=== PATIENT | female | born 1965 | race American Indian/Alaskan Native ===

== ENCOUNTER 2022-11-09 12:33 | Inpatient (IN) | payer OTHER, MEDICAID, SELFPAY ==
[2022-11-09] VITALS (14 sets, daily range): BP systolic 85–138; BP diastolic 44–66; PULSE 95–114; RESP 16–41; TEMP 36.8–37.1; O2SAT 88–99; BMI 57.9
--- NOTE | 2022-11-09 13:03 | PC.NURSE ---
Pt placed on hovermat for easier transfer is needed. Pt's clothing removed. Pt has red, excoriated skin between folds of panus and shane area. Areas of sloughing skin on blle upper inner and posterior thighs. Anal area is dark tissue non blanching surrounding anus, appears to be an unstagable pressure ulcer. All areas painful to touch. Pt cleaned and dried and barrier cream placed. Pt turned to right side, pillows placed to back and in between legs.
--- NOTE | 2022-11-09 13:04 | ED_ITS ---
HPI - General Adult General Chief complaint: Fall Stated complaint: fall, + thinners Time Seen by Provider: 11/09/22 12:47 Source: patient and EMS Mode of arrival: EMS Limitations: no limitations History of Present Illness HPI narrative: Patient is a 57-year-old female. Is on anticoagulation for multiple blood lois ts. Not a diabetic. Does have chronic back issues. Has had surgery. Has rods in her back. Approximately 1 week ago she was trying to stand up from her chair using her walker when she fell. She did not hit her head. There was no loss of conscious. She did injure any extremities although she was unable to get up. She is spent the past week lying on the floor. Her [facility] He is given her food and also things to drink. He is tried to help her up but he was unable to do so. She refused to have him contact any help to get her up. She states that it was her that did not him to contact anyone. She finally relented this morning. EMS was called. She was brought to the emergency department by EMS. She has no extremity complaints. No chest pain. No shortness of breath. No headache. No abdominal pain. Related Data Allergies Allergy/AdvReac Type Severity Reaction Status Date / Time No Known Drug Allergies Allergy Verified 11/09/22 15:51 Review of Systems Review of Systems ROS Unobtainable: All systems reviewed & are unremarkable except as noted in HPI and below Patient History Medical History DVT (deep venous thrombosis) Pulmonary embolism Social History Smoking Status: Never smoker Exam Initial Vital Signs Initial Vital Signs: Vital Signs Temperature 98.7 F 11/09/22 12:30 Pulse Rate 106 H 11/09/22 12:30 Respiratory Rate 17 11/09/22 12:30 Blood Pressure 138/65 11/09/22 12:30 Pulse Oximetry 99 11/09/22 12:30 Oxygen Delivery Method 11/09/22 12:30 Const General: disheveled Nutritional Appearance: obese HENMT Head: normal to inspection and normocephalic Mouth: No moist mucous membranes Resp Effort & Inspection: normal respiratory effort Auscultation: clear to auscultation bilaterally Cardio Rate: bradycardic Rhythm: regular rhythm GI Inspection: normal to inspection Palpation: soft Back/Spine/Pelvis Cervical Spine: No cervical spinal tenderness Skin Other: Patient has pressure ulcerations in her lower back/upper buttocks and also in her upper thighs specifically on the left. Minimal surrounding erythema. No drainage. There was skin sloughing of the area. Neuro General: patient alert, patient awake, patient oriented x3 and moves all extremities Cranial Nerves: CN's II-XI intact bilaterally Cognition: normal cognition Extrem General: normal to inspection and capillary refill normal Psych Appearance: disheveled Scores GCS Gilbert coma scale eye opening: Spontaneous Gilbert coma scale verbal response: Orientated Jorge coma scale motor response: Obey commands Jorge coma scale total score: 15 Nexus Score for C-Spine Focal Neurologic deficit present: No Midline spinal tenderness present: No Altered level of conciousness present: No Intoxication present: No Distracting Injury Present: No Nexus Criteria for C-spine: 0 Course Orders Ordered: ED Orders 11/09/22 13:08 EKG-12 Lead Stat 11/09/22 13:40 Covid-19 + FLU A/B + RSV - PCR Stat 11/09/22 14:02 Acetaminophen Stat Ammonia (NH3) Stat Complete Blood Count AUTO DIFF Stat Comprehensive Metabolic Panel Stat Ethanol (ETOH) Stat Lactate (Lactic Acid) Stat Lipase Stat Magnesium Stat NT-proBNP (BNP-Adult 18+) Stat Partial Thromboplastin Time Stat Procalcitonin Stat Prothrombin Time INR Stat Salicylate Stat Troponin & CK Cardiac Panel Stat 11/09/22 14:33 Urinalysis and Microscopic Stat Urine Culture Stat Urine Drug Screen, Rapid Stat 11/09/22 15:04 XR chest 1V Stat 11/09/22 15:35 Blood Culture Stat Discontinued Medications Sodium Chloride (Normal Saline 0.9%) 1,000 mls @ 1,000 mls/hr IV BOLUS ONE Stop: 11/09/22 13:47 Last Infusion: 11/09/22 14:51 Dose: 0 mls/hr Documented By: Admin: 11/09/22 13:38 Dose: 1,000 mls/hr Documented By: GRISELDA Ceftriaxone Sodium 1,000 mg/ (Sodium Chloride) 100 mls @ 200 mls/hr IV NOW ONE Stop: 11/09/22 14:57 Vital Signs Vital signs: Vital Signs - 8 hr 11/09/22 12:30 11/09/22 12:46 11/09/22 13:28 Temperature 98.7 F Pulse Rate 106 H 109 H Respiratory Rate 17 Blood Pressure 138/65 126/66 Pulse Oximetry 99 91 Oxygen Delivery Method Room Air 11/09/22 13:28 11/09/22 13:30 11/09/22 14:12 Temperature Pulse Rate 109 H 107 H 101 H Respiratory Rate Blood Pressure Pulse Oximetry 98 99 94 Oxygen Delivery Method Room Air Medical Decision Making Lab Data Result diagrams: 11/09/22 14:02 11/09/22 14:02 Labs: Lab Results 11/09/22 11/09/22 11/09/22 Range/Units 13:40 14:02 14:02 WBC 13.2 H (4.5-11.0) X10^3/uL RBC 2.59 L (4.0-5.2) X10^6/uL Hgb 8.1 L (12.0-16.0) g/dL Hct 24.9 L (36-46) % MCV 96.3 (80-100) fL MCH 31.1 (26-34) PG MCHC 32.3 (30-36) % RDW 20.0 H (11.6-14.8) % Plt Count 391 (150-400) X10^3/uL Neut % (Auto) 87.3 H (50-75) % Lymph % (Auto) 4.1 L (25-40) % [place] % (Auto) 5.7 (3-14) % Eos % (Auto) 2.5 (2-4) % Baso % (Auto) 0.4 (0-2) % Neut # (Auto) 16914 H (4174-4931) /uL Lymph # (Auto) 500 L (2310-2098) /uL [place] # (Auto) 800 (0-900) /uL Eos # (Auto) 300 (0-450) /uL Baso # (Auto) 100 (0-100) /uL PT 16.6 H (10.1-12.7) SECONDS INR 1.4 H (0.9-1.3) APTT 30 (26-36) SECONDS Sodium (137-145) mmol/L Potassium (3.4-5.1) mmol/L Chloride (98-107) mmol/L Carbon Dioxide (22-32) mmol/L BUN (7-17) mg/dL Creatinine (0.52-1.04) mg/dL Estimated GFR (>60) mL/min BUN/Creatinine Ratio (6-22) Glucose (70-100) mg/dL Lactate (0.7-2.1) mmol/L Calcium (8.4-10.2) mg/dL Magnesium (1.6-2.3) mg/dL Total Bilirubin (0.2-1.3) mg/dL AST (14-36) IU/L ALT (<35) IU/L Alkaline Phosphatase (38-126) U/L Ammonia (9-30) umol/L Total Creatine Kinase (30-135) U/L CK-MB (CK-2) (<2.37) ng/mL CK-MB (CK-2) Rel Index (1.5-5.0) % Troponin I (0.01-0.034) ng/mL NT-Pro-B Natriuret Pep (<125) pg/mL Total Protein (6.3-8.2) g/dL Albumin (3.5-5.0) g/dL Globulin (1.7-4.1) g/dL Albumin/Globulin Ratio (1.0-2.8) Lipase (23-300) U/L Procalcitonin (<0.5) ng/mL Urine Color Urine Appearance Urine pH (4.5-8.0) Ur Specific [place] (1.000-1.035) Urine Protein (Negative) Urine Glucose (UA) (Negative) g/dL Urine Ketones (NEGATIVE) Urine Occult Blood (Negative) Urine Nitrate (Negative) Urine Bilirubin (NEGATIVE) Urine Urobilinogen (0.2) E.U./dL Ur Leukocyte Esterase (NEGATIVE) Urine RBC (0-5/HPF) Urine WBC (0-5/HPF) Amorphous Sediment Urine Bacteria (None) Salicylates (<20) mg/dL U Opiates 300ng/mL cut (Negative) Ur Oxycodone Screen (Negative) Urine Methadone Screen (Negative) Acetaminophen (10-30) ug/mL Ur Barbiturates Screen (Negative) U Tricyclic Antidepress (Negative) Ur Phencyclidine Scrn (Negative) Ur Amphetamines Screen (Negative) U Methamphetamines Scrn (Negative) Ur MDMA Scrn (Ecstasy) (Negative) U Benzodiazepines Scrn (Negative) Urine Cocaine Screen (Negative) U Marijuana (THC) Screen (Negative) Ethyl Alcohol ( - 10) mg/dL SARS-CoV-2 (PCR) Negative (Negative) Influenza A (RT-PCR) Flu a negative (NEGATIVE) Influenza B (RT-PCR) Flu b negative (NEGATIVE) RSV (PCR) Negative (Negative) 11/09/22 11/09/22 11/09/22 Range/Units 14:02 14:02 14:02 WBC (4.5-11.0) X10^3/uL RBC (4.0-5.2) X10^6/uL Hgb (12.0-16.0) g/dL Hct (36-46) % MCV (80-100) fL MCH (26-34) PG MCHC (30-36) % RDW (11.6-14.8) % Plt Count (150-400) X10^3/uL Neut % (Auto) (50-75) % Lymph % (Auto) (25-40) % [place] % (Auto) (3-14) % Eos % (Auto) (2-4) % Baso % (Auto) (0-2) % Neut # (Auto) (9483-6024) /uL Lymph # (Auto) (8853-0257) /uL [place] # (Auto) (0-900) /uL Eos # (Auto) (0-450) /uL Baso # (Auto) (0-100) /uL PT (10.1-12.7) SECONDS INR (0.9-1.3) APTT (26-36) SECONDS Sodium 143 (137-145) mmol/L Potassium 3.3 L (3.4-5.1) mmol/L Chloride 105 (98-107) mmol/L Carbon Dioxide 26 (22-32) mmol/L BUN 15 (7-17) mg/dL Creatinine 0.73 (0.52-1.04) mg/dL Estimated GFR > 60 (>60) mL/min BUN/Creatinine Ratio 20.5 (6-22) Glucose 117 H (70-100) mg/dL Lactate 1.3 (0.7-2.1) mmol/L Calcium 8.7 (8.4-10.2) mg/dL Magnesium 1.8 (1.6-2.3) mg/dL Total Bilirubin 0.8 (0.2-1.3) mg/dL AST 31 (14-36) IU/L ALT 21 (<35) IU/L Alkaline Phosphatase 120 (38-126) U/L Ammonia 9 (9-30) umol/L Total Creatine Kinase 274 H (30-135) U/L CK-MB (CK-2) 2.87 H (<2.37) ng/mL CK-MB (CK-2) Rel Index 1.0 L (1.5-5.0) % Troponin I < 0.012 (0.01-0.034) ng/mL NT-Pro-B Natriuret Pep 255 H (<125) pg/mL Total Protein 7.0 (6.3-8.2) g/dL Albumin 3.1 L (3.5-5.0) g/dL Globulin 3.9 (1.7-4.1) g/dL Albumin/Globulin Ratio 0.8 L (1.0-2.8) Lipase 26 (23-300) U/L Procalcitonin 0.31 (<0.5) ng/mL Urine Color Urine Appearance Urine pH (4.5-8.0) Ur Specific [place] (1.000-1.035) Urine Protein (Negative) Urine Glucose (UA) (Negative) g/dL Urine Ketones (NEGATIVE) Urine Occult Blood (Negative) Urine Nitrate (Negative) Urine Bilirubin (NEGATIVE) Urine Urobilinogen (0.2) E.U./dL Ur Leukocyte Esterase (NEGATIVE) Urine RBC (0-5/HPF) Urine WBC (0-5/HPF) Amorphous Sediment Urine Bacteria (None) Salicylates < 1.0 (<20) mg/dL U Opiates 300ng/mL cut (Negative) Ur Oxycodone Screen (Negative) Urine Methadone Screen (Negative) Acetaminophen < 10 (10-30) ug/mL Ur Barbiturates Screen (Negative) U Tricyclic Antidepress (Negative) Ur Phencyclidine Scrn (Negative) Ur Amphetamines Screen (Negative) U Methamphetamines Scrn (Negative) Ur MDMA Scrn (Ecstasy) (Negative) U Benzodiazepines Scrn (Negative) Urine Cocaine Screen (Negative) U Marijuana (THC) Screen (Negative) Ethyl Alcohol < 10 ( - 10) mg/dL SARS-CoV-2 (PCR) (Negative) Influenza A (RT-PCR) (NEGATIVE) Influenza B (RT-PCR) (NEGATIVE) RSV (PCR) (Negative) 11/09/22 11/09/22 Range/Units 14:33 14:33 WBC (4.5-11.0) X10^3/uL RBC (4.0-5.2) X10^6/uL Hgb (12.0-16.0) g/dL Hct (36-46) % MCV (80-100) fL MCH (26-34) PG MCHC (30-36) % RDW (11.6-14.8) % Plt Count (150-400) X10^3/uL Neut % (Auto) (50-75) % Lymph % (Auto) (25-40) % [place] % (Auto) (3-14) % Eos % (Auto) (2-4) % Baso % (Auto) (0-2) % Neut # (Auto) (6535-1231) /uL Lymph # (Auto) (6309-1898) /uL [place] # (Auto) (0-900) /uL Eos # (Auto) (0-450) /uL Baso # (Auto) (0-100) /uL PT (10.1-12.7) SECONDS INR (0.9-1.3) APTT (26-36) SECONDS Sodium (137-145) mmol/L Potassium (3.4-5.1) mmol/L Chloride (98-107) mmol/L Carbon Dioxide (22-32) mmol/L BUN (7-17) mg/dL Creatinine (0.52-1.04) mg/dL Estimated GFR (>60) mL/min BUN/Creatinine Ratio (6-22) Glucose (70-100) mg/dL Lactate (0.7-2.1) mmol/L Calcium (8.4-10.2) mg/dL Magnesium (1.6-2.3) mg/dL Total Bilirubin (0.2-1.3) mg/dL AST (14-36) IU/L ALT (<35) IU/L Alkaline Phosphatase (38-126) U/L Ammonia (9-30) umol/L Total Creatine Kinase (30-135) U/L CK-MB (CK-2) (<2.37) ng/mL CK-MB (CK-2) Rel Index (1.5-5.0) % Troponin I (0.01-0.034) ng/mL NT-Pro-B Natriuret Pep (<125) pg/mL Total Protein (6.3-8.2) g/dL Albumin (3.5-5.0) g/dL Globulin (1.7-4.1) g/dL Albumin/Globulin Ratio (1.0-2.8) Lipase (23-300) U/L Procalcitonin (<0.5) ng/mL Urine Color Yellow Urine Appearance Sl cloudy Urine pH 5.5 (4.5-8.0) Ur Specific [place] 1.020 (1.000-1.035) Urine Protein 2+ H (Negative) Urine Glucose (UA) Negative (Negative) g/dL Urine Ketones 1+ H (NEGATIVE) Urine Occult Blood 1+ H (Negative) Urine Nitrate Positive H (Negative) Urine Bilirubin Negative (NEGATIVE) Urine Urobilinogen 0.2 (0.2) E.U./dL Ur Leukocyte Esterase 1+ H (NEGATIVE) Urine RBC 1-5/hpf (0-5/HPF) Urine WBC 30-100/hpf H (0-5/HPF) Amorphous Sediment 2+ Urine Bacteria Many (>30) H (None) Salicylates (<20) mg/dL U Opiates 300ng/mL cut Negative (Negative) Ur Oxycodone Screen Positive H (Negative) Urine Methadone Screen Negative (Negative) Acetaminophen (10-30) ug/mL Ur Barbiturates Screen Negative (Negative) U Tricyclic Antidepress Negative (Negative) Ur Phencyclidine Scrn Negative (Negative) Ur Amphetamines Screen Negative (Negative) U Methamphetamines Scrn Negative (Negative) Ur MDMA Scrn (Ecstasy) Negative (Negative) U Benzodiazepines Scrn Negative (Negative) Urine Cocaine Screen Negative (Negative) U Marijuana (THC) Screen Negative (Negative) Ethyl Alcohol ( - 10) mg/dL SARS-CoV-2 (PCR) (Negative) Influenza A (RT-PCR) (NEGATIVE) Influenza B (RT-PCR) (NEGATIVE) RSV (PCR) (Negative) ECG Data Attestation: I personally reviewed and interpreted this ECG as follows: Interpretation: Sinus tachycardia Ventricular rate 108 Normal axis Normal QRS Artifact noted in V2 V3 causing ST changes MDM Narrative Medical decision making narrative: It appears the patient has been lying on the floor for least a week. She states that she initially slid onto the floor. She did not hit her head. She is no neck pain. She is no extremity complaints. No head CT nor C-spine CT warranted. She is on blood thinners. She does have a nitrite positive urine. Was given Rocephin. While sleeping in the room her oxygen saturations did desat so a chest x-ray was ordered. She also has pressure wounds to her lower back/buttocks/posterior upper thighs. Does encompass a fairly large area but they do seem to be superficial. Given her presentation she does require admission to the hospital for further evaluation treatment. Discussed the case with Dr. Evans who will admit. Discharge Plan Departure Patient Disposition: Admitted as Observation Clinical Impression: UTI (urinary tract infection), Pressure injury of skin Admit Date/Time: 11/09/22 15:46 Admit Provider: Jeny Evans
[2022-11-09] MEDS: SODIUM CHLORIDE 0.9% 1,000 ML 1000 ML IV ×2 (13:38→23:35)
[2022-11-09 14:19] LABS: Add Manual Diff / Slide Review NO; Basophils Absolute Auto 100 /uL (0-100); Basophils Percent Auto 0.4 % (0-2); Eosinophils Absolute Auto 300 /uL (0-450); Eosinophils Percent Auto 2.5 % (2-4); Hematocrit 24.9 % (36-46); Hemoglobin 8.1 g/dL (12.0-16.0); Lymphocytes Absolute Auto 500 /uL (1100-4500); Lymphocytes Percent Auto 4.1 % (25-40); Mean Corpuscular HGB Conc 32.3 % (30-36); Mean Corpuscular Hemoglobin 31.1 PG (26-34); Mean Corpuscular Volume 96.3 fL (80-100); Monocytes Absolute Auto 800 /uL (0-900); Monocytes Percent Auto 5.7 % (3-14); Neutrophils Absolute Auto 11600 /uL (1500-7000); Neutrophils Percent Auto 87.3 % (50-75); Platelet Count 391 X10^3/uL (150-400); Red Blood Cell Count 2.59 X10^6/uL (4.0-5.2); White Blood Cell Count 13.2 X10^3/uL (4.5-11.0)
[2022-11-09 14:34] LABS: INR 1.4 (0.9-1.3); Prothrombin Time 16.6 SECONDS (10.1-12.7)
[2022-11-09 14:35] LABS: Lactate (Lactic Acid) 1.3 mmol/L (0.7-2.1)
[2022-11-09 14:36] LABS: Appearance Urine UA SL CLOUDY; Bilirubin Urine UA NEGATIVE (NEGATIVE); Color Urine UA YELLOW; Glucose Urine UA NEGATIVE (Negative); Ketones Urine UA 1+ (NEGATIVE); Leukocyte Esterase Urine UA 1+ (NEGATIVE); Nitrite Urine UA POSITIVE (Negative); Occult Blood Urine UA 1+ (Negative); Protein Urine UA 2+ (Negative); Urobilinogen Urine UA 0.2 E.U./dL (0.2)
[2022-11-09 14:36] LABS: PTT Partial Thromboplastin Tim 30 SECONDS (26-36)
[2022-11-09 14:37] LABS: pH Urine UA 5.5 (4.5-8.0)
[2022-11-09 14:39] LABS: Acetaminophen < 10 ug/mL (10-30); Alanine Aminotransferase 21 IU/L (<35); Albumin 3.1 g/dL (3.5-5.0); Albumin Globulin Ratio 0.8 (1.0-2.8); Alkaline Phosphatase 120 U/L (38-126); Ammonia (NH3) 9 umol/L (9-30); Aspartate Aminotransferase 31 IU/L (14-36); BUN Creatinine Ratio 20.5 (6-22); Bilirubin Total 0.8 mg/dL (0.2-1.3); Blood Urea Nitrogen 15 mg/dL (7-17); Calcium 8.7 mg/dL (8.4-10.2); Carbon Dioxide 26 mmol/L (22-32); Chloride 105 mmol/L (98-107); Creatine Kinase 274 U/L (30-135); Estimated Glomerular Filt Rate > 60 mL/min (>60); Ethanol (ETOH) < 10 mg/dL; Globulin 3.9 g/dL (1.7-4.1); Glucose 117 mg/dL (70-100); HEMOLYSIS < 15 (0-50); Lipase 26 U/L (23-300); Magnesium 1.8 mg/dL (1.6-2.3); Potassium 3.3 mmol/L (3.4-5.1); Salicylate < 1.0 mg/dL (<20); Sodium 143 mmol/L (137-145)
[2022-11-09 14:40] LABS: UR Morphine/Opiate cutoff 300 Negative (Negative); Ur Creatinine Normal (Normal); Ur Specific Gravity Normal (Normal); Urine Amphetamines Negative (Negative); Urine Barbiturates Negative (Negative); Urine Benzodiazepines Negative (Negative); Urine Cocaine Negative (Negative); Urine MDMA Negative (Negative); Urine Methadone Negative (Negative); Urine Methamphetamines Negative (Negative); Urine Oxycodone Positive (Negative); Urine Phencyclidine Negative (Negative); Urine Tetrahydrocannabinol Negative (Negative); Urine Tricyclic Antidepressant Negative (Negative); Urine pH Normal (Normal)
[2022-11-09 14:46] LABS: Amorphous Sediment Urine 2+; Bacteria Urine Many (>30); RBC Urine 1-5/HPF (0-5/HPF); WBC Urine 30-100/HPF (0-5/HPF)
[2022-11-09 14:46] LABS: Influenza A - CEPHEID Flu A NEGATIVE (NEGATIVE); Influenza B - CEPHEID Flu B NEGATIVE (NEGATIVE); Respiratory Syncytial Virus Negative (Negative)
[2022-11-09 14:47] LABS: COVID-19 CEPHEID 4-PLEX PCR Negative (Negative)
[2022-11-09 14:48] LABS: NT-proBNP (BNP-Adult 18+) 255 pg/mL (<125); Troponin I < 0.012 ng/mL (0.01-0.034)
[2022-11-09 14:53] LABS: Creatine Kinase MB 2.87 ng/mL (<2.37); Procalcitonin 0.31 ng/mL (<0.5)
--- NOTE | 2022-11-09 15:04 | DI.RAD.S_ITS ---
PROCEDURE: XR CHEST 1V INDICATIONS: eval for PNA TECHNIQUE: One view of the chest was acquired. COMPARISON: [facility], CR, XR CHEST 2 VIEWS, 12/27/2019, 14:44. FINDINGS: Surgical changes and devices: Thoracolumbar fusion hardware. Lungs and pleura: Lungs are clear. No pleural effusions or pneumothorax. Mediastinum: Mediastinal contours appear normal. Heart size is normal. Bones and chest wall: No suspicious bony lesions. Overlying soft tissues appear unremarkable. IMPRESSION: No acute process. Dictated by: Florencia Landis M.D. on 11/09/2022 at 14:17 Approved by: Florencia Landis M.D. on 11/09/2022 at 14:17
[2022-11-09] MEDS: cefTRIAXone 1,000 MG in SODIUM CHLORIDE 0.9% 100 ML 200 MG IV (15:56)
--- NOTE | 2022-11-09 16:07 | PC.NURSE ---
1530 Multiple attempts to obtain 2nd set of blood cultures has failed. I attempted x3 and Lori deployment technician attempted x3 and was only able to obtain [address] Kay aware. He reports ok to start antibiotics and cancel 2nd set of blood cultures at this time.
--- NOTE | 2022-11-09 16:55 | PC.NURSE ---
1600 At this time I was informed by the patient that she currently has bone cancer, metastasized from Breast since 2016. I informed Dr. Kay.
--- NOTE | 2022-11-09 17:42 | P.HP_ITS ---
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 Patient was diagnosed with breast cancer in 2017. She underwent right mastectomy, chemo and radiation. 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 Patient reports she typically ambulates with a cane outside of the home and a walker in the home. She notes that approximately 1 week ago she was getting up from a chair and suffered a slide to the floor. It was a non injury fall. She attempted to get herself back up but was unable to do so. Did come an attempt to help her up but was also unsuccessful. He urged her to allow him to call EMS for a lift assist, but she declined. Over the course of the week he has checked on her daily and she is continued to refuse EMS transport or lift assist. He has been bringing her food and liquids and she states she is been eating and drinking reasonably well. Finally today, when he came to check on her she agreed to be transported to the emergency department. In the emergency department, she was afebrile with stable vital signs with the exception of mild tachycardia. Labs were done which revealed a white count of 13.2, hemoglobin 8.1, platelet count of 391. PT 16.6, INR 1.4. Sodium 143, potassium 3.3, chloride 105, bicarb 26, BUN 15, creatinine 0.73, glucose 117. LFTs were within normal limits. CPK was mildly elevated at 274. BNP was mildly elevated at 255. Albumin slightly low at 3.1. UA revealed a specific gravity 1.020, protein 2+, ketones positive, occult blood positive, positive nitrites, positive leukocyte esterase, many bacteria, 30-100 white cells per high-powered field. Urine tox screen was positive for oxycodone. Alcohol level was negative. COVID, flu a, B, and RSV were negative. Chest x- ray was performed with no obvious acute cardiopulmonary process. Patient was noted to have what was described as fairly superficial pressure wounds to the lower back/upper buttocks and upper thighs. Patient reports the only reason she did not seek help was that she was ?stubborn?. She states her daughter was discussing potential need for snf with the patient and the patient became somewhat insensate by that and wanted to prove that she was capable of taking care of herself. She notes that in the process she clearly made it worse. 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 No alcohol use. Lives alone in [place], [place] Safety & Behavioral: Feels Safe in Current Yes Environment Been Physically Hurt or No Threatened By a Person Tobacco & Substance use: Smoking Status Never smoker alcohol intake frequency other Substance Use Type does not use Meds Home Medications and Allergies Home Medications Medication Instructions Recorded Confirmed Type bupropion HCl 150 mg 24 hr tablet, 150 mg PO DAILY 11/09/22 11/09/22 History extended release letrozole 2.5 mg tablet 2.5 mg PO BID 11/09/22 11/09/22 History levothyroxine 150 mcg tablet 150 mcg PO DAILY 11/09/22 11/09/22 History metformin 500 mg tablet 500 mg PO BID 11/09/22 11/09/22 History oxycodone-acetaminophen 5 mg-325 tab 11/09/22 History mg tablet rivaroxaban 20 mg tablet (Xarelto) 20 mg PO DAILY 11/09/22 11/09/22 History ropinirole 2 mg tablet 2 mg PO DAILY 11/09/22 11/09/22 History rosuvastatin 10 mg tablet 10 mg PO DAILY 11/09/22 11/09/22 History Allergies Allergy/AdvReac Type Severity Reaction Status Date / Time No Known Drug Allergies Allergy Verified 11/09/22 15:51 Review of Systems Review of Systems Narrative: All other systems were reviewed negative Exam Vital Signs (past 8 hours): - 11/09/22 12:30 11/09/22 12:46 11/09/22 13:28 Temperature 98.7 F Pulse Rate 106 H 109 H Respiratory Rate 17 Blood Pressure 138/65 126/66 Pulse Oximetry 99 91 Oxygen Delivery Method Room Air Oxygen Flow Rate 11/09/22 13:28 11/09/22 13:30 11/09/22 14:12 Temperature Pulse Rate 109 H 107 H 101 H Respiratory Rate Blood Pressure Pulse Oximetry 98 99 94 Oxygen Delivery Method Room Air Oxygen Flow Rate 11/09/22 14:30 11/09/22 15:00 11/09/22 15:30 Temperature Pulse Rate 108 H 104 H 105 H Respiratory Rate 39 H 41 H Blood Pressure Pulse Oximetry 93 88 L 99 Oxygen Delivery Method Room Air Room Air Nasal Cannula Oxygen Flow Rate 2 11/09/22 16:00 11/09/22 16:12 11/09/22 16:12 Temperature Pulse Rate 108 H 109 H Respiratory Rate 38 H 34 H Blood Pressure 106/59 L Pulse Oximetry 98 99 Oxygen Delivery Method Nasal Cannula Nasal Cannula Oxygen Flow Rate 2 2 11/09/22 16:30 Temperature Pulse Rate 108 H Respiratory Rate 36 H Blood Pressure Pulse Oximetry 97 Oxygen Delivery Method Nasal Cannula Oxygen Flow Rate 2 Oxygen Delivery Method Nasal Cannula Oxygen Flow Rate 2 Narrative Exam Narrative: GEN: Middle-aged female, Alert and oriented x3, no acute distress HEENT: Normocephalic, face symmetric, pupils equal round reactive to light, extraocular movements intact, sclerae anicteric, conjunctiva clear, nares patent, oropharynx reveals an intact soft and hard palate with dry mucous membranes, dentition is fair NECK: Supple, no lymphadenopathy, thyroid without enlargement or nodularity, carotids no bruits CHEST: Respiratory excursions symmetric, clear to auscultation bilaterally CV: Mildly tachycardic with regular rhythm, no murmurs, rubs, gallops, PMI can not be palpated ABD: Soft, obese, nontender, nondistended, bowel sounds present in all 4 quadrants, body habitus limits exam EXTR: Warm, well perfused, no clubbing/cyanosis/edema SKIN: Posterior calfs reveal dried peeling skin, unroofed blisters noted to the lower back region which are already dried out in multiple locations, malodorous unstageable pressure wound noted in the right inner thigh/lower buttock with surrounding erythema, bilateral medial buttocks in the perianal area are abraded with slough and drainage noted, on the right medial buttock wound there is a darkened area that appears to be consistent with vascular injury/bruising rather than necrosis, significant erythema and fungal odor to all skin folds of the abdomen, groin, and under the breasts NEURO: Alert and oriented x3, cranial nerves 2 through 12 are intact and symmetric bilaterally, motor strength 5/5 throughout, sensation intact throughout PSYCH: Mood and affect is within normal limits, judgment and insight are fair Objective Labs Result Diagrams: 11/09/22 14:02 11/09/22 14:02 Labs: Laboratory Results - last 24 hr 11/09/22 11/09/22 11/09/22 13:40 14:02 14:02 WBC 13.2 H RBC 2.59 L Hgb 8.1 L Hct 24.9 L MCV 96.3 MCH 31.1 MCHC 32.3 RDW 20.0 H Plt Count 391 Neut % (Auto) 87.3 H Lymph % (Auto) 4.1 L [place] % (Auto) 5.7 Eos % (Auto) 2.5 Baso % (Auto) 0.4 Neut # (Auto) 69311 H Lymph # (Auto) 500 L [place] # (Auto) 800 Eos # (Auto) 300 Baso # (Auto) 100 PT 16.6 H INR 1.4 H APTT 30 Sodium Potassium Chloride Carbon Dioxide BUN Creatinine Estimated GFR BUN/Creatinine Ratio Glucose Lactate Calcium Magnesium Total Bilirubin AST ALT Alkaline Phosphatase Ammonia Total Creatine Kinase CK-MB (CK-2) CK-MB (CK-2) Rel Index Troponin I NT-Pro-B Natriuret Pep Total Protein Albumin Globulin Albumin/Globulin Ratio Lipase Procalcitonin Urine Color Urine Appearance Urine pH Ur Specific [place] Urine Protein Urine Glucose (UA) Urine Ketones Urine Occult Blood Urine Nitrate Urine Bilirubin Urine Urobilinogen Ur Leukocyte Esterase Urine RBC Urine WBC Amorphous Sediment Urine Bacteria Salicylates U Opiates 300ng/mL cut Ur Oxycodone Screen Urine Methadone Screen Acetaminophen Ur Barbiturates Screen U Tricyclic Antidepress Ur Phencyclidine Scrn Ur Amphetamines Screen U Methamphetamines Scrn Ur MDMA Scrn (Ecstasy) U Benzodiazepines Scrn Urine Cocaine Screen U Marijuana (THC) Screen Ethyl Alcohol SARS-CoV-2 (PCR) Negative Influenza A (RT-PCR) Flu a negative Influenza B (RT-PCR) Flu b negative RSV (PCR) Negative 11/09/22 11/09/22 11/09/22 14:02 14:02 14:02 WBC RBC Hgb Hct MCV MCH MCHC RDW Plt Count Neut % (Auto) Lymph % (Auto) [place] % (Auto) Eos % (Auto) Baso % (Auto) Neut # (Auto) Lymph # (Auto) [place] # (Auto) Eos # (Auto) Baso # (Auto) PT INR APTT Sodium 143 Potassium 3.3 L Chloride 105 Carbon Dioxide 26 BUN 15 Creatinine 0.73 Estimated GFR > 60 BUN/Creatinine Ratio 20.5 Glucose 117 H Lactate 1.3 Calcium 8.7 Magnesium 1.8 Total Bilirubin 0.8 AST 31 ALT 21 Alkaline Phosphatase 120 Ammonia 9 Total Creatine Kinase 274 H CK-MB (CK-2) 2.87 H CK-MB (CK-2) Rel Index 1.0 L Troponin I < 0.012 NT-Pro-B Natriuret Pep 255 H Total Protein 7.0 Albumin 3.1 L Globulin 3.9 Albumin/Globulin Ratio 0.8 L Lipase 26 Procalcitonin 0.31 Urine Color Urine Appearance Urine pH Ur Specific [place] Urine Protein Urine Glucose (UA) Urine Ketones Urine Occult Blood Urine Nitrate Urine Bilirubin Urine Urobilinogen Ur Leukocyte Esterase Urine RBC Urine WBC Amorphous Sediment Urine Bacteria Salicylates < 1.0 U Opiates 300ng/mL cut Ur Oxycodone Screen Urine Methadone Screen Acetaminophen < 10 Ur Barbiturates Screen U Tricyclic Antidepress Ur Phencyclidine Scrn Ur Amphetamines Screen U Methamphetamines Scrn Ur MDMA Scrn (Ecstasy) U Benzodiazepines Scrn Urine Cocaine Screen U Marijuana (THC) Screen Ethyl Alcohol < 10 SARS-CoV-2 (PCR) Influenza A (RT-PCR) Influenza B (RT-PCR) RSV (PCR) 11/09/22 11/09/22 14:33 14:33 WBC RBC Hgb Hct MCV MCH MCHC RDW Plt Count Neut % (Auto) Lymph % (Auto) [place] % (Auto) Eos % (Auto) Baso % (Auto) Neut # (Auto) Lymph # (Auto) [place] # (Auto) Eos # (Auto) Baso # (Auto) PT INR APTT Sodium Potassium Chloride Carbon Dioxide BUN Creatinine Estimated GFR BUN/Creatinine Ratio Glucose Lactate Calcium Magnesium Total Bilirubin AST ALT Alkaline Phosphatase Ammonia Total Creatine Kinase CK-MB (CK-2) CK-MB (CK-2) Rel Index Troponin I NT-Pro-B Natriuret Pep Total Protein Albumin Globulin Albumin/Globulin Ratio Lipase Procalcitonin Urine Color Yellow Urine Appearance Sl cloudy Urine pH 5.5 Ur Specific [place] 1.020 Urine Protein 2+ H Urine Glucose (UA) Negative Urine Ketones 1+ H Urine Occult Blood 1+ H Urine Nitrate Positive H Urine Bilirubin Negative Urine Urobilinogen 0.2 Ur Leukocyte Esterase 1+ H Urine RBC 1-5/hpf Urine WBC 30-100/hpf H Amorphous Sediment 2+ Urine Bacteria Many (>30) H Salicylates U Opiates 300ng/mL cut Negative Ur Oxycodone Screen Positive H Urine Methadone Screen Negative Acetaminophen Ur Barbiturates Screen Negative U Tricyclic Antidepress Negative Ur Phencyclidine Scrn Negative Ur Amphetamines Screen Negative U Methamphetamines Scrn Negative Ur MDMA Scrn (Ecstasy) Negative U Benzodiazepines Scrn Negative Urine Cocaine Screen Negative U Marijuana (THC) Screen Negative Ethyl Alcohol SARS-CoV-2 (PCR) Influenza A (RT-PCR) Influenza B (RT-PCR) RSV (PCR) Assessment & Plan Assessment & Plan narrative: 1. Ground level fall with prolonged down time Patient is being admitted after prolonged down time weakness and patient refusal for lift assist. She had a non injury fall. Fortunately, she was eating and d rinking and has no evidence of rhabdomyolysis. She was able to move around on the floor and was able to reposition to some extent. CPK will be repeated again in the morning. PT and OT consults have been requested. Unfortunately, she is metastatic breast cancer with spinal Mets and is postoperative from extensive spinal surgery which also limits her mobility. She does have some neuropathy related to chemotherapy. Typically ambulates with a cane or walker. Suspect she will require a snf facility at discharge. 2. Unstageable pressure wounds-DTI's to the bilateral medial buttocks in the perianal region, right lower buttock/upper and inner thigh Will work on offloading as able, placing pillows between the legs and repositioning q.2 hours. Will work on obtaining in air mattress or bariatric bed if possible. Will initiate empiric anaerobic coverage given the malodor with her wounds. Suspect there is some component of necrotic tissue as well. He will be placed NPO after midnight for possible surgical debridement. I have contacted Dr. Swift from general surgery who will consult in the morning. 3. Superficial pressure injury to the bilateral calves and lower and mid bilateral back Offload pressure as much as possible as noted. 4. Metastatic breast cancer, known bony metastasis Continue letrozole. She reports she will have follow-up staging studies done next week. 5. Diabetes mellitus type [address] fingersticks and sliding scale. Check hemoglobin A1c. Controlled carb diet. 6. Hypertension Await medication reconciliation. Restart home meds. 7. Hypothyroidism Start home dose of levothyroxine 8. Hyperlipidemia Restart home dose of Crestor 9. Restless leg syndrome Continue usual outpatient dose of ropinirole 10. Chronic anticoagulation On Xarelto at baseline. This will be held for now in light of potential surgical debridement in the morning. Code status Full Prophylaxis As noted resume Xarelto postoperatively Disposition Admit to acute inpatient Time Spent With Patient Critical Care time: I spent a total of [] minutes of critical care time on this patient's care today; this time is exclusive of procedural time.
--- NOTE | 2022-11-09 18:09 | PC.NURSE ---
Assess- Patient states that she slid at home and was down on the ground for about a week. She called her son but he was unable to help patient off of the floor. She is obese, with severe skin issues from being down for several days. Patients skin assessment is done under physical assessment. She has bilateral groin redness, and redness under her pannus with moisture throughout areas. She leaks urine. Patient is not able to walk but is able to roll side to side. She may be able to use the bed jack or a pure wick. Patient states that she had breast cancer in 2017, which she does have a r.side mestectomy. She has two large unstageable wounds to her buttocks, r.buttocks cheek is bigger. Skin has sloughed off of buttocks and area is macerated and white. She also has maceration to the inner part of her butt around her anus. Area has some blackish purple color that looks like possible shearing force that caused maceration or some kind of bruising. Patient is alert and oriented x4, she denies pain at rest but does have discomfort to bottom when being cleaned up and wiped. She also states that she has terminal cancer now, and that it has spread throughout her body and bones. She will be getting scans to see how advance it has become. Patient is resting on her l.side and is sleeping. Tolerating water well. Denies any nausea. She states that she didnt call 911 for help when she fell a week ago because she was to stubborn. She is pleasant, and helpful with all care.
[2022-11-09 18:29] LABS: Hemoglobin A1C% w Est Avg Glu 5.2 % (4.0-6.0)
[2022-11-09] MEDS: SODIUM CHLORIDE 0.9% 1,000 ML 100 ML IV (20:01)
[2022-11-09] MEDS: VANCOMYCIN 2,000 MG/400 ML PIGGYBACK 200 MG IV (20:01)
[2022-11-09] MEDS: ACETAMINOPHEN 325 MG TABLET 650 MG PO (20:50)
[2022-11-09] MEDS: SENNOSIDES 8.6 MG TABLET 17.2 MG PO (20:51)
[2022-11-09] MEDS: DOCUSATE 100 MG CAPSULE PO (20:51)
[2022-11-09 21:45] LABS: Add Manual Diff / Slide Review NO; Basophils Absolute Auto 100 /uL (0-100); Basophils Percent Auto 1.1 % (0-2); Eosinophils Absolute Auto 300 /uL (0-450); Eosinophils Percent Auto 2.6 % (2-4); Hematocrit 22.1 % (36-46); Lymphocytes Absolute Auto 600 /uL (1100-4500); Lymphocytes Percent Auto 5.1 % (25-40); Mean Corpuscular HGB Conc 31.7 % (30-36); Mean Corpuscular Hemoglobin 30.5 PG (26-34); Mean Corpuscular Volume 96.3 fL (80-100); Monocytes Absolute Auto 800 /uL (0-900); Monocytes Percent Auto 6.8 % (3-14); Neutrophils Absolute Auto 9800 /uL (1500-7000); Neutrophils Percent Auto 84.4 % (50-75); Platelet Count 337 X10^3/uL (150-400); Red Cell Distribution Width 20.1 % (11.6-14.8); White Blood Cell Count 11.7 X10^3/uL (4.5-11.0)
[2022-11-09 22:28] LABS: Anisocytosis 3+; Hypochromasia 1+
[2022-11-09] MEDS: PIPERACILLIN/TAZO 3.375 GM in SODIUM CHLORIDE 0.9% 100 ML IV (22:48)
[2022-11-10] VITALS (13 sets, daily range): BP systolic 81–110; BP diastolic 39–59; PULSE 69–92; RESP 16–18; TEMP 36.7–37.3; O2SAT 95–99
[2022-11-10] MEDS: SODIUM CHLORIDE 0.9% 1,000 ML 1000 ML IV (01:05)
[2022-11-10 01:28] LABS: Lactate (Lactic Acid) 0.9 mmol/L (0.7-2.1)
[2022-11-10] MEDS: NYSTATIN POWDER 15GM 1 APPLIC TOP ×3 (01:57→22:43)
--- NOTE | 2022-11-10 05:40 | P.PN_ITS ---
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 She was admitted with unstageable decubitus ulcers. Patient did have hypotension overnight. She received a couple of IV fluid boluses. This morning her hemoglobin was 7 and packed red blood cells were ordered. Since then, her blood pressures have been normal. Patient denies any chest pain/shortness of breath/abdominal pain/nausea. Exam Vital Signs (past 8 hours): - 11/09/22 23:39 11/09/22 23:41 11/10/22 00:52 Temperature 98.7 F Pulse Rate 95 H Respiratory Rate 17 Blood Pressure 85/44 L 89/44 L 81/39 L Pulse Oximetry 98 Oxygen Flow Rate 0 11/10/22 02:35 11/10/22 02:49 11/10/22 02:10 Temperature 98.7 F 98.1 F Pulse Rate 69 87 92 H Respiratory Rate 18 18 Blood Pressure 91/43 L 88/43 L 93/48 L Pulse Oximetry Oxygen Flow Rate 11/10/22 02:36 11/10/22 02:54 11/10/22 04:58 Temperature 98.9 F 98.9 F Pulse Rate 69 89 89 Respiratory Rate 18 18 Blood Pressure 91/43 L 100/54 L 100/54 L Pulse Oximetry 95 Oxygen Flow Rate 2 11/10/22 05:14 11/10/22 05:33 Temperature 98.8 F 98.8 F Pulse Rate 88 88 Respiratory Rate 18 18 Blood Pressure 102/48 L 102/49 L Pulse Oximetry 95 Oxygen Flow Rate 2 Oxygen Delivery Method Nasal Cannula Oxygen Flow Rate 2 Narrative Exam Narrative: GEN: Middle-aged female, very pleasant, Alert and oriented x 3, NAD HEENT:NC, Face symmetric CHEST: Respiratory excursions symmetric, CTAB CV: RRR, no M/R/G ABD: Soft, NT/ND, BT present in all 4 quadrants, body habitus limits exam EXTR: warm, well perfused, no C/C/E SKIN: warm and dry, significant candidiasis in the abdominal and groin skin folds, buttock and thigh lesions were not visualized this morning, skin of the calf is unchanged, no additional breakdown noted NEURO: Alert and oriented x 3, nonfocal Objective Labs Result Diagrams: 11/10/22 13:36 11/10/22 13:36 Labs: Laboratory Results - last 24 hr 11/09/22 11/09/22 11/09/22 13:40 14:02 14:02 WBC 13.2 H RBC 2.59 L Hgb 8.1 L Hct 24.9 L MCV 96.3 MCH 31.1 MCHC 32.3 RDW 20.0 H Plt Count 391 Neut % (Auto) 87.3 H Lymph % (Auto) 4.1 L [place] % (Auto) 5.7 Eos % (Auto) 2.5 Baso % (Auto) 0.4 Neut # (Auto) 39680 H Lymph # (Auto) 500 L [place] # (Auto) 800 Eos # (Auto) 300 Baso # (Auto) 100 RBC Morphology Hypochromasia Anisocytosis PT 16.6 H INR 1.4 H APTT 30 Sodium Potassium Chloride Carbon Dioxide BUN Creatinine Estimated GFR BUN/Creatinine Ratio Glucose Hemoglobin A1c Lactate Calcium Magnesium Total Bilirubin AST ALT Alkaline Phosphatase Ammonia Total Creatine Kinase CK-MB (CK-2) CK-MB (CK-2) Rel Index Troponin I NT-Pro-B Natriuret Pep Total Protein Albumin Globulin Albumin/Globulin Ratio Lipase Procalcitonin Urine Color Urine Appearance Urine pH Ur Specific [place] Urine Protein Urine Glucose (UA) Urine Ketones Urine Occult Blood Urine Nitrate Urine Bilirubin Urine Urobilinogen Ur Leukocyte Esterase Urine RBC Urine WBC Amorphous Sediment Urine Bacteria Salicylates U Opiates 300ng/mL cut Ur Oxycodone Screen Urine Methadone Screen Acetaminophen Ur Barbiturates Screen U Tricyclic Antidepress Ur Phencyclidine Scrn Ur Amphetamines Screen U Methamphetamines Scrn Ur MDMA Scrn (Ecstasy) U Benzodiazepines Scrn Urine Cocaine Screen U Marijuana (THC) Screen Ethyl Alcohol SARS-CoV-2 (PCR) Negative Influenza A (RT-PCR) Flu a negative Influenza B (RT-PCR) Flu b negative RSV (PCR) Negative Blood Type Antibody Screen Crossmatch 11/09/22 11/09/22 11/09/22 14:02 14:02 14:02 WBC RBC Hgb Hct MCV MCH MCHC RDW Plt Count Neut % (Auto) Lymph % (Auto) [place] % (Auto) Eos % (Auto) Baso % (Auto) Neut # (Auto) Lymph # (Auto) [place] # (Auto) Eos # (Auto) Baso # (Auto) RBC Morphology Hypochromasia Anisocytosis PT INR APTT Sodium 143 Potassium 3.3 L Chloride 105 Carbon Dioxide 26 BUN 15 Creatinine 0.73 Estimated GFR > 60 BUN/Creatinine Ratio 20.5 Glucose 117 H Hemoglobin A1c Lactate 1.3 Calcium 8.7 Magnesium 1.8 Total Bilirubin 0.8 AST 31 ALT 21 Alkaline Phosphatase 120 Ammonia 9 Total Creatine Kinase 274 H CK-MB (CK-2) 2.87 H CK-MB (CK-2) Rel Index 1.0 L Troponin I < 0.012 NT-Pro-B Natriuret Pep 255 H Total Protein 7.0 Albumin 3.1 L Globulin 3.9 Albumin/Globulin Ratio 0.8 L Lipase 26 Procalcitonin 0.31 Urine Color Urine Appearance Urine pH Ur Specific [place] Urine Protein Urine Glucose (UA) Urine Ketones Urine Occult Blood Urine Nitrate Urine Bilirubin Urine Urobilinogen Ur Leukocyte Esterase Urine RBC Urine WBC Amorphous Sediment Urine Bacteria Salicylates < 1.0 U Opiates 300ng/mL cut Ur Oxycodone Screen Urine Methadone Screen Acetaminophen < 10 Ur Barbiturates Screen U Tricyclic Antidepress Ur Phencyclidine Scrn Ur Amphetamines Screen U Methamphetamines Scrn Ur MDMA Scrn (Ecstasy) U Benzodiazepines Scrn Urine Cocaine Screen U Marijuana (THC) Screen Ethyl Alcohol < 10 SARS-CoV-2 (PCR) Influenza A (RT-PCR) Influenza B (RT-PCR) RSV (PCR) Blood Type Antibody Screen Crossmatch 11/09/22 11/09/22 11/09/22 14:02 14:33 14:33 WBC RBC Hgb Hct MCV MCH MCHC RDW Plt Count Neut % (Auto) Lymph % (Auto) [place] % (Auto) Eos % (Auto) Baso % (Auto) Neut # (Auto) Lymph # (Auto) [place] # (Auto) Eos # (Auto) Baso # (Auto) RBC Morphology Hypochromasia Anisocytosis PT INR APTT Sodium Potassium Chloride Carbon Dioxide BUN Creatinine Estimated GFR BUN/Creatinine Ratio Glucose Hemoglobin A1c 5.2 Lactate Calcium Magnesium Total Bilirubin AST ALT Alkaline Phosphatase Ammonia Total Creatine Kinase CK-MB (CK-2) CK-MB (CK-2) Rel Index Troponin I NT-Pro-B Natriuret Pep Total Protein Albumin Globulin Albumin/Globulin Ratio Lipase Procalcitonin Urine Color Yellow Urine Appearance Sl cloudy Urine pH 5.5 Ur Specific [place] 1.020 Urine Protein 2+ H Urine Glucose (UA) Negative Urine Ketones 1+ H Urine Occult Blood 1+ H Urine Nitrate Positive H Urine Bilirubin Negative Urine Urobilinogen 0.2 Ur Leukocyte Esterase 1+ H Urine RBC 1-5/hpf Urine WBC 30-100/hpf H Amorphous Sediment 2+ Urine Bacteria Many (>30) H Salicylates U Opiates 300ng/mL cut Negative Ur Oxycodone Screen Positive H Urine Methadone Screen Negative Acetaminophen Ur Barbiturates Screen Negative U Tricyclic Antidepress Negative Ur Phencyclidine Scrn Negative Ur Amphetamines Screen Negative U Methamphetamines Scrn Negative Ur MDMA Scrn (Ecstasy) Negative U Benzodiazepines Scrn Negative Urine Cocaine Screen Negative U Marijuana (THC) Screen Negative Ethyl Alcohol SARS-CoV-2 (PCR) Influenza A (RT-PCR) Influenza B (RT-PCR) RSV (PCR) Blood Type Antibody Screen Crossmatch 11/09/22 11/09/22 11/10/22 21:32 23:56 01:10 WBC 11.7 H RBC 2.30 L Hgb 7.0 L Hct 22.1 L MCV 96.3 MCH 30.5 MCHC 31.7 RDW 20.1 H Plt Count 337 Neut % (Auto) 84.4 H Lymph % (Auto) 5.1 L [place] % (Auto) 6.8 Eos % (Auto) 2.6 Baso % (Auto) 1.1 Neut # (Auto) 9800 H Lymph # (Auto) 600 L [place] # (Auto) 800 Eos # (Auto) 300 Baso # (Auto) 100 RBC Morphology See below Hypochromasia 1+ H Anisocytosis 3+ H PT INR APTT Sodium Potassium Chloride Carbon Dioxide BUN Creatinine Estimated GFR BUN/Creatinine Ratio Glucose Hemoglobin A1c Lactate 0.9 Calcium Magnesium Total Bilirubin AST ALT Alkaline Phosphatase Ammonia Total Creatine Kinase CK-MB (CK-2) CK-MB (CK-2) Rel Index Troponin I NT-Pro-B Natriuret Pep Total Protein Albumin Globulin Albumin/Globulin Ratio Lipase Procalcitonin Urine Color Urine Appearance Urine pH Ur Specific [place] Urine Protein Urine Glucose (UA) Urine Ketones Urine Occult Blood Urine Nitrate Urine Bilirubin Urine Urobilinogen Ur Leukocyte Esterase Urine RBC Urine WBC Amorphous Sediment Urine Bacteria Salicylates U Opiates 300ng/mL cut Ur Oxycodone Screen Urine Methadone Screen Acetaminophen Ur Barbiturates Screen U Tricyclic Antidepress Ur Phencyclidine Scrn Ur Amphetamines Screen U Methamphetamines Scrn Ur MDMA Scrn (Ecstasy) U Benzodiazepines Scrn Urine Cocaine Screen U Marijuana (THC) Screen Ethyl Alcohol SARS-CoV-2 (PCR) Influenza A (RT-PCR) Influenza B (RT-PCR) RSV (PCR) Blood Type O Positive Antibody Screen Negative Crossmatch See Detail [facility] Medical History DVT (deep venous thrombosis) Pulmonary embolism Social History household members: none Smoking Status: Never smoker Assessment & Plan Assessment & Plan narrative: 1. Ground level fall with prolonged down time Patient was admitted after spending 1 week on the floor in her home after a slide to the ground controlled fall. She has no evidence of rhabdomyolysis and today's CPK is 172 down from 274. She had been eating and drinking as her son was bringing her food and liquids. However, she refused to allow him to call a lift assist. ? PT [facility] done [facility]. OT consult pending.? Unfortunately, she is metastatic breast cancer with spinal Mets and is postoperative from extensive spinal surgery which also limits her mobility.? 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 Typically ambulates with a cane or walker.? Care management working on discharge plan. 2. Unstageable pressure wounds-DTI's to the bilateral medial buttocks in the perianal region, right lower buttock/upper and inner thigh Will work on offloading as able, placing pillows between the legs and repositioning q.2 hours.? Will work on obtaining in air mattress or bariatric bed if possible.? Continue Zosyn and vancomycin.? Likely be able to discontinue vancomycin tomorrow. Suspect there is some component of necrotic tissue as well.? She is NPO for possible surgical debridement pending surgical consultation. 3. Superficial pressure injury to the bilateral calves and lower and mid bilateral back Offload pressure as much as possible as noted. 4. Metastatic breast cancer, known bony metastasis Continue letrozole.? She reports she will have follow-up staging studies done next week. 5. Diabetes mellitus type 2 Uncontrolled carb diet and fingerstick/sliding scale. Fortunately her hemoglobin A1c shows excellent control at 5.2%. 6. Hypertension Patient reports a history of hypertension, but does not have any antihypertensive agent on her Mar. 7. Hypotension Improved after fluid boluses and packed red blood cells 8. Anemia Normocytic. 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 She did receive transfusion this morning. Follow-up hemoglobin was 8.5. She has no evidence of active bleeding. 9. Hypothyroidism Continue outpatient dose of levothyroxine 10. Hyperlipidemia Continue Crestor 11. Restless leg syndrome Continue usual outpatient dose of ropinirole 12. Chronic anticoagulation resume Xarelto Code status Full Prophylaxis Resume Xarelto Disposition [facility] facility at discharge ? Time Spent With Patient Critical Care time: I spent a total of [] minutes of critical care time on this patient's care today; this time is exclusive of procedural time. Quality VTE Deep Vein Thrombosis/Pulmonary Embolism Present on Admission: No
[2022-11-10] MEDS: PIPERACILLIN/TAZO 3.375 GM in SODIUM CHLORIDE 0.9% 100 ML IV (07:05)
[2022-11-10] MEDS: LEVOTHYROXINE 150 MCG TABLET PO (09:15)
[2022-11-10] MEDS: buPROPion XL 150 MG TAB PO (09:15)
[2022-11-10] MEDS: DOCUSATE 100 MG CAPSULE PO ×2 (09:16→22:42)
[2022-11-10] MEDS: ATORVASTATIN 20 MG TABLET PO (09:16)
[2022-11-10] MEDS: ROPINIROLE 1 MG TABLET 2 MG PO (09:16)
[2022-11-10] MEDS: HYDROCODONE/ACET 5/325 TABLET 1 TAB PO ×3 (09:16→22:49)
--- NOTE | 2022-11-10 10:59 | P.HP_ITS ---
History of Present Illness History of Present Illness Date Patient Seen: 11/10/22 Time Patient Seen: 10:59 Chief complaint: fall, + thinners Narrative: Yesenia Hoang is a 57 year old woman with metastatic breast cancer to spine s/p spine surgery and morbid obesity with a BMI of 55 who fell to the floor about a week ago. She was able to change position but could not get up. She spent some time on her back and some time in a seated position. She has significant mobility challenges at baseline due to her spine metastases, neuropathy and obesity. She was noted to have several pressure wounds when she was evaluated. Patient History Medical History DVT (deep venous thrombosis) Pulmonary embolism Family & Social History Social History: household members none Prior Living Arrangements House Safety & Behavioral: Feels Safe in Current [place] Environment Been Physically Hurt or No Threatened By a Person Tobacco & Substance use: Smoking Status Never smoker alcohol intake frequency other Substance Use Type does not use Meds Home Medications and Allergies Home Medications Medication Instructions Recorded Confirmed Type bupropion HCl 150 mg 24 hr tablet, 150 mg PO DAILY 11/09/22 11/09/22 History extended release letrozole 2.5 mg tablet 2.5 mg PO BID 11/09/22 11/09/22 History levothyroxine 150 mcg tablet 150 mcg PO DAILY 11/09/22 11/09/22 History metformin 500 mg tablet 500 mg PO BID 11/09/22 11/09/22 History oxycodone-acetaminophen 5 mg-325 tab 11/09/22 History mg tablet rivaroxaban 20 mg tablet (Xarelto) 20 mg PO DAILY 11/09/22 11/09/22 History ropinirole 2 mg tablet 2 mg PO DAILY 11/09/22 11/09/22 History rosuvastatin 10 mg tablet 10 mg PO DAILY 11/09/22 11/09/22 History Allergies Allergy/AdvReac Type Severity Reaction Status Date / Time No Known Drug Allergies Allergy Verified 11/09/22 15:51 Exam Vital Signs (past 8 hours): - 11/10/22 04:58 11/10/22 05:14 11/10/22 05:33 Temperature 98.9 F 98.8 F 98.8 F Pulse Rate 89 88 88 Respiratory Rate 18 18 18 Blood Pressure 100/54 L 102/48 L 102/49 L Pulse Oximetry 95 Oxygen Flow Rate 2 11/10/22 06:49 11/10/22 06:45 Temperature 98.9 F 98.8 F Pulse Rate 85 85 Respiratory Rate 18 16 Blood Pressure 110/56 L 110/56 L Pulse Oximetry Oxygen Flow Rate 2 Oxygen Delivery Method Nasal Cannula Oxygen Flow Rate 2 Narrative Exam Narrative: Morbidly obese There is a necrotic eschar covering her lower sacrum and extending to her anus There is a necrotic eschar in the right ischium Objective Labs Result Diagrams: 11/09/22 21:32 11/09/22 14:02 Labs: Laboratory Results - last 24 hr 11/09/22 11/09/22 11/09/22 13:40 14:02 14:02 WBC 13.2 H RBC 2.59 L Hgb 8.1 L Hct 24.9 L MCV 96.3 MCH 31.1 MCHC 32.3 RDW 20.0 H Plt Count 391 Neut % (Auto) 87.3 H Lymph % (Auto) 4.1 L [place] % (Auto) 5.7 Eos % (Auto) 2.5 Baso % (Auto) 0.4 Neut # (Auto) 51098 H Lymph # (Auto) 500 L [place] # (Auto) 800 Eos # (Auto) 300 Baso # (Auto) 100 RBC Morphology Hypochromasia Anisocytosis PT 16.6 H INR 1.4 H APTT 30 Sodium Potassium Chloride Carbon Dioxide BUN Creatinine Estimated GFR BUN/Creatinine Ratio Glucose Hemoglobin A1c Lactate Calcium Magnesium Total Bilirubin AST ALT Alkaline Phosphatase Ammonia Total Creatine Kinase CK-MB (CK-2) CK-MB (CK-2) Rel Index Troponin I NT-Pro-B Natriuret Pep Total Protein Albumin Globulin Albumin/Globulin Ratio Lipase Procalcitonin Urine Color Urine Appearance Urine pH Ur Specific [place] Urine Protein Urine Glucose (UA) Urine Ketones Urine Occult Blood Urine Nitrate Urine Bilirubin Urine Urobilinogen Ur Leukocyte Esterase Urine RBC Urine WBC Amorphous Sediment Urine Bacteria Salicylates U Opiates 300ng/mL cut Ur Oxycodone Screen Urine Methadone Screen Acetaminophen Ur Barbiturates Screen U Tricyclic Antidepress Ur Phencyclidine Scrn Ur Amphetamines Screen U Methamphetamines Scrn Ur MDMA Scrn (Ecstasy) U Benzodiazepines Scrn Urine Cocaine Screen U Marijuana (THC) Screen Ethyl Alcohol SARS-CoV-2 (PCR) Negative Influenza A (RT-PCR) Flu a negative Influenza B (RT-PCR) Flu b negative RSV (PCR) Negative Blood Type Antibody Screen Crossmatch 11/09/22 11/09/22 11/09/22 14:02 14:02 14:02 WBC RBC Hgb Hct MCV MCH MCHC RDW Plt Count Neut % (Auto) Lymph % (Auto) [place] % (Auto) Eos % (Auto) Baso % (Auto) Neut # (Auto) Lymph # (Auto) [place] # (Auto) Eos # (Auto) Baso # (Auto) RBC Morphology Hypochromasia Anisocytosis PT INR APTT Sodium 143 Potassium 3.3 L Chloride 105 Carbon Dioxide 26 BUN 15 Creatinine 0.73 Estimated GFR > 60 BUN/Creatinine Ratio 20.5 Glucose 117 H Hemoglobin A1c Lactate 1.3 Calcium 8.7 Magnesium 1.8 Total Bilirubin 0.8 AST 31 ALT 21 Alkaline Phosphatase 120 Ammonia 9 Total Creatine Kinase 274 H CK-MB (CK-2) 2.87 H CK-MB (CK-2) Rel Index 1.0 L Troponin I < 0.012 NT-Pro-B Natriuret Pep 255 H Total Protein 7.0 Albumin 3.1 L Globulin 3.9 Albumin/Globulin Ratio 0.8 L Lipase 26 Procalcitonin 0.31 Urine Color Urine Appearance Urine pH Ur Specific [place] Urine Protein Urine Glucose (UA) Urine Ketones Urine Occult Blood Urine Nitrate Urine Bilirubin Urine Urobilinogen Ur Leukocyte Esterase Urine RBC Urine WBC Amorphous Sediment Urine Bacteria Salicylates < 1.0 U Opiates 300ng/mL cut Ur Oxycodone Screen Urine Methadone Screen Acetaminophen < 10 Ur Barbiturates Screen U Tricyclic Antidepress Ur Phencyclidine Scrn Ur Amphetamines Screen U Methamphetamines Scrn Ur MDMA Scrn (Ecstasy) U Benzodiazepines Scrn Urine Cocaine Screen U Marijuana (THC) Screen Ethyl Alcohol < 10 SARS-CoV-2 (PCR) Influenza A (RT-PCR) Influenza B (RT-PCR) RSV (PCR) Blood Type Antibody Screen Crossmatch 11/09/22 11/09/22 11/09/22 14:02 14:33 14:33 WBC RBC Hgb Hct MCV MCH MCHC RDW Plt Count Neut % (Auto) Lymph % (Auto) [place] % (Auto) Eos % (Auto) Baso % (Auto) Neut # (Auto) Lymph # (Auto) [place] # (Auto) Eos # (Auto) Baso # (Auto) RBC Morphology Hypochromasia Anisocytosis PT INR APTT Sodium Potassium Chloride Carbon Dioxide BUN Creatinine Estimated GFR BUN/Creatinine Ratio Glucose Hemoglobin A1c 5.2 Lactate Calcium Magnesium Total Bilirubin AST ALT Alkaline Phosphatase Ammonia Total Creatine Kinase CK-MB (CK-2) CK-MB (CK-2) Rel Index Troponin I NT-Pro-B Natriuret Pep Total Protein Albumin Globulin Albumin/Globulin Ratio Lipase Procalcitonin Urine Color Yellow Urine Appearance Sl cloudy Urine pH 5.5 Ur Specific [place] 1.020 Urine Protein 2+ H Urine Glucose (UA) Negative Urine Ketones 1+ H Urine Occult Blood 1+ H Urine Nitrate Positive H Urine Bilirubin Negative Urine Urobilinogen 0.2 Ur Leukocyte Esterase 1+ H Urine RBC 1-5/hpf Urine WBC 30-100/hpf H Amorphous Sediment 2+ Urine Bacteria Many (>30) H Salicylates U Opiates 300ng/mL cut Negative Ur Oxycodone Screen Positive H Urine Methadone Screen Negative Acetaminophen Ur Barbiturates Screen Negative U Tricyclic Antidepress Negative Ur Phencyclidine Scrn Negative Ur Amphetamines Screen Negative U Methamphetamines Scrn Negative Ur MDMA Scrn (Ecstasy) Negative U Benzodiazepines Scrn Negative Urine Cocaine Screen Negative U Marijuana (THC) Screen Negative Ethyl Alcohol SARS-CoV-2 (PCR) Influenza A (RT-PCR) Influenza B (RT-PCR) RSV (PCR) Blood Type Antibody Screen Crossmatch 11/09/22 11/09/22 11/10/22 21:32 23:56 01:10 WBC 11.7 H RBC 2.30 L Hgb 7.0 L Hct 22.1 L MCV 96.3 MCH 30.5 MCHC 31.7 RDW 20.1 H Plt Count 337 Neut % (Auto) 84.4 H Lymph % (Auto) 5.1 L [place] % (Auto) 6.8 Eos % (Auto) 2.6 Baso % (Auto) 1.1 Neut # (Auto) 9800 H Lymph # (Auto) 600 L [place] # (Auto) 800 Eos # (Auto) 300 Baso # (Auto) 100 RBC Morphology See below Hypochromasia 1+ H Anisocytosis 3+ H PT INR APTT Sodium Potassium Chloride Carbon Dioxide BUN Creatinine Estimated GFR BUN/Creatinine Ratio Glucose Hemoglobin A1c Lactate 0.9 Calcium Magnesium Total Bilirubin AST ALT Alkaline Phosphatase Ammonia Total Creatine Kinase CK-MB (CK-2) CK-MB (CK-2) Rel Index Troponin I NT-Pro-B Natriuret Pep Total Protein Albumin Globulin Albumin/Globulin Ratio Lipase Procalcitonin Urine Color Urine Appearance Urine pH Ur Specific [place] Urine Protein Urine Glucose (UA) Urine Ketones Urine Occult Blood Urine Nitrate Urine Bilirubin Urine Urobilinogen Ur Leukocyte Esterase Urine RBC Urine WBC Amorphous Sediment Urine Bacteria Salicylates U Opiates 300ng/mL cut Ur Oxycodone Screen Urine Methadone Screen Acetaminophen Ur Barbiturates Screen U Tricyclic Antidepress Ur Phencyclidine Scrn Ur Amphetamines Screen U Methamphetamines Scrn Ur MDMA Scrn (Ecstasy) U Benzodiazepines Scrn Urine Cocaine Screen U Marijuana (THC) Screen Ethyl Alcohol SARS-CoV-2 (PCR) Influenza A (RT-PCR) Influenza B (RT-PCR) RSV (PCR) Blood Type O Positive Antibody Screen Negative Crossmatch See Detail Assessment & Plan Assessment and plan (1) Sacral decubitus ulcer: Qualifiers: Pressure injury stage: unspecified pressure injury stage Qualified Code(s): L89.159 - Pressure ulcer of sacral region, unspecified stage Status: Acute Plan Sacral and right ischial decubitus ulcers, most likely full thickness. Unfortunately these wounds will not heal unless she is able to loose significant weight and dramatically improve her mobility. If both of these pre-existing conditions could be improved the next step would be a diverting loop colostomy to reduce the bacterial load in the wound beds. I explained all of this to Yesenia. She is not interested in a colostomy at this time. Unfortunately there is no halfway benefit to debridement in the operating room even her pre- existing conditions cannot be improved but there are rather significant risks of bleeding and anesthesia. Recommend aggressive offloading, daily wound care and mobility assistance. Time Spent With Patient Critical Care time: I spent a total of [] minutes of critical care time on this patient's care today; this time is exclusive of procedural time. Quality VTE Deep Vein Thrombosis/Pulmonary Embolism Present on Admission: No
--- NOTE | 2022-11-10 11:43 | PT.IIE ---
Current Diagnoses Pressure ulcer of sacral region, unspecified stage (11/09/22) Pressure ulcer of unspecified site, unspecified stage (11/09/22) Medical History (Last Reviewed 11/09/22 @ 13:38 by Daljit Kay DO) DVT (deep venous thrombosis) Pulmonary embolism Physical Therapy Inpatient Evaluation/Re-Eval M1 PT/OT-IP Prior Functional Status Start: 11/10/22 09:11 Freq: NEEDED Status: Active Protocol: Document 11/10/22 10:43 AW (Rec: 11/10/22 13:18 AW [id number]) Medical Review Prior Functional Status Medical History Reviewed Yes Communication Pt is an effective verbal communicator. Mobility and Gait Pt states she uses a cane to get from her RV to the car. She uses a 4WW inside her RV. She does have steps to get in to her RV and notes she leaves her home infrequently. Activities of Daily Living and IADL's Pt states she is independent with dressing and toileting, denies incontinence. She tends to sponge off, states she has not used the shower in her RV since moving in two months ago. She depends on her son for transportation. Prior Functional Level (Other details) PMH includes primary breast cancer s/p R mastectomy with metastases to spine s/p spinal stabilization surgery. BMI is 55. A1C is 5.2 Social History Household Members none Living Arrangements RV Number of Floors (Floors) One Floor Number of Stairs To Enter/Railing? 2 short FLOWER with L rail ascending. Her RV does have electric service. Home Environment Standard Height Toilet,Walk in Shower Home Equipment Four Wheel Walker,Straight Cane Employment Status [employer] Employed Additional Social History Comment Pt lives alone in her RV in [place]. She has a son who also lives in [place]. 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 M2 PT-IP Current Condition Start: 11/10/22 09:11 Freq: NEEDED Status: Active Protocol: Document 11/10/22 10:43 AW (Rec: 11/10/22 13:18 AW [id number]) Physical Therapy Current Condition Current Condition Evaluation Date 11/10/22 Treatment Diagnosis GLF; multiple unstageable PI's ; impaired mobility Onset Date 11/03/22 M3 PT-IP Subjective Start: 11/10/22 09:11 Freq: NEEDED Status: Active Protocol: Document 11/10/22 10:43 AW (Rec: 11/10/22 13:18 AW [id number]) Subjective Physical Therapy Visit Type Type Initial Evaluation Visit Start Time 10:50 Visit Stop Time 11:43 Total Visit Minutes 53 Physical Therapy Visit Comments Patient Comments Pt has just met with general surgeon and is upset about her prognosis. Patient Goals Pt would like assist to move and get stronger. Therapy Pain Assessment Pain When Pain Assessed During Mobility Pain Present Pain Present Pain Reported Location Bilateral Back Scale Used not quantified M4 PT-IP Mobility and Gait Start: 11/10/22 09:11 Freq: NEEDED Status: Active Protocol: Document 11/10/22 10:43 AW (Rec: 11/10/22 13:18 AW [id number]) PT-Bed Mobility Assessment Supine to Sit Supine to Sit Total Assistance,Head of Bed Elevated,Bedrails Scooting Scooting to Edge of Bed Dependent PT-Transfer Assessment Sit to and From Stand Sit to and from Stand Maximum Assistance,2 Person Assistance,Use of Upper Extremities Equipment Transfer Assistive Device Gait Belt,Front Wheeled Walker Transfers Transfer Destination Chair Transfer Technique Stand Step Pivot Transfer Ability Level of Assist Maximum Assistance,2 Person Assistance,Use of Upper Extremities Comments Mobility Comments Yesenia was lying in bed as PT arrived. BP 111/58 HR 51. Latest H&H was 7/.1. Pt was willing and motivated to attempt to mobilize after talking with general surgeon. She understands improved mobility will be doshi to her healing. Pt states she sleeps in seated position on her sturdy couch so does not do bed mobility at home. Due to concern for her pressure injuries, PT called for nursing assist to reduce shear forces during supine to sit. Three nursing staff arrived and provided total assist via hoverpad to sit pt up on the right side of the bed. PT and RN used hoverpad to pull pt toward EOB. Pt is too short to get her feet flat on the floor. With FWW in front, pt needed max A x 2 to stand. She needed assist for standing balance and max A x 2 for step pivot transfer to the chair ( with waffle cushion and tripp sling pre-arranged). She sat up on the chair and was able to use foot tray and armrests to scoot back on the chair minimally. PT and RN provided max A to scoot back as far as possible. Pt was positioned with pillows, legs elevated. She was left with call light in reach and nursing remained in the room. Gait Assessment Comments Gait Comments Steps taken during pivot transfer only. Stair Climbing Assessment Comments Stair Climbing Comments Not assessed. PT-Balance Assessment Sitting Balance and Reactions Static Sitting Balance Ability Fair Dynamic Sitting Balance Ability Poor Standing Balance and Reactions Static Standing Balance Ability Poor Dynamic Standing Balance Ability Poor Device Used FWW M5 PT-IP Objective Assessments Start: 11/10/22 09:11 Freq: NEEDED Status: Active Protocol: Document 11/10/22 10:43 AW (Rec: 11/10/22 13:18 AW [id number]) Orientation Orientation/Cognition Level of Alertness Alert Orientation Name,Day of Week,Place, Situation Strength Lower Extremity Strength Assessment Bilaterally Impaired Hip 3-/5 Knee 3+/5 Ankle 4-/5 Sensation Assessment Sensation Gross Sensation Right UE Impaired,Left UE Impaired,Right LE Impaired, Left LE Impaired Comments Sensation Comments Chemo-induced peripheral neuropathy affects all limbs - distal most affected M6 PT-IP Treatment Start: 11/10/22 09:11 Freq: NEEDED Status: Active Protocol: Document 11/10/22 10:43 AW (Rec: 11/10/22 13:18 AW [id number]) Physical Therapy Treatment Education Education Provided Safety Other Treatments Other Treatment Performed Reinforced education on importance of continued mobility for wound healing as well as care needed during transitions to avoid excess shear. M7 PT-IP Assessment and Plan Start: 11/10/22 09:11 Freq: NEEDED Status: Active Protocol: Document 11/10/22 10:43 AW (Rec: 11/10/22 13:18 AW [id number]) PT Summary Assessment and Plan Potential Rehabilitation Potential Fair Status of Condition at Evaluation Evolving Summary Impairments Pain,Strength,Balance, Sensation,Bed Mobility, Transfers,Gait,Activity Tolerance Assessment Summary Yesenia is a 57 yo woman admitted with multiple unstageable pressure injuries following a week on the floor after a fall. She is modified independent for limited mobility with use of SPC or 4WW at baseline. 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 On assessment today, she is needing max to total assist of 2+ people for bed mobility and max assist x 2 for transfer with FWW. She was unable to support herself in standing long enough to take steps outside of transfer. Recommending tripp lift for transfers with nursing. Pt will require SNF rehab to improve her strength and mobility independence. Goals Bed Mobility Goal Minimal Assistance Transfer Goal Minimal Assistance,Front Wheeled Walker Gait Goal Minimal Assistance,Front Wheel Walker Gait Distance 100 Other Goals - up/down 2 steps with L rail ascending min A - improve gait and transfers to SBA with 4WW Days to Meet Goals 10 Frequency of Treatment Frequency Of Treatment Once a Day Treatment Plan Physical Therapy Treatment Plan Bed Mobility Training,Transfer Training,Gait Training, Therapeutic Exercise,Balance Retraining,Discharge Planning, Hot or Cold Pack,Neuromuscular Re-ed Other Recommendations and Next Treatment consider trapeze bar for pt to Focus participate more in bed mobility and repositioning. transfers. gait with chair follow as able. continue education on offweighting techniques Precautions Other Precautions Extra care to avoid shear forces due to pressure injuries. Low H&H. Recommendations To Nursing Amount of Assist Needed Mechanical Lift Discharge Recommendations PT Discharge Recommendations SNF Rehab Transportation Needs at Discharge Wheelchair/Cabulance,Stretcher /Ambulance
--- NOTE | 2022-11-10 12:38 | CM.DANOTE ---
Patient is a 57 yo female who was admitted on 11/09/22 for Fall. Pt has REG PPO for insurance and her PCP is not listed. EMR was reviewed. Per MD, pt has breast CA with mets to the spine and had mohini placement for stability and developed neuropathy post chemo which limits her mobility. Pt had slide to the floor and admits to being stubborn and refusing lift assist and remained on the floor for about a week before finally agreeing to EMS. Per MD, had a discussion regarding pt's goals and decision made for SNF rehab before going home. Pt currently on oral chemo and aware that chemo would need to be on hold during SNF. Surgeon Consult for pt's pressure wounds and recommendation would be a new ostomy until pt can lose weight and be more mobile and pt declines ostomy at this time. No need for I&D for pt if choosing not to get ostomy as the risk would be too high without ability to heal. PT/OT ordered and pending. SHELLEY met bedside with pt and explained role and she confirms that she lives at home in [facility] alone but has local supportive son and then a Dtr who lives in [place] and a Dtr in [place]. Pt states that she has been really stubborn trying to prove I can live alone and be independent and realizes this increased her care needs by not seeking medical assist sooner. Pt now feels SNF would be beneficial at d/c as she typically ambulates indep with a walker and completes her own ADLs. Pt denies any hx of SNF but states she has used [facility] in the past. 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 SHELLEY provided SNF Choice list via Ipad to review and discussed that pt would need to initially attempt a [facility] contracted SNF and will need to obtain insurance auth for SNF. Pt acknowledged understanding and states if she had her preference, she would choose [facility] as her son works in [place] or a SNF in [facility] as family could visit there as well and close to her home. SHELLEY discussed if SNF not secured or insurance denies SNF auth, would need to either private pay at SNF (pt acknowledges that she cannot afford that) or create a plan for home with HH and maybe family or friends to stay with. SHELLEY inquired if pt has applied for Medicaid before and pt does not think she would qualify yet. Pt states she realizes that a Caregiver would likely be helpful. [facility] insurance has waived the need for contracted facility for SNF through Dec so non-contracted SNF could still be an option. SW made referrals to [facility], [facility], [facility], [facility], [facility] and [facility]. PASRR completed. Plan: SW to follow in the AM with above SNFs towards attempting to secure SNF under [facility] auth with backup plan of home with a new Sig HH referral and family assist. LIZZY Mcgowan Discharge Planning/Care Management CM Discharge Assessment Start: 11/10/22 12:03 Freq: Status: Active Protocol: Document 11/10/22 12:03 BF (Rec: 11/10/22 12:26 BF [id number]) Discharge Planning Assessment Assigned Railroad Construction Director LIZZY Neal DPOA/Assigned Designee Name none Advance Directives? No Advance Directives on File No History Provided By Patient,Medical Record Has Patient been admitted in last 30 No days? Prior Living Arrangements House Household Members none Type of transporation used prior to Drives own vehicle admit Independent with ADL's Yes Is patient alert and oriented? Yes Needs Assistance With Home Chores / Shopping Caregiver for Another No Comment hx of Sig HH DME Already Rented / Owned FWW / Walker,Other Comment SNF vs HH pending insurance and SNF acceptance Barriers to Discharge No Discharge Plan Care Home Facility Transportation Arrangement SNF facility van vs son if home Referrals Initiated Care Home If patient plan is SNF: Has PASSR been Yes completed? Medicare Choice List Provided Yes SNF/HH Preference Any [facility] contracted SNF, pref would be [facility] or any in [facility] Has Agency SNF been contacted Yes Whiteboard Updated in Patient Room with Yes name and ext. # of Railroad Construction Director Review Status In Process Please Provide Date Initial DC 11/10/22 Assessment Was Performed Next Review Type Continued Stay Review
[2022-11-10 13:52] LABS: Hematocrit 26.4 % (36-46); Hemoglobin 8.5 g/dL (12.0-16.0); Mean Corpuscular HGB Conc 32.2 % (30-36); Mean Corpuscular Volume 92.9 fL (80-100); Platelet Count 327 X10^3/uL (150-400); Red Blood Cell Count 2.84 X10^6/uL (4.0-5.2); Red Cell Distribution Width 21.3 % (11.6-14.8)
[2022-11-10] MEDS: POTASSIUM CHLORIDE 20 MEQ TAB 40 MEQ PO ×2 (13:59→22:50)
[2022-11-10 14:00] LABS: BUN Creatinine Ratio 15.1 (6-22); Blood Urea Nitrogen 11 mg/dL (7-17); Calcium 7.9 mg/dL (8.4-10.2); Carbon Dioxide 23 mmol/L (22-32); Chloride 107 mmol/L (98-107); Creatine Kinase 172 U/L (30-135); Estimated Glomerular Filt Rate > 60 mL/min (>60); Glucose 90 mg/dL (70-100); HEMOLYSIS < 15 (0-50); Potassium 3.1 mmol/L (3.4-5.1); Sodium 140 mmol/L (137-145)
[2022-11-10] MEDS: RIVAROXABAN 10 MG TABLET 20 MG PO (16:53)
--- NOTE | 2022-11-10 17:20 | PC.NURSE ---
15:09 Pt states left hand IV is painful and burning, pt states, wants IV out now. Pt refused putting new IV in a different location. Removed IV. Notified Dr. Evans that pt currently has no IV access and refusing placement of a new IV, midline ordered, notified that IV vancomycin not given due to no IV access.
[2022-11-10] MEDS: SENNOSIDES 8.6 MG TABLET 17.2 MG PO (22:42)
[2022-11-10] MEDS: GABAPENTIN 600 MG TABLET PO (22:42)
[2022-11-10] MEDS: VANCOMYCIN 1,500 MG/300 ML PIGGYBACK 200 MG IV (22:43)
[2022-11-11] MEDS: PIPERACILLIN/TAZO 4.5 GM in SODIUM CHLORIDE 0.9% 100 ML IV ×3 (00:30→17:18)
[2022-11-11 06:00] VITALS: BP 91/47; PULSE 91; RESP 18; TEMP 36.8; O2SAT 94
[2022-11-11 06:09] LABS: BUN Creatinine Ratio 14.3 (6-22); Blood Urea Nitrogen 10 mg/dL (7-17); Carbon Dioxide 25 mmol/L (22-32); Chloride 109 mmol/L (98-107); Estimated Glomerular Filt Rate > 60 mL/min (>60); Glucose 80 mg/dL (70-100); HEMOLYSIS < 15 (0-50); Potassium 3.3 mmol/L (3.4-5.1); Sodium 140 mmol/L (137-145)
[2022-11-11 06:18] LABS: Basophils Absolute Auto 0 /uL (0-100); Basophils Percent Auto 0.4 % (0-2); Eosinophils Absolute Auto 400 /uL (0-450); Eosinophils Percent Auto 4.2 % (2-4); Hematocrit 25.3 % (36-46); Hemoglobin 8.2 g/dL (12.0-16.0); Lymphocytes Absolute Auto 600 /uL (1100-4500); Lymphocytes Percent Auto 6.7 % (25-40); Mean Corpuscular HGB Conc 32.5 % (30-36); Mean Corpuscular Hemoglobin 30.3 PG (26-34); Mean Corpuscular Volume 93.1 fL (80-100); Monocytes Absolute Auto 500 /uL (0-900); Monocytes Percent Auto 5.4 % (3-14); Neutrophils Absolute Auto 7800 /uL (1500-7000); Neutrophils Percent Auto 83.3 % (50-75); Platelet Count 313 X10^3/uL (150-400); Red Blood Cell Count 2.72 X10^6/uL (4.0-5.2); Red Cell Distribution Width 21.4 % (11.6-14.8); White Blood Cell Count 9.3 X10^3/uL (4.5-11.0)
[2022-11-11 06:20] LABS: Add Manual Diff / Slide Review SLIDE REVIEW
[2022-11-11] MEDS: SODIUM CHLORIDE 0.9% 1,000 ML 1000 ML IV (06:24)
[2022-11-11 06:53] LABS: Anisocytosis 2+
[2022-11-11 09:04] VITALS: BP 105/63; PULSE 87; RESP 16; O2SAT 96
[2022-11-11] MEDS: RIVAROXABAN 10 MG TABLET 20 MG PO (09:31)
[2022-11-11] MEDS: ATORVASTATIN 20 MG TABLET PO (09:31)
[2022-11-11] MEDS: LEVOTHYROXINE 150 MCG TABLET PO (09:31)
[2022-11-11] MEDS: DOCUSATE 100 MG CAPSULE PO ×2 (09:31→21:11)
[2022-11-11] MEDS: buPROPion XL 150 MG TAB PO (09:31)
[2022-11-11] MEDS: ROPINIROLE 1 MG TABLET 2 MG PO (09:31)
[2022-11-11] MEDS: NYSTATIN POWDER 15GM 1 APPLIC TOP ×2 (09:32→21:12)
--- NOTE | 2022-11-11 09:33 | PM.PN.1 ---
Subjective Subjective Date Patient Seen: 11/11/22 Interval history: Patient comfortable and in no pain. She says sleeping on her side last night really helped with discomfort in her backside. Exam Vital Signs (past 8 hours): - 11/11/22 06:00 11/11/22 09:04 Temperature 98.3 F Pulse Rate 91 H 87 Respiratory Rate 18 16 Blood Pressure 91/47 L 105/63 Pulse Oximetry 94 96 Oxygen Delivery Method Nasal Cannula Oxygen Flow Rate 2 Narrative Exam Narrative: GEN: Middle-aged female, very pleasant, Alert and oriented x 3, NAD HEENT:NC, Face symmetric CHEST: Respiratory excursions symmetric, CTAB CV: RRR, no M/R/G ABD: Soft, NT/ND, BT present in all 4 quadrants, body habitus limits exam EXTR: warm, well perfused, no C/C/E SKIN: warm and dry, significant candidiasis in the abdominal and groin skin folds, buttock and thigh lesions were not visualized this morning, skin of the calf is unchanged, no additional breakdown noted NEURO: Alert and oriented x 3, nonfocal Objective Labs Result Diagrams: 11/11/22 05:30 11/11/22 05:30 Labs: Laboratory Results - last 24 hr 11/10/22 11/10/22 11/11/22 13:36 13:36 05:30 WBC 11.0 9.3 RBC 2.84 L 2.72 L Hgb 8.5 L 8.2 L Hct 26.4 L 25.3 L MCV 92.9 D 93.1 MCH 30.0 30.3 MCHC 32.2 32.5 RDW 21.3 H 21.4 H Plt Count 327 313 Neut % (Auto) 83.3 H Lymph % (Auto) 6.7 L Glades % (Auto) 5.4 Eos % (Auto) 4.2 H Baso % (Auto) 0.4 Neut # (Auto) 7800 H Lymph # (Auto) 600 L Glades # (Auto) 500 Eos # (Auto) 400 Baso # (Auto) 0 RBC Morphology See below Anisocytosis 2+ H Sodium 140 Potassium 3.1 L Chloride 107 Carbon Dioxide 23 BUN 11 Creatinine 0.73 Estimated GFR > 60 BUN/Creatinine Ratio 15.1 Glucose 90 Calcium 7.9 L Total Creatine Kinase 172 H 11/11/22 05:30 WBC RBC Hgb Hct MCV MCH MCHC RDW Plt Count Neut % (Auto) Lymph % (Auto) Glades % (Auto) Eos % (Auto) Baso % (Auto) Neut # (Auto) Lymph # (Auto) Glades # (Auto) Eos # (Auto) Baso # (Auto) RBC Morphology Anisocytosis Sodium 140 Potassium 3.3 L Chloride 109 H Carbon Dioxide 25 BUN 10 Creatinine 0.70 Estimated GFR > 60 BUN/Creatinine Ratio 14.3 Glucose 80 Calcium 8.0 L Total Creatine Kinase [facility] Medical History DVT (deep venous thrombosis) Pulmonary embolism Social History household members: none Smoking Status: Never smoker Assessment & Plan Assessment & Plan narrative: 1. Ground level fall with prolonged down time Patient was admitted after spending 1 week on the floor in her home after a slide to the ground controlled fall. She has no evidence of rhabdomyolysis and today's CPK is 172 down from 274. She had been eating and drinking as her son was bringing her food and liquids. However, she refused to allow him to call a lift assist. ? PT consult done with indication for [facility] facility. OT consult pending.? Unfortunately, she is metastatic breast cancer with spinal Mets and is postoperative from extensive spinal surgery which also limits her mobility.? 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 Typically ambulates with a cane or walker.? Care management working on discharge plan. 2. Unstageable pressure wounds-DTI's to the bilateral medial buttocks in the perianal region, right lower buttock/upper and inner thigh Will work on offloading as able, placing pillows between the legs and repositioning q.2 hours.? Will work on obtaining in air mattress or bariatric bed if possible.? Continue Zosyn.? Able to discontinue vancomycin. Suspect there is some component of necrotic tissue as well.? She is NPO midnight for surgical debridement with gen surg on 11/12. 3. Superficial pressure injury to the bilateral calves and lower and mid bilateral back Offload pressure as much as possible as noted. 4. Metastatic breast cancer, known bony metastasis Continue letrozole.? She reports she will have follow-up staging studies done next week. 5. Diabetes mellitus type 2 Uncontrolled carb diet and fingerstick/sliding scale. Fortunately her hemoglobin A1c shows excellent control at 5.2%. 6. Hypertension Patient reports a history of hypertension, but does not have any antihypertensive agent on her Mar. 7. Hypotension Improved after fluid boluses and packed red blood cells 8. Anemia Normocytic. 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 She did receive transfusion this morning. Follow-up hemoglobin was 8.5. She has no evidence of active bleeding. 9. Hypothyroidism Continue outpatient dose of levothyroxine 10. Hyperlipidemia Continue Crestor 11. Restless leg syndrome Continue usual outpatient dose of ropinirole 12. Chronic anticoagulation holding Xarelto for surgery 13. Constipation Patient reports no BM in over a week. Added scheduled laxatives. Code status Full Prophylaxis Hold xarelto for surgery. Disposition nursing home facility at discharge ? Time Spent With Patient Critical Care time: I spent a total of [] minutes of critical care time on this patient's care today; this time is exclusive of procedural time. Quality VTE Deep Vein Thrombosis/Pulmonary Embolism Present on Admission: No
[2022-11-11] MEDS: SODIUM CHLORIDE 0.9% 1,000 ML 100 ML IV (10:00)
[2022-11-11] MEDS: HYDROCODONE/ACET 5/325 TABLET 1 TAB PO ×3 (10:30→21:11)
--- NOTE | 2022-11-11 11:46 | OT.IPNOTE ---
Attempted to see pt for OT eval and PT also present. Pt states not feeling well and very nauseous. Pt's nurse notified and also pt requested to have an Ensure and okayed by nursing to bring an Ensure to the pt. To check on the pt in the afternoon.
[2022-11-11] MEDS: ONDANSETRON 4 MG/2 ML INJ IV (11:58)
--- NOTE | 2022-11-11 12:33 | CM.DPNOTE ---
Discharge Planning Note: Met with patient. She was uncomfortable earlier with nausea. She has DTI's to buttocks/sacral. The wound care physcian Dr Ríos will be up to do a Consult today. [facility] cannot accept due to wounds. [facility] Emiliano wants me to check later this afternoon. Plan: Check in with SNFs later today. Luna Daniel RN/DCP
--- NOTE | 2022-11-11 13:30 | PT.IPTN ---
Current Diagnoses Pressure ulcer of sacral region, unspecified stage (11/09/22) Pressure ulcer of unspecified site, unspecified stage (11/09/22) Physical Therapy Treatment Note M2 PT-IP Current Condition Start: 11/10/22 09:11 Freq: NEEDED Status: Active Protocol: Document 11/10/22 10:43 AW (Rec: 11/10/22 13:18 AW [id number]) Physical Therapy Current Condition Current Condition Evaluation Date 11/10/22 Treatment Diagnosis GLF; multiple unstageable PI's ; impaired mobility Onset Date 11/03/22 M3 PT-IP Subjective Start: 11/10/22 09:11 Freq: NEEDED Status: Active Protocol: Document 11/11/22 13:30 AW (Rec: 11/11/22 14:30 AW [id number]) Subjective Physical Therapy Visit Type Type Treatment Note Visit Start Time 13:01 Visit Stop Time 13:30 Total Visit Minutes 29 Notes Co-treat with OT due to pt's complex mobility needs Physical Therapy Visit Comments Patient Comments Pt refused therapy earlier today and was reluctant at this encounter. Talked to pt about her goals which include improved mobility to improve wound healing. Pt was ultimately willing to get up from the bed. Therapy Pain Assessment Pain When Pain Assessed During Mobility Pain Present Pain Present Pain Reported Location Bilateral Back Scale Used not quantified M4 PT-IP Mobility and Gait Start: 11/10/22 09:11 Freq: NEEDED Status: Active Protocol: Document 11/11/22 13:30 AW (Rec: 11/11/22 14:30 AW [id number]) PT-Bed Mobility Assessment Supine to Sit Supine to Sit Maximum Assistance,2 Person Assistance,Head of Bed Elevated,Bedrails Scooting Scooting to Edge of Bed Maximum Assistance PT-Transfer Assessment Sit to and From Stand Sit to and from Stand Minimal Assistance,Moderate Assistance,2 Person Assistance ,Use of Upper Extremities Equipment Transfer Assistive Device Gait Belt,Front Wheeled Walker Transfers Transfer Destination Chair Transfer Technique Stand Step Pivot Transfer Ability Level of Assist Minimal Assistance,2 Person Assistance,Use of Upper Extremities Comments Mobility Comments Yesenia was lying in bed as PT and OT arrived. She agreed to sit up on the left side of the bed. Trialed bed tilt to make it easier for pt to reach feet to floor but pt felt unsafe. With bed returned to neutral rotation, pt needed max A x 2 to sit up and to scoot forward. Pt sat with feet on cushion for several minutes. She stood min/mod A x 2 and used FWW to transfer to the chair set up 3 feet away. Transfer required min A x 2. PT stabilized her LE's on the chair's foot tray as OT assisted pt to scoot back on the chair. Encouraged pt to continue with this type of pressure relief as able. Pt completed sit to stand from the chair min A x 2 and repositioned again. Pt was left with OT for further assessment. Gait Assessment Gait Gait Assistance Required: Minimum Assistance,2 Person Assist Distance (Feet) 3 Comments Gait Comments Steps taken during transfer only. Once on her feet, pt required min A with two people and FWW for safety. Stair Climbing Assessment Comments Stair Climbing Comments Not assessed. PT-Balance Assessment Sitting Balance and Reactions Static Sitting Balance Ability Good Dynamic Sitting Balance Ability Fair Standing Balance and Reactions Static Standing Balance Ability Poor Dynamic Standing Balance Ability Poor Device Used FWW M5 PT-IP Objective Assessments Start: 11/10/22 09:11 Freq: NEEDED Status: Active Protocol: Document 11/10/22 10:43 AW (Rec: 11/10/22 13:18 AW [id number]) Orientation Orientation/Cognition Level of Alertness Alert Orientation Name,Day of Week,Place, Situation Strength Lower Extremity Strength Assessment Bilaterally Impaired Hip 3-/5 Knee 3+/5 Ankle 4-/5 Sensation Assessment Sensation Gross Sensation Right UE Impaired,Left UE Impaired,Right LE Impaired, Left LE Impaired Comments Sensation Comments 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 M7 PT-IP Assessment and Plan Start: 11/10/22 09:11 Freq: NEEDED Status: Active Protocol: Document 11/11/22 13:30 AW (Rec: 11/11/22 14:30 AW [id number]) PT Summary Assessment and Plan Summary Progress Towards Goals Slow Progress due to Pain,Slow Progress due to Medical Issues,Slow Progress due to Activity Tolerance Assessment Summary Yesenia improved her transfers today. Informed RN of new recommendation for 2 person assist transfer with FWW back to bed and eventually to commode. Pt struggles with bed mobility due to pain from her pressure injuries but also due to the fact that she sleeps upright on her firm sofa at home. Once on her feet , she needs 2 person assist with FWW for safety but is able to transfer. Encouraged pt to work on pressure relief in sitting. Pt will require SNF rehab to improve her strength and mobility independence. Goals Bed Mobility Goal Minimal Assistance Transfer Goal Minimal Assistance,Front Wheeled Walker Gait Goal Minimal Assistance,Front Wheel Walker Gait Distance 100 Other Goals - up/down 2 steps with L rail ascending min A - improve gait and transfers to SBA with 4WW Days to Meet Goals 10 Frequency of Treatment Frequency Of Treatment Once a Day Treatment Plan Physical Therapy Treatment Plan Bed Mobility Training,Transfer Training,Gait Training, Therapeutic Exercise,Balance Retraining,Discharge Planning, Hot or Cold Pack,Neuromuscular Re-ed Other Recommendations and Next Treatment consider trapeze bar for pt to Focus participate more in bed mobility and repositioning. transfers. gait with chair follow as able. continue education on offweighting techniques Precautions Other Precautions Extra care to avoid shear forces due to pressure injuries. Recommendations To Nursing Amount of Assist Needed 2 Person Assist Discharge Recommendations PT Discharge Recommendations SNF Rehab Transportation Needs at Discharge Wheelchair/Cabulance,Stretcher /Ambulance
--- NOTE | 2022-11-11 13:42 | OT.IP.EVAL ---
Current Diagnoses Pressure ulcer of sacral region, unspecified stage (11/09/22) Pressure ulcer of unspecified site, unspecified stage (11/09/22) Past Medical History (Last Reviewed 11/11/22 @ 14:04 by Dm Reynolds MD) DVT (deep venous thrombosis) Pulmonary embolism Occupational Therapy Inpatient Evaluation/Re-Eval M1 PT/OT-IP Prior Functional Status Start: 11/10/22 09:11 Freq: NEEDED Status: Active Protocol: Document 11/11/22 14:01 [facility] (Rec: 11/11/22 14:23 [facility] [id number]) Medical Review Prior Functional Status Medical History Reviewed Yes Communication Pt is an effective verbal communicator. Mobility and Gait Pt states she uses a cane to get from her RV to the car. She uses a 4WW inside her RV. She does have steps to get in to her RV and notes she leaves her home infrequently. Activities of Daily Living and IADL's Pt states she is independent with dressing and toileting, denies incontinence. She tends to sponge off, states she has not used the shower in her RV since moving in two months ago. She depends on her son for transportation. Prior Functional Level (Other details) PMH includes primary breast cancer s/p R mastectomy with metastases to spine s/p spinal stabilization surgery. BMI is 55. A1C is 5.2 Social History Household Members none Living Arrangements House Number of Floors (Floors) One Floor Number of Stairs To Enter/Railing? 2 short FLOWER with L rail ascending. Her RV does have electric service. 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 She has a son who also lives in [place]. 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 M2 OT-IP Current Condition Start: 11/11/22 13:59 Freq: Status: Active Protocol: Document 11/11/22 14:01 [facility] (Rec: 11/11/22 14:23 [facility] [id number]) Occupational Therapy Current Condition Current Condition Evaluation Date 11/11/22 Treatment Diagnosis GLF, sacral decubitus ulcer Diagnosis Onset Date 11/09/22 M3 OT- IP Subjective and Pain Start: 11/11/22 13:59 Freq: Status: Active Protocol: Document 11/11/22 14:01 [facility] (Rec: 11/11/22 14:23 [facility] [id number]) OT- Subjective Occupational Therapy Visit Type Type Initial Evaluation Visit Start Time 13:00 Visit Stop Time 13:42 Total Visit Minutes 42 Occupational Therapy Visit Comments Patient Comments Pt needing lots of encouragement and then agreed to get up. Patient/Caregiver Goals to get stronger so able to go home. OT Pain Assessment Pain When Pain Assessed During Mobility Pain Present Pain Present Pain Reported Location Bilateral Back Intensity 4 Scale Used Numeric (0 - 10) M4 OT- IP ADL's Start: 11/11/22 13:59 Freq: Status: Active Protocol: Document 11/11/22 14:01 [facility] (Rec: 11/11/22 14:23 [facility] [id number]) OT [id number] Comments OT Self-Feeding Comments Pt not hungry but agreed to have an Ensure. OT ADL-Grooming General Evaluation Grooming Ability Minimal Assistance Areas Needing Assistance Combing/Brushing Hair Comments OT Grooming Comments Assist to brush the back of her hair. OT ADL-Oral Care Comments Oral Care Comments NOt performed. OT ADL-Dressing General Eval Lower Body Dressing Ability Total Assistance Comments OT Dressing Comments Assist for socks, pt states just puts on slippers at home OT ADL-Toileting General Evaluation Toileting Ability Total Assistance Comments OT Toileting Comments Horvath in place. OT ADL-Bathing Comments OT Bathing Comments Sponge bathing more appropriate at this time. M5 OT- IP IADL's Start: 11/11/22 13:59 Freq: Status: Active Protocol: Document 11/11/22 14:01 [facility] (Rec: 11/11/22 14:23 [facility] [id number]) OT-Instrumental Activities of Daily Living Home Safety Awareness Awareness of Need for Assistance at Home Good Awareness Ability to Problem Solve Emergency Able to Problem Solve Situations Home Safety Comments Pt able to answer all home safety questions with good accuracy. Medication Management Medication Management Comments Prior pt able to do on her own . Money Management Money Management No Deficits Identified Meal Preparation Meal Preparation Comments Prior pt able to do on her own . Lace Inspector Lace Inspector Comments Prior pt able to do on her own . Driving Driving Comments Pt does not have a car and her son take her places. M6 OT- IP Functional Cognition Start: 11/11/22 13:59 Freq: Status: Active Protocol: Document 11/11/22 14:01 [facility] (Rec: 11/11/22 14:23 [facility] [id number]) Cognitive Factors Limiting Selfcare Function Cognitive Ability Level of Alertness Alert Patient Orientation Name,Place,Situation Attention Span Ability Capable of Focused Attention, Capable of Sustained Attention Ability to Follow Commands Able to Follow One Step Commands Problem Solving Ability Unable to Identify Errors, Needs Assist to Identify Solutions Cognitive Comments Cognitive Assessment Comments Pt able to follow commands for ADL and mobility needs. Pt just needing initially encouragement to participate. OT- Vision and Hearing OT- Hearing Assessment OT- Hearing Assessment WFL OT- Vision Assessment Visual Acuity Glasses All The Time Visual Attentiveness WFL Occular Pursuits WFL M7 OT- IP Mobility and Balance Start: 11/11/22 13:59 Freq: Status: Active Protocol: Document 11/11/22 14:01 [facility] (Rec: 11/11/22 14:23 [facility] [id number]) OT- Bed Mobility Assessment Supine to Sit Supine to Sit Assist Maximum Assistance,2 Person Assistance OT-Transfer Assessment Sit to and From Stand Sit to and from Stand Minimal Assistance,2 Person Assistance Transfers Transfer Ability Minimal Assistance,2 Person Assistance Technique Transfer Destination Bed,Chair Transfer Technique Stand Step Pivot Devices Transfer Assistive Devices Gait Belt,Front Wheeled Walker Comments Mobility Comments Pt needing MAX A x2 to assist to get her legs to the edge of the bed and get her trunk upright with HOB up. At home pt sleeps while sitting upright from her couch. COming to stand LACNE x2 to FWW and pt able to walk to the recliner. Per nursing okay to do FWW transfer with two person assist. OT- Balance Assessment Sitting Balance and Reactions Static Sitting Balance Ability Good Dynamic Sitting Balance Ability Fair Standing Balance and Reactions Static Standing Balance Ability Poor Dynamic Standing Balance Ability Poor M8 OT- IP Objective Assessments Start: 11/11/22 13:59 Freq: Status: Active Protocol: Document 11/11/22 14:01 [facility] (Rec: 11/11/22 14:23 [facility] [id number]) OT Gross Range of Motion Upper Extremity Range of Motion Assessment Right Impaired OT Strength Upper Extremity Strength Assessment Right Impaired Comments Strength Comments RUE strength 3-/5 to 4-/5 and LUE 4-/5 throughout. OT- Coordination Assessment Comments Coordination Comments Numbness in both hands due to chemo neuropathy, therefore decreased coordination at times. OT-Muscle Tone Assessment Muscle Tone WNL Yes OT Sensation Assessment Edema Edema Comments right hand more swollen M9 OT- IP Assessment and Plan Start: 11/11/22 13:59 Freq: Status: Active Protocol: Document 11/11/22 14:01 [facility] (Rec: 11/11/22 14:23 [facility] [id number]) OT Summary Assessment and Plan Potential Rehabilitation Potential Good Analytic Complexity at Evaluation Moderate Summary OT Impairments Pain,Range of Motion,Strength, Balance,Functional Mobility, Dressing,Toileting,Bathing, Toilet Transfers,Shower Transfers,Activity Tolerance Progress Towards Goals Slow Progress due to Medical Issues,Slow Progress due to Activity Tolerance Assessment Summary Pt MOD complexity and main barriers are steps, medical complexity of metastatic CA and pressure decubitus ulcer, and decreased activity tolerance and needing assist for mobility and ADl needs. Pt would greatly benefit from skilled rehab prior to going home, otherwise will need 24/ assist at home with home health. Goals Grooming Goal Independent Dressing Goal Independent Toileting Goal Independent Bathing Goal Minimal Assistance Toilet Transfer Goal Independent Shower Transfer Goal Minimal Assistance Days to Meet Goals 15 Frequency of Treatment Frequency Of Treatment Once a Day Treatment Plan OT Treatment Plan ADL Training,Functional Mobility,Patient/Family Education,Discharge Planning Other Treatment Recommendations and Next transfer to toilet with FWW Treatment Focus and MODA X1. Discharge Recommendations OT Discharge Recommendations SNF Rehab Transportation Needs at Discharge Wheelchair/Cabulance
--- NOTE | 2022-11-11 13:54 | PM.CN ---
History of Present Illness Consult details Date Patient Seen: 11/11/22 Time Patient Seen: 12:00 Chief complaint: fall, + thinners Reason for consult: wound evaluation Narrative: The patient is a 59-year-old female with metastatic breast cancer, diabetes, morbid obesity, and history of DVT/PE who was admitted to the hospital November 09, 2022. The patient reports that she slid from her chair about 1 week prior to admission and was unable to get up. She remained on the floor all week and refused to allow family members to call for EMS to transport her to the hospital. Her family did provide meals for her. Eventually she agreed to be transported and she was brought to the [facility] emergency room. Upon admission to the hospital the patient was found to have a large unstable sacral pressure ulcer as well as multiple other superficial pressure ulcers. Initial laboratory evaluation revealed a white count of 13.2, hemoglobin 8.1, CP K to 74, an albumin of 3.1. All other labs were basically normal. Patient is on chronic anticoagulation. During her hospital stay she did become hypertensive which improved with IV fluids and packed red blood cell transfusion. She did undergo a surgical evaluation and was not felt to be a candidate for any type of surgical intervention due to her multiple comorbidities. A wound care consultation was requested for further recommendations regarding management of her pressure ulcers. Patient denies ever having had any similar problems in the past. She is usually able to ambulate with use of a walker. 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 She remains on a aromatase NETO inhibitor therapy. Meds Home Medications and Allergies Home Medications Medication Instructions Recorded Confirmed Type bupropion HCl 150 mg 24 hr tablet, 150 mg PO DAILY 11/09/22 11/09/22 History extended release letrozole 2.5 mg tablet 2.5 mg PO BID 11/09/22 11/09/22 History levothyroxine 150 mcg tablet 150 mcg PO DAILY 11/09/22 11/09/22 History metformin 500 mg tablet 500 mg PO BID 11/09/22 11/09/22 History oxycodone-acetaminophen 5 mg-325 tab 11/09/22 History mg tablet rivaroxaban 20 mg tablet (Xarelto) 20 mg PO DAILY 11/09/22 11/09/22 History ropinirole 2 mg tablet 2 mg PO DAILY 11/09/22 11/09/22 History rosuvastatin 10 mg tablet 10 mg PO DAILY 11/09/22 11/09/22 History Allergies Allergy/AdvReac Type Severity Reaction Status Date / Time No Known Drug Allergies Allergy Verified 11/09/22 15:51 Review of Systems Constitutional Comments: Generalized weakness Cardiovascular Comments: No chest pain Respiratory Comments: No shortness of breath Musculoskeletal Comments: Back pain Integumentary/Breasts Comments: Multiple skin sores Exam Vital Signs (past 8 hours): - 11/11/22 06:00 11/11/22 09:04 Temperature 98.3 F Pulse Rate 91 H 87 Respiratory Rate 18 16 Blood Pressure 91/47 L 105/63 Pulse Oximetry 94 96 Oxygen Delivery Method Nasal Cannula Oxygen Flow Rate 2 Narrative Exam Narrative: Generally the patient is an obese female who is alert and oriented, no apparent distress Const General: cooperative Orientation: alert, awake and oriented x3 Limitations: physical limitations HENMT Head: normocephalic Skin Wounds: wounds noted Other: Large unstageable sacral pressure ulcer with necrotic skin, foul odor, extends full-thickness to subcutaneous tissues, full depth can not be assessed. Multiple superficial pressure ulcers involving right buttock, posterior thighs and calves. Objective Labs Result Diagrams: 11/11/22 05:30 11/11/22 05:30 Labs: Laboratory Results - last 24 hr 11/10/22 11/11/22 11/11/22 13:36 05:30 05:30 WBC 9.3 RBC 2.72 L Hgb 8.2 L Hct 25.3 L MCV 93.1 MCH 30.3 MCHC 32.5 RDW 21.4 H Plt Count 313 Neut % (Auto) 83.3 H Lymph % (Auto) 6.7 L [place] % (Auto) 5.4 Eos % (Auto) 4.2 H Baso % (Auto) 0.4 Neut # (Auto) 7800 H Lymph # (Auto) 600 L [place] # (Auto) 500 Eos # (Auto) 400 Baso # (Auto) 0 RBC Morphology See below Anisocytosis 2+ H Sodium 140 140 Potassium 3.1 L 3.3 L Chloride 107 109 H Carbon Dioxide 23 25 BUN 11 10 Creatinine 0.73 0.70 Estimated GFR > 60 > 60 BUN/Creatinine Ratio 15.1 14.3 Glucose 90 80 Calcium 7.9 L 8.0 L Total Creatine Kinase 172 H [facility] Medical History DVT (deep venous thrombosis) Pulmonary embolism Social History household members: none Tobacco & Substance Use Smoking Status: Never smoker Assessment & Plan Assessment and plan (1) Sacral decubitus ulcer: Qualifiers: Pressure injury stage: unspecified pressure injury stage Qualified Code(s): L89.159 - Pressure ulcer of sacral region, unspecified stage Status: Acute (2) Pressure injury of skin: Status: Acute Plan The patient is not a candidate for aggressive surgical debridement because of her comorbidities and chronic anticoagulation however she would benefit from a more limited debridement of the necrotic overlying skin and subcutaneous tissue of the sacral pressure ulcer. Recommend b.i.d. dressing changes with Dakin's solution to the sacral pressure ulcer and DuoDerm to the superficial ulcerations on her buttocks, thighs, and calf. She would also benefit from pressure offloading by frequent turning and use of an air mattress. Aggressive nutritional support with protein supplementation to promote healing. Follow up at wound center after discharge. Time Spent With Patient Time with patient: 30 to 49 minutes with 50% spent counseling/coordinating care Critical Care time: I spent a total of [] minutes of critical care time on this patient's care today; this time is exclusive of procedural time.
[2022-11-11] MEDS: SENNOSIDES 8.6 MG TABLET PO ×2 (14:31→21:11)
[2022-11-11] MEDS: polyethylene glycoL 3350 17 GM POWD.PACK PO (14:32)
[2022-11-11] MEDS: POTASSIUM CHLORIDE 20 MEQ TAB 40 MEQ PO ×2 (14:38→17:18)
[2022-11-11] MEDS: GABAPENTIN 600 MG TABLET PO ×2 (14:59→21:11)
[2022-11-11] MEDS: VANCOMYCIN 1,500 MG/300 ML PIGGYBACK 200 MG IV (14:59)
[2022-11-11 15:15] VITALS: BP 100/62; PULSE 88; RESP 16; O2SAT 92
--- NOTE | 2022-11-11 15:51 | DIET.CONS ---
Dietary Consultation Note Admission Date: 11/09/2022 15:46 Assessment: 57y F admitted after GLF where pt was on the ground x7d due to family not being able to assist pt up to chair/bed. Pt referred to nutrition for tailored nutrition support for wound healing. RD met with pt at bedside, pt pleasant and willing to work c RD for plan to support nutrition needs. Per wound care doctor report, pt with unstagable pressure ulcers +necrosis of skin to buttocks, sacrum, posterior thighs. Pt states she had N/V last evening and has not felt like eating much today. Had oatmeal for breakfast and grilled cheese sandwich for lunch. Pt with stage 3 obesity and 159% IBW. Adjusted body weight calculated at 66.8kg. Care to be taken to give adequate kcals and protein for healing while minimizing empty kcals. Please keep optimal glucose control for skin repair (140-180). Pt with advanced metastatic breast cancer to bones. Ht: 149.86 cm Wt: 124 kg BMI: 57.9 Last BM: 11/06/22 (11/09/22 18:50) MNA: 13 Joaquin Score: 15 Diet: 11/10/22 Lunch Carbohydrate Consistent Diet Diet Modifications: Carbohydrate level: Medium (3 CHO) 11/12/22 00:01 NPO Diet Diet Modifications: NPO Type: NPO except for Meds Nutrition Percent Meal Consumed 75% 11/11/22 09:04 Percent Meal Consumed 25% 11/10/22 18:00 Percent Meal Consumed 0% 11/10/22 13:15 Percent Meal Consumed 0% 11/10/22 10:25 Labs: RBC 2.72 X10^6/uL (4.0-5.2) L 11/11/22 05:30 Hgb 8.2 g/dL (12.0-16.0) L 11/11/22 05:30 Hct 25.3 % (36-46) L 11/11/22 05:30 Creatinine 0.70 mg/dL (0.52-1.04) 11/11/22 05:30 Hemoglobin A1c 5.2 % (4.0-6.0) 11/09/22 14:02 Lactate 0.9 mmol/L (0.7-2.1) 11/10/22 01:10 NT-Pro-B Natriuret Pep 255 pg/mL (<125) H 11/09/22 14:02 Nutrition Diagnosis: increased nutrient needs (pro, vit a, vit c, zinc) r/t tissue repair aeb BMI 57 female with significant unstagable pressure ulcers on posterior lower body from being on floor x1w. Interventions: 1. To support pts protein and micronutrient needs, sending ONS Ensure Max bariatric tid on trays in addition to consistent carb diet. ONS provides 88% protein needs and only 30% kcals needs with 100% vit A, C, and zinc. 2. Please ensure optimal glucose control keeping BGs <180. EER: 1800kcals (27kcal/kg ABW), 102g PRO (1.5g/kg ABW) Monitoring/Evaluations: if ONS Facundo is delivered, will add bid to provide HMB and glutamine for tissue repair. Electronically Signed by: Rajni Esquivel 11/11/22 15:51 Clinical Dietitian [address] [id number]
[2022-11-11 15:54] VITALS: PULSE 87; O2SAT 94
[2022-11-11 20:00] VITALS: BP 105/65; PULSE 93; RESP 22; TEMP 36.4; O2SAT 96
[2022-11-11] MEDS: SENNOSIDES 8.6 MG TABLET 17.2 MG PO (21:11)
[2022-11-12] VITALS (8 sets, daily range): BP systolic 91–103; BP diastolic 47–68; PULSE 76–92; RESP 18–20; TEMP 36.3–37; O2SAT 91–96
[2022-11-12] MEDS: PIPERACILLIN/TAZO 4.5 GM in SODIUM CHLORIDE 0.9% 100 ML IV ×4 (00:14→23:44)
[2022-11-12] MEDS: DEXTROSE 50 % IN WATER 25 GM/50 ML SYRINGE IV ×2 (03:16→08:58)
[2022-11-12] MEDS: HYDROCODONE/ACET 5/325 TABLET 1 TAB PO ×3 (06:14→20:22)
--- NOTE | 2022-11-12 07:37 | P.PN_ITS ---
Subjective Subjective Date Patient Seen: 11/12/22 Interval history: Patient hasn't pooped yet, still in over a week. Says she is afraid to because it will hurt. Was awaiting OR surgery today for debridement but got pushed until tomorrow. Exam Vital Signs (past 8 hours): - 11/12/22 00:43 11/12/22 01:31 11/12/22 03:14 Temperature 97.4 F L 98.5 F Pulse Rate 82 87 92 H Respiratory Rate 20 20 Blood Pressure 92/52 L 100/58 L 91/47 L Pulse Oximetry 92 91 94 Oxygen Flow Rate 0 0 11/12/22 05:35 Temperature 98.6 F Pulse Rate 86 Respiratory Rate 20 Blood Pressure 92/53 L Pulse Oximetry 92 Oxygen Flow Rate 0 Oxygen Delivery Method Room Air Oxygen Flow Rate 0 Narrative Exam Narrative: GEN: Middle-aged female, very pleasant, Alert and oriented x 3, NAD HEENT:NC, Face symmetric CHEST: Respiratory excursions symmetric, CTAB CV: RRR, no M/R/G ABD: Soft, NT/ND, BT present in all 4 quadrants, body habitus limits exam EXTR: warm, well perfused, no C/C/E SKIN: warm and dry, significant candidiasis in the abdominal and groin skin folds, buttock and thigh lesions were not visualized this morning, skin of the calf is unchanged, no additional breakdown noted NEURO: Alert and oriented x 3, nonfocal Objective Labs Result Diagrams: 11/12/22 08:40 11/12/22 08:40 [facility] Medical History DVT (deep venous thrombosis) Pulmonary embolism Social History household members: none Smoking Status: Never smoker Assessment & Plan Assessment & Plan narrative: 1. Ground level fall with prolonged down time Patient was admitted after spending 1 week on the floor in her home after a slide to the ground controlled fall. She has no evidence of rhabdomyolysis and today's CPK is 172 down from 274. She had been eating and drinking as her son was bringing her food and liquids. However, she refused to allow him to call a lift assist. ? PT consult done with [facility] for [facility] living facility. OT consult pending.? Unfortunately, she is metastatic breast cancer with spinal Mets and is postoperative from extensive spinal surgery which also limits her mobility.? 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 Typically ambulates with a cane or walker.? Care management working on discharge plan. 2. Unstageable pressure wounds-DTI's to the bilateral medial buttocks in the perianal region, right lower buttock/upper and inner thigh Will work on offloading as able, placing pillows between the legs and repositioning q.2 hours.? Will work on obtaining in air mattress or bariatric bed if possible.? Continue Zosyn.? Able to discontinue vancomycin. Suspect there is some component of necrotic tissue as well.? She is NPO midnight for surgical debridement with gen surg on 11/13. 3. Superficial pressure injury to the bilateral calves and lower and mid bilateral back Offload pressure as much as possible as noted. 4. Metastatic breast cancer, known bony metastasis Continue letrozole.? She reports she will have follow-up staging studies done next week. 5. Diabetes mellitus type 2 Uncontrolled carb diet and fingerstick/sliding scale. Fortunately her hemoglobin A1c shows excellent control at 5.2%. 6. Hypertension Patient reports a history of hypertension, but does not have any antihyperten sive agent on her Jan. 7. Hypotension Improved after fluid boluses and packed red blood cells 8. Anemia Normocytic. 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 She did receive transfusion this morning. Follow-up hemoglobin was 8.5. She has no evidence of active bleeding. 9. Hypothyroidism Continue outpatient dose of levothyroxine 10. Hyperlipidemia Continue Crestor 11. Restless leg syndrome Continue usual outpatient dose of ropinirole 12. Chronic anticoagulation holding Xarelto for surgery 13. Constipation Patient reports no BM in over a week. Added scheduled laxatives plus lactulose. Code status Full Prophylaxis Hold xarelto for surgery. Disposition [facility] facility at discharge. ? Time Spent With Patient Critical Care time: I spent a total of [] minutes of critical care time on this patient's care today; this time is exclusive of procedural time. Quality VTE Deep Vein Thrombosis/Pulmonary Embolism Present on Admission: No
[2022-11-12] MEDS: NYSTATIN POWDER 15GM 1 APPLIC TOP ×2 (08:51→20:23)
[2022-11-12 08:54] LABS: Add Manual Diff / Slide Review NO; Basophils Absolute Auto 0 /uL (0-100); Basophils Percent Auto 0.5 % (0-2); Eosinophils Absolute Auto 500 /uL (0-450); Eosinophils Percent Auto 4.6 % (2-4); Hematocrit 27.6 % (36-46); Hemoglobin 9.1 g/dL (12.0-16.0); Lymphocytes Absolute Auto 700 /uL (1100-4500); Mean Corpuscular HGB Conc 32.8 % (30-36); Mean Corpuscular Hemoglobin 30.6 PG (26-34); Mean Corpuscular Volume 93.3 fL (80-100); Monocytes Absolute Auto 500 /uL (0-900); Neutrophils Absolute Auto 8000 /uL (1500-7000); Neutrophils Percent Auto 82.9 % (50-75); Platelet Count 341 X10^3/uL (150-400); Red Blood Cell Count 2.96 X10^6/uL (4.0-5.2); White Blood Cell Count 9.7 X10^3/uL (4.5-11.0)
[2022-11-12] MEDS: GABAPENTIN 600 MG TABLET PO ×2 (08:58→20:22)
[2022-11-12] MEDS: LEVOTHYROXINE 150 MCG TABLET PO (08:58)
[2022-11-12 09:07] LABS: BUN Creatinine Ratio 10.5 (6-22); Blood Urea Nitrogen 8 mg/dL (7-17); Calcium 8.4 mg/dL (8.4-10.2); Carbon Dioxide 21 mmol/L (22-32); Chloride 109 mmol/L (98-107); Estimated Glomerular Filt Rate > 60 mL/min (>60); Glucose 78 mg/dL (70-100); HEMOLYSIS < 15 (0-50); Magnesium 1.7 mg/dL (1.6-2.3); Potassium 3.4 mmol/L (3.4-5.1); Sodium 140 mmol/L (137-145)
[2022-11-12] MEDS: POTASSIUM CHLORIDE 20 MEQ TAB 40 MEQ PO (10:32)
--- NOTE | 2022-11-12 10:50 | PT.IPTN ---
Current Diagnoses Pressure ulcer of sacral region, unspecified stage (11/09/22) Pressure ulcer of unspecified site, unspecified stage (11/09/22) Surgery Performed Operation Date: 11/12/22 17:00 <No data on this case meets the specified criteria> Physical Therapy Treatment Note M2 PT-IP Current Condition Start: 11/10/22 09:11 Freq: NEEDED Status: Active Protocol: Document 11/10/22 10:43 AW (Rec: 11/10/22 13:18 AW [id number]) Physical Therapy Current Condition Current Condition Evaluation Date 11/10/22 Treatment Diagnosis GLF; multiple unstageable PI's ; impaired mobility Onset Date 11/03/22 M3 PT-IP Subjective Start: 11/10/22 09:11 Freq: NEEDED Status: Active Protocol: Document 11/12/22 10:50 AB (Rec: 11/12/22 13:03 AB [id number]) Subjective Physical Therapy Visit Type Type Treatment Note Visit Start Time 10:50 Visit Stop Time 11:31 Total Visit Minutes 41 Number of SPECIMEN TECHNICIAN Visits 0 Physical Therapy Visit Comments Patient Comments agreeable to do PT Therapy Pain Assessment Pain When Pain Assessed At Rest Pain Present Pain Present Pain Reported Location Bilateral Back Scale Used pain scale not stated Pain Management Techniques Distraction,Modification of Treatment,Re-positioning, Timing of Activity with Medications M4 PT-IP Mobility and Gait Start: 11/10/22 09:11 Freq: NEEDED Status: Active Protocol: Document 11/12/22 10:50 AB (Rec: 11/12/22 13:03 AB [id number]) PT-Bed Mobility Assessment Supine to Sit Supine to Sit Maximum Assistance,2 Person Assistance,Head of Bed Elevated,Bedrails Sit to Supine Sit to Supine 2 Person Assistance,Head of Bed Elevated,Bedrails Scooting Scooting to Edge of Bed Maximum Assistance PT-Transfer Assessment Sit to and From Stand Sit to and from Stand Moderate Assistance,2 Person Assistance,Use of Upper Extremities Equipment Transfer Assistive Device Gait Belt,Front Wheeled Walker Orthotic/Prosthetic Devices or Brace: No Transfers Transfer Destination Chair Transfer Technique ambulated Transfer Ability Level of Assist Moderate Assistance,1 Person Assistance,Use of Upper Extremities Comments Mobility Comments completed supine to sit max A x 2 and max cues with HOB elevated and pt used bed rail. max A x 2 for scooting to EOB. completed sit to stand mod A x 2 and pt needing to be cleaned out and sacral wound dressing change. mod A for standing balance using FWW while nurse and NAC assist with hygiene care and wound needs. pt c/o feeling tired. ambulated to the chair ~ 2 ft using FWW min A to mod A. pt rested. requested to go back to bed. stated that chair is not comfortable. completed sit to stand mod A x 2 and max cues. ambulated to the chair using fWW ~ 3 ft. completed sit to supine max A x 2 and max cues. positioned pt on the bed. call light and table placed within reach. Gait Assessment Gait Gait Assistance Required: Minimum Assistance,Moderate Assistance Distance (Feet) 3 Able to Maintain Weight Bearing Status Yes During Gait Assistive Devices Assistive Device Gait Belt,Front Wheeled Walker Orthotic/Prosthetic Devices or Brace: No Gait Deviations General Gait Pattern Decreased Stride Length, Decreased Feet Clearance,Step- to Gait Factors Limiting Gait Function Factors Limiting Gait Function Decreased Activity Tolerance, Difficulty Following Directions,Limited Range of Motion,Pain,Poor Balance,Poor Safety Awareness M5 PT-IP Objective Assessments Start: 11/10/22 09:11 Freq: NEEDED Status: Active Protocol: Document 11/10/22 10:43 AW (Rec: 11/10/22 13:18 AW [id number]) Orientation Orientation/Cognition Level of Alertness Alert Orientation Name,Day of Week,Place, Situation Strength Lower Extremity Strength Assessment Bilaterally Impaired Hip 3-/5 Knee 3+/5 Ankle 4-/5 Sensation Assessment Sensation Gross Sensation Right UE Impaired,Left UE Impaired,Right LE Impaired, Left LE Impaired Comments Sensation Comments Chemo-induced peripheral neuropathy affects all limbs - distal most affected M6 PT-IP Treatment Start: 11/10/22 09:11 Freq: NEEDED Status: Active Protocol: Document 11/12/22 10:50 AB (Rec: 11/12/22 13:03 AB [email or web address]) Physical Therapy Treatment Education Education Provided Safety M7 PT-IP Assessment and Plan Start: 11/10/22 09:11 Freq: NEEDED Status: Active Protocol: Document 11/12/22 10:50 AB (Rec: 11/12/22 13:03 AB [email or web address]) PT Summary Assessment and Plan Potential Rehabilitation Potential Fair Summary Impairments Pain,ROM,Strength,Balance, Coordination,Sensation,Tone, Cognition,Bed Mobility, Transfers,Gait,Activity Tolerance Progress Towards Goals Slow Progress due to Pain,Slow Progress due to Medical Issues,Slow Progress due to Activity Tolerance Assessment Summary pt completed supine to sit max A x 2 and max cues. Pt has been using a recliner chair at home. pt requires mod A x2 for sit to stand but only min to mod A for short distance ambulation using FWW and presents with decrease activity tolerance affecting mobility. pt lives alone and will need 24/7 assistance at this time and will need SNF rehab. will continue to assess progress. Goals Bed Mobility Goal Minimal Assistance Transfer Goal Minimal Assistance,Front Wheeled Walker Gait Goal Minimal Assistance,Front Wheel Walker Gait Distance 100 Other Goals - up/down 2 steps with L rail ascending min A - improve gait and transfers to SBA with 4WW Days to Meet Goals 10 Frequency of Treatment Frequency Of Treatment Once a Day Treatment Plan Physical Therapy Treatment Plan Bed Mobility Training,Transfer Training,Gait Training, Therapeutic Exercise,Balance Retraining,Discharge Planning, Hot or Cold Pack,Neuromuscular Re-ed Recommendations To Nursing Amount of Assist Needed 2 Person Assist Discharge Recommendations PT Discharge Recommendations SNF Rehab Transportation Needs at Discharge Wheelchair/Cabulance,Stretcher /Ambulance
--- NOTE | 2022-11-12 11:23 | CM.DPNOTE ---
Discharge Planning Note: Per nursing, patient to OR this pm for surgical debridement of sacral unstageable pressure injury. For discharge needs, patient would need SNF or extended care setting for complex wound care. She would need a bariatric bed. PT/OT recommending SNF Rehab. Her insurance is [employer]. Patient is amenable to SNF or swing bed. Called and spoke with swing bed community health coordinator TAYLOR Uribe ([phone]). We faxed ([phone]) referral. He will evaluate. Both of his mental health case manager are out sick today and he will see what he can get done on it today and tomorrow. He states he has beds. Plan: When patient is medically/surgically cleared dishcharge to swing bed unit at [facility]. Follow up with them tomorrow at phone # above. Luna Daniel RN/DCP
--- NOTE | 2022-11-12 13:26 | OT.IP.TRT ---
Current Diagnoses Pressure ulcer of sacral region, unspecified stage (11/09/22) Pressure ulcer of unspecified site, unspecified stage (11/09/22) Surgery Performed Operation Date: 11/12/22 17:00 <No data on this case meets the specified criteria> Occupational Therapy Treatment Note M2 OT-IP Current Condition Start: 11/11/22 13:59 Freq: Status: Active Protocol: Document 11/11/22 14:01 [facility] (Rec: 11/11/22 14:23 [facility] [id number]) Occupational Therapy Current Condition Current Condition Evaluation Date 11/11/22 Treatment Diagnosis GLF, sacral decubitus ulcer Diagnosis Onset Date 11/09/22 M3 OT- IP Subjective and Pain Start: 11/11/22 13:59 Freq: Status: Active Protocol: Document 11/12/22 14:43 [facility] (Rec: 11/12/22 14:48 [facility] [id number]) OT- Subjective Occupational Therapy Visit Type Type Treatment Note Visit Start Time 13:26 Visit Stop Time 13:42 Total Visit Minutes 16 Occupational Therapy Visit Comments Patient Comments Pt states too tired to try to get up again and got up earlier with PT prior. Patient/Caregiver Goals To get stronger so able to go home. OT Pain Assessment Pain When Pain Assessed At Rest Pain Present Pain Present Denied Pain M4 OT- IP ADL's Start: 11/11/22 13:59 Freq: Status: Active Protocol: Document 11/12/22 14:43 [facility] (Rec: 11/12/22 14:48 [facility] [id number]) OT [id number] Comments OT Self-Feeding Comments Pt NPO and to have I and D this afternoon. OT ADL-Grooming General Evaluation Grooming Ability Standby Assistance Areas Needing Assistance Retrieving/Set-up of Grooming Items Comments OT Grooming Comments while in bed OT ADL-Oral Care General Eval Oral Care Ability Independent Areas of Assistance Retrieving/Set-Up of Items Comments Oral Care Comments Able to do while in bed. M5 OT- IP IADL's Start: 11/11/22 13:59 Freq: Status: Active Protocol: Document 11/11/22 14:01 [facility] (Rec: 11/11/22 14:23 [facility] [id number]) OT-Instrumental Activities of Daily Living Home Safety Awareness Awareness of Need for Assistance at Home Good Awareness Ability to Problem Solve Emergency Able to Problem Solve Situations Home Safety Comments Pt able to answer all home safety questions with good accuracy. Medication Management Medication Management Comments Prior pt able to do on her own . Money Management Money Management No Deficits Identified Meal Preparation Meal Preparation Comments Prior pt able to do on her own . Wrapper Leaf Inspector Wrapper Leaf Inspector Comments Prior pt able to do on her own . Driving Driving Comments Pt does not have a car and her son take her places. M6 OT- IP Functional Cognition Start: 11/11/22 13:59 Freq: Status: Active Protocol: Document 11/12/22 14:43 [facility] (Rec: 11/12/22 14:48 [facility] [id number]) Cognitive Factors Limiting Selfcare Function Cognitive Comments Cognitive Assessment Comments Intact, encourage pt to do positive thinking prior to her I and D. M7 OT- IP Mobility and Balance Start: 11/11/22 13:59 Freq: Status: Active Protocol: Document 11/11/22 14:01 [facility] (Rec: 11/11/22 14:23 [facility] [id number]) OT- Bed Mobility Assessment Supine to Sit Supine to Sit Assist Maximum Assistance,2 Person Assistance OT-Transfer Assessment Sit to and From Stand Sit to and from Stand Minimal Assistance,2 Person Assistance Transfers Transfer Ability Minimal Assistance,2 Person Assistance Technique Transfer Destination Bed,Chair Transfer Technique Stand Step Pivot Devices Transfer Assistive Devices Gait Belt,Front Wheeled Walker Comments Mobility Comments Pt needing MAX A x2 to assist to get her legs to the edge of the bed and get her trunk upright with HOB up. At home pt sleeps while sitting upright from her couch. COming to stand LANCE x2 to FWW and pt able to walk to the recliner. OT- Balance Assessment Sitting Balance and Reactions Static Sitting Balance Ability Good Dynamic Sitting Balance Ability Fair Standing Balance and Reactions Static Standing Balance Ability Poor Dynamic Standing Balance Ability Poor M9 OT- IP Assessment and Plan Start: 11/11/22 13:59 Freq: Status: Active Protocol: Document 11/12/22 14:43 [facility] (Rec: 11/12/22 14:48 [facility] [id number]) OT Summary Assessment and Plan Potential Rehabilitation Potential Good Analytic Complexity at Evaluation Moderate Summary OT Impairments Pain,Range of Motion,Strength, Balance,Functional Mobility, Dressing,Toileting,Bathing, Toilet Transfers,Shower Transfers,Activity Tolerance Progress Towards Goals Slow Progress due to Medical Issues,Slow Progress due to Activity Tolerance Assessment Summary Pt to have I and D this afternoon and just agreeing to do grooming and oral care in the bed at this time. Pt will benefit from skilled rehab prior to going home otherwise will need / available assist. Goals Grooming Goal Independent Dressing Goal Independent Toileting Goal Independent Bathing Goal Minimal Assistance Toilet Transfer Goal Independent Shower Transfer Goal Minimal Assistance Days to Meet Goals 16 Frequency of Treatment Frequency Of Treatment Once a Day Treatment Plan OT Treatment Plan ADL Training,Functional Mobility,Patient/Family Education,Discharge Planning Other Treatment Recommendations and Next transfer to toilet with FWW Treatment Focus and MODA X1. Discharge Recommendations OT Discharge Recommendations SNF Rehab Transportation Needs at Discharge Wheelchair/Cabulance
[2022-11-12] MEDS: MAGNESIUM CHLORIDE 64 MG TABLET 128 MG PO (14:32)
[2022-11-12] MEDS: LACTULOSE 20 GM/30 ML SOLUTION PO (18:50)
[2022-11-12] MEDS: LETROZOLE 2.5 MG TABLET PO (20:22)
[2022-11-12] MEDS: DOCUSATE 100 MG CAPSULE PO (20:22)
[2022-11-12] MEDS: SENNOSIDES 8.6 MG TABLET PO (20:23)
[2022-11-12] MEDS: SENNOSIDES 8.6 MG TABLET 17.2 MG PO (20:23)
[2022-11-12] MEDS: SODIUM CHLORIDE 0.9% FLUSH 10 ML IV (20:35)
--- NOTE | 2022-11-12 22:40 | PC.NURSE ---
Patient is alert and oriented. Breath sounds CTA with RA sat of 93%. HRR w/BP of 95/60; has been trending low. Denies nausea today but did have some nausea previous days. BT hypoactive and had not had a BM since 11/06 but when last repositioned was incontinent of liquid brown stool. Indwelling catheter is patent; urine is clear yellow. Has Allevyn dressings to pressure areas on buttocks/sacrum and is scheduled for debridement in a.m. Is being assisted to reposition q2h. Complains of back pain radiating into legs which is relieved with use of Vicodin. Declines use of SCD's. Fall risk score is high and bed alarm is activated.
[2022-11-13] VITALS (23 sets, daily range): BP systolic 79–113; BP diastolic 46–72; PULSE 86–111; RESP 14–95; TEMP 35.8–37.1; O2SAT 26–100
[2022-11-13] MEDS: SODIUM CHLORIDE 0.9% FLUSH 10 ML IV ×3 (04:00→20:44)
--- NOTE | 2022-11-13 07:36 | P.PN_ITS ---
Subjective Subjective Date Patient Seen: 11/13/22 Interval history: Had a liquid stool last night. Plan for OR today. A 17 min conversation was had at the bedside about GOC and possible hospice to allow her to return home, instead of needing to be in a facility. Patient somewhat open to it and thinking it over. Exam Vital Signs (past 8 hours): - 11/13/22 00:00 11/13/22 06:26 Temperature 98.8 F 98 F Pulse Rate 87 86 Respiratory Rate 20 20 Blood Pressure 90/46 L 93/49 L Pulse Oximetry 92 93 Oxygen Flow Rate 0 0 Oxygen Delivery Method Room Air Oxygen Flow Rate 0 Narrative Exam Narrative: GEN: Middle-aged female, very pleasant, Alert and oriented x 3, NAD HEENT:NC, Face symmetric CHEST: Respiratory excursions symmetric, CTAB CV: RRR, no M/R/G ABD: Soft, NT/ND, BT present in all 4 quadrants, body habitus limits exam EXTR: warm, well perfused, no C/C/E SKIN: warm and dry, significant candidiasis in the abdominal and groin skin folds, buttock and thigh lesions were not visualized this morning, skin of the calf is unchanged, no additional breakdown noted NEURO: Alert and oriented x 3, nonfocal Objective Labs Result Diagrams: 11/13/22 08:10 11/13/22 08:10 Labs: Laboratory Results - last 24 hr 11/12/22 11/12/22 08:40 08:40 WBC 9.7 RBC 2.96 L Hgb 9.1 L Hct 27.6 L MCV 93.3 MCH 30.6 MCHC 32.8 RDW 20.0 H Plt Count 341 Neut % (Auto) 82.9 H Lymph % (Auto) 7.0 L [place] % (Auto) 5.0 Eos % (Auto) 4.6 H Baso % (Auto) 0.5 Neut # (Auto) 8000 H Lymph # (Auto) 700 L [place] # (Auto) 500 Eos # (Auto) 500 H Baso # (Auto) 0 Sodium 140 Potassium 3.4 Chloride 109 H Carbon Dioxide 21 L BUN 8 Creatinine 0.76 Estimated GFR > 60 BUN/Creatinine Ratio 10.5 Glucose 78 Calcium 8.4 Magnesium 1.7 PFSH Medical History DVT (deep venous thrombosis) Pulmonary embolism Social History household members: none Smoking Status: Never smoker Assessment & Plan Assessment & Plan narrative: 1. Ground level fall with prolonged down time Patient was admitted after spending 1 week on the floor in her home after a slide to the ground controlled fall. She has no evidence of rhabdomyolysis and today's CPK is 172 down from 274. She had been eating and drinking as her son was bringing her food and liquids. However, she refused to allow him to call a lift assist. ? PT consult done with [facility] for [facility] living facility. OT consult pending.? Unfortunately, she is metastatic breast cancer with spinal Mets and is postoperative from extensive spinal surgery which also limits her mobility.? 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 Typically ambulates with a cane or walker.? Care management working on discharge plan. 2. Unstageable pressure wounds-DTI's to the bilateral medial buttocks in the perianal region, right lower buttock/upper and inner thigh Will work on offloading as able, placing pillows between the legs and repos itioning q.2 hours.? Will work on obtaining in air mattress or bariatric bed if possible.? Continue Zosyn.? Able to discontinue vancomycin. Suspect there is some component of necrotic tissue as well.? She is NPO midnight for surgical debridement with gen surg on 11/13. 3. Superficial pressure injury to the bilateral calves and lower and mid bilateral back Offload pressure as much as possible as noted. 4. Metastatic breast cancer, known bony metastasis Continue letrozole.? She reports she will have follow-up staging studies done next week. 5. Diabetes mellitus type 2 Uncontrolled carb diet and fingerstick/sliding scale. Fortunately her hemoglobin A1c shows excellent control at 5.2%. 6. Hypertension Patient reports a history of hypertension, but does not have any antihypertensive agent on her Mar. 7. Hypotension Improved after fluid boluses and packed red blood cells 8. Anemia Normocytic. 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 She did receive transfusion this morning. Follow-up hemoglobin was 8.5. She has no evidence of active bleeding. 9. Hypothyroidism Continue outpatient dose of levothyroxine 10. Hyperlipidemia Continue Crestor 11. Restless leg syndrome Continue usual outpatient dose of ropinirole 12. Chronic anticoagulation holding Xarelto for surgery 13. Constipation Patient reports no BM in over a week. Added scheduled laxatives plus lactulose. Code status Full Prophylaxis Hold xarelto for surgery. Disposition [facility] facility at discharge vs hospice at home if caregiving can be arrange. Will be difficult as patient lives alone. ? Time Spent With Patient Critical Care time: I spent a total of [] minutes of critical care time on this patient's care today; this time is exclusive of procedural time. Quality VTE Deep Vein Thrombosis/Pulmonary Embolism Present on Admission: No
[2022-11-13 08:40] LABS: Add Manual Diff / Slide Review NO; Basophils Absolute Auto 100 /uL (0-100); Basophils Percent Auto 0.8 % (0-2); Eosinophils Absolute Auto 400 /uL (0-450); Eosinophils Percent Auto 5.1 % (2-4); Hematocrit 27.3 % (36-46); Hemoglobin 8.9 g/dL (12.0-16.0); Lymphocytes Absolute Auto 500 /uL (1100-4500); Lymphocytes Percent Auto 7.1 % (25-40); Mean Corpuscular HGB Conc 32.7 % (30-36); Mean Corpuscular Hemoglobin 30.8 PG (26-34); Mean Corpuscular Volume 93.9 fL (80-100); Monocytes Absolute Auto 500 /uL (0-900); Monocytes Percent Auto 6.1 % (3-14); Neutrophils Absolute Auto 6000 /uL (1500-7000); Neutrophils Percent Auto 80.9 % (50-75); Platelet Count 347 X10^3/uL (150-400); White Blood Cell Count 7.5 X10^3/uL (4.5-11.0)
[2022-11-13 08:53] LABS: BUN Creatinine Ratio 9.1 (6-22); Blood Urea Nitrogen 8 mg/dL (7-17); Calcium 8.5 mg/dL (8.4-10.2); Carbon Dioxide 23 mmol/L (22-32); Chloride 108 mmol/L (98-107); Estimated Glomerular Filt Rate > 60 mL/min (>60); Glucose 89 mg/dL (70-100); HEMOLYSIS < 15 (0-50); Potassium 3.4 mmol/L (3.4-5.1); Sodium 141 mmol/L (137-145)
[2022-11-13] MEDS: PIPERACILLIN/TAZO 4.5 GM in SODIUM CHLORIDE 0.9% 100 ML IV ×2 (09:15→16:54)
[2022-11-13] MEDS: LEVOTHYROXINE 150 MCG TABLET PO (09:15)
[2022-11-13] MEDS: GABAPENTIN 600 MG TABLET PO ×2 (09:15→20:39)
[2022-11-13] MEDS: ROPINIROLE 1 MG TABLET 2 MG PO (09:15)
[2022-11-13] MEDS: ATORVASTATIN 20 MG TABLET PO (09:15)
[2022-11-13] MEDS: LETROZOLE 2.5 MG TABLET PO ×2 (09:16→20:39)
[2022-11-13] MEDS: NYSTATIN POWDER 15GM 1 APPLIC TOP ×2 (09:17→20:39)
--- NOTE | 2022-11-13 13:00 | OT.IP.TRT ---
Current Diagnoses Pressure ulcer of sacral region, unspecified stage (11/09/22) Pressure ulcer of unspecified site, unspecified stage (11/09/22) Surgery Performed Operation Date: 11/13/22 15:15 <No data on this case meets the specified criteria> Occupational Therapy Treatment Note M2 OT-IP Current Condition Start: 11/11/22 13:59 Freq: Status: Active Protocol: Document 11/11/22 14:01 [facility] (Rec: 11/11/22 14:23 [facility] [id number]) Occupational Therapy Current Condition Current Condition Evaluation Date 11/11/22 Treatment Diagnosis GLF, sacral decubitus ulcer Diagnosis Onset Date 11/09/22 M3 OT- IP Subjective and Pain Start: 11/11/22 13:59 Freq: Status: Active Protocol: Document 11/13/22 13:00 [facility] (Rec: 11/13/22 13:33 [facility] [id number]) OT- Subjective Occupational Therapy Visit Type Type Treatment Note Visit Start Time 12:45 Visit Stop Time 13:00 Total Visit Minutes 15 Occupational Therapy Visit Comments Patient Comments Pt standing with the FWW when OT came in and was being cleaned by RN and nursing aid after a bowel movement. Pt scheduled to Patient/Caregiver Goals To get stronger so able to go home. OT Pain Assessment Pain When Pain Assessed During Mobility Pain Present Pain Present Pain Reported M4 OT- IP ADL's Start: 11/11/22 13:59 Freq: Status: Active Protocol: Document 11/13/22 13:00 [facility] (Rec: 11/13/22 13:33 [facility] [id number]) OT OGA-Eafu-Nubmlps Comments OT Self-Feeding Comments Pt NPO and to have I and D this afternoon. OT ADL-Toileting General Evaluation Toileting Ability Total Assistance Areas Needing Assistance Perform Perineal Hygiene OT ADL-Bathing Bathing Type Bathing Type Sponge Bath General Evaluation Bathing Ability Maximal Assistance Comments OT Bathing Comments Pt able to stand with FWW while nurse able to assist to clean her pericare areas. Pt able to sit down on the edge of the bed and able to assist to wash her back and arms. Pt unable to assist with any of the cleaning as using her arms to help sit up on the side on the bed. Pt able to stand for multiple minutes at a time while leaning over the FWW. M5 OT- IP IADL's Start: 11/11/22 13:59 Freq: Status: Active Protocol: Document 11/11/22 14:01 [facility] (Rec: 11/11/22 14:23 [facility] [id number]) OT-Instrumental Activities of Daily Living Home Safety Awareness Awareness of Need for Assistance at Home Good Awareness Ability to Problem Solve Emergency Able to Problem Solve Situations Home Safety Comments Pt able to answer all home safety questions with good accuracy. Medication Management Medication Management Comments Prior pt able to do on her own . Money Management Money Management No Deficits Identified Meal Preparation Meal Preparation Comments Prior pt able to do on her own . Octave Board Assembler Octave Board Assembler Comments Prior pt able to do on her own . Driving Driving Comments Pt does not have a car and her son take her places. M6 OT- IP Functional Cognition Start: 11/11/22 13:59 Freq: Status: Active Protocol: Document 11/13/22 13:00 [facility] (Rec: 11/13/22 13:33 [facility] [id number]) Cognitive Factors Limiting Selfcare Function Cognitive Comments Cognitive Assessment Comments Pt able to states her needs appropriately. M7 OT- IP Mobility and Balance Start: 11/11/22 13:59 Freq: Status: Active Protocol: Document 11/13/22 13:00 [facility] (Rec: 11/13/22 13:33 [facility] [id number]) OT- Bed Mobility Assessment Sit to Supine Sit to Supine Assist Maximum Assistance,Total Assistance,2 Person Assistance OT-Transfer Assessment Devices Transfer Assistive Devices Gait Belt,Front Wheeled Walker Comments Mobility Comments Pt CGA to FWW and CGA while walking a few steps forwards and back from the bed at this time. OT- Balance Assessment Sitting Balance and Reactions Static Sitting Balance Ability Fair Standing Balance and Reactions Static Standing Balance Ability Fair M9 OT- IP Assessment and Plan Start: 11/11/22 13:59 Freq: Status: Active Protocol: Document 11/13/22 13:00 [facility] (Rec: 11/13/22 13:33 [facility] [id number]) OT Summary Assessment and Plan Potential Rehabilitation Potential Fair Analytic Complexity at Evaluation Moderate Summary OT Impairments Pain,Range of Motion,Strength, Balance,Functional Mobility, Dressing,Toileting,Bathing, Toilet Transfers,Shower Transfers,Activity Tolerance Progress Towards Goals Slow Progress due to Pain,Slow Progress due to Medical Issues,Slow Progress due to Activity Tolerance Assessment Summary Pt able to stand for minutes at a time during hygiene needs after a bowel movement. Pt is dependent for hygiene needs during toileting and sponge bathing needs at this time. Pt will benefit from skilled rehab versus home with 24/7 assist and home health at this time. Goals Grooming Goal Independent Dressing Goal Minimal Assistance Toileting Goal Moderate Assistance Bathing Goal Moderate Assistance Toilet Transfer Goal Independent Shower Transfer Goal Contact Guard Assistance Days to Meet Goals 15 Frequency of Treatment Frequency Of Treatment Once a Day Treatment Plan OT Treatment Plan ADL Training,Functional Mobility,Patient/Family Education,Discharge Planning Other Treatment Recommendations and Next transfer to toilet with CGA Treatment Focus with FWW Discharge Recommendations OT Discharge Recommendations Home with 24/7 Assist Available,Home Health,SNF Rehab,Home vs SNF Transportation Needs at Discharge Wheelchair/Cabulance
[2022-11-13] MEDS: LACTATED RINGERS 1,000 ML 100 ML IV (13:45)
--- NOTE | 2022-11-13 13:58 | P.PN_ITS ---
Subjective Subjective Date Patient Seen: 11/13/22 Time Patient Seen: 13:58 Interval history: no acute events Exam Vital Signs (past 8 hours): - 11/13/22 06:26 11/13/22 09:00 11/13/22 12:00 Temperature 98 F 96.5 F L 97.1 F L Pulse Rate 86 87 87 Respiratory Rate 20 16 17 Blood Pressure 93/49 L 106/60 103/57 L Pulse Oximetry 93 93 93 Oxygen Flow Rate 0 0 0 Oxygen Delivery Method Room Air Oxygen Flow Rate 0 Narrative Exam Narrative: Gen-Adult woman morbid obesity no distress Objective Labs Result Diagrams: 11/13/22 08:10 11/13/22 08:10 Labs: Laboratory Results - last 24 hr 11/13/22 11/13/22 08:10 08:10 WBC 7.5 RBC 2.90 L Hgb 8.9 L Hct 27.3 L MCV 93.9 MCH 30.8 MCHC 32.7 RDW 20.0 H Plt Count 347 Neut % (Auto) 80.9 H Lymph % (Auto) 7.1 L [place] % (Auto) 6.1 Eos % (Auto) 5.1 H Baso % (Auto) 0.8 Neut # (Auto) 6000 Lymph # (Auto) 500 L [place] # (Auto) 500 Eos # (Auto) 400 Baso # (Auto) 100 Sodium 141 Potassium 3.4 Chloride 108 H Carbon Dioxide 23 BUN 8 Creatinine 0.88 Estimated GFR > 60 BUN/Creatinine Ratio 9.1 Glucose 89 Calcium 8.5 PFSH Medical History DVT (deep venous thrombosis) Pulmonary embolism Social History household members: none Smoking Status: Never smoker Assessment & Plan Assessment & Plan narrative: 57F with metastatic cancer and decubitus ulcer. Will proceed with debridement of decubitus ulcer. Overview of operation discussed. Risks including infection, bleeding, non healing wound discussed. Questions answered will proceed. Time Spent With Patient Critical Care time: I spent a total of [] minutes of critical care time on this patient's care today; this time is exclusive of procedural time. Quality VTE Deep Vein Thrombosis/Pulmonary Embolism Present on Admission: No
--- NOTE | 2022-11-13 14:29 | SUR.OPER ---
Lateral on a lugo bag, head on pillow, no axillary roll per surgeon, bottom leg bent with gel pad under knee to foot, upper leg straight and supported with pillows. Upper arm supported by pillows and secured over bottom arm to padded arm board. Safety belt at hip, tape over blanket lower legs.
--- NOTE | 2022-11-13 14:32 | SUR.OPER ---
Lateral on a lugo bag, head on pillow, no axillary roll per surgeon, bottom leg bent with gel pad under knee to foot, upper leg straight and supported with pillows. Upper arm supported by pillows and secured over bottom arm to padded arm board. Safety belt at chest, tape over blanket lower legs.
--- NOTE | 2022-11-13 15:01 | PM.OP.1 ---
Operative Date/Time/Diagnoses Date of procedure: 11/13/22 Time of procedure: 15:01 Pre-op diagnosis: Decubitus ulcer Post-op diagnosis: same Procedure & Clinicians Procedure: Sharp excisional debridement down to the fascia wounds 20 x 15 and 15 x 10 cm Same procedure as scheduled: Yes Indications: 57-year-old woman with metastatic breast cancer who has developed unstageable sacral ulcers Surgeon: Filiberto Wilcox Click Yes if Unassisted: Yes Anesthesia Type: General Operative Notes Findings: Do chronic tissue down to the level of the fascia Specimen(s): other (Decubitus ulcer) Estimated Blood Loss (mL): 200 Procedure in detail: Patient was brought to the operating room placed supine on the table. Bilateral lower extremity compression devices were applied. General anesthesia was induced and she was intubated with an endotracheal tube. She received antibiotics on the floor prior to arrival. She was then placed into the right lateral decubitus position on beanbag and appropriately padded. She was prepped and draped in sterile fashion. Time-out was performed. Wide excision was made of the necrotic sacral ulcer tissue. First wound measured 20 x 15 cm down the level of the fascia. The 2nd wound was 15 x 10 cm and also down level of fascia. Hemostasis was achieved. Two rolls of Kerlix were packed into the wounds and was covered with a clean dressing. Tolerated the procedure and was transferred to recovery in stable condition Complications: none Post-operative Condition: stable Disposition: Acute Care
--- NOTE | 2022-11-13 15:24 | CM.DPC ---
Addendum entered by LIZZY Mcgowan 11/13/22 15:46: ADD: [facility] with [facility] and therefore have not reviewed and potential that if pt get denied at all local contracted [facility] facilities then [facility] MIGHT be willing to do out of network contract. BF Original Note: DCP SNF Planning Per MD, pt to have debridement on sacral wounds with Surgeon in the OR this evening and therapies still recommending SNF at d/c. plans to have additional Goals of Care discussion with pt maybe tomorrow due to her cancer with mets and wounds. SW called following facilities: [facility]- declines due to care needs [facility]- declines due to care needs [facility]- left msg [facility]- left msg [facility]- left msg [facility]- reviewing. Plan: SW to follow closely as pt's care needs are higher due to her bariatric status, wound care needs, cancer with mets on oral chemo that would be held while at SNF and ongoing GOals of Care discussion. PASRR completed in case SNF secured. LIZZY Mcgowan
[2022-11-13] MEDS: HYDROMORPHONE 2 MG INJ IV (15:29)
--- NOTE | 2022-11-13 15:34 | SUR.PHASEI ---
Alissa Blank OPERATIONS TECHNICIAN at bedside. She medicated pt with 100mcg of Andres-Synephrine at 1523 for BP. See vital signs.
--- NOTE | 2022-11-13 15:37 | PT-IP ANOTE ---
Pt refused in am. Checked back in pm and pt in surgery.
--- NOTE | 2022-11-13 16:09 | SUR.PHASEI ---
1605. Pt turned and dressing evaluated. Pt with large amt of liquid stool over dressing. Right side dressing fell out with turn. after cleaning with normal saline wound and surrounding tissue that had stool, kerlex placed. Center wound gazue soaked but scant stool and mod amt of bleeding so dressing left in place. Skin cleaned and chux changed.
--- NOTE | 2022-11-13 17:28 | SUR.PHASEI ---
1624 Pt transferred to room 208 in bed by this RN on 2L oxygen NC. SBAR report at bedside to Maxwell HOOD. Pt stated pain 4/10 on arrival.
[2022-11-13] MEDS: HYDROCODONE/ACET 5/325 TABLET 1 TAB PO ×2 (17:35→21:34)
[2022-11-13] MEDS: ACETAMINOPHEN 325 MG TABLET 650 MG PO (17:36)
[2022-11-13] MEDS: HYDROMORPHONE 0.5 MG INJ IV (18:53)
[2022-11-14] VITALS: BP 89/46; PULSE 95; RESP 18; TEMP 37.1; O2SAT 96
[2022-11-14] MEDS: PIPERACILLIN/TAZO 4.5 GM in SODIUM CHLORIDE 0.9% 100 ML IV ×3 (00:04→15:53)
--- NOTE | 2022-11-14 00:47 | PC.NURSE ---
Patient is alert and oriented. Breath sounds CTA with RA sat of 97%. HRR but continues to trend low BP and was initially 101/62 with subsequent BP of 89/46. Denies nausea. BT present and abdomen is soft. Incontinent of large amount liquid stool so skin cleansed and dressings changed. Dr. Wilcox contacted and stated a rectal tube could be placed in attempt to keep wound from contamination and minimize need for frequent dressing changes so rectal tube placed, attached to catheter drainage bag and taped to leg. Indwelling catheter is patent. Is being repositioned q2h as unable to turn herself and has open/newly debrided pressure areas on each side of buttock near anus. Allevyn dressing on left upper buttock intact. Dark skin on posterior buttocks/legs is sloughing off. When dressings changed noted both wounds to be oozing bright red blood. Bilateral calf SCD's have been applied. Received Vicodin for complaint of lower back pain at 2130 and has been able to sleep since then and currently states pain is controlled. Fall risk score is high and bed alarm is activated.
[2022-11-14] MEDS: SODIUM CHLORIDE 0.9% FLUSH 10 ML IV ×3 (04:06→21:10)
[2022-11-14] MEDS: HYDROCODONE/ACET 5/325 TABLET 1 TAB PO ×3 (04:06→13:40)
[2022-11-14 06:34] LABS: Add Manual Diff / Slide Review NO; Basophils Absolute Auto 100 /uL (0-100); Basophils Percent Auto 1.3 % (0-2); Eosinophils Absolute Auto 400 /uL (0-450); Eosinophils Percent Auto 5.4 % (2-4); Hematocrit 22.1 % (36-46); Hemoglobin 7.1 g/dL (12.0-16.0); Lymphocytes Absolute Auto 600 /uL (1100-4500); Lymphocytes Percent Auto 7.1 % (25-40); Mean Corpuscular HGB Conc 32.2 % (30-36); Mean Corpuscular Hemoglobin 30.6 PG (26-34); Monocytes Absolute Auto 600 /uL (0-900); Neutrophils Absolute Auto 6300 /uL (1500-7000); Neutrophils Percent Auto 79.2 % (50-75); Platelet Count 317 X10^3/uL (150-400); Red Blood Cell Count 2.32 X10^6/uL (4.0-5.2)
[2022-11-14 06:35] LABS: Red Cell Distribution Width 19.9 % (11.6-14.8)
[2022-11-14 06:38] LABS: Blood Urea Nitrogen 8 mg/dL (7-17); Carbon Dioxide 24 mmol/L (22-32); Chloride 108 mmol/L (98-107); Estimated Glomerular Filt Rate > 60 mL/min (>60); Glucose 91 mg/dL (70-100); HEMOLYSIS < 15 (0-50); Sodium 139 mmol/L (137-145)
[2022-11-14 07:00] VITALS: BP 95/48; PULSE 94; RESP 17; TEMP 36.7; O2SAT 97
[2022-11-14] MEDS: HYDROMORPHONE 0.5 MG INJ IV ×2 (08:00→13:43)
[2022-11-14] MEDS: ROPINIROLE 1 MG TABLET 2 MG PO (08:19)
[2022-11-14] MEDS: GABAPENTIN 600 MG TABLET PO ×2 (08:19→21:08)
[2022-11-14] MEDS: LEVOTHYROXINE 150 MCG TABLET PO (08:19)
[2022-11-14] MEDS: ATORVASTATIN 20 MG TABLET PO (08:19)
[2022-11-14] MEDS: LETROZOLE 2.5 MG TABLET PO ×2 (08:19→21:10)
[2022-11-14] MEDS: buPROPion XL 150 MG TAB PO (08:20)
[2022-11-14] MEDS: NYSTATIN POWDER 15GM 1 APPLIC TOP ×2 (08:20→21:10)
--- NOTE | 2022-11-14 08:27 | P.PN_ITS ---
Subjective Subjective Date Patient Seen: 11/14/22 Interval history: Patient had debridement surgery yesterday. Feeling good today. Had lots of loose stools with the laxatives so these were stopped. Exam Vital Signs (past 8 hours): Oxygen Delivery Method Room Air Oxygen Flow Rate 0 Narrative Exam Narrative: GEN: Middle-aged female, very pleasant, Alert and oriented x 3, NAD HEENT:NC, Face symmetric CHEST: Respiratory excursions symmetric, CTAB CV: RRR, no M/R/G ABD: Soft, NT/ND, BT present in all 4 quadrants, body habitus limits exam EXTR: warm, well perfused, no C/C/E SKIN: warm and dry, significant candidiasis in the abdominal and groin skin folds, buttock and thigh lesions were not visualized this morning, skin of the calf is unchanged, no additional breakdown noted NEURO: Alert and oriented x 3, nonfocal Objective Labs Result Diagrams: 11/14/22 05:52 11/14/22 05:52 Labs: Laboratory Results - last 24 hr 11/13/22 11/13/22 11/14/22 08:10 08:10 05:52 WBC 7.5 8.0 RBC 2.90 L 2.32 L Hgb 8.9 L 7.1 L Hct 27.3 L 22.1 L MCV 93.9 95.0 MCH 30.8 30.6 MCHC 32.7 32.2 RDW 20.0 H 19.9 H Plt Count 347 317 Neut % (Auto) 80.9 H 79.2 H Lymph % (Auto) 7.1 L 7.1 L [place] % (Auto) 6.1 7.0 Eos % (Auto) 5.1 H 5.4 H Baso % (Auto) 0.8 1.3 Neut # (Auto) 6000 6300 Lymph # (Auto) 500 L 600 L [place] # (Auto) 500 600 Eos # (Auto) 400 400 Baso # (Auto) 100 100 Sodium 141 Potassium 3.4 Chloride 108 H Carbon Dioxide 23 BUN 8 Creatinine 0.88 Estimated GFR > 60 BUN/Creatinine Ratio 9.1 Glucose 89 Calcium 8.5 11/14/22 05:52 WBC RBC Hgb Hct MCV MCH MCHC RDW Plt Count Neut % (Auto) Lymph % (Auto) [place] % (Auto) Eos % (Auto) Baso % (Auto) Neut # (Auto) Lymph # (Auto) [place] # (Auto) Eos # (Auto) Baso # (Auto) Sodium 139 Potassium 3.0 L Chloride 108 H Carbon Dioxide 24 BUN 8 Creatinine 0.89 Estimated GFR > 60 BUN/Creatinine Ratio 9.0 Glucose 91 Calcium 8.0 L PFSH Medical History DVT (deep venous thrombosis) Pulmonary embolism Social History household members: none Smoking Status: Never smoker Assessment & Plan Assessment & Plan narrative: 1. Ground level fall with prolonged down time Patient was admitted after spending 1 week on the floor in her home after a slide to the ground controlled fall. She has no evidence of rhabdomyolysis and today's CPK is 172 down from 274. She had been eating and drinking as her son was bringing her food and liquids. However, she refused to allow him to call a lift assist. ? PT consult done with indication for fdc facility. OT consult pending.? Unfortunately, she is metastatic breast cancer with spinal Mets and is postoperative from extensive spinal surgery which also limits her mobility.? 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 Typically ambulates with a cane or walker.? Care management working on discharge plan. 2. Unstageable pressure wounds-DTI's to the bilateral medial buttocks in the perianal region, right lower buttock/upper and inner thigh Will work on offloading as able, placing pillows between the legs and repositioning q.2 hours.? Will work on obtaining in air mattress or bariatric bed if possible.? Continue Zosyn per wound care with pseudomonal coverage at 4.5g q8h.? Able to discontinue vancomycin. Suspect there is some component of necrotic tissue as well.? Underwent OR debridement with Dr. Swift on 11/13. Dressing changes with nursing. 3. Superficial pressure injury to the bilateral calves and lower and mid bilateral back Offload pressure as much as possible as noted. 4. Metastatic breast cancer, known bony metastasis Continue letrozole.? She reports she will have follow-up staging studies done next week. 5. Diabetes mellitus type 2 Uncontrolled carb diet and fingerstick/sliding scale. Fortunately her hemoglobin A1c shows excellent control at 5.2%. 6. Hypertension Patient reports a history of hypertension, but does not have any anti hypertensive agent on her Mar. 7. Hypotension Improved after fluid boluses and packed red blood cells 8. Anemia Normocytic. 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 She did receive transfusion this morning. Follow-up hemoglobin was 8.5. She has no evidence of active bleeding. 9. Hypothyroidism Continue outpatient dose of levothyroxine 10. Hyperlipidemia Continue Crestor 11. Restless leg syndrome Continue usual outpatient dose of ropinirole 12. Chronic anticoagulation Continue Xarelto 13. Constipation, resolved Patient had reported no BM in over a week. Added scheduled laxatives plus lactulose and had several BM's on 11/13 so laxatives were stopped. Code status Full Prophylaxis Resume Xarelto. Disposition longterm facility at discharge vs hospice at home if caregiving can be arrange. Will be difficult as patient lives alone. ? Time Spent With Patient Critical Care time: I spent a total of [] minutes of critical care time on this patient's care today; this time is exclusive of procedural time. Quality VTE Deep Vein Thrombosis/Pulmonary Embolism Present on Admission: No
[2022-11-14 08:44] LABS: Magnesium 1.8 mg/dL (1.6-2.3)
[2022-11-14] MEDS: POTASSIUM CHLORIDE 20 MEQ TAB 40 MEQ PO (09:27)
[2022-11-14] MEDS: HYDROMORPHONE 0.5 MG INJ 1 MG IV (10:26)
--- NOTE | 2022-11-14 10:34 | OT.IPNOTE ---
Per Hospitalist pt to be discharged from therapy as pt is just Q2 turns due to her wounds.
[2022-11-14 10:51] VITALS: BP 91/47; PULSE 98; RESP 14; TEMP 35.8
[2022-11-14 11:12] VITALS: BP 89/47; PULSE 98; RESP 15; TEMP 35.8
--- NOTE | 2022-11-14 11:56 | PT.IPTN ---
Current Diagnoses Pressure ulcer of sacral region, unspecified stage (11/09/22) Pressure ulcer of unspecified site, unspecified stage (11/09/22) Surgery Performed Operation Date: 11/13/22 15:15 Actual Procedures p debride sacral wound - Filiberto Wilcox MD Physical Therapy Treatment Note M2 PT-IP Current Condition Start: 11/10/22 09:11 Freq: NEEDED Status: Active Protocol: Document 11/10/22 10:43 AW (Rec: 11/10/22 13:18 AW [id number]) Physical Therapy Current Condition Current Condition Evaluation Date 11/10/22 Treatment Diagnosis GLF; multiple unstageable PI's ; impaired mobility Onset Date 11/03/22 M3 PT-IP Subjective Start: 11/10/22 09:11 Freq: NEEDED Status: Active Protocol: Document 11/14/22 11:56 AB (Rec: 11/14/22 11:56 AB [id number]) Subjective Physical Therapy Visit Type Type Administrative Note Notes Per rounds: d/c PT per hospitalist and pt now on focus on sacral ulcer wound healing. M7 PT-IP Assessment and Plan Start: 11/10/22 09:11 Freq: NEEDED Status: Active Protocol: Document 11/14/22 11:56 AB (Rec: 11/14/22 11:56 AB [id number]) PT Summary Assessment and Plan Frequency of Treatment Frequency Of Treatment Discharge
[2022-11-14 13:21] VITALS: BP 93/60; PULSE 100; RESP 15; TEMP 36.2
[2022-11-14] MEDS: MAGNESIUM SULFATE 2 GM/50 ML PIGGYBACK IV (14:00)
--- NOTE | 2022-11-14 14:20 | CM.DPNOTE ---
Addendum entered by LIZZY Ramirez 11/14/22 14:55: ADD: PCP- SAMY Sherwood, family practice Oncology- [facility] JAVAN Original Note: DCP Note Reviewed chart. Received msg from [place] team [place] [facility] [place] P#[phone] they do not have beds currently but are still considering this patient [facility], patient is expected to have a large out of pocket expense at an out of network facility, upwards of 40%, patient cannot pay for this [facility]- No, cannot accommodate patient's heavy care needs at this time Met w/patient, reviewed DCP efforts and reviewed goals of care; Patient presents as having poor insight into the severity of her condition; discussed the depth and severity of patient's wound and patient states understanding that this wound may not heal. Discussed patient's metastatic breast cancer (to spine, bone) and patient tells this RADIO TOWER TECHNICIAN she wants to live for as long as possible with any treatment that is offered. Patient confirms she lives in an RV at [facility], Patient has been sleeping in a recliner for approx 2 years. 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 Patient interested in hiring caregivers to assist her in her RV if she qualifies for [facility], patient cannot pay for in home care privately. Explained to patient that if this CM team is unable to secure a facility, a home option will need to be considered. This RADIO TOWER TECHNICIAN asks for partnership from patient to consider home options ie home to RV w/son and HH vs home to one of her dtr's homes in [place] or [place] (?) Patient agreed to consider these options while this RADIO TOWER TECHNICIAN continues attempt at SNF placement Patient does not want to consider hospice services at this time so continue SNF search for management of wound and PT/OT. Chemo on hold for SNF stay. Patient plans to f/u with Oncologist as soon as she can LIZZY Aguila
[2022-11-14] MEDS: RIVAROXABAN 10 MG TABLET 20 MG PO (17:23)
[2022-11-14 17:56] VITALS: BP 102/58; PULSE 92; RESP 17; TEMP 36.2; O2SAT 95
[2022-11-14] MEDS: OXYCODONE IR 10 MG TABLET PO ×2 (18:07→21:09)
[2022-11-14] MEDS: ACETAMINOPHEN 325 MG TABLET 650 MG PO (18:07)
--- NOTE | 2022-11-14 18:54 | DI.CT.S_ITS ---
PROCEDURE: CT ABDOMEN PELVIS W CON INDICATIONS: Evaluate colon and abdominal wall thickness TECHNIQUE: After the administration of IV contrast, axial sections were acquired from the lung bases to the pubic symphysis. Coronal and sagittal reformats were performed. For radiation dose reduction, the following was used: automated exposure control, adjustment of mA and/or kV according to patient size. COMPARISON: [facility], CT, CT ABDOMEN PELVIS WITH CONTRAST, 11/14/2020, 22:47. FINDINGS: Image quality: There is metallic streak artifact from patient's surgical hardware in the lumbar spine. Lung bases: There is dependent atelectasis and scarring in the lung bases. Heart: Heart is normal in size. ABDOMEN: Liver: No mass lesion. Gallbladder: Within normal limits without calcified gallstones. Biliary ducts: No biliary ductal dilatation. Pancreas: Unremarkable. Spleen: Normal in size. Adrenal Glands: No adrenal nodules. Kidneys and Ureters: No hydronephrosis. Stomach and Bowel: Stomach and small bowel loops are normal in caliber and wall thickness. Appendix is normal in appearance. There is mild gaseous distention of the transverse colon with scattered air-fluid levels throughout the colon. Colonic wall thickening is demonstrated within the rectum distally. Peritoneum: No abnormal intraperitoneal fluid. No free air. Ventral Wall: No hernia. Abdominal Nodes: No retroperitoneal or mesenteric adenopathy by size criteria. Vessels: Aorta and inferior vena cava are normal in size. PELVIS: Pelvic Organs: Unremarkable. Bladder: There is a Horvath catheter within a partially distended urinary bladder.. Pelvic Nodes: No enlarged lymph nodes. Miscellaneous: No inguinal hernias are seen. Bones: Extensive postsurgical changes are demonstrated status post posterior fixation and fusion of T10 through L4 with a vertebral cage traversing the L2 vertebral body and posterior laminectomy at L2. No new associated fractures or subluxation. Visualized osseous structures demonstrate no suspicious focal lesions. IMPRESSION: 1. Segmental bowel wall thickening in the rectum may represent a colitis or mass. Recommend correlation with sigmoidoscopy. 2. Mild distention of the transverse colon with scattered air-fluid levels throughout the colon. The findings are suggestive of a gastroenteritis and less likely a distal colonic obstruction. 3. Extensive postsurgical changes within the lumbar spine as described. Dictated by: Derrell Wall M.D. on 11/14/2022 at 20:39 Approved by: Derrell Wall M.D. on 11/14/2022 at 20:48
--- NOTE | 2022-11-14 18:55 | PM.PN.1 ---
Subjective Subjective Date Patient Seen: 11/14/22 Time Patient Seen: 18:55 Interval history: The patient has expressed interest in a diverting colostomy to aid with wound care. She believes she did have a partial colon resection when [place]. She is not sure which part of her colon was resected. Exam Vital Signs (past 8 hours): - 11/14/22 11:12 11/14/22 13:21 11/14/22 17:56 Temperature 96.5 F L 97.1 F L 97.2 F L Pulse Rate 98 H 100 H 92 H Respiratory Rate 15 15 17 Blood Pressure 89/47 L 93/60 102/58 L Pulse Oximetry 95 Oxygen Flow Rate 0 Oxygen Delivery Method Room Air Oxygen Flow Rate 0 Narrative Exam Narrative: Abdomen is obese She has a transverse scar across her lower abdomen Objective Labs Result Diagrams: 11/14/22 05:52 11/14/22 05:52 Labs: Laboratory Results - last 24 hr 11/09/22 11/14/22 11/14/22 23:56 05:52 05:52 WBC 8.0 RBC 2.32 L Hgb 7.1 L Hct 22.1 L MCV 95.0 MCH 30.6 MCHC 32.2 RDW 19.9 H Plt Count 317 Neut % (Auto) 79.2 H Lymph % (Auto) 7.1 L [place] % (Auto) 7.0 Eos % (Auto) 5.4 H Baso % (Auto) 1.3 Neut # (Auto) 6300 Lymph # (Auto) 600 L [place] # (Auto) 600 Eos # (Auto) 400 Baso # (Auto) 100 Sodium 139 Potassium 3.0 L Chloride 108 H Carbon Dioxide 24 BUN 8 Creatinine 0.89 Estimated GFR > 60 BUN/Creatinine Ratio 9.0 Glucose 91 Calcium 8.0 L Magnesium Blood Type Antibody Screen Crossmatch See Detail 11/14/22 11/14/22 05:52 05:52 WBC RBC Hgb Hct MCV MCH MCHC RDW Plt Count Neut % (Auto) Lymph % (Auto) [place] % (Auto) Eos % (Auto) Baso % (Auto) Neut # (Auto) Lymph # (Auto) [place] # (Auto) Eos # (Auto) Baso # (Auto) Sodium Potassium Chloride Carbon Dioxide BUN Creatinine Estimated GFR BUN/Creatinine Ratio Glucose Calcium Magnesium 1.8 Blood Type O Positive Antibody Screen Negative Crossmatch See Detail [facility] Medical History DVT (deep venous thrombosis) Pulmonary embolism Social History household members: none Smoking Status: Never smoker Assessment & Plan Assessment and plan (1) Sacral decubitus ulcer: Qualifiers: Pressure injury stage: unspecified pressure injury stage Qualified Code(s): L89.159 - Pressure ulcer of sacral region, unspecified stage Status: Acute Plan Will attempt to perform a CT of the abdomen to identify a suitable segment of colon for a diverting loop colostomy and to assess the upper abdominal wall thickness. If there isn't a suitable segment of colon we could perform a diverting loop ileostomy. The earliest date I could perform this procedure would be 11/27. If she goes to a [place] [facility] care facility before then we would need to be able to transport her back here for the surgery and she would need to be an inpatient for 2-4 days of recovery. We discussed the risks and benefits of the surgery and she would like to proceed. Time Spent With Patient Critical Care time: I spent a total of [] minutes of critical care time on this patient's care today; this time is exclusive of procedural time. Quality VTE Deep Vein Thrombosis/Pulmonary Embolism Present on Admission: No
[2022-11-15] VITALS: BP 90/57; PULSE 82; RESP 16; TEMP 36.4; O2SAT 96
[2022-11-15] MEDS: PIPERACILLIN/TAZO 4.5 GM in SODIUM CHLORIDE 0.9% 100 ML IV ×3 (00:20→15:21)
[2022-11-15] MEDS: OXYCODONE IR 10 MG TABLET PO ×4 (00:52→20:46)
[2022-11-15 02:30] LABS: Clostridium Difficile Tox PCR Negative for C.diff (Negative)
[2022-11-15] MEDS: LOPERAMIDE 2 MG CAPSULE PO ×4 (05:43→16:56)
[2022-11-15 06:00] VITALS: BP 81/41; PULSE 83; RESP 16; TEMP 36.2; O2SAT 93
[2022-11-15 06:11] LABS: Add Manual Diff / Slide Review NO; Basophils Absolute Auto 100 /uL (0-100); Eosinophils Absolute Auto 400 /uL (0-450); Eosinophils Percent Auto 5.5 % (2-4); Hematocrit 23.6 % (36-46); Hemoglobin 7.6 g/dL (12.0-16.0); Lymphocytes Absolute Auto 600 /uL (1100-4500); Lymphocytes Percent Auto 9.1 % (25-40); Mean Corpuscular HGB Conc 32.2 % (30-36); Mean Corpuscular Hemoglobin 30.3 PG (26-34); Mean Corpuscular Volume 94.1 fL (80-100); Monocytes Absolute Auto 500 /uL (0-900); Monocytes Percent Auto 6.8 % (3-14); Neutrophils Absolute Auto 5500 /uL (1500-7000); Neutrophils Percent Auto 77.6 % (50-75); Platelet Count 307 X10^3/uL (150-400); Red Blood Cell Count 2.51 X10^6/uL (4.0-5.2); Red Cell Distribution Width 20.2 % (11.6-14.8); White Blood Cell Count 7.1 X10^3/uL (4.5-11.0)
[2022-11-15 06:33] LABS: BUN Creatinine Ratio 7.8 (6-22); Blood Urea Nitrogen 8 mg/dL (7-17); Calcium 7.9 mg/dL (8.4-10.2); Carbon Dioxide 24 mmol/L (22-32); Chloride 108 mmol/L (98-107); Estimated Glomerular Filt Rate > 60 mL/min (>60); Glucose 94 mg/dL (70-100); HEMOLYSIS < 15 (0-50); Magnesium 2.1 mg/dL (1.6-2.3); Potassium 3.3 mmol/L (3.4-5.1); Sodium 138 mmol/L (137-145)
[2022-11-15] MEDS: ACETAMINOPHEN 325 MG TABLET 650 MG PO ×2 (07:14→13:54)
[2022-11-15] MEDS: OXYCODONE IR 5 MG TABLET PO ×2 (07:15→18:16)
[2022-11-15 08:00] VITALS: BP 132/70; PULSE 88; RESP 17; TEMP 36.4; O2SAT 95
[2022-11-15 08:03] LABS: Anisocytosis 2+
[2022-11-15] MEDS: buPROPion XL 150 MG TAB PO (08:17)
[2022-11-15] MEDS: ATORVASTATIN 20 MG TABLET PO (08:17)
[2022-11-15] MEDS: NYSTATIN POWDER 15GM 1 APPLIC TOP ×2 (08:18→20:47)
[2022-11-15] MEDS: GABAPENTIN 600 MG TABLET PO ×2 (08:18→20:46)
[2022-11-15] MEDS: LEVOTHYROXINE 150 MCG TABLET PO (08:18)
[2022-11-15] MEDS: SODIUM CHLORIDE 0.9% FLUSH 10 ML IV ×2 (08:18→20:47)
[2022-11-15] MEDS: LETROZOLE 2.5 MG TABLET PO (08:19)
[2022-11-15] MEDS: ROPINIROLE 1 MG TABLET 2 MG PO (08:20)
[2022-11-15 12:00] VITALS: BP 90/52; PULSE 88; RESP 17; TEMP 35.6; O2SAT 99
[2022-11-15] MEDS: POTASSIUM CHLORIDE 20 MEQ TAB 40 MEQ PO (12:01)
[2022-11-15] MEDS: HYDROMORPHONE 0.5 MG INJ IV ×2 (12:02→15:45)
[2022-11-15] MEDS: INSULIN LISPRO 100 UNIT/ML 3ML VIAL SUBCUT (12:06)
--- NOTE | 2022-11-15 13:43 | PC.NURSE ---
At 1100 am applied dressing change per BID dressing change orders. Wound to sacrum was unpacked and then repacked w/curlex soaked in NS, I then applied dry [id number] over that and then tagoderm. I also changed dressing to wound on lower right buttock. Packing was removed and then repacked w/curlex soaked in NS covered w/4x4 dry gauze and tagoderm.
--- NOTE | 2022-11-15 15:16 | P.PN_ITS ---
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 She was admitted with unstageable decubitus ulcers. Pt is now POD #2 from surgical debridement of wounds. Patient reports that she is feeling about the same overall. She expresses confusion as to the discharge plan. She states she is been told hospice might be a consideration and states someone else told her she would go to a rehab for wound care. He does report she is given it thought and she does not wish to pursue a diverting colostomy. She states she once had to wear a wound VAC over an umbilical surgical incision and she states it was incredibly uncomfortable for her and she does not wish to repeat that. Denies any new symptoms but does have ongoing discomfort from her wounds. Exam Vital Signs (past 8 hours): - 11/14/22 13:21 11/14/22 17:56 Temperature 97.1 F L 97.2 F L Pulse Rate 100 H 92 H ReSpiratory Rate 15 17 Blood Pressure 93/60 102/58 L Pulse Oximetry 95 Oxygen Flow Rate 0 Oxygen Delivery Method Room Air Oxygen Flow Rate 0 Narrative Exam Narrative: GEN:? Middle-aged female, very pleasant, Alert and oriented x 3, NAD HEENT:NC, Face symmetric CHEST: Respiratory excursions symmetric, CTAB CV: RRR, no M/R/G ABD: Soft, NT/ND, BT present in all 4 quadrants, body habitus limits exam EXTR: warm, well perfused, no C/C/E SKIN: warm and dry, improving candidiasis in the abdominal and groin skin folds, buttock and thigh lesions were not visualized this morning NEURO: Alert and oriented x 3, nonfocal Objective Labs Result Diagrams: 11/15/22 05:55 11/15/22 05:55 Labs: Laboratory Results - last 24 hr 11/09/22 11/14/22 11/14/22 23:56 05:52 05:52 WBC 8.0 RBC 2.32 L Hgb 7.1 L Hct 22.1 L MCV 95.0 MCH 30.6 MCHC 32.2 RDW 19.9 H Plt Count 317 Neut % (Auto) 79.2 H Lymph % (Auto) 7.1 L [place] % (Auto) 7.0 Eos % (Auto) 5.4 H Baso % (Auto) 1.3 Neut # (Auto) 6300 Lymph # (Auto) 600 L [place] # (Auto) 600 Eos # (Auto) 400 Baso # (Auto) 100 Sodium 139 Potassium 3.0 L Chloride 108 H Carbon Dioxide 24 BUN 8 Creatinine 0.89 Estimated GFR > 60 BUN/Creatinine Ratio 9.0 Glucose 91 Calcium 8.0 L Magnesium Blood Type Antibody Screen Crossmatch See Detail 11/14/22 11/14/22 05:52 05:52 WBC RBC Hgb Hct MCV MCH MCHC RDW Plt Count Neut % (Auto) Lymph % (Auto) [place] % (Auto) Eos % (Auto) Baso % (Auto) Neut # (Auto) Lymph # (Auto) [place] # (Auto) Eos # (Auto) Baso # (Auto) Sodium Potassium Chloride Carbon Dioxide BUN Creatinine Estimated GFR BUN/Creatinine Ratio Glucose Calcium Magnesium 1.8 Blood Type O Positive Antibody Screen Negative Crossmatch See Detail [facility] Medical History DVT (deep venous thrombosis) Pulmonary embolism Social History household members: none Smoking Status: Never smoker Assessment & Plan Assessment & Plan narrative: 1. Unstageable pressure wounds-DTI's to the bilateral medial buttocks in the perianal region, right lower buttock/upper and inner thigh, now POD #2 from debridement Continue working on offloading pressure, frequent repositioning.? Remains on Zosyn. Appreciate surgical care. At this time, she does not wish to pursue a diverting colostomy. 3. Superficial pressure injury to the bilateral calves and lower and mid bilateral back Offload pressure as much as possible as noted. 4. Metastatic breast cancer, known bony metastasis Continue letrozole.? At this time, she does not seem ready to pursue comfort care or hospice. 5. Diabetes mellitus type 2, excellent baseline control with hemoglobin A1c of 5.2% Continue controlled carb diet and fingerstick/sliding scale.? Blood sugars remain well controlled. 6. Hypertension Patient reports a history of hypertension, but does not have any antihypertensive agent on her home med list. Blood pressures have ranged from 90 over 52 to 132/70 today. 7. Hypotension As noted, mild hypotension today. Will continue monitoring. 8. Anemia Normocytic.? Suspect she has anemia of chronic inflammatory disease related to her cancer.? Patient received blood transfusion on November 10 and an additional unit yesterday.. Currently hemoglobin is improved from 7.1-7.6 9. Hypothyroidism Continue outpatient dose of levothyroxine 10. Hyperlipidemia Continue Crestor 11. Restless leg syndrome Continue usual outpatient dose of ropinirole 12. Chronic anticoagulation Continue Xarelto Code status Full Prophylaxis Resume Xarelto Disposition shelter facility at discharge Time Spent With Patient Critical Care time: I spent a total of [] minutes of critical care time on this patient's care today; this time is exclusive of procedural time. Quality VTE Deep Vein Thrombosis/Pulmonary Embolism Present on Admission: No
--- NOTE | 2022-11-15 15:26 | CM.DPNOTE ---
Addendum entered by Jasmin Cary 11/17/22 15:19: DCP/continue: Received update from provider that patient does not want colostomy surgery nor does she want a wound vac. Best case scenario would be home with hospice OR home with home health or outpatient wound care follow up. Patient would benefit from Goals of Care Conversation with family, provider, and LOGISTICS COORDINATOR on 11-18-22. Patient has refused care during hospitalization and if she wants to d/c home with hospice or home health she should have that option. P: LOGISTICS COORDINATOR/MGR requesting Goals of Care meeting on 11-18-22. SHANNA Original Note: DCP NOte Faxed clinical packet to Peggy Sapp P# [phone] F# [phone] for review. JAVAN
[2022-11-15] MEDS: RIVAROXABAN 10 MG TABLET 20 MG PO (16:56)
[2022-11-15 18:00] VITALS: BP 108/53; PULSE 89; RESP 16; TEMP 36; O2SAT 97
[2022-11-15 20:40] VITALS: BP 89/43; PULSE 84; RESP 17; TEMP 36.5; O2SAT 94
[2022-11-16] MEDS: PIPERACILLIN/TAZO 4.5 GM in SODIUM CHLORIDE 0.9% 100 ML IV ×4 (00:06→21:01)
[2022-11-16 00:36] VITALS: BP 96/54; PULSE 94; RESP 18; TEMP 36.6; O2SAT 91
[2022-11-16 04:25] VITALS: BP 95/46; PULSE 86; RESP 16; TEMP 36.4; O2SAT 97
[2022-11-16 06:14] LABS: Add Manual Diff / Slide Review NO; Basophils Absolute Auto 100 /uL (0-100); Eosinophils Absolute Auto 400 /uL (0-450); Eosinophils Percent Auto 5.2 % (2-4); Hematocrit 22.2 % (36-46); Hemoglobin 7.3 g/dL (12.0-16.0); Lymphocytes Absolute Auto 600 /uL (1100-4500); Lymphocytes Percent Auto 9.2 % (25-40); Mean Corpuscular HGB Conc 32.6 % (30-36); Mean Corpuscular Hemoglobin 30.8 PG (26-34); Mean Corpuscular Volume 94.2 fL (80-100); Monocytes Absolute Auto 400 /uL (0-900); Monocytes Percent Auto 6.7 % (3-14); Neutrophils Absolute Auto 5200 /uL (1500-7000); Neutrophils Percent Auto 77.9 % (50-75); Platelet Count 310 X10^3/uL (150-400); Red Blood Cell Count 2.36 X10^6/uL (4.0-5.2); Red Cell Distribution Width 20.5 % (11.6-14.8); White Blood Cell Count 6.7 X10^3/uL (4.5-11.0)
[2022-11-16 06:17] LABS: Magnesium 1.9 mg/dL (1.6-2.3)
[2022-11-16 06:18] LABS: BUN Creatinine Ratio 6.8 (6-22); Blood Urea Nitrogen 7 mg/dL (7-17); Calcium 8.1 mg/dL (8.4-10.2); Carbon Dioxide 25 mmol/L (22-32); Chloride 109 mmol/L (98-107); Estimated Glomerular Filt Rate > 60 mL/min (>60); Glucose 111 mg/dL (70-100); HEMOLYSIS < 15 (0-50); Potassium 3.3 mmol/L (3.4-5.1); Sodium 139 mmol/L (137-145)
--- NOTE | 2022-11-16 07:30 | PM.PN.1 ---
Subjective Subjective Date Patient Seen: 11/16/22 Interval history: Seen today for follow-up of sacral wound, hypokalemia, chronic anemia, etc.. She is pending colostomy with Dr. Swift on 11/28. She tells me that she lives in [place] and her PCP is Malika Dotson. She has had a debridement done of the sacral wound. The low Potassium will be treated with an additional 50 meq today and daily 10 mEq after that. Exam Vital Signs (past 8 hours): - 11/16/22 00:36 11/16/22 04:25 Temperature 97.8 F 97.5 F L Pulse Rate 94 H 86 Respiratory Rate 18 16 Blood Pressure 96/54 L 95/46 L Pulse Oximetry 91 97 Oxygen Delivery Method Room Air Oxygen Flow Rate 0 Narrative Exam Narrative: She is alert and oriented x3. No apparent distress. She is quite obese. Heart is regular rate and rhythm without murmur Lungs are clear to auscultation bilaterally Abdomen is obese, nontender, no organomegaly. Extremities have trace bilateral chronic edema Objective Labs Result Diagrams: 11/16/22 05:38 11/16/22 05:38 Labs: Laboratory Results - last 24 hr 11/15/22 11/16/22 11/16/22 05:55 05:38 05:38 WBC 6.7 RBC 2.36 L Hgb 7.3 L Hct 22.2 L MCV 94.2 MCH 30.8 MCHC 32.6 RDW 20.5 H Plt Count 310 Neut % (Auto) 77.9 H Lymph % (Auto) 9.2 L [place] % (Auto) 6.7 Eos % (Auto) 5.2 H Baso % (Auto) 1.0 Neut # (Auto) 5200 Lymph # (Auto) 600 L [place] # (Auto) 400 Eos # (Auto) 400 Baso # (Auto) 100 RBC Morphology See below Anisocytosis 2+ H Sodium Potassium Chloride Carbon Dioxide BUN Creatinine Estimated GFR BUN/Creatinine Ratio Glucose Calcium Magnesium 1.9 11/16/22 05:38 WBC RBC Hgb Hct MCV MCH MCHC RDW Plt Count Neut % (Auto) Lymph % (Auto) [place] % (Auto) Eos % (Auto) Baso % (Auto) Neut # (Auto) Lymph # (Auto) [place] # (Auto) Eos # (Auto) Baso # (Auto) RBC Morphology Anisocytosis Sodium 139 Potassium 3.3 L Chloride 109 H Carbon Dioxide 25 BUN 7 Creatinine 1.03 Estimated GFR > 60 BUN/Creatinine Ratio 6.8 Glucose 111 H Calcium 8.1 L Magnesium PFSH Medical History DVT (deep venous thrombosis) Pulmonary embolism Social History household members: none Smoking Status: Never smoker Assessment & Plan Assessment & Plan narrative: 1. ? Unstageable pressure wounds-DTI's to the bilateral medial buttocks in the perianal region, right lower buttock/upper and inner thigh, now POD #3 from debridement Continue working on offloading pressure, frequent repositioning.? Remains on Zosyn.? Appreciate surgical care.? She is now scheduled for a diverting colostomy on 11/[address] Swift. 3. Superficial pressure injury to the bilateral calves and lower and mid bilateral back Offload pressure as much as possible as noted. 4. Metastatic breast cancer, known bony metastasis Continue letrozole.? At this time, she does not seem ready to pursue comfort care or hospice. 5. Diabetes mellitus type 2, excellent baseline control with hemoglobin A1c of 5.2% Continue controlled carb diet and fingerstick/sliding scale.? Blood sugars remain well controlled. 6. Hypertension Patient reports a history of hypertension, but does not have any antihypertensive agent on her home med list.? Blood pressures have ranged from 90 over 52 to 132/70 today. 7. Hypotension As noted, mild hypotension today.? Will continue monitoring. 8. Anemia Normocytic.? Suspect she has anemia of chronic inflammatory disease related to her cancer.? Patient received 2 units of pRBC so far.? Currently hemoglobin is improved from 7.1-7.3 9. Hypothyroidism Continue outpatient dose of levothyroxine 10. Hyperlipidemia Continue Crestor 11. Restless leg syndrome Continue usual outpatient dose of ropinirole 12. Chronic anticoagulation Continue Xarelto 13. Hypokalemia -Supplement with oral Kcl and follow. Code status Full Prophylaxis Resume Xarelto Disposition halfway facility at discharge Time Spent With Patient Critical Care time: I spent a total of [] minutes of critical care time on this patient's care today; this time is exclusive of procedural time. Quality VTE Deep Vein Thrombosis/Pulmonary Embolism Present on Admission: No
[2022-11-16 08:00] VITALS: BP 94/51; PULSE 83; RESP 16; TEMP 36.6; O2SAT 95
[2022-11-16 08:12] LABS: Anisocytosis 2+
[2022-11-16] MEDS: ROPINIROLE 1 MG TABLET 2 MG PO (08:35)
[2022-11-16] MEDS: buPROPion XL 150 MG TAB PO (08:35)
[2022-11-16] MEDS: GABAPENTIN 600 MG TABLET PO ×2 (08:35→21:00)
[2022-11-16] MEDS: LEVOTHYROXINE 150 MCG TABLET PO (08:36)
[2022-11-16] MEDS: ATORVASTATIN 20 MG TABLET PO (08:36)
[2022-11-16] MEDS: POTASSIUM CHLORIDE 10 MEQ TAB PO (08:43)
[2022-11-16] MEDS: SODIUM CHLORIDE 0.9% FLUSH 10 ML IV ×2 (08:44→21:30)
[2022-11-16] MEDS: NYSTATIN POWDER 15GM 1 APPLIC TOP (08:45)
[2022-11-16] MEDS: POTASSIUM CHLORIDE 20 MEQ TAB 40 MEQ PO (09:57)
--- NOTE | 2022-11-16 11:15 | DIET.CONS2 ---
Dietary Inpatient Consultation Note Admission Date: 11/09/2022 15:46 Spoke with pt who not drinking 100% ONS due to tasting too sweet. Educated pt on importance of high protein diet to help with wound healing. Reviewed sources of protein on patient menu. Pt willing to continue with ONS knowing it only has 1g sugar per serving with 30g helpful protein. Diet: 11/13/22 Dinner General (Regular) Diet Diet Modifications: Ensure Max with meals (3 per day) Nutrition Percent Meal Consumed 50% 11/16/22 09:00 Percent Meal Consumed 50% 11/15/22 18:00 Percent Meal Consumed 25% 11/14/22 13:47 Percent Meal Consumed 50% 11/14/22 13:30 Electronically Signed by: Rajni Esquivel 11/16/22 11:15 Clinical Dietitian [address] [address]
[2022-11-16] MEDS: INSULIN LISPRO 100 UNIT/ML 3ML VIAL SUBCUT ×2 (12:21→17:41)
[2022-11-16] MEDS: OXYCODONE IR 5 MG TABLET PO (12:26)
[2022-11-16] MEDS: LETROZOLE 2.5 MG TABLET PO (12:26)
[2022-11-16 14:51] VITALS: BP 100/53; PULSE 88; RESP 18; TEMP 36.3; O2SAT 96
[2022-11-16] MEDS: HYDROMORPHONE 0.5 MG INJ IV (17:40)
[2022-11-16] MEDS: RIVAROXABAN 10 MG TABLET 20 MG PO (17:40)
[2022-11-16 17:58] VITALS: BP 107/53; PULSE 93; RESP 16; TEMP 37.6; O2SAT 94
[2022-11-16 20:45] VITALS: BP 94/52; PULSE 88; RESP 16; TEMP 36.5; O2SAT 94
[2022-11-16] MEDS: OXYCODONE IR 10 MG TABLET PO (23:31)
[2022-11-17 03:36] VITALS: BP 106/57; PULSE 86; RESP 16; TEMP 36.1; O2SAT 95
[2022-11-17] MEDS: LEVOTHYROXINE 150 MCG TABLET PO (05:04)
[2022-11-17] MEDS: PIPERACILLIN/TAZO 4.5 GM in SODIUM CHLORIDE 0.9% 100 ML IV ×3 (05:04→20:38)
[2022-11-17 05:31] LABS: Magnesium 1.9 mg/dL (1.6-2.3)
[2022-11-17 05:32] LABS: BUN Creatinine Ratio 5.6 (6-22); Blood Urea Nitrogen 5 mg/dL (7-17); Calcium 8.2 mg/dL (8.4-10.2); Carbon Dioxide 27 mmol/L (22-32); Chloride 109 mmol/L (98-107); Estimated Glomerular Filt Rate > 60 mL/min (>60); Glucose 93 mg/dL (70-100); HEMOLYSIS < 15 (0-50); Potassium 3.6 mmol/L (3.4-5.1); Sodium 138 mmol/L (137-145)
[2022-11-17 08:00] VITALS: BP 100/55; PULSE 98; RESP 18; TEMP 36.3; O2SAT 96
[2022-11-17] MEDS: GABAPENTIN 600 MG TABLET PO ×2 (08:43→20:38)
[2022-11-17] MEDS: POTASSIUM CHLORIDE 10 MEQ TAB PO (08:43)
[2022-11-17] MEDS: OXYCODONE IR 10 MG TABLET PO ×2 (08:43→23:31)
[2022-11-17] MEDS: buPROPion XL 150 MG TAB PO (08:43)
[2022-11-17] MEDS: ROPINIROLE 1 MG TABLET 2 MG PO (08:43)
[2022-11-17] MEDS: ATORVASTATIN 20 MG TABLET PO (08:43)
[2022-11-17] MEDS: LETROZOLE 2.5 MG TABLET PO (08:44)
[2022-11-17] MEDS: NYSTATIN POWDER 15GM 1 APPLIC TOP ×2 (08:45→22:29)
[2022-11-17] MEDS: SODIUM CHLORIDE 0.9% FLUSH 10 ML IV (08:45)
[2022-11-17] MEDS: HYDROMORPHONE 0.5 MG INJ IV ×4 (09:44→22:28)
[2022-11-17] MEDS: INSULIN LISPRO 100 UNIT/ML 3ML VIAL SUBCUT ×2 (12:02→17:05)
[2022-11-17] MEDS: RIVAROXABAN 10 MG TABLET 20 MG PO (17:05)
--- NOTE | 2022-11-17 17:26 | P.PN_ITS ---
Subjective Subjective Date Patient Seen: 11/17/22 Interval history: Seen today for follow-up of sacral wound, hypokalemia, chronic anemia, etc.. Her pain is relatively controlled today. She has refused diverting colostomy based on discussions with surgery, her son, and prior experiences. She does not wish to havea wound vac as well based on prior experiences. She does wish to continue local wound care in the hopes for continued healing. The location of this will either need to be at home or at SNF, though unclear at this time. Exam Vital Signs (past 8 hours): Oxygen Delivery Method Room Air Oxygen Flow Rate 0 Narrative Exam Narrative: She is alert and oriented x3. No apparent distress. She is quite obese. Heart is regular rate and rhythm without murmur Lungs are clear to auscultation bilaterally Abdomen is obese, nontender, no organomegaly. Extremities have trace bilateral chronic edema Objective Labs Result Diagrams: 11/16/22 05:38 11/17/22 04:49 Labs: Laboratory Results - last 24 hr 11/17/22 11/17/22 04:49 04:49 Sodium 138 Potassium 3.6 Chloride 109 H Carbon Dioxide 27 BUN 5 L Creatinine 0.89 Estimated GFR > 60 BUN/Creatinine Ratio 5.6 L Glucose 93 Calcium 8.2 L Magnesium 1.9 PFSH Medical History DVT (deep venous thrombosis) Pulmonary embolism Social History household members: none Smoking Status: Never smoker Assessment & Plan Assessment & Plan narrative: 1. ? Unstageable pressure wounds-DTI's to the bilateral medial buttocks in the perianal region, right lower buttock/upper and inner thigh, now POD #4 from debr idement Continue working on offloading pressure, frequent repositioning.? Remains on Zosyn.? Appreciate surgical consult. Patient does not wish to proceed with surgical plan for diverting colostomy / ileostomy after discussion of risks and benefits. - will need local wound care plan, multidisciplanary including wound care nurse and surgery. - will need to see if SNF placement is possible for continued wound care, or if she will need to be discharged home with home health, outpatient wound care. 2. Superficial pressure injury to the bilateral calves and lower and mid bilateral back Offload pressure as much as possible as noted. 3. Metastatic breast cancer, known bony metastasis Continue letrozole.? At this time, she does not seem ready to pursue comfort care or hospice. 4. Diabetes mellitus type 2, excellent baseline control with hemoglobin A1c of 5.2% Continue controlled carb diet and fingerstick/sliding scale.? Blood sugars remain well controlled. 5. Hypertension Patient reports a history of hypertension, but does not have any antihypertensive agent on her home med list.? Blood pressures have ranged from 90 over 52 to 132/70 today. 6. Hypotension As noted, mild hypotension today.? Will continue monitoring. 7. Anemia Normocytic.? Suspect she has anemia of chronic inflammatory disease related to her cancer.? Patient received 2 units of pRBC so far.? Currently hemoglobin is improved from 7.1-7.3 8. Hypothyroidism Continue outpatient dose of levothyroxine 9. Hyperlipidemia Continue Crestor 10. Restless leg syndrome Continue usual outpatient dose of ropinirole 11. Chronic anticoagulation Continue Xarelto 12. Hypokalemia -Supplement with oral Kcl and follow. Code status Full Prophylaxis Resume Xarelto Disposition SNF vs home with home health, given no longer desiring diverting colonic surgery will start to work on multidisciplinary wound care plan. Time Spent With Patient Critical Care time: I spent a total of [] minutes of critical care time on this patient's care today; this time is exclusive of procedural time. Quality VTE Deep Vein Thrombosis/Pulmonary Embolism Present on Admission: No
[2022-11-17 18:00] VITALS: BP 119/66; PULSE 91; RESP 17; TEMP 37.1; O2SAT 99
[2022-11-17 20:45] VITALS: BP 114/61; PULSE 93; RESP 20; TEMP 37.2; O2SAT 96
[2022-11-18] MEDS: HYDROMORPHONE 0.5 MG INJ IV ×6 (01:49→23:44)
[2022-11-18 03:40] VITALS: BP 100/53; PULSE 90; RESP 17; TEMP 37.1; O2SAT 95
[2022-11-18] MEDS: PIPERACILLIN/TAZO 4.5 GM in SODIUM CHLORIDE 0.9% 100 ML IV ×3 (04:59→20:53)
[2022-11-18] MEDS: LEVOTHYROXINE 150 MCG TABLET PO (06:05)
[2022-11-18] MEDS: GABAPENTIN 600 MG TABLET PO ×2 (08:59→20:52)
[2022-11-18] MEDS: buPROPion XL 150 MG TAB PO (08:59)
[2022-11-18] MEDS: ATORVASTATIN 20 MG TABLET PO (08:59)
[2022-11-18] MEDS: POTASSIUM CHLORIDE 10 MEQ TAB PO (08:59)
[2022-11-18] MEDS: LETROZOLE 2.5 MG TABLET PO (09:00)
[2022-11-18] MEDS: ROPINIROLE 1 MG TABLET 2 MG PO (09:00)
[2022-11-18] MEDS: SODIUM CHLORIDE 0.9% FLUSH 10 ML IV ×3 (09:00→21:06)
[2022-11-18] MEDS: NYSTATIN POWDER 15GM 1 APPLIC TOP ×2 (09:01→20:54)
[2022-11-18 09:26] LABS: Add Manual Diff / Slide Review NO; Basophils Absolute Auto 100 /uL (0-100); Basophils Percent Auto 0.8 % (0-2); Eosinophils Absolute Auto 300 /uL (0-450); Eosinophils Percent Auto 5.3 % (2-4); Hematocrit 26.3 % (36-46); Hemoglobin 8.5 g/dL (12.0-16.0); Lymphocytes Absolute Auto 800 /uL (1100-4500); Lymphocytes Percent Auto 11.5 % (25-40); Mean Corpuscular HGB Conc 32.2 % (30-36); Mean Corpuscular Hemoglobin 30.7 PG (26-34); Mean Corpuscular Volume 95.4 fL (80-100); Monocytes Absolute Auto 500 /uL (0-900); Monocytes Percent Auto 6.9 % (3-14); Neutrophils Absolute Auto 5000 /uL (1500-7000); Neutrophils Percent Auto 75.5 % (50-75); Platelet Count 344 X10^3/uL (150-400); Red Blood Cell Count 2.75 X10^6/uL (4.0-5.2); Red Cell Distribution Width 20.9 % (11.6-14.8); White Blood Cell Count 6.6 X10^3/uL (4.5-11.0)
[2022-11-18 09:35] LABS: BUN Creatinine Ratio 9.9 (6-22); Blood Urea Nitrogen 8 mg/dL (7-17); Calcium 8.9 mg/dL (8.4-10.2); Carbon Dioxide 27 mmol/L (22-32); Chloride 105 mmol/L (98-107); Estimated Glomerular Filt Rate > 60 mL/min (>60); Glucose 134 mg/dL (70-100); HEMOLYSIS 17 (0-50); Potassium 3.7 mmol/L (3.4-5.1); Sodium 139 mmol/L (137-145)
[2022-11-18 09:41] LABS: Anisocytosis 1+
[2022-11-18] MEDS: LOPERAMIDE 2 MG CAPSULE PO ×2 (10:23→16:51)
--- NOTE | 2022-11-18 11:58 | CM.DPC ---
Addendum entered by LIZZY Mcgowan 11/18/22 15:05: ADD: SW called down to [facility] and inquired if Wound MD completed bedside assessment as staff had not see Wound MD yet and requested if he did see pt if he could write a note on the recommendations for wound care. Brief Wound MD note in computer now but unclear if Wound MD met bedside with pt or did chart review. SW requested RN to get wound pics during next dressing changes and agreeable as pics likely needed for [facility] to review. SW faxed updated clinicals to both [facility] (fax [phone]) and to [facility] (fax [phone]) for ongoing review and will likely need to provide wound care description and Wound MD recommendations tomorrow when available. BF Original Note: DCP Cont: Per MD, once pt's wound care can be adequately planned/managed at d/c then pt medically stable to discharge. Pt has declined the placement of ostomy as recommended by Surgeon to promote wound healing as pt states im terrified to get a colostomy and want to see if my wounds will heal on their own first. Pt also declines Hospice at this time and wants to attempt treatment and healing. SHELLEY called [facility] and explained pt situation and Wound MD Dr. Israel kindly willing to consult bedside for wound care recommendations and will be bedside around 1200 today. Per Peggy at [facility] ([phone]), would like updated clinicals regarding ostomy plan (pt now declines surgical intervention for this) and wound photos for further review to see if they can meet pt's needs. Per Laura at [facility] ([phone]) they are continuing to review but need updated information on pt's height, weight, bmi, is she on a specialty bed, d/c plan after Swing bed, and aggressive off loading? SHELLEY confirmed that no pics in EMR regarding pt's wound care and SW spoke to commercial loan administrator who obtained the camera and plan is for RN to get wound photos when Wound MD bedside today. SW met bedside with pt and updated on ongoing attempts at facility placement and pt confirms that she is still hopeful for placement to better promote wound healing and aware of the challenges with finding facility to accept. SHELLEY inquired if she has spoken to family (3 adult children) regarding back up plan of home with their assist in case placement cannot be found and pt denies that she has spoken to them further. SW strongly asked that she begin discussing back up plan of home with family as this may be the only option at d/c and pt in agreement. Per manager treasury, adjusting pt's protein drinks to promote better healing as pt was having difficulty tolerating the taste. Plan: SW to follow closely after WOund MD consultation and wound pics today around 1200 to fax to both [facility] and [facility]. LIZZY Mcgowan
[2022-11-18 12:00] VITALS: BP 115/61; PULSE 98; RESP 18; TEMP 37.2; O2SAT 98
[2022-11-18] MEDS: OXYCODONE IR 5 MG TABLET PO ×2 (12:50→13:00)
--- NOTE | 2022-11-18 14:45 | P.PN_ITS ---
Subjective Subjective Interval history: The patient to be discharged soon and request was made for recommendations regarding wound care. Exam Vital Signs (past 8 hours): - 11/18/22 12:00 Temperature 99.0 F Pulse Rate 98 H Respiratory Rate 18 Blood Pressure 115/61 Pulse Oximetry 98 Oxygen Flow Rate 0 Oxygen Delivery Method Room Air Oxygen Flow Rate 0 Objective Labs Result Diagrams: 11/18/22 09:15 11/18/22 09:15 Labs: Laboratory Results - last 24 hr 11/18/22 11/18/22 09:15 09:15 WBC 6.6 RBC 2.75 L Hgb 8.5 L Hct 26.3 L MCV 95.4 MCH 30.7 MCHC 32.2 RDW 20.9 H Plt Count 344 Neut % (Auto) 75.5 H Lymph % (Auto) 11.5 L [place] % (Auto) 6.9 Eos % (Auto) 5.3 H Baso % (Auto) 0.8 Neut # (Auto) 5000 Lymph # (Auto) 800 L [place] # (Auto) 500 Eos # (Auto) 300 Baso # (Auto) 100 RBC Morphology See below Anisocytosis 1+ H Sodium 139 Potassium 3.7 Chloride 105 Carbon Dioxide 27 BUN 8 Creatinine 0.81 Estimated GFR > 60 BUN/Creatinine Ratio 9.9 Glucose 134 H Calcium 8.9 PFSH Medical History DVT (deep venous thrombosis) Pulmonary embolism Social History household members: none Smoking Status: Never smoker Assessment & Plan Assessment and plan (1) Sacral decubitus ulcer: Qualifiers: Pressure injury stage: unspecified pressure injury stage Qualified Code(s): L89.159 - Pressure ulcer of sacral region, unspecified stage Status: Acute (2) Pressure injury of skin: Status: Acute Plan Recommend continuing daily dressing changes with gauze and Dakin's solution until followup at wound center. Continue protein supplementation and pressure offloading. Time Spent With Patient Critical Care time: I spent a total of [] minutes of critical care time on this patient's care today; this time is exclusive of procedural time. Quality VTE Deep Vein Thrombosis/Pulmonary Embolism Present on Admission: No
--- NOTE | 2022-11-18 16:04 | P.PN_ITS ---
Subjective Subjective Date Patient Seen: 11/18/22 Interval history: Seen today for follow-up of sacral wound, hypokalemia, chronic anemia, etc.. Her pain is relatively controlled today. She has refused diverting colostomy based on discussions with surgery, her son, and prior experiences. She does not wish to havea wound vac as well based on prior experiences. She does wish to continue local wound care in the hopes for continued healing. The location of this will either need to be at home or at SNF, though unclear at this time. Exam Vital Signs (past 8 hours): - 11/18/22 12:00 Temperature 99.0 F Pulse Rate 98 H Respiratory Rate 18 Blood Pressure 115/61 Pulse Oximetry 98 Oxygen Flow Rate 0 Oxygen Delivery Method Room Air Oxygen Flow Rate 0 Narrative Exam Narrative: She is alert and oriented x3. No apparent distress. She is quite obese. Heart is regular rate and rhythm without murmur Lungs are clear to auscultation bilaterally Abdomen is obese, nontender, no organomegaly. Extremities have trace bilateral chronic edema Objective Labs Result Diagrams: 11/18/22 09:15 11/18/22 09:15 Labs: Laboratory Results - last 24 hr 11/18/22 11/18/22 09:15 09:15 WBC 6.6 RBC 2.75 L Hgb 8.5 L Hct 26.3 L MCV 95.4 MCH 30.7 MCHC 32.2 RDW 20.9 H Plt Count 344 Neut % (Auto) 75.5 H Lymph % (Auto) 11.5 L [place] % (Auto) 6.9 Eos % (Auto) 5.3 H Baso % (Auto) 0.8 Neut # (Auto) 5000 Lymph # (Auto) 800 L [place] # (Auto) 500 Eos # (Auto) 300 Baso # (Auto) 100 RBC Morphology See below Anisocytosis 1+ H Sodium 139 Potassium 3.7 Chloride 105 Carbon Dioxide 27 BUN 8 Creatinine 0.81 Estimated GFR > 60 BUN/Creatinine Ratio 9.9 Glucose 134 H Calcium 8.9 PFSH Medical History DVT (deep venous thrombosis) Pulmonary embolism Social History household members: none Smoking Status: Never smoker Assessment & Plan Assessment & Plan narrative: 1. ? Unstageable pressure wounds-DTI's to the bilateral medial buttocks in the perianal region, right lower buttock/upper and inner thigh, now POD #4 from debridement Continue working on offloading pressure, frequent repositioning.? Remains on Zosyn.? Appreciate surgical consult. Patient does not wish to proceed with surgical plan for diverting colostomy / ileostomy after discussion of risks and benefits. - appreciate wound care seeing patient, plan is for daily dressing changes with gauze and dakin's until outpatient wound care follow up. - likely discharge home with home health tomorrow. 2. Superficial pressure injury to the bilateral calves and lower and mid bilateral back Offload pressure as much as possible as noted. 3. Metastatic breast cancer, known bony metastasis Continue letrozole.? At this time, she does not seem ready to pursue comfort care or hospice. 4. Diabetes mellitus type 2, excellent baseline control with hemoglobin A1c of 5.2% Continue controlled carb diet and fingerstick/sliding scale.? Blood sugars remain well controlled. 5. Hypertension Patient reports a history of hypertension, but does not have any antihypertensive agent on her home med list.? Blood pressures have ranged from 90 over 52 to 132/70 today. 6. Hypotension improved. 7. Anemia Normocytic.? Suspect she has anemia of chronic inflammatory disease related to her cancer.? Patient received 2 units of pRBC so far.? Currently hemoglobin is improved from 7.1-7.3 to now 8.5. 8. Hypothyroidism Continue outpatient dose of levothyroxine 9. Hyperlipidemia Continue Crestor 10. Restless leg syndrome Continue usual outpatient dose of ropinirole 11. Chronic anticoagulation Continue Xarelto 12. Hypokalemia -Supplement with oral Kcl and follow. Code status Full Prophylaxis Resume Xarelto Disposition SNF vs home with home health, given no longer desiring diverting colonic surgery will start to work on multidisciplinary wound care plan. Time Spent With Patient Critical Care time: I spent a total of [] minutes of critical care time on this patient's care today; this time is exclusive of procedural time. Quality VTE Deep Vein Thrombosis/Pulmonary Embolism Present on Admission: No
[2022-11-18] MEDS: RIVAROXABAN 10 MG TABLET 20 MG PO (17:06)
[2022-11-18 18:00] VITALS: BP 123/63; PULSE 87; RESP 24; TEMP 37.2; O2SAT 97
[2022-11-18 20:00] VITALS: BP 105/54; PULSE 93; RESP 17; TEMP 36.2; O2SAT 94
[2022-11-19] VITALS: BP 98/53; PULSE 88; RESP 19; TEMP 36.2; O2SAT 94
[2022-11-19] MEDS: PIPERACILLIN/TAZO 4.5 GM in SODIUM CHLORIDE 0.9% 100 ML IV ×3 (04:48→20:13)
[2022-11-19 06:00] VITALS: BP 90/51; PULSE 92; RESP 19; TEMP 36.8; O2SAT 93
[2022-11-19] MEDS: LEVOTHYROXINE 150 MCG TABLET PO (06:11)
[2022-11-19] MEDS: HYDROMORPHONE 0.5 MG INJ IV ×6 (06:11→21:54)
[2022-11-19] MEDS: buPROPion XL 150 MG TAB PO (08:18)
[2022-11-19] MEDS: GABAPENTIN 600 MG TABLET PO ×2 (08:19→21:52)
[2022-11-19] MEDS: LOPERAMIDE 2 MG CAPSULE PO ×5 (08:19→21:52)
[2022-11-19] MEDS: SODIUM CHLORIDE 0.9% FLUSH 10 ML IV ×2 (08:19→21:53)
[2022-11-19] MEDS: POTASSIUM CHLORIDE 10 MEQ TAB PO (08:19)
[2022-11-19] MEDS: ROPINIROLE 1 MG TABLET 2 MG PO (08:19)
[2022-11-19] MEDS: ATORVASTATIN 20 MG TABLET PO (08:19)
[2022-11-19] MEDS: NYSTATIN POWDER 15GM 1 APPLIC TOP ×2 (08:19→21:52)
[2022-11-19] MEDS: LETROZOLE 2.5 MG TABLET PO (08:20)
[2022-11-19 09:33] LABS: Add Manual Diff / Slide Review NO; Basophils Absolute Auto 0 /uL (0-100); Basophils Percent Auto 0.8 % (0-2); Eosinophils Absolute Auto 300 /uL (0-450); Eosinophils Percent Auto 5.6 % (2-4); Hematocrit 25.5 % (36-46); Hemoglobin 8.2 g/dL (12.0-16.0); Lymphocytes Absolute Auto 600 /uL (1100-4500); Lymphocytes Percent Auto 10.7 % (25-40); Mean Corpuscular Hemoglobin 30.5 PG (26-34); Mean Corpuscular Volume 95.3 fL (80-100); Monocytes Absolute Auto 400 /uL (0-900); Monocytes Percent Auto 6.3 % (3-14); Neutrophils Absolute Auto 4600 /uL (1500-7000); Neutrophils Percent Auto 76.6 % (50-75); Platelet Count 350 X10^3/uL (150-400); Red Blood Cell Count 2.68 X10^6/uL (4.0-5.2)
[2022-11-19 09:43] LABS: BUN Creatinine Ratio 11.8 (6-22); Blood Urea Nitrogen 11 mg/dL (7-17); Calcium 8.8 mg/dL (8.4-10.2); Carbon Dioxide 28 mmol/L (22-32); Chloride 102 mmol/L (98-107); Estimated Glomerular Filt Rate > 60 mL/min (>60); Glucose 139 mg/dL (70-100); HEMOLYSIS < 15 (0-50); Potassium 3.8 mmol/L (3.4-5.1); Sodium 137 mmol/L (137-145)
[2022-11-19 10:41] LABS: Anisocytosis 2+
[2022-11-19] MEDS: ACETAMINOPHEN 325 MG TABLET 650 MG PO (10:58)
[2022-11-19] MEDS: OXYCODONE IR 10 MG TABLET PO ×2 (10:59→23:53)
[2022-11-19] MEDS: INSULIN LISPRO 100 UNIT/ML 3ML VIAL SUBCUT (12:14)
--- NOTE | 2022-11-19 15:04 | CM.DPNOTE ---
DCP Note Discharge planning efforts continue. Updated wound care notes and wound pictures have been faxed to Peggy at [facility] and the team at [facility] swing beds. According to voice messages from both; Peggy at [facility] says they are bed locked right now and wound care team will review patient's wound pictures to see if patient is a good candidate. Patient has approx 5 referrals in line before her for a bed. Laura at [facility] swing beds says the team is still deciding on this referral and requests DC internet media planner notes and wound pictures. In addition, Laura requests additional information about the recommended bed for patient. CM team will need to follow closely with both [facility] and [facility]. If patient is accepted at either of these locations- authorization from [facility] is still needed Meanwhile, met w/patient again to discuss DCP efforts and discuss goals of care: Patient seems to envision herself as getting moving, getting better and living as long as I can Had lengthy conversation, w/ERWIN Arreola in room, then w/Dr Emerson in room, reviewing the reality of patient's poor prognosis and limited functional abilities. Patient is agreeable to this CM team sending Hospice referral w/the intent of patient discharging home w/son to assist, targeted date of 11.21.22. Referral faxed to [facility], this [employer] spoke w/ ERWIN Simon at [facility] who explained patient would be visited by an RN x2 weekly for wound care and 2-3x by a [employer] MEMBER. ERWIN Simon expects patient will require 24/7 care based on the needs described. RN can visit patient more often if symptoms increase Plan: Home w/hospice and son; which certainly seems an ambitious plan, but not an impossible one. Strongly encouraged patient to get in touch with all friends and family ARIANA to ask about their availability and ability to assist her once home to her RV. Patient has not made any progress on this since asked to make these calls yesterday. No contact for son on chart Patient plans to return to her RV recliner because a hospital bed will not fit in her RV. Patient does not think any of her adult children will be able to take her home Attempted another visit to patient's room this afternoon, in hopes of speaking with family by speaker, patient had a BM and was getting cleaned up by staff CM team following closely for coordination of the safest plan available to patient. Home w/hospice and family via BLS (need to discuss out of pocket expense) vs [facility] vs Swing beds if accepted JW
--- NOTE | 2022-11-19 15:56 | PM.PN.1 ---
Subjective Subjective Date Patient Seen: 11/19/22 Interval history: Seen today for follow-up of sacral wound, hypokalemia, chronic anemia, etc.. Her pain is relatively controlled today. We had a samuel goals of care conversation today with case management as well. Patient expresses wish to live as long as possible. She is realistic that she has metastatic breast cancer but was initially not interested in hospice initially but after further discussion about the possible benefits she was more willing to consider this at home. We discussed again the options of diverting surgery to assist with wound healing, though after discussion of risks and benefits she again feels that risks of surgery outweigh the benefits of possible assistance to wound healing. Her social situation remains difficult and a barrier to going home, as she has no SNF which is willing to accept the patient. She needs daily dressing changes, which she cannot realistically perform herself, and be able to offload pressure from the wounds, as well as maintain a relative degree of cleanliness with toileting. Exam Vital Signs (past 8 hours): Oxygen Delivery Method Room Air Oxygen Flow Rate 0 Narrative Exam Narrative: She is alert and oriented x3. No apparent distress. obese. Heart is regular rate and rhythm without murmur Lungs are clear to auscultation bilaterally Abdomen is obese, nontender, no organomegaly. Extremities have trace bilateral chronic edema Objective Labs Result Diagrams: 11/19/22 09:20 11/19/22 09:20 Labs: Laboratory Results - last 24 hr 11/19/22 11/19/22 09:20 09:20 WBC 6.0 RBC 2.68 L Hgb 8.2 L Hct 25.5 L MCV 95.3 MCH 30.5 MCHC 32.0 RDW 21.0 H Plt Count 350 Neut % (Auto) 76.6 H Lymph % (Auto) 10.7 L [place] % (Auto) 6.3 Eos % (Auto) 5.6 H Baso % (Auto) 0.8 Neut # (Auto) 4600 Lymph # (Auto) 600 L [place] # (Auto) 400 Eos # (Auto) 300 Baso # (Auto) 0 RBC Morphology See below Anisocytosis 2+ H Sodium 137 Potassium 3.8 Chloride 102 Carbon Dioxide 28 BUN 11 Creatinine 0.93 Estimated GFR > 60 BUN/Creatinine Ratio 11.8 Glucose 139 H Calcium 8.8 PFSH Medical History DVT (deep venous thrombosis) Pulmonary embolism Social History household members: none Smoking Status: Never smoker Assessment & Plan Assessment & Plan narrative: 1. ? Unstageable pressure wounds-DTI's to the bilateral medial buttocks in the perianal region, right lower buttock/upper and inner thigh, now s/p surgical debridement Continue working on offloading pressure, frequent repositioning.? Remains on Zosyn.? Appreciate surgical consult. Patient does not wish to proceed with surgical plan for diverting colostomy / ileostomy after discussion of risks and benefits. - appreciate wound care seeing patient, plan is for daily dressing changes with gauze and dakin's until outpatient wound care follow up. - likely discharge home with hospice vs home health, but needs daily dressing changes and a lot of assistance. Appreciate care management assistance. 2. Superficial pressure injury to the bilateral calves and lower and mid bilateral back Offload pressure as much as possible as noted. 3. Metastatic breast cancer, known bony metastasis Continue letrozole.? At this time, she does not seem ready to pursue comfort care or hospice. 4. Diabetes mellitus type 2, excellent baseline control with hemoglobin A1c of 5.2% Continue controlled carb diet and fingerstick/sliding scale.? Blood sugars remain well controlled. 5. Hypertension Patient reports a history of hypertension, but does not have any antihypertensive agent on her home med list.? Blood pressures have ranged from 90 over 52 to 132/70 today. 6. Hypotension improved. 7. Anemia Normocytic.? Suspect she has anemia of chronic inflammatory disease related to her cancer.? Patient received 2 units of pRBC so far.? Currently hemoglobin is improved from 7.1-7.3 to now 8.5. 8. Hypothyroidism Continue outpatient dose of levothyroxine 9. Hyperlipidemia Continue Crestor 10. Restless leg syndrome Continue usual outpatient dose of ropinirole 11. Chronic anticoagulation Continue Xarelto 12. Hypokalemia -Supplement with oral Kcl and follow. 13. Advanced Care planning. I spent 20 minutes involved in advanced care planning with the patient and care team. - We had a samuel goals of care conversation today with case management as well. Patient expresses wish to live as long as possible. She is realistic that she has metastatic breast cancer but was initially not interested in hospice initially but after further discussion about the possible benefits she was more willing to consider this at home. We discussed again the options of diverting surgery to assist with wound healing, though after discussion of risks and benefits she again feels that risks of surgery outweigh the benefits of possible assistance to wound healing. Her social situation remains difficult and a barrier to going home, as she has no SNF which is willing to accept the patient. She needs daily dressing changes, which she cannot realistically perform herself, and be able to offload pressure from the wounds, as well as maintain a relative degree of cleanliness with toileting. Currently she expresses desire to discharge home on hospice, though will need to continue to work on goal setting to be concordant with typical hospice patients. Code status Full Prophylaxis Resume Xarelto Disposition SNF vs home with home health, given no longer desiring diverting colonic surgery will start to work on multidisciplinary wound care plan. Time Spent With Patient Critical Care time: I spent a total of [] minutes of critical care time on this patient's care today; this time is exclusive of procedural time. Quality VTE Deep Vein Thrombosis/Pulmonary Embolism Present on Admission: No
[2022-11-19 16:34] VITALS: BP 103/53; PULSE 91; RESP 18; TEMP 36.3; O2SAT 96
[2022-11-19] MEDS: RIVAROXABAN 10 MG TABLET 20 MG PO (17:08)
[2022-11-19 19:55] VITALS: BP 121/62; PULSE 92; RESP 16; TEMP 36.6; O2SAT 97
[2022-11-19] MEDS: SODIUM CHLORIDE 0.9% 250 ML 21 ML IV (20:14)
[2022-11-20] MEDS: PIPERACILLIN/TAZO 4.5 GM in SODIUM CHLORIDE 0.9% 100 ML IV ×3 (04:19→20:31)
[2022-11-20 04:28] VITALS: BP 114/60; PULSE 91; RESP 18; TEMP 36.7; O2SAT 92
[2022-11-20] MEDS: LEVOTHYROXINE 150 MCG TABLET PO (06:51)
[2022-11-20] MEDS: SODIUM CHLORIDE 0.9% FLUSH 10 ML IV ×3 (06:52→20:31)
[2022-11-20 07:23] LABS: Add Manual Diff / Slide Review NO; Basophils Absolute Auto 0 /uL (0-100); Basophils Percent Auto 0.8 % (0-2); Eosinophils Absolute Auto 400 /uL (0-450); Eosinophils Percent Auto 6.4 % (2-4); Hematocrit 23.2 % (36-46); Hemoglobin 7.4 g/dL (12.0-16.0); Lymphocytes Absolute Auto 700 /uL (1100-4500); Lymphocytes Percent Auto 10.8 % (25-40); Mean Corpuscular HGB Conc 31.8 % (30-36); Mean Corpuscular Hemoglobin 30.6 PG (26-34); Mean Corpuscular Volume 96.1 fL (80-100); Monocytes Absolute Auto 400 /uL (0-900); Monocytes Percent Auto 6.9 % (3-14); Neutrophils Absolute Auto 4700 /uL (1500-7000); Neutrophils Percent Auto 75.1 % (50-75); Platelet Count 358 X10^3/uL (150-400); Red Blood Cell Count 2.41 X10^6/uL (4.0-5.2); Red Cell Distribution Width 21.8 % (11.6-14.8); White Blood Cell Count 6.3 X10^3/uL (4.5-11.0)
[2022-11-20 07:33] LABS: Blood Urea Nitrogen 15 mg/dL (7-17); Calcium 8.7 mg/dL (8.4-10.2); Carbon Dioxide 29 mmol/L (22-32); Chloride 105 mmol/L (98-107); Estimated Glomerular Filt Rate > 60 mL/min (>60); Glucose 112 mg/dL (70-100); Potassium 3.8 mmol/L (3.4-5.1); Sodium 138 mmol/L (137-145)
[2022-11-20 07:40] LABS: HEMOLYSIS 59 (0-50)
[2022-11-20] MEDS: LOPERAMIDE 2 MG CAPSULE PO ×4 (07:44→15:43)
[2022-11-20] MEDS: HYDROMORPHONE 0.5 MG INJ IV ×4 (07:44→22:39)
[2022-11-20 08:01] LABS: Anisocytosis 3+
[2022-11-20 08:39] VITALS: BP 121/67; PULSE 82; RESP 18; TEMP 37.1; O2SAT 96
[2022-11-20] MEDS: LETROZOLE 2.5 MG TABLET PO (08:50)
[2022-11-20] MEDS: POTASSIUM CHLORIDE 10 MEQ TAB PO (08:50)
[2022-11-20] MEDS: ATORVASTATIN 20 MG TABLET PO (08:51)
[2022-11-20] MEDS: ROPINIROLE 1 MG TABLET 2 MG PO (08:51)
[2022-11-20] MEDS: buPROPion XL 150 MG TAB PO (08:51)
[2022-11-20] MEDS: GABAPENTIN 600 MG TABLET PO ×2 (08:51→20:31)
[2022-11-20] MEDS: NYSTATIN POWDER 15GM 1 APPLIC TOP ×2 (08:54→20:34)
[2022-11-20] MEDS: OXYCODONE IR 10 MG TABLET PO ×2 (10:20→13:58)
[2022-11-20] MEDS: ACETAMINOPHEN 325 MG TABLET 650 MG PO ×2 (10:21→20:30)
--- NOTE | 2022-11-20 10:40 | PT.IIE ---
Current Diagnoses Pressure ulcer of sacral region, unspecified stage (11/09/22) Pressure ulcer of unspecified site, unspecified stage (11/09/22) Surgery Performed Operation Date: 11/13/22 15:15 Actual Procedures p debride sacral wound - Filiberto Wilcox MD Operation Date: 11/27/22 07:45 <No data on this case meets the specified criteria> Medical History (Last Reviewed 11/11/22 @ 14:04 by Dm Reynolds MD) DVT (deep venous thrombosis) Pulmonary embolism Physical Therapy Inpatient Evaluation/Re-Eval M1 PT/OT-IP Prior Functional Status Start: 11/10/22 09:11 Freq: NEEDED Status: Active Protocol: Document 11/20/22 10:40 AB (Rec: 11/20/22 13: AB [id number]) Medical Review Prior Functional Status Medical History Reviewed Yes Communication able to make needs known Mobility and Gait pt is modified independent with all mobilities and ambulation using 4WW indoors but uses her SPC for outdoor mobility Activities of Daily Living and IADL's per OT note: Pt states she is independent with dressing and toileting, denies incontinence . She tends to sponge off, states she has not used the shower in her RV since moving in two months ago. She depends on her son for transportation . Social History Household Members none Living Arrangements RV Number of Floors (Floors) One Floor Number of Stairs To Enter/Railing? has 2 steps with L rail ascending Home Environment Standard Height Toilet,Walk in Shower Home Equipment Four Wheel Walker,Straight Cane Employment Status Internal [employer] Sub[employer]sembl[employer] Employed Additional Social History Comment pt stated that she plans to go home and will have hospice care at home pt sleeps on her couch M2 PT-IP Current Condition Start: 11/10/22 09:11 Freq: NEEDED Status: Active Protocol: Document 11/20/22 10:40 AB (Rec: 11/20/22 13:21 AB [id number]) Physical Therapy Current Condition Current Condition Evaluation Date 11/20/22 Treatment Diagnosis GLF; sacral decubitus ulcer; difficulty in walking Onset Date 11/09/22 M3 PT-IP Subjective Start: 11/10/22 09:11 Freq: NEEDED Status: Active Protocol: Document 11/20/22 10:40 AB (Rec: 11/20/22 13:21 AB [id number]) Subjective Physical Therapy Visit Type Type Initial Evaluation Visit Start Time 10:40 Visit Stop Time 11:00 Total Visit Minutes 20 Number of MASKING MACHINE OPERATOR Visits 0 Physical Therapy Visit Comments Patient Comments agreeable to get up M4 PT-IP Mobility and Gait Start: 11/10/22 09:11 Freq: NEEDED Status: Active Protocol: Document 11/20/22 10:40 AB (Rec: 11/20/22 13:21 AB [email or web address]) PT-Bed Mobility Assessment Supine to Sit Supine to Sit Maximum Assistance,1 Person Assistance,Head of Bed Elevated,Bedrails Scooting Scooting to Edge of Bed Maximum Assistance PT-Transfer Assessment Sit to and From Stand Sit to and from Stand Contact Guard Assistance,1 Person Assistance,Use of Upper Extremities Equipment Transfer Assistive Device Gait Belt,Front Wheeled Walker Orthotic/Prosthetic Devices or Brace: No Transfers Transfer Destination Bedside Commode Transfer Technique Stand Step Pivot Transfer Ability Level of Assist Contact Guard Assistance,1 Person Assistance,Use of Upper Extremities Comments Mobility Comments pt completed supine to sit max A and max cues. HOB elevated and pt used bed rail to assist . pt requesting use the bedside commode. completed sit to stand CGA and step transfer to commode CGA. pt wanting to use the commode for a while and nurse plans to do dressing change afterwards. Left pt with NAC. Gait Assessment Comments Gait Comments able to take steps during transfers PT-Balance Assessment Sitting Balance and Reactions Static Sitting Balance Ability Good Dynamic Sitting Balance Ability Good Standing Balance and Reactions Static Standing Balance Ability Fair Dynamic Standing Balance Ability Fair Device Used FWW M5 PT-IP Objective Assessments Start: 11/10/22 09:11 Freq: NEEDED Status: Active Protocol: Document 11/20/22 10:40 AB (Rec: 11/20/22 13:21 AB [email or web address]) Orientation Orientation/Cognition Level of Alertness Alert Orientation Name,Place,Situation Language Function Ability No Deficits Noted Safety Awareness Decreased Safety Awareness Memory Description No Deficits Noted Strength Lower Extremity Strength Assessment Bilaterally Impaired Hip 3-/5 Knee 3+/5 Muscle Tone Muscle Tone WNL Yes M6 PT-IP Treatment Start: 11/10/22 09:11 Freq: NEEDED Status: Active Protocol: Document 11/20/22 10:40 AB (Rec: 11/20/22 13:21 [id number] Physical Therapy Treatment Education Education Provided Safety M7 PT-IP Assessment and Plan Start: 11/10/22 09:11 Freq: NEEDED Status: Active Protocol: Document 11/20/22 10:40 AB (Rec: 11/20/22 13:21 AB [id number]) PT Summary Assessment and Plan Potential Rehabilitation Potential Fair Status of Condition at Evaluation Evolving Summary Impairments Pain,ROM,Strength,Balance, Coordination,Sensation,Tone, Cognition,Bed Mobility, Transfers,Gait,Activity Tolerance Assessment Summary Pt was admitted to the hospital aftera a GLF and currently has sacral decubitus ulcers requiring wound management. Pt was evaluated by PT 11/10/22 and was d/c'd 11/14/22 due to hospitalist stated that pt's focus is on wound care and be off sacral wounds if possible and to prevent unnecessary movement/ shearing on wound and pt also plans to go on hospice care. pt also has h/o breast CA with mets to the spine. received PT eval today. per pillowcase cutter, pt plans to go home and wants to be sure that pt is able to stand and move. pt requiring CGA with transfers. will need 24/7 care at home. will continue to assess progress. Goals Bed Mobility Goal Minimal Assistance Transfer Goal Standby Assistance,Front Wheeled Walker Gait Goal Standby Assistance,Front Wheel Walker Gait Distance 100 Other Goals - up/down 2 steps with L rail ascending min A Days to Meet Goals 10 Frequency of Treatment Frequency Of Treatment Once a Day Treatment Plan Physical Therapy Treatment Plan Bed Mobility Training,Transfer Training,Gait Training, Therapeutic Exercise,Balance Retraining,Discharge Planning, Hot or Cold Pack,Neuromuscular Re-ed Recommendations To Nursing Amount of Assist Needed 2 Person Assist Discharge Recommendations PT Discharge Recommendations Home with 24/7 Assist Available,Home Health,SNF Rehab Transportation Needs at Discharge Wheelchair/Cabulance,Stretcher /Ambulance
--- NOTE | 2022-11-20 12:13 | DIET.CONS2 ---
Dietary Inpatient Consultation Note Admission Date: 11/09/2022 15:46 Pt electing to go home with support of hospice. Kitchen to continue to send ONS while hospitalized as desired by pt. Diet: 11/13/22 Dinner General (Regular) Diet Diet Modifications: Ensure Max with meals (3 per day) Nutrition Percent Meal Consumed 100% 11/19/22 18:00 Percent Meal Consumed 75% 11/18/22 18:59 Electronically Signed by: Rajni Esquivel 11/20/22 12:13 Clinical Dietitian [address] [id number]
--- NOTE | 2022-11-20 13:50 | P.PN_ITS ---
Subjective Subjective Date Patient Seen: 11/20/22 Interval history: Patient still has significant pain in her wounds today. Plan remains home on hospice at this time in the next couple of days. Will add fentanyl patch for additional pain control, she still is receiving IV medication and hopefully patch can reduce need for IV use so that pain can be controlled at home environment. Exam Vital Signs (past 8 hours): - 11/20/22 08:39 Temperature 98.8 F Pulse Rate 82 Respiratory Rate 18 Blood Pressure 121/67 Pulse Oximetry 96 Oxygen Flow Rate 0 Oxygen Delivery Method Room Air Oxygen Flow Rate 0 Narrative Exam Narrative: She is alert and oriented x3. No apparent distress. obese. Heart is regular rate and rhythm without murmur Lungs are clear to auscultation bilaterally Abdomen is obese, nontender, no organomegaly. Extremities have trace bilateral chronic edema Objective Labs Result Diagrams: 11/20/22 07:00 11/20/22 07:00 Labs: Laboratory Results - last 24 hr 11/20/22 11/20/22 07:00 07:00 WBC 6.3 RBC 2.41 L Hgb 7.4 L Hct 23.2 L MCV 96.1 MCH 30.6 MCHC 31.8 RDW 21.8 H Plt Count 358 Neut % (Auto) 75.1 H Lymph % (Auto) 10.8 L [place] % (Auto) 6.9 Eos % (Auto) 6.4 H Baso % (Auto) 0.8 Neut # (Auto) 4700 Lymph # (Auto) 700 L [place] # (Auto) 400 Eos # (Auto) 400 Baso # (Auto) 0 RBC Morphology See below Anisocytosis 3+ H Sodium 138 Potassium 3.8 Chloride 105 Carbon Dioxide 29 BUN 15 Creatinine 0.94 Estimated GFR > 60 BUN/Creatinine Ratio 16.0 Glucose 112 H Calcium 8.7 PFSH Medical History DVT (deep venous thrombosis) Pulmonary embolism Social History household members: none Smoking Status: Never smoker Assessment & Plan Assessment & Plan narrative: 1. ? Unstageable pressure wounds-DTI's to the bilateral medial buttocks in the perianal region, right lower buttock/upper and inner thigh, now s/p surgical debridement Continue working on offloading pressure, frequent repositioning.? Remains on Zosyn.? Appreciate surgical consult. Patient does not wish to proceed with surgical plan for diverting colostomy / ileostomy after discussion of risks and benefits. - appreciate wound care seeing patient, plan is for daily dressing changes with gauze and dakin's until outpatient wound care follow up. - likely discharge home with hospice vs home health, but needs daily dressing changes and a lot of assistance. Appreciate care management assistance. -pain control, with fentanyl added today with prn oxycodone and IV dilaudid for breakthrough for now. patch added to stop need for IV medications. 2. Superficial pressure injury to the bilateral calves and lower and mid bilateral back Offload pressure as much as possible as noted. 3. Metastatic breast cancer, known bony metastasis Continue letrozole.? At this time, she does not seem ready to pursue comfort care or hospice. 4. Diabetes mellitus type 2, excellent baseline control with hemoglobin A1c of 5.2% Continue controlled carb diet and fingerstick/sliding scale.? Blood sugars remain well controlled. 5. Hypertension Patient reports a history of hypertension, but does not have any antihypertensive agent on her home med list.? Blood pressures have ranged from 90 over 52 to 132/70 today. 6. Hypotension improved. 7. Anemia Normocytic.? Suspect she has anemia of chronic inflammatory disease related to her cancer.? Patient received 2 units of pRBC so far.? Currently hemoglobin is improved from 7.1-7.3 to now 8.5. 8. Hypothyroidism Continue outpatient dose of levothyroxine 9. Hyperlipidemia Continue Crestor 10. Restless leg syndrome Continue usual outpatient dose of ropinirole 11. Chronic anticoagulation Continue Xarelto 12. Hypokalemia -Supplement with oral Kcl and follow. 13. Advanced Care planning. - Patient expresses wish to live as long as possible. She is realistic that she has metastatic breast cancer but was initially not interested in hospice initially but after further discussion about the possible benefits she was more willing to consider this at home. We discussed again the options of diverting surgery to assist with wound healing, though after discussion of risks and benefits she again feels that risks of surgery outweigh the benefits of possible assistance to wound healing. Her social situation remains difficult and a barrier to going home, as she has no SNF which is willing to accept the patient. She needs daily dressing changes, which she cannot realistically perform herself, and be able to offload pressure from the wounds, as well as maintain a relative degree of cleanliness with toileting. Currently she expresses desire to discharge home on hospice, hospice was consulted and agreeable to evaluate this patient. Family will help assist with needs at home. Code status Full Prophylaxis Resume Xarelto Disposition SNF vs home with home health, given no longer desiring diverting colonic surgery will start to work on multidisciplinary wound care plan. Time Spent With Patient Critical Care time: I spent a total of [] minutes of critical care time on this patient's care today; this time is exclusive of procedural time. Quality VTE Deep Vein Thrombosis/Pulmonary Embolism Present on Admission: No
[2022-11-20 14:24] VITALS: BP 97/51; PULSE 96; RESP 16; TEMP 37.4; O2SAT 94
[2022-11-20] MEDS: fentaNYL 25 MCG/PATCH TOP (15:30)
--- NOTE | 2022-11-20 15:32 | CM.DPC ---
DCP/continued: Reviewed chart. Spoke with Dr. Emerson and he is in agreement for patient to d/c home with hospice. Patient provided HYDRAULIC MINER with permission to call her son Connor ph# [phone]. Placed call to Connor this AM explained CM/SW role. Connor made aware that patient is stable and that the current plan is home with hospice. Connor in complete agreement. Connor plans to do training for dressing care on 11-22 at 11:00AM. After teaching completed, Connor would like to take patient home. Connor reports that he will spend tomorrow cleaning residence and contacting other siblings/family for assistance. Connor works at night but is home during the day. Spoke with Radha at hospice and she reports that she plans to talk with son and patient either today or tomorrow. Radha has opening for patient at the residence on Friday afternoon. Radha requesting that patient get prescriptions filled prior to going home. HYDRAULIC MINER spoke with Dr. Emerson and he reports that he can send her prescriptions tomorrow so that they can be picked up Friday morning. Radha reports that there has been issues with pharmacies not having medications so she wants to make sure patient discharges with her prescriptions. HYDRAULIC MINER will pass on to covering LIZZY/Mia. If possible might be easiest to have prescriptions filled at [facility] downstairs tomorrow? Nursing will need to be reminded of teaching on 11-22 at 11:00AM. Patient will also need to be sent home with wound care supplies. At this time everything coming together nicely. LIZZY/Mia to follow up with hospice tomorrow and assist with prescriptions. May also want to verify time with son for teaching. P: Home 11-22 with Hospice. If for any reason hospice falls through which it should not then patient will need to d/c home with home health. LIZZY De La O
[2022-11-20] MEDS: RIVAROXABAN 10 MG TABLET 20 MG PO (16:48)
[2022-11-20] MEDS: OXYCODONE IR 5 MG TABLET PO (20:30)
[2022-11-20 22:05] VITALS: BP 96/54; PULSE 94; RESP 18; TEMP 36.6; O2SAT 95
[2022-11-21 01:42] VITALS: BP 103/55; PULSE 91; RESP 18; TEMP 36.6; O2SAT 93
[2022-11-21] MEDS: HYDROMORPHONE 0.5 MG INJ IV ×5 (02:42→21:43)
[2022-11-21] MEDS: PIPERACILLIN/TAZO 4.5 GM in SODIUM CHLORIDE 0.9% 100 ML IV ×3 (04:17→21:13)
[2022-11-21] MEDS: SODIUM CHLORIDE 0.9% 250 ML 21 ML IV (04:18)
[2022-11-21] MEDS: LEVOTHYROXINE 150 MCG TABLET PO (06:27)
[2022-11-21] MEDS: LETROZOLE 2.5 MG TABLET PO (08:28)
[2022-11-21] MEDS: buPROPion XL 150 MG TAB PO (08:28)
[2022-11-21] MEDS: ATORVASTATIN 20 MG TABLET PO (08:28)
[2022-11-21] MEDS: GABAPENTIN 600 MG TABLET PO ×2 (08:28→21:13)
[2022-11-21] MEDS: ROPINIROLE 1 MG TABLET 2 MG PO (08:28)
[2022-11-21] MEDS: NYSTATIN POWDER 15GM 1 APPLIC TOP ×2 (08:28→21:42)
[2022-11-21] MEDS: SODIUM CHLORIDE 0.9% FLUSH 10 ML IV ×2 (08:28→21:28)
[2022-11-21 08:44] VITALS: BP 103/59; PULSE 82
[2022-11-21] MEDS: OXYCODONE IR 10 MG TABLET PO ×2 (11:35→21:13)
--- NOTE | 2022-11-21 11:44 | PT-IP ANOTE ---
Pt refused working with therapy x2 attempts at 0954 and 1144 when arrived, stated continuing to have pain and not wanting to mobilize with therapy. TIER OVER discussed with pt was premedicated upon each arrival approx 1.5 hrs and best time as can tolerate and in chart review wanting to work with therapy to be able to improve strength for caregivers/son to help at home on Hospice [facility] for [facility] transfers. Pt stated has been performing BLE AP/heel slides on own between therapy txs. TIER OVER was unable to see due to pt refusal, pt verbalized understanding her request for PT and benefits for strength support mobility but unable when arrived. Will continue to assess progress in pm.
[2022-11-21 12:00] VITALS: BP 99/58; PULSE 90; RESP 16; TEMP 36.4; O2SAT 92
[2022-11-21] MEDS: INSULIN LISPRO 100 UNIT/ML 3ML VIAL SUBCUT (12:54)
--- NOTE | 2022-11-21 14:40 | PT-IP ANOTE ---
Pt declined physical therapy when arrived. She reports I am suprised I am having this much pain over my wound site but am continuing to do AP and heel slides on own to keep up strength. ICE SCULPTOR reviewed with pt her request to work with therapy and mobility for strength to do transfers to [facility] with persons at home on Hospice. ICE SCULPTOR discussed unable to provide staff feedback documentation on mobility progress/assist without given the opportunity to work together mobilizing, pt verbalized understanding and appreciates the physical therapy opportunity but has a mtg with Hospice in 20 min and will take her longer to mobilize with therapy and in to much pain at the moment to mobilize. Pt stated willing to work with therapy tomorrow. PT will continue to assess progress.
[2022-11-21] MEDS: fentaNYL 25 MCG/PATCH 50 MCG TOP (14:43)
--- NOTE | 2022-11-21 15:04 | P.PN_ITS ---
Subjective Subjective Date Patient Seen: 11/21/22 Time Patient Seen: 15:04 Interval history: Discussed diverting loop colostomy. The patient has decided she does not want to have the procedure because she had a negative experience in the past with her ventral hernia repair and wound VAC and she is concerned about not being able to take care the colostomy when she is home alone. Exam Vital Signs (past 8 hours): - 11/21/22 08:44 11/21/22 12:00 Temperature 97.5 F L Pulse Rate 82 90 Respiratory Rate 16 Blood Pressure 103/59 L 99/58 L Pulse Oximetry 92 Oxygen Flow Rate 0 Oxygen Delivery Method Room Air Oxygen Flow Rate 0 Objective Labs Result Diagrams: 11/20/22 07:00 11/20/22 07:00 COUNTS INCLUDE 234 BEDS AT THE [facility] Medical History DVT (deep venous thrombosis) Pulmonary embolism Social History household members: none Smoking Status: Never smoker Assessment & Plan Assessment and plan (1) Sacral decubitus ulcer: Qualifiers: Pressure injury stage: unspecified pressure injury stage Qualified Code(s): L89.159 - Pressure ulcer of sacral region, unspecified stage Status: Acute Plan We again discussed pros and cons risks and benefits of diverting loop colostomy to divert fecal stream from her sacral decubitus ulcers. I let her know that the CT scan indicates that it would be possible to perform a diverting loop colostomy however patient has decided against having the procedure so we will remove her from the OR schedule next Friday Time Spent With Patient Critical Care time: I spent a total of [] minutes of critical care time on this patient's care today; this time is exclusive of procedural time. Quality VTE Deep Vein Thrombosis/Pulmonary Embolism Present on Admission: No
--- NOTE | 2022-11-21 17:23 | PM.PN.1 ---
Subjective Subjective Date Patient Seen: 11/21/22 Interval history: Complained of worsened pain. Patient was not accepted by hospice services after further discussion due to concern over wound care plan and her needs. Will continue to work on pain control in hopes of increased mobility. Fentanyl patch increased today from 25 to 50 mcg. Exam Vital Signs (past 8 hours): - 11/21/22 12:00 Temperature 97.5 F L Pulse Rate 90 Respiratory Rate 16 Blood Pressure 99/58 L Pulse Oximetry 92 Oxygen Flow Rate 0 Oxygen Delivery Method Room Air Oxygen Flow Rate 0 Narrative Exam Narrative: She is alert and oriented x3. No apparent distress. obese. Heart is regular rate and rhythm without murmur Lungs are clear to auscultation bilaterally Abdomen is obese, nontender, no organomegaly. Extremities have trace bilateral chronic edema Objective Labs Result Diagrams: 11/20/22 07:00 11/20/22 07:00 [facility] Medical History DVT (deep venous thrombosis) Pulmonary embolism Social History household members: none Smoking Status: Never smoker Assessment & Plan Assessment & Plan narrative: 1. ? Unstageable pressure wounds-DTI's to the bilateral medial buttocks in the perianal region, right lower buttock/upper and inner thigh, now s/p surgical debridement Continue working on offloading pressure, frequent repositioning.? Remains on Zosyn.? Appreciate surgical consult. Patient does not wish to proceed with surgical plan for diverting colostomy / ileostomy after discussion of risks and benefits. - appreciate wound care seeing patient, plan is for daily dressing changes with gauze and dakin's until outpatient wound care follow up. - likely discharge home with hospice vs home health, but needs daily dressing changes and a lot of assistance. Appreciate care management assistance. -pain control, with fentanyl added today with prn oxycodone and IV dilaudid for breakthrough for now. patch added to stop need for IV medications. 2. Superficial pressure injury to the bilateral calves and lower and mid bilateral back Offload pressure as much as possible as noted. 3. Metastatic breast cancer, known bony metastasis Continue letrozole.? At this time, she does not seem ready to pursue comfort care or hospice. 4. Diabetes mellitus type 2, excellent baseline control with hemoglobin A1c of 5.2% Continue controlled carb diet and fingerstick/sliding scale.? Blood sugars remain well controlled. 5. Hypertension Patient reports a history of hypertension, but does not have any antihypertensive agent on her home med list.? Blood pressures have ranged from 90 over 52 to 132/70 today. 6. Hypotension improved. 7. Anemia Normocytic.? Suspect she has anemia of chronic inflammatory disease related to her cancer.? Patient received 2 units of pRBC so far.? Currently hemoglobin is improved from 7.1-7.3 to now 8.5. 8. Hypothyroidism Continue outpatient dose of levothyroxine 9. Hyperlipidemia Continue Crestor 10. Restless leg syndrome Continue usual outpatient dose of ropinirole 11. Chronic anticoagulation Continue Xarelto 12. Hypokalemia -Supplement with oral Kcl and follow. 13. Advanced Care planning. - Patient expresses wish to live as long as possible. She is realistic that she has metastatic breast cancer but was initially not interested in hospice initially but after further discussion about the possible benefits she was more willing to consider this at home. We discussed again the options of diverting surgery to assist with wound healing, though after discussion of risks and benefits she again feels that risks of surgery outweigh the benefits of possible assistance to wound healing. Her social situation remains difficult and a barrier to going home, as she has no SNF which is willing to accept the patient. She needs daily dressing changes, which she cannot realistically perform herself, and be able to offload pressure from the wounds, as well as maintain a relative degree of cleanliness with toileting. Currently she expresses desire to discharge home, hospice was consulted and agreeable to evaluate this patient but did not accept. Code status Full Prophylaxis Resume Xarelto Disposition SNF vs home with home health, given no longer desiring diverting colonic surgery will start to work on multidisciplinary wound care plan. Time Spent With Patient Critical Care time: I spent a total of [] minutes of critical care time on this patient's care today; this time is exclusive of procedural time. Quality VTE Deep Vein Thrombosis/Pulmonary Embolism Present on Admission: No
[2022-11-21] MEDS: RIVAROXABAN 10 MG TABLET 20 MG PO (18:03)
[2022-11-21 20:25] VITALS: BP 113/56; PULSE 87; RESP 23; TEMP 37.4; O2SAT 95
[2022-11-22] MEDS: HYDROMORPHONE 0.5 MG INJ IV ×3 (03:10→18:00)
--- NOTE | 2022-11-22 03:19 | PC.NURSE ---
Pt is AxOx4, needs max assistance and cooperative. VSS, pt c/o pain on buttock and recieved PRN Oxy 10mg PO around 2200 with good effect. Pt also recieved PRN IV Dilaudid 0.5mg x2 with good effect. BG-129 at bedtime so no coverage needed. Dressing changed. No other changes. Pt slept well.
[2022-11-22 04:10] VITALS: BP 106/60; PULSE 84; RESP 17; TEMP 36.6; O2SAT 94
[2022-11-22] MEDS: PIPERACILLIN/TAZO 4.5 GM in SODIUM CHLORIDE 0.9% 100 ML IV ×2 (04:26→11:44)
[2022-11-22] MEDS: LEVOTHYROXINE 150 MCG TABLET PO (06:36)
[2022-11-22] MEDS: OXYCODONE IR 10 MG TABLET PO ×4 (06:37→20:41)
--- NOTE | 2022-11-22 08:56 | CM.DPNOTE ---
Addendum entered by LIZZY Ramirez 11/22/22 12:06: ADD: Reviewed DCP options again with patient and she remains agreeable to [facility] if this remains a viable option upon discharge. According to Peggy at [facility], patient is still being considered, however, likely no bed availability until the beginning of next week .In addition, authorization needed from [facility] aware that patient has [employer] secondary Emailed complete packet to Peggy today at [email or web address], included wound pictures Awaiting response from [facility] re clinical acceptance. Patient appreciative for the placement efforts being done on her behalf JAVAN Original Note: DCP Note Working throughout the day yesterday on this DCP. Patient stating son cannot do her dressing changes and works time study analyst ([employer]) Spoke w/Wendy Mathews, social welfare research worker w/[facility], she had met w/patient bedside yesterday afternoon.. son joined via speaker phone. According to Wendy: son's intention is to care for patient, however, he is unable to have patient discharge to his and his 's home (3 children). Son can visit patient at her RV approx 3x weekly and may or not be capable of assisting with patient's wound care/packing needs (?) [facility] declining this referral currently until additional care can be secured for patient. Dr Emerson updated Meanwhile, did learn from [facility] that [employer] was identified as patient's secondary insurance. Requested admitting team confirm and indeed patient has [employer] fully integrated managed care, secondary insurance updated on chart This PHARMACOLOGIST will fax expedited request to [facility] [place] [facility] [place] today Spoke lyndon/Neelam at [facility]; she [facility] [place] [facility] and will review this referral again today In addition, faxed additional notes to Peggy kim [facility] for review before the holiday weekend Plan: Home w/hospice is not a safe or feasible DCP at this time. CM team will continue placement efforts- Likely a rehabilitative plan of care if patient is agreeable to this. Otherwise will need to investigate placement options w/comfort focused care, using [place] [facility] when in place (?) JAVAN
[2022-11-22] MEDS: INSULIN LISPRO 100 UNIT/ML 3ML VIAL SUBCUT ×3 (09:27→16:33)
[2022-11-22] MEDS: ROPINIROLE 1 MG TABLET 2 MG PO (09:39)
[2022-11-22] MEDS: ATORVASTATIN 20 MG TABLET PO (09:39)
[2022-11-22] MEDS: GABAPENTIN 600 MG TABLET PO ×2 (09:40→20:41)
[2022-11-22] MEDS: buPROPion XL 150 MG TAB PO (09:40)
[2022-11-22] MEDS: NYSTATIN POWDER 15GM 1 APPLIC TOP ×2 (09:40→20:41)
[2022-11-22] MEDS: SODIUM CHLORIDE 0.9% FLUSH 10 ML IV ×2 (09:42→20:42)
[2022-11-22] MEDS: LETROZOLE 2.5 MG TABLET PO (09:42)
[2022-11-22 10:00] VITALS: BP 99/55; PULSE 92; RESP 18; TEMP 37; O2SAT 97
--- NOTE | 2022-11-22 13:40 | PT.IPTN ---
Current Diagnoses Pressure ulcer of sacral region, unspecified stage (11/09/22) Pressure ulcer of unspecified site, unspecified stage (11/09/22) Surgery Performed Operation Date: 11/13/22 15:15 Actual Procedures p debride sacral wound - Filiberto Wilcox MD Operation Date: 11/27/22 07:45 <No data on this case meets the specified criteria> Physical Therapy Treatment Note M2 PT-IP Current Condition Start: 11/10/22 09:11 Freq: NEEDED Status: Active Protocol: Document 11/22/22 12:54 SP (Rec: 11/22/22 18:45 SP [id number]) Physical Therapy Current Condition Current Condition Evaluation Date 11/20/22 Treatment Diagnosis GLF; sacral decubitus ulcer; difficulty in walking Onset Date 11/09/22 M3 PT-IP Subjective Start: 11/10/22 09:11 Freq: NEEDED Status: Active Protocol: Document 11/22/22 12:54 SP (Rec: 11/22/22 18:45 SP [id number]) Subjective Physical Therapy Visit Type Type Treatment Note Visit Start Time 12:54 Visit Stop Time 13:40 Total Visit Minutes 46 Notes Vitals: supine 100/62 HR 102 SaO2 93% on RA WEDDING DESIGNER provided 2nd person assist required during bed mobility and pericare in standing/ supine. Number of MEDIA SENIOR RECRUITER Visits 1 Physical Therapy Visit Comments Patient Comments Pleasant lady, agreeable to get up to chair or BSC, states her pain is much more controlled today. Patient Goals Go to SNF to increase strength to allow transfer with less support required. Therapy Pain Assessment Pain When Pain Assessed During Mobility Pain Present Pain Present Pain Reported Location sacral region/ wound Intensity 5 Scale Used with mobility Pain Behaviors Facial Grimacing,Wincing Pain Management Techniques Modification of Treatment, Timing of Activity with Medications M4 PT-IP Mobility and Gait Start: 11/10/22 09:11 Freq: NEEDED Status: Active Protocol: Document 11/22/22 12:54 SP (Rec: 11/22/22 18:45 SP [id number]) PT-Bed Mobility Assessment Supine to Sit Supine to Sit Maximum Assistance,1 Person Assistance,Head of Bed Elevated,Bedrails Sit to Supine Sit to Supine Maximum Assistance,2 Person Assistance,Head of Bed Elevated,Bedrails Scooting Scooting to Edge of Bed Maximum Assistance PT-Transfer Assessment Sit to and From Stand Sit to and from Stand Contact Guard Assistance, Minimal Assistance,1 Person Assistance,Use of Upper Extremities Equipment Transfer Assistive Device Gait Belt,Front Wheeled Walker Orthotic/Prosthetic Devices or Brace: No Transfers Transfer Destination Bed,Bedside Commode Transfer Technique Stand Step Pivot Transfer Ability Level of Assist Minimal Assistance,1 Person Assistance,Use of Upper Extremities Comments Mobility Comments Elevated supine>sit Max A x2 come to sit trunk righting and scoot to EOB, unstable retrol lean, pt does well verbalizing needs and sequencing mobility to decreased pain. Sit>stand x1/ SBA 2nd person for safety and assist pericare, noted pt had lost her bowels in bed and didn't realized it, Min A and SPT bed>BSC w/FWW. Pt able to complete further BM seated, STS w/ FWW CCG - Min, and Min A for standing hygiene assist WEDDING DESIGNER. SPT BSC>bed w/CGA, cued sit back as fully as can CGA. Sit>supine Mod/Max A x2, LR R with bed rail assist Mod A x1 good log roll, bed tilted R for support LR. WEDDING DESIGNER/ Nursingtook over care due to need of changing dressings. Recommended modified sidelying to unweight wound and use waffle cushion for skin integrity. Gait Assessment Gait Gait Assistance Required: Contact Guard Assist,Minimum Assistance,1 Person Assist Distance (Feet) 3 Able to Maintain Weight Bearing Status Yes During Gait Assistive Devices Assistive Device Gait Belt,Front Wheeled Walker Orthotic/Prosthetic Devices or Brace: No Gait Deviations General Gait Pattern Antalgic,Decreased Stride Length,Decreased Feet Clearance,Step-to Gait,Wide Based Gait Factors Limiting Gait Function Factors Limiting Gait Function Decreased Activity Tolerance, Decreased Strength,Difficulty Following Directions,Limited Range of Motion,Pain,Poor Balance,Poor Safety Awareness, Respiratory Distress Comments Gait Comments able to take steps during transfers, cues cautious bending forward with assist pericare to prevent LOB forward, good corrections. Stair Climbing Assessment Comments Stair Climbing Comments Pt has 2 stairs in RV to manage vs BLS transportation for safe DC home. Unable to complete at this time. PT-Balance Assessment Sitting Balance and Reactions Static Sitting Balance Ability Good Dynamic Sitting Balance Ability Good Standing Balance and Reactions Static Standing Balance Ability Fair Dynamic Standing Balance Ability Fair Device Used FWW M5 PT-IP Objective Assessments Start: 11/10/22 09:11 Freq: NEEDED Status: Active Protocol: Document 11/20/22 10:40 AB (Rec: 11/20/22 13:21 AB [id number]) Orientation Orientation/Cognition Level of Alertness Alert Orientation Name,Place,Situation Language Function Ability No Deficits Noted Safety Awareness Decreased Safety Awareness Memory Description No Deficits Noted Strength Lower Extremity Strength Assessment Bilaterally Impaired Hip 3-/5 Knee 3+/5 Muscle Tone Muscle Tone WNL Yes M6 PT-IP Treatment Start: 11/10/22 09:11 Freq: NEEDED Status: Active Protocol: Document 11/22/22 12:54 SP (Rec: 11/22/22 18:45 SP [id number]) Physical Therapy Treatment Exercises Exercises Ankle Pumps,Heel Slides Education Education Provided Safety M7 PT-IP Assessment and Plan Start: 11/10/22 09:11 Freq: NEEDED Status: Active Protocol: Document 11/22/22 12:54 SP (Rec: 11/22/22 18:45 SP [id number]) PT Summary Assessment and Plan Potential Rehabilitation Potential Fair Status of Condition at Evaluation Evolving Summary Impairments Pain,ROM,Strength,Balance, Coordination,Sensation,Tone, Cognition,Bed Mobility, Transfers,Gait,Activity Tolerance Progress Towards Goals Slow Progress due to Pain,Slow Progress due to Medical Issues,Slow Progress due to Activity Tolerance Assessment Summary Pt is pleasant person, requires extensive time to mobilize dueto decrease strenghth and medical HS, willing to work with therapy to get stronger for transfers and improve sacral wound healing. ELevated supine>sit, scoot to EOB Max A x2, STS/SPT to BSC w/ FWW CG- Min A, cues proper hand placment. Pt requires complete pericare in L slidelying after unsuccessful standing and need dressing change. Pt reports doesn't have bowel control or sensation. Will need SNF for strengthening to support transfers with medical hx. Will continue to assess progress. Goals Bed Mobility Goal Minimal Assistance Transfer Goal Standby Assistance,Front Wheeled Walker Gait Goal Standby Assistance,Front Wheel Walker Gait Distance 100 Other Goals - up/down 2 steps with L rail ascending min A Days to Meet Goals 10 Frequency of Treatment Frequency Of Treatment Once a Day Treatment Plan Physical Therapy Treatment Plan Bed Mobility Training,Transfer Training,Gait Training, Therapeutic Exercise,Balance Retraining,Discharge Planning, Hot or Cold Pack,Neuromuscular Re-ed Other Recommendations and Next Treatment bed mob, transfers, gait w/ Focus FWW if endurance/strength able , will need complete 2 stairs RHR for safe DC home vs SNF. Recommendations To Nursing Amount of Assist Needed 2 Person Assist Discharge Recommendations PT Discharge Recommendations SNF Rehab Transportation Needs at Discharge Wheelchair/Cabulance,Stretcher /Ambulance
[2022-11-22] MEDS: RIVAROXABAN 10 MG TABLET 20 MG PO (16:35)
[2022-11-22 16:55] VITALS: BP 95/57; PULSE 96; RESP 16; TEMP 36.9; O2SAT 95
--- NOTE | 2022-11-22 18:12 | PM.PN.1 ---
Subjective Subjective Date Patient Seen: 11/22/22 Time Patient Seen: 08:00 Interval history: She has no complaints. She worked with PT today. Pain control improved. Exam Vital Signs (past 8 hours): - 11/22/22 10:41 Oxygen Delivery Method Room Air Oxygen Delivery Method Room Air Oxygen Flow Rate 0 Narrative Exam Narrative: She is alert and oriented x3. No apparent distress. obese. Heart is regular rate and rhythm without murmur Lungs are clear to auscultation bilaterally Abdomen is obese, nontender, no organomegaly. Extremities have trace bilateral chronic edema Objective Labs Result Diagrams: 11/20/22 07:00 11/20/22 07:00 [facility] Medical History DVT (deep venous thrombosis) Pulmonary embolism Social History household members: none Smoking Status: Never smoker Assessment & Plan Assessment & Plan narrative: 1. ? Unstageable pressure wounds-DTI's to the bilateral medial buttocks in the perianal region, right lower buttock/upper and inner thigh, now s/p surgical debridement Continue working on offloading pressure, frequent repositioning.? Remains on Zosyn.? Appreciate surgical consult. Patient does not wish to proceed with surgical plan for diverting colostomy / ileostomy after discussion of risks and benefits. - appreciate wound care seeing patient, plan is for daily dressing changes with gauze and dakin's until outpatient wound care follow up. -pain control, with fentanyl added today with prn oxycodone and IV dilaudid for breakthrough for now. patch added to stop need for IV medications. 2. Superficial pressure injury to the bilateral calves and lower and mid bilateral back Offload pressure as much as possible as noted. 3. Metastatic breast cancer, known bony metastasis Continue letrozole.? At this time, she does not seem ready to pursue comfort care or hospice. 4. Diabetes mellitus type 2, excellent baseline control with hemoglobin A1c of 5.2% Continue controlled carb diet and fingerstick/sliding scale.? Blood sugars remain well controlled. 5. Hypertension Patient reports a history of hypertension, but does not have any antihypertensive agent on her home med list.? Blood pressures have ranged from 90 over 52 to 132/70 today. 6. Hypotension improved. 7. Anemia Normocytic.? Suspect she has anemia of chronic inflammatory disease related to her cancer.? Patient received 2 units of pRBC so far.? Currently hemoglobin is improved from 7.1-7.3 to now 8.5. 8. Hypothyroidism Continue outpatient dose of levothyroxine 9. Hyperlipidemia Continue Crestor 10. Restless leg syndrome Continue usual outpatient dose of ropinirole 11. Chronic anticoagulation Continue Xarelto 12. Hypokalemia -Supplement with oral Kcl and follow. She is medically stable for discharge awaits attempt at placement due to wound care needs vs discharge home. Hospice has declined accepting. Time Spent With Patient Critical Care time: I spent a total of [] minutes of critical care time on this patient's care today; this time is exclusive of procedural time. Quality VTE Deep Vein Thrombosis/Pulmonary Embolism Present on Admission: No
[2022-11-22 21:22] VITALS: BP 109/58; PULSE 97; RESP 18; TEMP 36.6; O2SAT 93
[2022-11-23 05:00] VITALS: BP 100/54; PULSE 93; RESP 18; TEMP 37.3; O2SAT 93
[2022-11-23] MEDS: LEVOTHYROXINE 150 MCG TABLET PO (06:19)
[2022-11-23] MEDS: OXYCODONE IR 10 MG TABLET PO ×5 (06:19→20:51)
--- NOTE | 2022-11-23 10:10 | PT.IPTN ---
Current Diagnoses Pressure ulcer of sacral region, unspecified stage (11/09/22) Pressure ulcer of unspecified site, unspecified stage (11/09/22) Surgery Performed Operation Date: 11/13/22 15:15 Actual Procedures p debride sacral wound - Filiberto Wilcox MD Operation Date: 11/27/22 07:45 <No data on this case meets the specified criteria> Physical Therapy Treatment Note M2 PT-IP Current Condition Start: 11/10/22 09:11 Freq: NEEDED Status: Active Protocol: Document 11/22/22 12:54 SP (Rec: 11/22/22 18:45 SP [id number]) Physical Therapy Current Condition Current Condition Evaluation Date 11/20/22 Treatment Diagnosis GLF; sacral decubitus ulcer; difficulty in walking Onset Date 11/09/22 M3 PT-IP Subjective Start: 11/10/22 09:11 Freq: NEEDED Status: Active Protocol: Document 11/23/22 09:57 LJ (Rec: 11/23/22 10:10 LJ [id number]) Subjective Physical Therapy Visit Type Type Treatment Note Visit Start Time 09:16 Visit Stop Time 09:32 Total Visit Minutes 16 Notes FEED RESEARCH TECHNICIAN provided second person assist Physical Therapy Visit Comments Patient Comments Pleasant lady, agreeable to get up to chair or BSC, states her pain is much more controlled today. Therapy Pain Assessment Pain When Pain Assessed During Mobility Pain Present Pain Present Pain Reported Location sacral region/ wound Intensity 5 Scale Used with mobility Pain Behaviors Facial Grimacing,Wincing Pain Management Techniques Modification of Treatment, Timing of Activity with Medications M4 PT-IP Mobility and Gait Start: 11/10/22 09:11 Freq: NEEDED Status: Active Protocol: Document 11/23/22 09:57 LJ (Rec: 11/23/22 10:10 LJ [id number]) PT-Bed Mobility Assessment Supine to Sit Supine to Sit Minimal Assistance,1 Person Assistance,Head of Bed Elevated Scooting Scooting to Edge of Bed Moderate Assistance PT-Transfer Assessment Sit to and From Stand Sit to and from Stand Contact Guard Assistance, Minimal Assistance,1 Person Assistance,Use of Upper Extremities Equipment Transfer Assistive Device Gait Belt,Front Wheeled Walker Orthotic/Prosthetic Devices or Brace: No Transfers Transfer Destination Bedside Commode Transfer Ability Level of Assist Minimal Assistance,1 Person Assistance,Use of Upper Extremities Comments Mobility Comments HOB elevated supine>sit Stewart x1. Rotating to edge of bed ModA x1 for LEs off side of bed and scooting using garrison. S<>S SBA x1. Second person for safety and pericare. Pt lost bowel control in bed and unaware. Did not sit on side of bed more than ~10 sec beforre standing. Pt requested to remain on BSC to finish BM . Pt left on BSC with call light and FEED RESEARCH TECHNICIAN aware. Gait Assessment Gait Gait Assistance Required: Contact Guard Assist,Minimum Assistance,1 Person Assist Distance (Feet) 3 Able to Maintain Weight Bearing Status Yes During Gait Assistive Devices Assistive Device Gait Belt,Front Wheeled Walker Orthotic/Prosthetic Devices or Brace: No Gait Deviations General Gait Pattern Antalgic,Decreased Stride Length,Decreased Feet Clearance,Step-to Gait,Wide Based Gait Factors Limiting Gait Function Factors Limiting Gait Function Decreased Activity Tolerance, Decreased Strength,Difficulty Following Directions,Limited Range of Motion,Pain,Poor Balance,Poor Safety Awareness, Respiratory Distress Stair Climbing Assessment Comments Stair Climbing Comments Pt has 2 stairs in RV to manage vs BLS transportation for safe DC home. Unable to complete at this time. M5 PT-IP Objective Assessments Start: 11/10/22 09:11 Freq: NEEDED Status: Active Protocol: Document 11/20/22 10:40 AB (Rec: 11/20/22 13:21 AB [id number]) Orientation Orientation/Cognition Level of Alertness Alert Orientation Name,Place,Situation Language Function Ability No Deficits Noted Safety Awareness Decreased Safety Awareness Memory Description No Deficits Noted Strength Lower Extremity Strength Assessment Bilaterally Impaired Hip 3-/5 Knee 3+/5 Muscle Tone Muscle Tone WNL Yes M6 PT-IP Treatment Start: 11/10/22 09:11 Freq: NEEDED Status: Active Protocol: Document 11/23/22 09:57 MISAEL (Rec: 11/23/22 10:10 LJ [id number]) Physical Therapy Treatment Exercises Exercises Ankle Pumps,Heel Slides Education Education Provided Safety M7 PT-IP Assessment and Plan Start: 11/10/22 09:11 Freq: NEEDED Status: Active Protocol: Document 11/23/22 09:57 MISAEL (Rec: 11/23/22 10:10 LJ [id number]) PT Summary Assessment and Plan Potential Rehabilitation Potential Fair Status of Condition at Evaluation Evolving Summary Impairments Pain,ROM,Strength,Balance, Coordination,Sensation,Tone, Cognition,Bed Mobility, Transfers,Gait,Activity Tolerance Progress Towards Goals Slow Progress due to Pain,Slow Progress due to Medical Issues,Slow Progress due to Activity Tolerance Assessment Summary Pt requiring Stewart x1 for bed mobility exiting bed and CGA x1 for transfers and very short gait. Will require SNF to improve strength and sacral wound healing. Will continue to assess her progress. Goals Bed Mobility Goal Minimal Assistance Transfer Goal Standby Assistance,Front Wheeled Walker Gait Goal Standby Assistance,Front Wheel Walker Gait Distance 100 Other Goals - up/down 2 steps with L rail ascending min A Days to Meet Goals 10 Frequency of Treatment Frequency Of Treatment Once a Day Treatment Plan Physical Therapy Treatment Plan Bed Mobility Training,Transfer Training,Gait Training, Therapeutic Exercise,Balance Retraining,Discharge Planning, Hot or Cold Pack,Neuromuscular Re-ed Other Recommendations and Next Treatment bed mob, transfers, gait w/ Focus FWW if endurance/strength able , will need complete 2 stairs RHR for safe DC home vs SNF. Recommendations To Nursing Amount of Assist Needed 2 Person Assist Discharge Recommendations PT Discharge Recommendations SNF Rehab
--- NOTE | 2022-11-23 10:11 | PT.IPTN ---
Current Diagnoses Pressure ulcer of sacral region, unspecified stage (11/09/22) Pressure ulcer of unspecified site, unspecified stage (11/09/22) Surgery Performed Operation Date: 11/13/22 15:15 Actual Procedures p debride sacral wound - Filiberto Wilcox MD Operation Date: 11/27/22 07:45 <No data on this case meets the specified criteria> Physical Therapy Treatment Note M2 PT-IP Current Condition Start: 11/10/22 09:11 Freq: NEEDED Status: Active Protocol: Document 11/22/22 12:54 SP (Rec: 11/22/22 18:45 SP [id number]) Physical Therapy Current Condition Current Condition Evaluation Date 11/20/22 Treatment Diagnosis GLF; sacral decubitus ulcer; difficulty in walking Onset Date 11/09/22 M3 PT-IP Subjective Start: 11/10/22 09:11 Freq: NEEDED Status: Active Protocol: Document 11/23/22 09:57 LJ (Rec: 11/23/22 10:10 LJ [id number]) Subjective Physical Therapy Visit Type Type Treatment Note Visit Start Time 09:16 Visit Stop Time 09:32 Total Visit Minutes 16 Notes TREE TRIMMER HELPER provided second person assist Physical Therapy Visit Comments Patient Comments Pleasant lady, agreeable to get up to chair or BSC, states her pain is much more controlled today. Therapy Pain Assessment Pain When Pain Assessed During Mobility Pain Present Pain Present Pain Reported Location sacral region/ wound Intensity 5 Scale Used with mobility Pain Behaviors Facial Grimacing,Wincing Pain Management Techniques Modification of Treatment, Timing of Activity with Medications M4 PT-IP Mobility and Gait Start: 11/10/22 09:11 Freq: NEEDED Status: Active Protocol: Document 11/23/22 09:57 LJ (Rec: 11/23/22 10:10 LJ [id number]) PT-Bed Mobility Assessment Supine to Sit Supine to Sit Minimal Assistance,1 Person Assistance,Head of Bed Elevated Scooting Scooting to Edge of Bed Moderate Assistance PT-Transfer Assessment Sit to and From Stand Sit to and from Stand Contact Guard Assistance, Minimal Assistance,1 Person Assistance,Use of Upper Extremities Equipment Transfer Assistive Device Gait Belt,Front Wheeled Walker Orthotic/Prosthetic Devices or Brace: No Transfers Transfer Destination Bedside Commode Transfer Ability Level of Assist Minimal Assistance,1 Person Assistance,Use of Upper Extremities Comments Mobility Comments HOB elevated supine>sit Stewart x1. Rotating to edge of bed ModA x1 for LEs off side of bed and scooting using garrison. S<>S SBA x1. Second person for safety and pericare. Pt lost bowel control in bed and unaware. Did not sit on side of bed more than ~10 sec beforre standing. Pt requested to remain on BSC to finish BM . Pt left on BSC with call light and TREE TRIMMER HELPER aware. Gait Assessment Gait Gait Assistance Required: Contact Guard Assist,Minimum Assistance,1 Person Assist Distance (Feet) 3 Able to Maintain Weight Bearing Status Yes During Gait Assistive Devices Assistive Device Gait Belt,Front Wheeled Walker Orthotic/Prosthetic Devices or Brace: No Gait Deviations General Gait Pattern Antalgic,Decreased Stride Length,Decreased Feet Clearance,Step-to Gait,Wide Based Gait Factors Limiting Gait Function Factors Limiting Gait Function Decreased Activity Tolerance, Decreased Strength,Difficulty Following Directions,Limited Range of Motion,Pain,Poor Balance,Poor Safety Awareness, Respiratory Distress Stair Climbing Assessment Comments Stair Climbing Comments Pt has 2 stairs in RV to manage vs BLS transportation for safe DC home. Unable to complete at this time. M5 PT-IP Objective Assessments Start: 11/10/22 09:11 Freq: NEEDED Status: Active Protocol: Document 11/20/22 10:40 AB (Rec: 11/20/22 13:21 AB [id number]) Orientation Orientation/Cognition Level of Alertness Alert Orientation Name,Place,Situation Language Function Ability No Deficits Noted Safety Awareness Decreased Safety Awareness Memory Description No Deficits Noted Strength Lower Extremity Strength Assessment Bilaterally Impaired Hip 3-/5 Knee 3+/5 Muscle Tone Muscle Tone WNL Yes M6 PT-IP Treatment Start: 11/10/22 09:11 Freq: NEEDED Status: Active Protocol: Document 11/23/22 09:57 MISAEL (Rec: 11/23/22 10:10 LJ [id number]) Physical Therapy Treatment Exercises Exercises Ankle Pumps,Heel Slides Education Education Provided Safety M7 PT-IP Assessment and Plan Start: 11/10/22 09:11 Freq: NEEDED Status: Active Protocol: Document 11/23/22 09:57 MISAEL (Rec: 11/23/22 10:10 LJ [id number]) PT Summary Assessment and Plan Potential Rehabilitation Potential Fair Status of Condition at Evaluation Evolving Summary Impairments Pain,ROM,Strength,Balance, Coordination,Sensation,Tone, Cognition,Bed Mobility, Transfers,Gait,Activity Tolerance Progress Towards Goals Slow Progress due to Pain,Slow Progress due to Medical Issues,Slow Progress due to Activity Tolerance Assessment Summary Pt requiring Stewart x1 for bed mobility exiting bed and CGA x1 for transfers and very short gait. Will require SNF to improve strength and sacral wound healing. Will continue to assess her progress. Goals Bed Mobility Goal Minimal Assistance Transfer Goal Standby Assistance,Front Wheeled Walker Gait Goal Standby Assistance,Front Wheel Walker Gait Distance 100 Other Goals - up/down 2 steps with L rail ascending min A Days to Meet Goals 10 Frequency of Treatment Frequency Of Treatment Once a Day Treatment Plan Physical Therapy Treatment Plan Bed Mobility Training,Transfer Training,Gait Training, Therapeutic Exercise,Balance Retraining,Discharge Planning, Hot or Cold Pack,Neuromuscular Re-ed Other Recommendations and Next Treatment bed mob, transfers, gait w/ Focus FWW if endurance/strength able , will need complete 2 stairs RHR for safe DC home vs SNF. Recommendations To Nursing Amount of Assist Needed 2 Person Assist Discharge Recommendations PT Discharge Recommendations SNF Rehab
[2022-11-23] MEDS: NYSTATIN POWDER 15GM 1 APPLIC TOP ×2 (10:20→20:52)
[2022-11-23] MEDS: GABAPENTIN 600 MG TABLET PO ×2 (10:21→20:50)
[2022-11-23] MEDS: buPROPion XL 150 MG TAB PO (10:21)
[2022-11-23] MEDS: ATORVASTATIN 20 MG TABLET PO (10:21)
[2022-11-23] MEDS: ROPINIROLE 1 MG TABLET 2 MG PO (10:21)
[2022-11-23] MEDS: LETROZOLE 2.5 MG TABLET PO (10:22)
[2022-11-23] MEDS: SODIUM CHLORIDE 0.9% FLUSH 10 ML IV ×3 (10:22→20:52)
[2022-11-23] MEDS: INSULIN LISPRO 100 UNIT/ML 3ML VIAL SUBCUT ×2 (11:47→16:42)
[2022-11-23 12:00] VITALS: BP 107/62; PULSE 89; RESP 16; TEMP 36.3; O2SAT 93
--- NOTE | 2022-11-23 12:43 | PT-IP ANOTE ---
Talked to rn case manager and Dr. Mosquera regarding pt's mobility restrictions and progress with PT. pt with sacral decubitus ulcer clarification obtained if pt is ok to sit on the chair considering her sacral wounds. Hospitalist said yes. Clarification needed since another hospitalist recommeded avoiding shearing and pressure on sacral wounds (round meeting 11/14/22) and PT was d/c'd at that time.
[2022-11-23] MEDS: HYDROMORPHONE 0.5 MG INJ IV (14:03)
[2022-11-23] MEDS: RIVAROXABAN 10 MG TABLET 20 MG PO (16:44)
[2022-11-23 17:22] VITALS: BP 104/57; PULSE 95; RESP 17; TEMP 36.4; O2SAT 94
[2022-11-23 19:40] VITALS: BP 101/52; PULSE 94; RESP 18; TEMP 36.8; O2SAT 95
--- NOTE | 2022-11-23 20:00 | PM.PN.1 ---
Subjective Subjective Date Patient Seen: 11/23/22 Time Patient Seen: 08:00 Interval history: She notes pain with dressing changes. Exam Vital Signs (past 8 hours): - 11/23/22 17:22 Temperature 97.5 F L Pulse Rate 95 H Respiratory Rate 17 Blood Pressure 104/57 L Pulse Oximetry 94 Oxygen Delivery Method Room Air Oxygen Flow Rate 0 Narrative Exam Narrative: She is alert and oriented x3. No apparent distress. obese. Heart is regular rate and rhythm without murmur Lungs are clear to auscultation bilaterally Abdomen is obese, nontender, no organomegaly. Extremities have trace bilateral chronic edema Objective Labs Result Diagrams: 11/20/22 07:00 11/20/22 07:00 [facility] Medical History DVT (deep venous thrombosis) Pulmonary embolism Social History household members: none Smoking Status: Never smoker Assessment & Plan Assessment & Plan narrative: 1. ? Unstageable pressure wounds-DTI's to the bilateral medial buttocks in the perianal region, right lower buttock/upper and inner thigh, now s/p surgical debridement Continue working on offloading pressure, frequent repositioning.? Remains on Zosyn.? Appreciate surgical consult. Patient does not wish to proceed with surgical plan for diverting colostomy / ileostomy after discussion of risks and benefits. - appreciate wound care seeing patient, plan is for daily dressing changes with gauze and dakin's until outpatient wound care follow up. -pain control, with fentanyl added today with prn oxycodone and IV dilaudid for breakthrough for now. patch added to stop need for IV medications. 2. Superficial pressure injury to the bilateral calves and lower and mid bilateral back Offload pressure as much as possible as noted. 3. Metastatic breast cancer, known bony metastasis Continue letrozole.? At this time, she does not seem ready to pursue comfort care or hospice. 4. Diabetes mellitus type 2, excellent baseline control with hemoglobin A1c of 5.2% Continue controlled carb diet and fingerstick/sliding scale.? Blood sugars remain well controlled. 5. Hypertension Patient reports a history of hypertension, but does not have any antihypertensive agent on her home med list.? Blood pressures have ranged from 90 over 52 to 132/70 today. 6. Hypotension improved. 7. Anemia Normocytic.? Suspect she has anemia of chronic inflammatory disease related to her cancer.? Patient received 2 units of pRBC so far.? Currently hemoglobin is improved from 7.1-7.3 to now 8.5. 8. Hypothyroidism Continue outpatient dose of levothyroxine 9. Hyperlipidemia Continue Crestor 10. Restless leg syndrome Continue usual outpatient dose of ropinirole 11. Chronic anticoagulation Continue Xarelto 12. Hypokalemia -Supplement with oral Kcl and follow. She is medically stable for discharge awaits attempt at placement due to wound care needs vs discharge home. Hospice has declined accepting. Time Spent With Patient Critical Care time: I spent a total of [] minutes of critical care time on this patient's care today; this time is exclusive of procedural time. Quality VTE Deep Vein Thrombosis/Pulmonary Embolism Present on Admission: No
[2022-11-23] MEDS: ACETAMINOPHEN 325 MG TABLET 650 MG PO (20:51)
[2022-11-24] MEDS: OXYCODONE IR 10 MG TABLET PO ×6 (00:11→22:27)
[2022-11-24 05:06] VITALS: BP 97/53; PULSE 81; RESP 18; TEMP 36.5; O2SAT 95
[2022-11-24] MEDS: LEVOTHYROXINE 150 MCG TABLET PO (06:52)
[2022-11-24] MEDS: GABAPENTIN 600 MG TABLET PO ×2 (08:35→22:11)
[2022-11-24] MEDS: ATORVASTATIN 20 MG TABLET PO (08:35)
[2022-11-24] MEDS: buPROPion XL 150 MG TAB PO (08:35)
[2022-11-24] MEDS: NYSTATIN POWDER 15GM 1 APPLIC TOP ×2 (08:36→22:12)
[2022-11-24] MEDS: LETROZOLE 2.5 MG TABLET PO (08:36)
[2022-11-24] MEDS: SODIUM CHLORIDE 0.9% FLUSH 10 ML IV ×2 (08:36→22:13)
[2022-11-24] MEDS: ROPINIROLE 1 MG TABLET 2 MG PO (08:39)
--- NOTE | 2022-11-24 09:50 | P.PN_ITS ---
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 She was admitted with unstageable decubitus ulcers.? Pt is now POD #11 from surgical debridement of wounds. Patient reports that she is feeling about the same overall.? She was declined by hospice for admission due to the extensive nature of her wound care needs. They felt they did not have the ability to perform daily dressing changes. At this time, discharge planning is working on usp facility placement. Currently, [place] to be most likely to be able to accept her. Patient denies any chest pain/shortness of breath/abdominal pain/nausea/vomiting. Exam Vital Signs (past 8 hours): - 11/24/22 05:06 Temperature 97.7 F Pulse Rate 81 Respiratory Rate 18 Blood Pressure 97/53 L Pulse Oximetry 95 Oxygen Flow Rate 0 Oxygen Delivery Method Room Air Oxygen Flow Rate 0 Narrative Exam Narrative: GEN:? Middle-aged female, very pleasant, Alert and oriented x 3, NAD HEENT:NC, Face symmetric CHEST: Respiratory excursions symmetric, CTAB CV: RRR, II/ systolic murmur heard best at LSB ABD: Soft, NT/ND, BT present in all 4 quadrants, body habitus limits exam EXTR: warm, well perfused, no C/C/E SKIN: warm and dry, buttock and thigh lesions were not visualized this morning NEURO: Alert and oriented x 3, nonfocal Objective Labs Result Diagrams: 11/20/22 07:00 11/20/22 07:00 [facility] Medical History DVT (deep venous thrombosis) Pulmonary embolism Social History household members: none Smoking Status: Never smoker Assessment & Plan Assessment & Plan narrative: 1. ? Unstageable pressure wounds-DTI's to the bilateral medial buttocks in the perianal region, right lower buttock/upper and inner thigh, now POD #11 from debridement Continue working on offloading pressure, frequent repositioning.? Patient does not wish to pursue diverting colostomy. Plans are in place for her to go to a usp facility for wound care. 2. Superficial pressure injury to the bilateral calves and lower and mid bilateral back Offload pressure as much as possible as noted. Patient is reluctant not to be on her back as she develops discomfort on her sides. Obviously, this creates additional challenges for her overall healing. 3. Metastatic breast cancer, known bony metastasis Continue letrozole.? Hospice was unable to accommodate her extensive wound care needs. 4. Diabetes mellitus type 2, excellent baseline control with hemoglobin A1c of 5.2% Continue controlled carb diet and fingerstick/sliding scale.? Blood sugars remain well controlled. 5. Hypotension Patient continues to have mild hypotension, not symptomatic. Systolic Blood pressures have been in the high 90s to low 100s. 6. Anemia Normocytic.? Suspect she has anemia of chronic inflammatory disease related to her cancer.? Hemoglobin remains low with most recent draw at 7.4 on November 20. Will obtain a CBC today. 9. Hypothyroidism Continue outpatient dose of levothyroxine 10. Hyperlipidemia Continue Crestor 11. Restless leg syndrome Continue usual outpatient dose of ropinirole 12. Chronic anticoagulation Continue Xarelto Code status Full Prophylaxis Resume Xarelto Disposition [facility] facility at discharge Time Spent With Patient Critical Care time: I spent a total of [] minutes of critical care time on this patient's care today; this time is exclusive of procedural time. Quality VTE Deep Vein Thrombosis/Pulmonary Embolism Present on Admission: No
--- NOTE | 2022-11-24 10:36 | PT-IP ANOTE ---
Attempted to see pt for morning treatment, currently on video call with grandchild opening presents, willing to do something when she is finished.
[2022-11-24 12:00] VITALS: BP 99/56; PULSE 97; RESP 16; TEMP 36.5; O2SAT 97
--- NOTE | 2022-11-24 12:17 | PT-IP ANOTE ---
ERWIN Solis advises pt was recently up w/ FEED ELEVATOR WORKER possibly 1PA to bedside commode and unable to tolerate further activity due to pain, and returned to bed. Attempted to see pt, pt declines PT due to pain 8-08/10; per pt up to bedside commode 1PA.
--- NOTE | 2022-11-24 14:10 | PT.IPTN ---
Current Diagnoses Pressure ulcer of sacral region, unspecified stage (11/09/22) Pressure ulcer of unspecified site, unspecified stage (11/09/22) Surgery Performed Operation Date: 11/13/22 15:15 Actual Procedures p debride sacral wound - Filiberto Wilcox MD Operation Date: 11/27/22 07:45 <No data on this case meets the specified criteria> Physical Therapy Treatment Note M2 PT-IP Current Condition Start: 11/10/22 09:11 Freq: NEEDED Status: Active Protocol: Document 11/24/22 14:10 DCW (Rec: 11/24/22 14:48 DCW [id number]) Physical Therapy Current Condition Current Condition Evaluation Date 11/20/22 Treatment Diagnosis GLF; sacral decubitus ulcer; difficulty in walking Onset Date 11/09/22 M3 PT-IP Subjective Start: 11/10/22 09:11 Freq: NEEDED Status: Active Protocol: Document 11/24/22 14:10 DCW (Rec: 11/24/22 14:48 DCW [id number]) Subjective Physical Therapy Visit Type Type Treatment Note Visit Start Time 14:10 Visit Stop Time 14:38 Total Visit Minutes 28 Number of HOMICIDE SQUAD SERGEANT Visits 0 Physical Therapy Visit Comments Patient Comments Pt sitting up in bed, picking through her remaining lunch. Agreeable to participate in PT at this time. I don't really want to, but I know I need to . Therapy Pain Assessment Pain When Pain Assessed During Mobility Pain Present Pain Present Pain Reported Location sacral region/ wound Intensity 5 Scale Used Numeric (0 - 10) Pain Behaviors Facial Grimacing,Wincing Pain Management Techniques Distraction,Modification of Treatment,Timing of Activity with Medications M4 PT-IP Mobility and Gait Start: 11/10/22 09:11 Freq: NEEDED Status: Active Protocol: Document 11/24/22 14:10 DCW (Rec: 11/24/22 14:48 DCW [id number]) PT-Bed Mobility Assessment Supine to Sit Supine to Sit Minimal Assistance,1 Person Assistance,Head of Bed Elevated Scooting Scooting to Edge of Bed Moderate Assistance PT-Transfer Assessment Sit to and From Stand Sit to and from Stand Contact Guard Assistance, Minimal Assistance,1 Person Assistance,Use of Upper Extremities Equipment Transfer Assistive Device Gait Belt,Front Wheeled Walker Orthotic/Prosthetic Devices or Brace: No Comments Mobility Comments HOB elevated, supine->sit Min Ax1, Mod Ax1 scoot forward to EOB. Sit->Stand SBA x1, pt reported feeling good upon standing, pain much better controlled. Gait Assessment Gait Gait Assistance Required: Contact Guard Assist,1 Person Assist Distance (Feet) 10 Able to Maintain Weight Bearing Status Yes During Gait Assistive Devices Assistive Device Gait Belt,Front Wheeled Walker Gait Deviations General Gait Pattern Antalgic,Decreased Stride Length,Decreased Feet Clearance,Step-to Gait,Wide Based Gait Factors Limiting Gait Function Factors Limiting Gait Function Decreased Activity Tolerance, Decreased Strength,Difficulty Following Directions,Limited Range of Motion,Pain,Poor Balance,Poor Safety Awareness, Respiratory Distress Comments Gait Comments Pt ambulates in room from bed to window, turns around, then c/o some mild lightheadedness. Requested trial of sitting in recliner, which she had attempted earlier today, but it was too painful. Able to sit in recliner with feet elevated and pillows behind her without increased discomfort. Stair Climbing Assessment Comments Stair Climbing Comments Pt has 2 stairs in RV to manage vs BLS transportation for safe DC home. Unable to complete at this time. PT-Balance Assessment Standing Balance and Reactions Static Standing Balance Ability Fair Dynamic Standing Balance Ability Fair Device Used FWW M5 PT-IP Objective Assessments Start: 11/10/22 09:11 Freq: NEEDED Status: Active Protocol: Document 11/20/22 10:40 AB (Rec: 11/20/22 13:21 AB [id number]) Orientation Orientation/Cognition Level of Alertness Alert Orientation Name,Place,Situation Language Function Ability No Deficits Noted Safety Awareness Decreased Safety Awareness Memory Description No Deficits Noted Strength Lower Extremity Strength Assessment Bilaterally Impaired Hip 3-/5 Knee 3+/5 Muscle Tone Muscle Tone WNL Yes M6 PT-IP Treatment Start: 11/10/22 09:11 Freq: NEEDED Status: Active Protocol: Document 11/23/22 09:57 LJ (Rec: 11/23/22 10:10 LJ [id number]) Physical Therapy Treatment Exercises Exercises Ankle Pumps,Heel Slides Education Education Provided Safety M7 PT-IP Assessment and Plan Start: 11/10/22 09:11 Freq: NEEDED Status: Active Protocol: Document 11/24/22 14:10 DCW (Rec: 11/24/22 14:48 DCW [id number]) PT Summary Assessment and Plan Summary Impairments Pain,ROM,Strength,Balance, Coordination,Sensation,Tone, Cognition,Bed Mobility, Transfers,Gait,Activity Tolerance Progress Towards Goals Slow Progress due to Pain,Slow Progress due to Medical Issues,Slow Progress due to Activity Tolerance Assessment Summary Decreasing assistance required for bed mobility, trnsfers, and gait today. SBA->Mod Ax1 with all activities. Pt able to walk a bit more today in room, and tolerated sitting in recliner. After sitting, RN entered to apply pain patches. RN and TEMPLATE MAKER discussed dressing changes, however this needs to be done in bed, and pt wanted to sit in recliner for longer period of time. Pt left in recliner with call button without reach. Goals Bed Mobility Goal Minimal Assistance Transfer Goal Standby Assistance,Front Wheeled Walker Gait Goal Standby Assistance,Front Wheel Walker Gait Distance 100 Other Goals - up/down 2 steps with L rail ascending min A Days to Meet Goals 10 Frequency of Treatment Frequency Of Treatment Once a Day Treatment Plan Physical Therapy Treatment Plan Bed Mobility Training,Transfer Training,Gait Training, Therapeutic Exercise,Balance Retraining,Discharge Planning, Hot or Cold Pack,Neuromuscular Re-ed Other Recommendations and Next Treatment bed mob, transfers, gait w/ Focus FWW if endurance/strength able , will need complete 2 stairs RHR for safe DC home vs SNF. Recommendations To Nursing Amount of Assist Needed 1 Person Assist,2 Person Assist Discharge Recommendations PT Discharge Recommendations SNF Rehab Transportation Needs at Discharge Wheelchair/Cabulance,Stretcher /Ambulance
[2022-11-24 14:24] LABS: Add Manual Diff / Slide Review NO; Basophils Absolute Auto 100 /uL (0-100); Basophils Percent Auto 1.2 % (0-2); Eosinophils Absolute Auto 400 /uL (0-450); Eosinophils Percent Auto 6.4 % (2-4); Hemoglobin 7.7 g/dL (12.0-16.0); Lymphocytes Absolute Auto 600 /uL (1100-4500); Lymphocytes Percent Auto 8.1 % (25-40); Mean Corpuscular HGB Conc 32.5 % (30-36); Mean Corpuscular Hemoglobin 31.5 PG (26-34); Mean Corpuscular Volume 97.1 fL (80-100); Monocytes Absolute Auto 400 /uL (0-900); Monocytes Percent Auto 6.1 % (3-14); Neutrophils Absolute Auto 5500 /uL (1500-7000); Neutrophils Percent Auto 78.2 % (50-75); Platelet Count 346 X10^3/uL (150-400); Red Blood Cell Count 2.43 X10^6/uL (4.0-5.2); Red Cell Distribution Width 21.7 % (11.6-14.8)
[2022-11-24] MEDS: fentaNYL 25 MCG/PATCH 50 MCG TOP (14:26)
[2022-11-24 14:28] LABS: Hematocrit 23.6 % (36-46)
[2022-11-24 14:36] LABS: BUN Creatinine Ratio 12.1 (6-22); Blood Urea Nitrogen 13 mg/dL (7-17); Carbon Dioxide 28 mmol/L (22-32); Chloride 103 mmol/L (98-107); Estimated Glomerular Filt Rate > 60 mL/min (>60); Glucose 126 mg/dL (70-100); HEMOLYSIS < 15 (0-50); Potassium 3.7 mmol/L (3.4-5.1); Sodium 136 mmol/L (137-145)
[2022-11-24 14:43] LABS: Anisocytosis 2+
[2022-11-24 17:51] VITALS: BP 114/63; PULSE 94; RESP 16; TEMP 36.4; O2SAT 98
[2022-11-24] MEDS: RIVAROXABAN 10 MG TABLET 20 MG PO (17:59)
[2022-11-24 21:00] VITALS: BP 105/54; PULSE 79; RESP 16; TEMP 36.4; O2SAT 96
[2022-11-24] MEDS: HYDROMORPHONE 0.5 MG INJ IV (23:02)
[2022-11-25] VITALS: BP 100/50; PULSE 93; RESP 18; TEMP 36.6; O2SAT 95
[2022-11-25] MEDS: OXYCODONE IR 10 MG TABLET PO ×6 (02:58→21:05)
[2022-11-25] MEDS: LEVOTHYROXINE 150 MCG TABLET PO (06:12)
--- NOTE | 2022-11-25 06:47 | PC.NURSE ---
Pt wounds were change around midnight, pt c/o increased pain to her buttocks and around wound area. dressing changes are difficult and it takes at least 3 person due to the location of the wound. Unable to keep wound clean at times due to close proximity to rectal area. Pt needs to be encourage to turn in bed. Millie pt said that her dressing hasn't been change in a day and a half. Pt stated the doctors told me that a wound vac wouldn't work on me. Pt is also asking why she isn't taking IV AB. Pt was re-educated by this nurse that she needs to turn in bed every 2 hours so that we can keep pressure off her buttocks.
--- NOTE | 2022-11-25 08:30 | P.PN_ITS ---
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 She was admitted with unstageable decubitus ulcers.? Pt is now POD #12 from surgical debridement of wounds. Patient reports that she is feeling about the same overall.? She reports she was able to get up w/PT twice yesterday. The first time she attempted to sit in the chair, she says her pain was severe and she had to go back to bed in tears. The second time, she was able to last in the chair for 3 hours. She has been getting up to use the commode as well. Exam Vital Signs (past 8 hours): Oxygen Delivery Method Room Air Oxygen Flow Rate 0 Narrative Exam Narrative: GEN:? Middle-aged female, very pleasant, Alert and oriented x 3, NAD HEENT:NC, Face symmetric CHEST: Respiratory excursions symmetric, CTAB CV: RRR, II/ systolic murmur heard best at LSB ABD: Soft, NT/ND, BT present in all 4 quadrants, body habitus limits exam EXTR: warm, well perfused, no C/C/E SKIN: warm and dry, buttock and thigh lesions were not visualized, superficial wounds to the bilateral calves are much improved, skin folds with improvement in fungal rash as well NEURO: Alert and oriented x 3, nonfocal Objective Labs Result Diagrams: 11/24/22 13:58 11/24/22 13:58 Labs: Laboratory Results - last 24 hr 11/24/22 11/24/22 13:58 13:58 WBC 7.0 RBC 2.43 L Hgb 7.7 L Hct 23.6 L MCV 97.1 MCH 31.5 MCHC 32.5 RDW 21.7 H Plt Count 346 Neut % (Auto) 78.2 H Lymph % (Auto) 8.1 L Bath % (Auto) 6.1 Eos % (Auto) 6.4 H Baso % (Auto) 1.2 Neut # (Auto) 5500 Lymph # (Auto) 600 L Bath # (Auto) 400 Eos # (Auto) 400 Baso # (Auto) 100 RBC Morphology See below Anisocytosis 2+ H Sodium 136 L Potassium 3.7 Chloride 103 Carbon Dioxide 28 BUN 13 Creatinine 1.07 H Estimated GFR > 60 BUN/Creatinine Ratio 12.1 Glucose 126 H Calcium 9.0 PFSH Medical History DVT (deep venous thrombosis) Pulmonary embolism Social History household members: none Smoking Status: Never smoker Assessment & Plan Assessment & Plan narrative: 1. ? Unstageable pressure wounds-DTI's to the bilateral medial buttocks in the perianal region, right lower buttock/upper and inner thigh, now POD #12 from debridement Continue working on offloading pressure, frequent repositioning.? Patient does not wish to pursue diverting colostomy.? Plans are in place for her to go to a alf facility for wound care. She is showing improving mobility overall which will likely help w/wound healing. 2. Superficial pressure injury to the bilateral calves and lower and mid bilateral back Offload pressure as much as possible as noted.? Patient is reluctant not to be on her back as she develops discomfort on her sides.? Obviously, this creates additional challenges for her overall healing. 3. Metastatic breast cancer, known bony metastasis Continue letrozole.? Hospice was unable to accommodate her extensive wound care needs. Will need outpatient f/u. She had been scheduled for restaging studies for the week after admission. 4. Diabetes mellitus type 2, excellent baseline control with hemoglobin A1c of 5.2% Continue controlled carb diet and fingerstick/sliding scale.? Blood sugars remain well controlled. 5.? Hypotension Patient continues to have mild hypotension, not symptomatic.? Systolic Blood pressures have been in the high 90s to low 100s. 6. Anemia Normocytic.? Suspect she has anemia of chronic inflammatory disease related to her cancer.? Hemoglobin was stable at 7.7 yesterday (7.4 on 11/20). 9. Hypothyroidism Continue outpatient dose of levothyroxine 10. Hyperlipidemia Continue Crestor 11. Restless leg syndrome Continue usual outpatient dose of ropinirole 12. Chronic anticoagulation Continue Xarelto 13. Hyponatremia Very mild at 136 yesterday. Will monitor periodically. 14. Elevated creatinine Creatinine up to 1.07 yesterdday from 0.94 prior. She is eating and drinking well. No diarrhea. Monitor periodically. Code status Full Prophylaxis Xarelto Disposition custodial facility at discharge Time Spent With Patient Critical Care time: I spent a total of [] minutes of critical care time on this patient's care today; this time is exclusive of procedural time. Quality VTE Deep Vein Thrombosis/Pulmonary Embolism Present on Admission: No
[2022-11-25] MEDS: ATORVASTATIN 20 MG TABLET PO (09:19)
[2022-11-25] MEDS: buPROPion XL 150 MG TAB PO (09:19)
[2022-11-25] MEDS: POTASSIUM CHLORIDE 10 MEQ TAB PO (09:19)
[2022-11-25] MEDS: ROPINIROLE 1 MG TABLET 2 MG PO (09:19)
[2022-11-25] MEDS: NYSTATIN POWDER 15GM 1 APPLIC TOP (09:20)
[2022-11-25] MEDS: LETROZOLE 2.5 MG TABLET PO (09:20)
[2022-11-25] MEDS: GABAPENTIN 600 MG TABLET PO ×2 (09:20→20:12)
[2022-11-25] MEDS: SODIUM CHLORIDE 0.9% FLUSH 10 ML IV ×2 (09:20→20:12)
[2022-11-25] MEDS: HYDROMORPHONE 0.5 MG INJ IV ×3 (11:11→22:02)
[2022-11-25 12:00] VITALS: BP 91/46; PULSE 88; RESP 16; TEMP 36; O2SAT 91
--- NOTE | 2022-11-25 13:19 | CM.DPNOTE ---
Discharge Planning Note: Spoke with Kee, on-call coordinator today, . Peggy will return tomorrow. We have been emailing Peggy at [email or web address]. Still awaiting response for acceptance. Kee states they have no beds today. SNFs do not want to accept patient due to bariatric status and extensive wound care to unstageable sacral pressure ulcer(s). Plan: Speak with Peggy tomorrow at [phone] to find out re acceptance. Luna Daniel, RN/DCP
[2022-11-25] MEDS: INSULIN LISPRO 100 UNIT/ML 3ML VIAL SUBCUT ×2 (13:27→17:38)
--- NOTE | 2022-11-25 14:39 | DIET.CONS2 ---
Dietary Inpatient Consultation Note Admission Date: 11/09/2022 15:46 RD f/u for 57y F awaiting placement r/t extensive sacral wounds and metastatic breast cancer. Pt non-compliant with high protein diet. Pt with 6-7 ONS sitting on window sill unopened. Pt states to dietary team she will drink them, however, majority unopened. Pt with low appetite, consumed 1/2 cold deli sandwich for lunch today. Pt enjoys setswana honey yogurt, will send tid providing 20% protein needs in addition to meal trays. Pt not currently meeting protein reccs for healing of sacral ulcers. Despite education from RD and dietary staff, pt does not seem to understand the correlation between protein intake and wound healing. Diet: 11/13/22 Dinner General (Regular) Diet Diet Modifications: Ensure Max with meals (3 per day) Nutrition Percent Meal Consumed 75% 11/24/22 08:49 Percent Meal Consumed 100% 11/23/22 18:49 Electronically Signed by: Rajni Esquivel 11/25/22 14:39 Clinical Dietitian [address] [id number]
--- NOTE | 2022-11-25 15:38 | PT.IPTN ---
Current Diagnoses Pressure ulcer of sacral region, unspecified stage (11/09/22) Pressure ulcer of unspecified site, unspecified stage (11/09/22) Surgery Performed Operation Date: 11/13/22 15:15 Actual Procedures p debride sacral wound - Filiberto Wilcox MD Operation Date: 11/27/22 07:45 <No data on this case meets the specified criteria> Physical Therapy Treatment Note M2 PT-IP Current Condition Start: 11/10/22 09:11 Freq: NEEDED Status: Active Protocol: Document 11/25/22 15:14 SP (Rec: 11/25/22 17:29 SP [id number]) Physical Therapy Current Condition Current Condition Evaluation Date 11/20/22 Treatment Diagnosis GLF; sacral decubitus ulcer; difficulty in walking Onset Date 11/09/22 M3 PT-IP Subjective Start: 11/10/22 09:11 Freq: NEEDED Status: Active Protocol: Document 11/25/22 15:14 SP (Rec: 11/25/22 17:29 SP [id number]) Subjective Physical Therapy Visit Type Type Treatment Note Visit Start Time 15:14 Visit Stop Time 15:38 Total Visit Minutes 24 Notes Vitals: post mobility: BP 117/83 HR 102 SaO2 mid 90s Number of NURSE RESEARCH Visits 1 Physical Therapy Visit Comments Patient Comments Pt agreeable to working with therapy. Therapy Pain Assessment Pain When Pain Assessed During Mobility Pain Present Pain Present Pain Reported Location sacral region/ wound Intensity 7 Scale Used Numeric (0 - 10) Description With Movement Pain Behaviors Facial Grimacing,Wincing Pain Management Techniques Distraction,Modification of Treatment,Timing of Activity with Medications M4 PT-IP Mobility and Gait Start: 11/10/22 09:11 Freq: NEEDED Status: Active Protocol: Document 11/25/22 15:14 SP (Rec: 11/25/22 17:29 SP [id number]) PT-Bed Mobility Assessment Supine to Sit Supine to Sit Minimal Assistance,Moderate Assistance,1 Person Assistance ,Head of Bed Elevated,Bedrails Scooting Scooting to Edge of Bed Minimal Assistance PT-Transfer Assessment Sit to and From Stand Sit to and from Stand Contact Guard Assistance, Minimal Assistance,1 Person Assistance,Use of Upper Extremities Equipment Transfer Assistive Device Gait Belt,Front Wheeled Walker Orthotic/Prosthetic Devices or Brace: No Transfers Transfer Destination Chair Transfer Technique pt ambulated using FWW Transfer Ability Level of Assist Contact Guard Assistance, Minimal Assistance,1 Person Assistance,Use of Upper Extremities Comments Mobility Comments HOB elevated supine>sit Mod A x1, CG/ Min A at back of trunk support to allow scoot to EOB w/ bed rail and bed bar/ handle on R. Sit>stand CG/ Min A w/ FWW, gait into bathroom/ pivot in bathroom and back to chair approx 15 ft , small base step to>stagger steps pushing FWW, declined need use toilet but glad can make the distance if needed this tx. Stand>sit sBA, cued proper hand placement throughout tx. STS front chair change sheet on chair, stood w/FWW sBA 1 min. Sat in chair scoot back far as could, pillows behind, pulled out chair foot plate. NURSE RESEARCH notified nursing and care mgt. Pt does not have the strength to complete stairs at this time to be able to enter RV. Will continue to assess progress. Gait Assessment Gait Gait Assistance Required: Contact Guard Assist,1 Person Assist Distance (Feet) 15 Able to Maintain Weight Bearing Status Yes During Gait Assistive Devices Assistive Device Gait Belt,Front Wheeled Walker Orthotic/Prosthetic Devices or Brace: No Gait Deviations General Gait Pattern Antalgic,Decreased Stride Length,Decreased Feet Clearance,Step-to Gait,Wide Based Gait Factors Limiting Gait Function Factors Limiting Gait Function Decreased Activity Tolerance, Decreased Strength,Difficulty Following Directions,Limited Range of Motion,Pain,Poor Balance,Poor Safety Awareness, Respiratory Distress Comments Gait Comments see mobility comments. Stair Climbing Assessment Comments Stair Climbing Comments Pt has 2 stairs in RV to manage vs BLS transportation for safe DC home vs SNF. Unable to complete at this time. PT-Balance Assessment Sitting Balance and Reactions Static Sitting Balance Ability Good Dynamic Sitting Balance Ability Good Standing Balance and Reactions Static Standing Balance Ability Fair Dynamic Standing Balance Ability Fair Device Used FWW M5 PT-IP Objective Assessments Start: 11/10/22 09:11 Freq: NEEDED Status: Active Protocol: Document 11/20/22 10:40 AB (Rec: 11/20/22 13:21 AB [id number]) Orientation Orientation/Cognition Level of Alertness Alert Orientation Name,Place,Situation Language Function Ability No Deficits Noted Safety Awareness Decreased Safety Awareness Memory Description No Deficits Noted Strength Lower Extremity Strength Assessment Bilaterally Impaired Hip 3-/5 Knee 3+/5 Muscle Tone Muscle Tone WNL Yes M6 PT-IP Treatment Start: 11/10/22 09:11 Freq: NEEDED Status: Active Protocol: Document 11/25/22 15:14 SP (Rec: 11/25/22 17:29 SP [id number]) Physical Therapy Treatment Exercises Exercises Ankle Pumps,Heel Slides Education Education Provided Safety M7 PT-IP Assessment and Plan Start: 11/10/22 09:11 Freq: NEEDED Status: Active Protocol: Document 11/25/22 15:14 SP (Rec: 11/25/22 17:29 SP [id number]) PT Summary Assessment and Plan Potential Rehabilitation Potential Fair Status of Condition at Evaluation Evolving Summary Impairments Pain,ROM,Strength,Balance, Coordination,Cognition,Bed Mobility,Transfers,Gait, Activity Tolerance Progress Towards Goals Slow Progress due to Pain,Slow Progress due to Medical Issues,Slow Progress due to Activity Tolerance Assessment Summary Mod/max A for elevated sup>sit , scoot to EOB via transfer pad support. Sit>stand/ gait w / FWW 15 ft total CG/ Min A x1 . Pt unable to complete stair mgt to enter RV at this time. Recommending SNF for progress strength. Goals Bed Mobility Goal Minimal Assistance Transfer Goal Standby Assistance,Front Wheeled Walker Gait Goal Standby Assistance,Front Wheel Walker Gait Distance 100 Other Goals - up/down 2 steps with L rail ascending min A Days to Meet Goals 10 Frequency of Treatment Frequency Of Treatment Once a Day Treatment Plan Physical Therapy Treatment Plan Bed Mobility Training,Transfer Training,Gait Training, Therapeutic Exercise,Balance Retraining,Discharge Planning, Hot or Cold Pack,Neuromuscular Re-ed Other Recommendations and Next Treatment bed mob, transfers, gait w/ Focus FWW if endurance/strength able , will need complete 2 stairs RHR for safe DC home vs SNF. Precautions Other Precautions Extra care to avoid shear forces due to pressure injuries. Recommendations To Nursing Amount of Assist Needed 1 Person Assist Discharge Recommendations PT Discharge Recommendations SNF Rehab Transportation Needs at Discharge Wheelchair/Cabulance
[2022-11-25] MEDS: RIVAROXABAN 10 MG TABLET 20 MG PO (17:48)
[2022-11-25 17:59] VITALS: BP 105/57; PULSE 90; RESP 16; TEMP 36.2; O2SAT 93
--- NOTE | 2022-11-25 19:33 | PC.NURSE ---
Confirmed with charge nurse that Dakin's solution in dressing orders is not available for us. Dressing to 2 buttocks deep tissue injuries changed this morning (patient pre medicated with dilaudid IV as ordered prn) and tolerated well. Wounds were cleansed with normal saline, and repacked with moist sterile kerlex gauze, shane wound edges show some maceration and were covered in skin protective and duoderm applied. Allevyn dressings to left hip, right hip changed, and are CDI. Small fluid blister are to right upper groin area (under pannus) covered with allevyn dressing to protect area. As well as left back of knee area which shows some bruising and scratch vazquez from patient scratching. She states she has a few areas that are itchy and she can't help it. Patient worked with P.T. today and ambulated in room with assistance x 2 today. Continue with Q 2 hour repositioning for pressure relief. Horvath in place draining clear yellow urine. Call light within reach, and patient able to make her needs known.
[2022-11-25 19:53] VITALS: BP 99/49; PULSE 88; RESP 18; TEMP 36.7; O2SAT 93
[2022-11-26 05:36] VITALS: BP 100/50; PULSE 83; RESP 18; TEMP 36.9; O2SAT 95
[2022-11-26] MEDS: OXYCODONE IR 10 MG TABLET PO ×4 (05:37→20:56)
[2022-11-26] MEDS: LEVOTHYROXINE 150 MCG TABLET PO (05:37)
[2022-11-26 08:26] VITALS: BP 113/58; PULSE 92; RESP 18; TEMP 36.6; O2SAT 94
--- NOTE | 2022-11-26 08:33 | PM.PN.1 ---
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 She was admitted with unstageable decubitus ulcers.? Pt is now POD #13 from surgical debridement of wounds. Continues to progress with increasing mobility. Patient appears to be more motivated with this. Is eager to progress. However will likely need SNF prior to discharge to home. Exam Vital Signs (past 8 hours): - 11/26/22 05:36 11/26/22 08:26 Temperature 98.5 F 97.8 F Pulse Rate 83 92 H Respiratory Rate 18 18 Blood Pressure 100/50 L 113/58 L Pulse Oximetry 95 94 Oxygen Flow Rate 0 0 Oxygen Delivery Method Room Air Oxygen Flow Rate 0 Narrative Exam Narrative: GEN:? Middle-aged female, very pleasant, Alert and oriented x 3, NAD HEENT:NC, Face symmetric CHEST: Respiratory excursions symmetric, clear to auscultation. CV: RRR, II/ systolic murmur heard. ABD: Soft, NT/ND, bowel sounds present. EXTR: warm, well perfused SKIN: warm and dry, buttock and thigh lesions were not visualized, superficial wounds to the bilateral calves are much improved, skin folds with improvement in fungal rash as well NEURO: Alert and oriented x 3, no localizing focal signs. Objective Labs Result Diagrams: 11/24/22 13:58 11/24/22 13:58 [facility] Medical History DVT (deep venous thrombosis) Pulmonary embolism Social History household members: none Smoking Status: Never smoker Assessment & Plan Assessment & Plan narrative: 1. ? Unstageable pressure wounds-DTI's to the bilateral medial buttocks in the perianal region, right lower buttock/upper and inner thigh, now POD #13 from debridement Continue working on offloading pressure, frequent repositioning.? Patient does not wish to pursue diverting colostomy.? Plans are in place for her to go to a halfway facility for wound care.? She is showing improving mobility overall which will likely help w/wound healing. Patient motivated to get better and improve mobility. 2. Superficial pressure injury to the bilateral calves and lower and mid bilateral back Offload pressure as much as possible as noted.? Patient is reluctant not to be on her back as she develops discomfort on her sides.? 3. Metastatic breast cancer, known bony metastasis Continue letrozole.? Hospice was unable to accommodate her extensive wound care needs.? Will need outpatient f/u.? She had been scheduled for restaging studies for the week after admission. 4. Diabetes mellitus type 2, excellent baseline control with hemoglobin A1c of 5.2% Continue controlled carb diet and fingerstick/sliding scale.? Blood sugars remain well controlled. 5.? Hypotension Appears resolved today with a blood pressure of 113/58. 6. Anemia Normocytic.? Suspect she has anemia of chronic inflammatory disease related to her cancer.? Hemoglobin was stable at 7.7 on Nov 24 (7.4 on 11/20). 9. Hypothyroidism Continue outpatient dose of levothyroxine 10. Hyperlipidemia Continue Crestor 11. Restless leg syndrome Continue usual outpatient dose of ropinirole 12. Chronic anticoagulation Continue Xarelto 13.? Hyponatremia Very mild at 136 Nov 24.? Will monitor periodically. 14.? Elevated creatinine Creatinine up to 1.07 Nov 24 from 0.94 prior.? She is eating and drinking well.? No diarrhea.? Monitor periodically. Code status Full Prophylaxis Xarelto Disposition alf facility at discharge Time Spent With Patient Critical Care time: I spent a total of [] minutes of critical care time on this patient's care today; this time is exclusive of procedural time. Quality VTE Deep Vein Thrombosis/Pulmonary Embolism Present on Admission: No
[2022-11-26] MEDS: INSULIN LISPRO 100 UNIT/ML 3ML VIAL SUBCUT ×3 (08:52→17:07)
[2022-11-26] MEDS: GABAPENTIN 600 MG TABLET PO ×2 (08:53→20:43)
[2022-11-26] MEDS: ROPINIROLE 1 MG TABLET 2 MG PO (08:54)
[2022-11-26] MEDS: ACETAMINOPHEN 325 MG TABLET 650 MG PO ×2 (08:54→21:35)
[2022-11-26] MEDS: POTASSIUM CHLORIDE 10 MEQ TAB PO (08:54)
[2022-11-26] MEDS: SODIUM CHLORIDE 0.9% FLUSH 10 ML IV ×3 (08:54→22:11)
[2022-11-26] MEDS: buPROPion XL 150 MG TAB PO (08:54)
[2022-11-26] MEDS: ATORVASTATIN 20 MG TABLET PO (08:54)
[2022-11-26] MEDS: LETROZOLE 2.5 MG TABLET PO (08:55)
[2022-11-26] MEDS: NYSTATIN POWDER 15GM 1 APPLIC TOP ×2 (08:57→20:43)
--- NOTE | 2022-11-26 08:58 | CM.DPNOTE ---
Addendum entered by Jasmin Cary 11/26/22 16:10: Spoke with Peggy at [facility] today. She reports that they are very tight on beds. However, she is willing to have this patient reviewed by her administration. [facility] faxed all updated notes, weight, mattress, etc... Last conversation I had with Peggy was that she would submit for authorization. Left another message asking if that means she will accept patient on 11-27-22. [facility] aware and following closely. P: [facility] will take tomorrow. SHANNA Original Note: DCP/continued: Placed call to Peggy at [facility] this AM re: placement? Peggy out yesterday 11-25 and no beds were available. [facility] faxed all updated clinical to [facility] for review. P: Pending. SHANNA
--- NOTE | 2022-11-26 10:26 | PT.IPTN ---
Addendum entered and electronically signed by Franca Taveras PTA 11/26/22 11:30: Pt reported unsure if care mgt has also called [facility] or [facility]. Pt called her insurance and was told [facility] and [facility] is within network to go to wants to speak with care mgt to see. HEADING MACHINE OPERATOR left voice message on Jasmin Cary Care Mgt to follow up. Original Note: Current Diagnoses Pressure ulcer of sacral region, unspecified stage (11/09/22) Pressure ulcer of unspecified site, unspecified stage (11/09/22) Surgery Performed Operation Date: 11/13/22 15:15 Actual Procedures p debride sacral wound - Filiberto Wilocx MD Operation Date: 11/27/22 07:45 <No data on this case meets the specified criteria> Physical Therapy Treatment Note M2 PT-IP Current Condition Start: 11/10/22 09:11 Freq: NEEDED Status: Active Protocol: Document 11/26/22 10:01 SP (Rec: 11/26/22 11:27 SP [id number]) Physical Therapy Current Condition Current Condition Evaluation Date 11/20/22 Treatment Diagnosis GLF; sacral decubitus ulcer; difficulty in walking Onset Date 11/09/22 M3 PT-IP Subjective Start: 11/10/22 09:11 Freq: NEEDED Status: Active Protocol: Document 11/26/22 10:01 SP (Rec: 11/26/22 11:27 SP [id number]) Subjective Physical Therapy Visit Type Type Treatment Note Visit Start Time 10:01 Visit Stop Time 10:26 Total Visit Minutes 25 Number of HEADING MACHINE OPERATOR Visits 1 Physical Therapy Visit Comments Patient Comments Pt agreeable to working with therapy. Patient Goals Use bathroom Therapy Pain Assessment Pain When Pain Assessed During Mobility Pain Present Pain Present Pain Reported Location sacral region/ wound Intensity 7 Scale Used 7/10 LBP and sacral wound Description With Movement Pain Behaviors Facial Grimacing,Wincing Pain Management Techniques Distraction,Modification of Treatment,Re-positioning M4 PT-IP Mobility and Gait Start: 11/10/22 09:11 Freq: NEEDED Status: Active Protocol: Document 11/26/22 10:01 SP (Rec: 11/26/22 11:27 SP [id number]) PT-Bed Mobility Assessment Supine to Sit Supine to Sit Standby Assistance,1 Person Assistance,Head of Bed Elevated,Bedrails Scooting Scooting to Edge of Bed Moderate Assistance PT-Transfer Assessment Sit to and From Stand Sit to and from Stand Standby Assistance,Contact Guard Assistance,1 Person Assistance,Use of Upper Extremities Equipment Transfer Assistive Device Gait Belt,Front Wheeled Walker Orthotic/Prosthetic Devices or Brace: No Transfers Transfer Destination Chair,Toilet Transfer Technique pt ambulated using FWW Transfer Ability Level of Assist Standby Assistance,Contact Guard Assistance,Use of Upper Extremities Comments Mobility Comments Elevated supine>sit use L bed rail, scoot to EOB on R this tx use of bed L bed rail and Mod A use transfer pad. STS at EOB w/ FWW CG/SBA. Increase distance gait w/ FWW around end bed to bathroom approx 20ft, pivot and slow descent sit use L grab bar and FWW SBA . Pt requires complete assistance with pericare from behind in standing, STS and standing w/ grab bar/ FWW sBA. Gait to sink w/ FWW sBA, static stand wash hands unsupported 1 min stable, gait to chair w/ FWW SBA, stand> sit in chair, scoot posteriorly in chair sBA. HEADING MACHINE OPERATOR provided 2 layer pillows posteriorly for postural alignment support, elevated leg rests. Pt had call light and all needs in reach before left. HEADING MACHINE OPERATOR notified nursing/ care mgt progression mobility during tx, updated communication board. Gait Assessment Gait Gait Assistance Required: Standby Assistance,Contact Guard Assist Distance (Feet) 20 Able to Maintain Weight Bearing Status Yes During Gait Assistive Devices Assistive Device Gait Belt,Front Wheeled Walker Orthotic/Prosthetic Devices or Brace: No Gait Deviations General Gait Pattern Antalgic,Decreased Stride Length,Decreased Feet Clearance,Wide Based Gait Factors Limiting Gait Function Factors Limiting Gait Function Decreased Activity Tolerance, Decreased Strength,Limited Range of Motion,Pain, Respiratory Distress Comments Gait Comments see mobility comments. Stair Climbing Assessment Comments Stair Climbing Comments Pt has 2 steep stairs into RV to manage vs BLS transportation for safe DC home vs SNF. Unable to complete at this time due to decreased strength and activity tolerance. PT-Balance Assessment Sitting Balance and Reactions Static Sitting Balance Ability Normal Dynamic Sitting Balance Ability Good Standing Balance and Reactions Static Standing Balance Ability Good Dynamic Standing Balance Ability Fair Device Used FWW M5 PT-IP Objective Assessments Start: 11/10/22 09:11 Freq: NEEDED Status: Active Protocol: Document 12/21/22 10:40 AB (Rec: 11/20/22 13:21 AB [id number]) Orientation Orientation/Cognition Level of Alertness Alert Orientation Name,Place,Situation Language Function Ability No Deficits Noted Safety Awareness Decreased Safety Awareness Memory Description No Deficits Noted Strength Lower Extremity Strength Assessment Bilaterally Impaired Hip 3-/5 Knee 3+/5 Muscle Tone Muscle Tone WNL Yes M6 PT-IP Treatment Start: 11/10/22 09:11 Freq: NEEDED Status: Active Protocol: Document 11/26/22 10:01 SP (Rec: 11/26/22 11:27 SP [id number]) Physical Therapy Treatment Education Education Provided Safety M7 PT-IP Assessment and Plan Start: 11/10/22 09:11 Freq: NEEDED Status: Active Protocol: Document 11/26/22 10:01 SP (Rec: 11/26/22 11:27 SP [id number]) PT Summary Assessment and Plan Potential Rehabilitation Potential Fair Status of Condition at Evaluation Evolving Summary Impairments Pain,ROM,Strength,Balance, Coordination,Cognition,Bed Mobility,Transfers,Gait, Activity Tolerance Progress Towards Goals Slow Progress due to Pain,Slow Progress due to Medical Issues,Slow Progress due to Activity Tolerance Assessment Summary Mod A to scoot to EOB, CG/SBA w/FWW transfer and gait. Pt's main barriers is pain, complete assistance for pericare with wound and decreased strength to ascend 2 steep stairs to enter RV safe [place] home. Will continue to assess progress, recommending SNF vs home 23/06 of which she doesn't have anyone to assist her. Goals Bed Mobility Goal Minimal Assistance Transfer Goal Standby Assistance,Front Wheeled Walker Gait Goal Standby Assistance,Front Wheel Walker Gait Distance 100 Other Goals - up/down 2 steps with L rail ascending min A Days to Meet Goals 10 Frequency of Treatment Frequency Of Treatment Once a Day Treatment Plan Physical Therapy Treatment Plan Bed Mobility Training,Transfer Training,Gait Training, Therapeutic Exercise,Balance Retraining,Discharge Planning, Hot or Cold Pack,Neuromuscular Re-ed Other Recommendations and Next Treatment bed mob, transfers/ gait w/ Focus FWW, 2 step stair mgt L HR when able, may need FWW if going home. Precautions Other Precautions Extra care to avoid shear forces due to pressure injuries. Recommendations To Nursing Amount of Assist Needed Standby Assistance,1 Person Assist Discharge Recommendations PT Discharge Recommendations SNF Rehab Transportation Needs at Discharge Wheelchair/Cabulance,Stretcher /Ambulance
[2022-11-26] MEDS: HYDROMORPHONE 0.5 MG INJ IV ×2 (12:51→22:08)
[2022-11-26 15:50] VITALS: BP 104/51; PULSE 82; RESP 16; TEMP 36.6; O2SAT 95
[2022-11-26] MEDS: RIVAROXABAN 10 MG TABLET 20 MG PO (17:07)
[2022-11-26 23:25] VITALS: BP 93/50; PULSE 90; RESP 18; TEMP 36.6; O2SAT 96
--- NOTE | 2022-11-27 01:29 | PC.NURSE ---
Patient is alert and oriented. Breath sounds CTA with RA sat of 96%. HRR. Denies nausea. BT present and abdomen is soft. Needing to be repositioned q2h as is not able to turn herself. Gait not assessed at this time but per previous shift RNHolli, patient is ambulating to bathroom with walker and 1-2 assists. BT present and abdomen is soft. Indwelling catheter is patent; urine is clear, dark yellow. Complaining of pain/numbness in left 3rd finger and at midline site and has swelling of left hand and arm. Mauri PABLO, informed and she came to look at it and suggested to elevate, apply ice and give Tylenol but felt was not likely a DVT and was okay to flush midline. Medicated with the Tylenol as well as oxycodone at 2200 and then with Dilaudid at 2300 for back pain and is currently asleep. Bilateral calf SCD's applied. Dressings to pressure wounds on either side of inner buttocks are CDI. Fall risk score is high and bed alarm is activated.
[2022-11-27] MEDS: OXYCODONE IR 10 MG TABLET PO ×6 (02:39→20:45)
[2022-11-27 04:54] VITALS: BP 129/83; PULSE 89; RESP 18; TEMP 36.9; O2SAT 96
[2022-11-27] MEDS: LEVOTHYROXINE 150 MCG TABLET PO (05:37)
--- NOTE | 2022-11-27 07:48 | P.PN_ITS ---
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 She was admitted with unstageable decubitus ulcers.? Pt is now POD #14 from surgical debridement of wounds. Pt c/o left third digit and hand pain overnight. Nighttime SAP PPM CONSULTANT assessed and felt the IV was okay. No intervention. Pt reports she has noticed her middle finger has been getting hard on the finger pad. Her hand was also a bit swollen and painful overnight. Still using IV dilaudid for pain and has a midline in the Left arm. Exam Vital Signs (past 8 hours): - 11/27/22 04:54 Temperature 98.4 F Pulse Rate 89 Respiratory Rate 18 Blood Pressure 129/83 Pulse Oximetry 96 Oxygen Flow Rate 0 Oxygen Delivery Method Room Air Oxygen Flow Rate 0 Narrative Exam Narrative: GEN:? Middle-aged female, very pleasant, Alert and oriented x 3, NAD HEENT:NC, Face symmetric CHEST: Respiratory excursions symmetric, CTAB CV: RRR, II/ systolic murmur heard best at LSB ABD: Soft, NT/ND, BT present in all 4 quadrants, body habitus limits exam EXTR: warm, well perfused, no C/C/E, left hand and third finger are normal in appearance w/o redness/warmth/swelling. Midline appears intact, no sampson thema/drainage/tenderness SKIN: warm and dry, buttock and thigh lesions were not visualized NEURO: Alert and oriented x 3, nonfocal Objective Labs Result Diagrams: 11/24/22 13:58 11/24/22 13:58 [facility] Medical History DVT (deep venous thrombosis) Pulmonary embolism Social History household members: none Smoking Status: Never smoker Assessment & Plan Assessment & Plan narrative: 1. ? Unstageable pressure wounds-DTI's to the bilateral medial buttocks in the perianal region, right lower buttock/upper and inner thigh, now POD #14 from debridement Continue working on offloading pressure, frequent repositioning.? Patient does not wish to pursue diverting colostomy.? Plans are in place for her to go to a retirement facility for wound care.? She was able to ambulate 20 feet using a FWW while working w/PT yesterday. Fentanyl patch for pain 2. Superficial pressure injury to the bilateral calves and lower and mid valentine ateral back Offload pressure as much as possible as noted.? Patient is reluctant not to be on her back as she develops discomfort on her sides.? Obviously, this creates additional challenges for her overall healing. 3. Metastatic breast cancer, known bony metastasis Continue letrozole.? Hospice was unable to accommodate her extensive wound care needs.? Will need outpatient f/u.? She had been scheduled for restaging studies for the week after admission. 4. Diabetes mellitus type 2, excellent baseline control with hemoglobin A1c of 5.2% Continue controlled carb diet and fingerstick/sliding scale.? Blood sugars remain fairly well controlled. Highest BG in the past 24 hours was 177. 5.? Hypotension Patient continues to have mild hypotension, not symptomatic.? Systolic Blood pressures have been in the high 90s to low 100s. 6. Anemia Normocytic.? Suspect she has anemia of chronic inflammatory disease related to her cancer.? Hemoglobin was stable at 7.7 on 11/24. Will repeat CBC today. 7. Hypothyroidism Continue outpatient dose of levothyroxine 8. Hyperlipidemia Continue Crestor (currently on atorvastatin d/t formulary substitution) 9. Restless leg syndrome Continue usual outpatient dose of ropinirole 10. Chronic anticoagulation Continue Xarelto 11.? Hyponatremia Very mild at 136 on 11/24. Will repeat BMP today. 12.? Elevated creatinine Creatinine up to 1.07 11/24.? She is eating and drinking well.? No diarrhea.? BMP today. Code status Full Prophylaxis Xarelto Disposition [facility] facility at discharge, possibly [facility] pending insurance auth. Time Spent With Patient Critical Care time: I spent a total of [] minutes of critical care time on this patient's care today; this time is exclusive of procedural time. Quality VTE Deep Vein Thrombosis/Pulmonary Embolism Present on Admission: No
--- NOTE | 2022-11-27 08:17 | PC.NURSE ---
Patient is alert and oriented x4, she denies pain at this time. Her blood sugar is 111 this morning. She will not get any ss insulin. Patient has wounds on her buttocks and dressings will be changed later today. They are packed with ns gauze and then dressings to top of 4x4 gauze. Patient will be medicated before dressing change is done.
[2022-11-27 08:25] LABS: Add Manual Diff / Slide Review NO; Basophils Absolute Auto 100 /uL (0-100); Eosinophils Absolute Auto 400 /uL (0-450); Eosinophils Percent Auto 6.4 % (2-4); Hemoglobin 7.4 g/dL (12.0-16.0); Lymphocytes Absolute Auto 600 /uL (1100-4500); Lymphocytes Percent Auto 11.1 % (25-40); Mean Corpuscular HGB Conc 32.4 % (30-36); Mean Corpuscular Volume 95.9 fL (80-100); Monocytes Absolute Auto 400 /uL (0-900); Monocytes Percent Auto 6.1 % (3-14); Neutrophils Absolute Auto 4400 /uL (1500-7000); Neutrophils Percent Auto 75.4 % (50-75); Platelet Count 359 X10^3/uL (150-400); Red Cell Distribution Width 21.3 % (11.6-14.8); White Blood Cell Count 5.8 X10^3/uL (4.5-11.0)
[2022-11-27] MEDS: GABAPENTIN 600 MG TABLET PO ×2 (08:30→20:45)
[2022-11-27] MEDS: buPROPion XL 150 MG TAB PO (08:30)
[2022-11-27] MEDS: NYSTATIN POWDER 15GM 1 APPLIC TOP (08:30)
[2022-11-27] MEDS: LETROZOLE 2.5 MG TABLET PO (08:30)
[2022-11-27] MEDS: POTASSIUM CHLORIDE 10 MEQ TAB PO (08:30)
[2022-11-27] MEDS: ROPINIROLE 1 MG TABLET 2 MG PO (08:30)
[2022-11-27] MEDS: ATORVASTATIN 20 MG TABLET PO (08:30)
[2022-11-27 08:36] LABS: Blood Urea Nitrogen 13 mg/dL (7-17); Carbon Dioxide 27 mmol/L (22-32); Chloride 103 mmol/L (98-107); Estimated Glomerular Filt Rate > 60 mL/min (>60); Glucose 106 mg/dL (70-100); HEMOLYSIS < 15 (0-50); Potassium 3.8 mmol/L (3.4-5.1); Sodium 138 mmol/L (137-145)
[2022-11-27 08:51] LABS: Anisocytosis 2+
--- NOTE | 2022-11-27 09:03 | PT-IP ANOTE ---
Pt declined PT as she is in too much pain and did not sleep well. Pt informed PT will try again in the afternoon as staffing allows.
--- NOTE | 2022-11-27 11:35 | CM.DPC ---
Addendum entered by Val Barroso, COFFEE MAKER SERVICER 11/27/22 14:42: ADD: Call from Peggy at [facility] stating she just spoke to [facility] and they are reviewing for auth and requesting updated clinicals on wound care notes and labs. SHELLEY emailed updated labs, RN notes, MD prog note to [facility] to send to [facility] for auth. BF Addendum entered by Val Barroso, COFFEE MAKER SERVICER 11/27/22 13:43: ADD: SHELLEY called [facility] with assist of JAYNE Griffin to inquire about the status of the auth in process for LTAC and [facility] cannot provide information on the auth process to [facility] as [facility] initiated the auth. BF Original Note: [facility] planning: Per MD, still feel pt would benefit from LTAC at d/c. SHELLEY called [facility] admission Peggy ([phone]) and left a couple msgs and then Peggy called back and confirmed that they submitted [facility] auth but still in process and no determination provided by [facility] yet (they submitted yesterday). Peggy confirms that d/c would be considered a Hospital Transfer and therefore [facility] would set up BLS transport for hospital transfer. No PASRR or updated COVID swab needed. They will have an MD to MD call and also RN to RN report on day of discharge. Hospital transfer packet will be needed (similar to SNF packet) but med list does not need to be signed and no hard scripts needed. Peggy confirms they have 6 discharges today and 7 admits on their list and even if they get insurance auth today they cannot accept today but will update SHELLEY in the AM on auth for LTAC. SHELLEY completed BLS form but likely will get MD signature tomorrow. Pt has [facility] as well and SHELLEY confirmed that pt has Medicaid transport benefits although pt cannot d/c via cabulance or POV since hospital transfer. SHELLEY called [facility] ([phone]) and Nadya confirms they have no beds, have pts boarding in their ED, and will not be able to accept pt as backup option. Pt too high of care needs for home with son assist a few days a week and [facility] declines pt for home until pt has safer home plan. [facility] Intake and referral form faxed into [facility] for more LTC planning options. Plan: SW to follow for update from [facility] in the AM to see if they received auth from [facility] and also to work on re-referrals to SNFs to determine if they would be willing to reconsider as a backup option. LIZZY Mcgowan
[2022-11-27 12:00] VITALS: BP 110/60; PULSE 95; RESP 18; TEMP 36.3; O2SAT 93
[2022-11-27] MEDS: INSULIN LISPRO 100 UNIT/ML 3ML VIAL SUBCUT (12:04)
[2022-11-27] MEDS: HYDROMORPHONE 0.5 MG INJ IV ×2 (12:41→23:27)
[2022-11-27] MEDS: ACETAMINOPHEN 325 MG TABLET 650 MG PO (13:59)
[2022-11-27] MEDS: SODIUM CHLORIDE 0.9% FLUSH 10 ML IV ×2 (13:59→20:46)
[2022-11-27] MEDS: fentaNYL 50 MCG/PATCH TOP (14:02)
--- NOTE | 2022-11-27 16:14 | PC.NURSE ---
Patients dressing change done at 1100. Patient up to use the commode and have a bowel movement. Previous dressings both fell off. Patient has 2 large open wounds that were debrided in surgery. Dressings are leaking bloody drainage, both of these wounds are being packed with wet to dry gauze and both wounds are deep. L.open buttocks wound is bigger and is beefy red inside with some sloughed area's. Smaller wound on distal end is also open and large with 2 4x4s dressed with dry 4x4 and two tegaderm in place. Patient has to lay on her side to stay off of area's other quinteros pressure hurts her bottom.
[2022-11-27 17:01] VITALS: BP 100/50; PULSE 92; RESP 18; TEMP 36.1; O2SAT 93
--- NOTE | 2022-11-27 17:04 | PT-IP ANOTE ---
Pt refused in pm. States she just got up with nursing.
[2022-11-27] MEDS: RIVAROXABAN 10 MG TABLET 20 MG PO (18:20)
[2022-11-27 19:40] VITALS: BP 102/56; PULSE 90; RESP 17; TEMP 36.8; O2SAT 93
[2022-11-28 01:19] VITALS: BP 109/61; PULSE 85; RESP 19; TEMP 36.8; O2SAT 94
[2022-11-28] MEDS: OXYCODONE IR 10 MG TABLET PO ×5 (01:24→22:36)
[2022-11-28] MEDS: HYDROMORPHONE 0.5 MG INJ IV ×2 (03:37→11:52)
[2022-11-28] MEDS: LEVOTHYROXINE 150 MCG TABLET PO (05:20)
[2022-11-28] MEDS: ROPINIROLE 1 MG TABLET 2 MG PO (08:32)
[2022-11-28] MEDS: LETROZOLE 2.5 MG TABLET PO (08:32)
[2022-11-28] MEDS: buPROPion XL 150 MG TAB PO (08:32)
[2022-11-28] MEDS: ATORVASTATIN 20 MG TABLET PO (08:32)
[2022-11-28] MEDS: GABAPENTIN 600 MG TABLET PO ×2 (08:32→20:05)
[2022-11-28] MEDS: POTASSIUM CHLORIDE 10 MEQ TAB PO (08:32)
[2022-11-28] MEDS: SODIUM CHLORIDE 0.9% FLUSH 10 ML IV ×2 (08:33→21:04)
[2022-11-28] MEDS: NYSTATIN POWDER 15GM 1 APPLIC TOP (08:37)
--- NOTE | 2022-11-28 09:48 | PT-IP ANOTE ---
Patient refused PT due to just taking pain medication and feeling dizzy
[2022-11-28 12:00] VITALS: BP 111/59; PULSE 101; RESP 16; TEMP 36.6; O2SAT 95
--- NOTE | 2022-11-28 12:06 | PT.IPTN ---
Current Diagnoses Pressure ulcer of sacral region, unspecified stage (11/09/22) Pressure ulcer of unspecified site, unspecified stage (11/09/22) Surgery Performed Operation Date: 11/13/22 15:15 Actual Procedures p debride sacral wound - Filiberto Wilcox MD Operation Date: 11/27/22 07:45 <No data on this case meets the specified criteria> Physical Therapy Treatment Note M2 PT-IP Current Condition Start: 11/10/22 09:11 Freq: NEEDED Status: Active Protocol: Document 11/26/22 10:01 SP (Rec: 11/26/22 11:27 SP [id number]) Physical Therapy Current Condition Current Condition Evaluation Date 11/20/22 Treatment Diagnosis GLF; sacral decubitus ulcer; difficulty in walking Onset Date 11/09/22 M3 PT-IP Subjective Start: 11/10/22 09:11 Freq: NEEDED Status: Active Protocol: Document 11/28/22 12:06 AW (Rec: 11/28/22 12:41 AW [id number]) Subjective Physical Therapy Visit Type Type Treatment Note Visit Start Time 11:34 Visit Stop Time 12:06 Total Visit Minutes 32 Number of TIP OUT WORKER Visits 0 Physical Therapy Visit Comments Patient Comments Pt agreeable to working with therapy. Pt has had some left hand swelling but improved with ice Patient Goals Use bathroom Therapy Pain Assessment Pain When Pain Assessed At Rest Pain Present Pain Present Pain Reported Location sacral region/ wound Intensity 4 Scale Used Numeric (0 - 10) M4 PT-IP Mobility and Gait Start: 11/10/22 09:11 Freq: NEEDED Status: Active Protocol: Document 11/28/22 12:06 AW (Rec: 11/28/22 12:41 AW [id number]) PT-Bed Mobility Assessment Supine to Sit Supine to Sit Standby Assistance,1 Person Assistance,Head of Bed Elevated,Bedrails Sit to Supine Sit to Supine Minimal Assistance,2 Person Assistance,Bedrails Scooting Scooting to Edge of Bed Moderate Assistance PT-Transfer Assessment Sit to and From Stand Sit to and from Stand Standby Assistance,Contact Guard Assistance,1 Person Assistance,Use of Upper Extremities Equipment Transfer Assistive Device Gait Belt,Front Wheeled Walker Orthotic/Prosthetic Devices or Brace: No Transfers Transfer Destination Bed,Toilet Transfer Technique pt ambulated using FWW Transfer Ability Level of Assist Standby Assistance,Contact Guard Assistance,Use of Upper Extremities Comments Mobility Comments With HOB elevated, pt completed supine to sit SBA/ CGA going toward the right and using left bed rail. Mod A to scoot toward EOB with use of draw pad. Pt stood at EOB with FWW and CGA. She stated she needed to use the commode due to urgent sense of diarrhea. She transferred to the [facility] with FWW CGA. PT coached pt on relaxing her pelvic floor. She did not tolerate elevating her knees but did engaged with diaphragmatic breathing and pelvic rocking. She stood and RN/TIRE DUSTER removed wound dressings. CGA for balance support in standing ~3 minutes . Pt then used FWW to ambulate around the foot of the bed to sit on left side. With cues and min A x 2, she completed sit to supine. Left pt with nursing for dressing change. Gait Assessment Gait Gait Assistance Required: Standby Assistance,Contact Guard Assist Distance (Feet) 15 Able to Maintain Weight Bearing Status Yes During Gait Assistive Devices Assistive Device Gait Belt,Front Wheeled Walker Orthotic/Prosthetic Devices or Brace: No Gait Deviations General Gait Pattern Antalgic,Decreased Stride Length,Decreased Feet Clearance,Wide Based Gait Factors Limiting Gait Function Factors Limiting Gait Function Decreased Activity Tolerance, Decreased Strength,Limited Range of Motion,Pain Comments Gait Comments see mobility comments. Stair Climbing Assessment Comments Stair Climbing Comments Pt has 2 steep stairs into RV to manage vs BLS transportation for safe DC home vs SNF. Unable to complete at this time due to decreased strength and activity tolerance. Timing also conflicted with wound care needs PT-Balance Assessment Sitting Balance and Reactions Static Sitting Balance Ability Normal Dynamic Sitting Balance Ability Good Standing Balance and Reactions Static Standing Balance Ability Good Dynamic Standing Balance Ability Fair Device Used FWW M5 PT-IP Objective Assessments Start: 11/10/22 09:11 Freq: NEEDED Status: Active Protocol: Document 11/20/22 10:40 AB (Rec: 11/20/22 13:21 AB [id number]) Orientation Orientation/Cognition Level of Alertness Alert Orientation Name,Place,Situation Language Function Ability No Deficits Noted Safety Awareness Decreased Safety Awareness Memory Description No Deficits Noted Strength Lower Extremity Strength Assessment Bilaterally Impaired Hip 3-/5 Knee 3+/5 Muscle Tone Muscle Tone WNL Yes M6 PT-IP Treatment Start: 11/10/22 09:11 Freq: NEEDED Status: Active Protocol: Document 11/28/22 12:06 AW (Rec: 11/28/22 12:41 AW [id number]) Physical Therapy Treatment Education Education Provided Safety Other Treatments Other Treatment Performed Education on pelvic floor relaxation as noted above. M7 PT-IP Assessment and Plan Start: 11/10/22 09:11 Freq: NEEDED Status: Active Protocol: Document 11/28/22 12:06 AW (Rec: 11/28/22 12:41 AW [id number]) PT Summary Assessment and Plan Summary Progress Towards Goals Slow Progress due to Pain,Slow Progress due to Medical Issues,Slow Progress due to Activity Tolerance Assessment Summary No significant change in assist needed for mobility today but pt is very willing to participate. Will continue to assess progress, recommending SNF vs home with 23/06 assist. Pt does not have anyone to assist her at home. Goals Bed Mobility Goal Minimal Assistance Transfer Goal Standby Assistance,Front Wheeled Walker Gait Goal Standby Assistance,Front Wheel Walker Gait Distance 100 Other Goals - up/down 2 steps with L rail ascending min A Days to Meet Goals 10 Frequency of Treatment Frequency Of Treatment Once a Day Treatment Plan Physical Therapy Treatment Plan Bed Mobility Training,Transfer Training,Gait Training, Therapeutic Exercise,Balance Retraining,Discharge Planning, Hot or Cold Pack,Neuromuscular Re-ed Other Recommendations and Next Treatment bed mob, transfers/ gait w/ Focus FWW, 2 step stair mgt L HR when able Precautions Other Precautions Extra care to avoid shear forces due to pressure injuries. Recommendations To Nursing Amount of Assist Needed 1 Person Assist Discharge Recommendations PT Discharge Recommendations SNF Rehab Transportation Needs at Discharge Wheelchair/Cabulance,Stretcher /Ambulance
--- NOTE | 2022-11-28 13:15 | P.PN_ITS ---
Subjective Subjective Date Patient Seen: 11/28/22 Time Patient Seen: 11:00 Interval history: She had a single episode of diarrhea today. Her pain is better controlled. Over the last few days she has worked more with PT and sat more in the chair she says which bedside nurse today confirms Exam Vital Signs (past 8 hours): Oxygen Delivery Method Room Air Oxygen Flow Rate 0 Narrative Exam Narrative: GEN:? no acute distress CHEST: clear bilaterally ABD: soft nontender SKIN: warm and dry, buttock and thigh lesions were not examined today NEURO: no focal deficits noted Objective Labs Result Diagrams: 11/27/22 08:13 11/27/22 08:13 [facility] Medical History DVT (deep venous thrombosis) Pulmonary embolism Social History household members: none Smoking Status: Never smoker Assessment & Plan Assessment & Plan narrative: 1. ? Unstageable pressure wounds-DTI's to the bilateral medial buttocks in the perianal region -POD #15 from surgery -continue to offload as able -patient declines diverting colostomy -fentanyl patch for pain -continue PT 2. Metastatic breast cancer, known bony metastasis Continue letrozole.? -hospice unable to provide needed wound care 3. Diabetes mellitus type 2, excellent baseline control with hemoglobin A1c of 5.2% -diabetic diet -insulin sliding scale achs 5.? Hypotension Patient continues to have mild hypotension, not symptomatic.? Systolic Blood pressures have been in the high 90s to low 100s. Dispo: Case management attempt SNF placement or LTAC Time Spent With Patient Critical Care time: I spent a total of [] minutes of critical care time on this patient's care today; this time is exclusive of procedural time. Quality VTE Deep Vein Thrombosis/Pulmonary Embolism Present on Admission: No
--- NOTE | 2022-11-28 15:30 | CM.DPC ---
Addendum entered by Helena Magallanes, LIZZY 11/29/22 08:53: Nakita Sapp ([phone]) Addendum entered by Helena Magallanes, COMPUTER AIDED DESIGN DESIGNER 11/29/22 08:44: ADD: Call from Seferino Sapp [phone]; covering for Peggy at [place] today. [facility] auth in place and patient approved for 20 days (and [facility] has 20 days to start care before new auth needed) , patient now placed on wait list for bed. Seferino reachable today and an on-call rep available over the holiday weekend at Peggy's number Spoke w/Dr Evans updated. Question: Can patient be re-evaluated for discharge home? Dr Evans does not feel this is a safe dispo for patient at this time CM team will continue to follow closely for coordination of safest DCP available to patient JW Original Note: DCP Cont: Per Peggy at [place], received the updated clinicals yesterday afternoon and this morning and sent them to [facility] to review for auth for [facility]. SW checked in with her at end of shift today and still no determination from [facility] PPO yet at this time. Peggy did say that their area SNFs are currently full and therefore they may not have open beds again until this next week in a few days on 12/02/22 but will keep SW updated on [facility] auth and bed availability. SW made additional SNF referrals requesting re-review since pt has made progress with PT/OT and also not as heavy of care needs as when first admitted: [facility]- willing to review but currently no [facility] bed availability and not contracted with [facility] so would need denials from other contracted SNFs and would have to attempt one time auth. [facility]- faxed and emailed request to re-review. [facility]- faxed referral and left msg about re-review [facility]- faxed and left msg about re-review. [facility]- faxed and left msg about re-review. SW also made [facility] referral in case pt cannot be placed at facility and [facility] had declined earlier due to pt's high care needs and not good support at home in her RV and now with pt's decreased care needs [facility] might be able to accept if needed. Plan: SW to follow closely in AM with Peggy Sapp regarding determination of [facility] auth and then f/u with above SNFs if [facility] denies LTAC auth. Val Barroso MSW
[2022-11-28 18:00] VITALS: BP 116/65; PULSE 96; RESP 18; TEMP 36.6; O2SAT 97
[2022-11-28] MEDS: RIVAROXABAN 10 MG TABLET 20 MG PO (18:24)
[2022-11-28] MEDS: LOPERAMIDE 2 MG CAPSULE PO (19:22)
[2022-11-29] VITALS: BP 102/51; PULSE 89; RESP 17; TEMP 36.7; O2SAT 93
[2022-11-29] MEDS: HYDROMORPHONE 0.5 MG INJ IV ×4 (00:14→23:32)
[2022-11-29] MEDS: LOPERAMIDE 2 MG CAPSULE PO (00:22)
[2022-11-29] MEDS: LEVOTHYROXINE 150 MCG TABLET PO (05:23)
[2022-11-29 06:00] VITALS: BP 104/57; PULSE 81; RESP 16; TEMP 35.9; O2SAT 95
[2022-11-29] MEDS: GABAPENTIN 600 MG TABLET PO ×2 (08:43→20:42)
[2022-11-29] MEDS: buPROPion XL 150 MG TAB PO (08:43)
[2022-11-29] MEDS: ATORVASTATIN 20 MG TABLET PO (08:43)
[2022-11-29] MEDS: ROPINIROLE 1 MG TABLET 2 MG PO (08:43)
[2022-11-29] MEDS: POTASSIUM CHLORIDE 10 MEQ TAB PO (08:43)
[2022-11-29] MEDS: SODIUM CHLORIDE 0.9% FLUSH 10 ML IV ×2 (08:44→20:42)
[2022-11-29] MEDS: NYSTATIN POWDER 15GM 1 APPLIC TOP ×2 (08:45→20:44)
[2022-11-29] MEDS: LETROZOLE 2.5 MG TABLET PO (08:45)
--- NOTE | 2022-11-29 09:12 | PM.PN.1 ---
Subjective Subjective Interval history: 57-year-old female with breast cancer with metastases to the spine status post spinal stabilization surgery with rods, hypertension, diabetes, and class 3 obesity who presented to the emergency department yesterday after a slide to the floor 1 week prior to admission with subsequent inability to get back up.? She was admitted with unstageable decubitus ulcers.? Pt is now POD #16 from surgical debridement of wounds. She is presently hospital day #20. Pt has been accepted to [facility] and insurance auth has been obtained. They do not yet have beds. Pt reports she has had diarrhea over the past 2 days. She notes she has been given Imodium with improvement in her stools. Appetite is good. She reports she has been up to the bathroom twice now and feels her mobility continues to improve. Pain is down to 2-3/10 this am. RN notes that discussion occurred yesterday about d/c'ing cunningham cath and placing purewick. No supplies were available yesterday. Pt is requesting the cunningham stay in place for skin healing. Exam Vital Signs (past 8 hours): - 11/29/22 06:00 Temperature 96.7 F L Pulse Rate 81 Respiratory Rate 16 Blood Pressure 104/57 L Pulse Oximetry 95 Oxygen Flow Rate 0 Oxygen Delivery Method Room Air Oxygen Flow Rate 0 Narrative Exam Narrative: GEN:? Middle-aged female, very pleasant, Alert and oriented x 3, NAD HEENT:NC, Face symmetric CHEST: Respiratory excursions symmetric, CTAB CV: RRR, II/ systolic murmur heard best at LSB, no rubs/gallops ABD: Soft, NT/ND, BT present in all 4 quadrants, body habitus limits exam EXTR: warm, well perfused, no C/C/E SKIN: warm and dry, buttock and thigh lesions were not visualized, skin to the bilateral calves is now fully intact w/healing of prior abraded skin NEURO: Alert and oriented x 3, nonfocal Objective Labs Result Diagrams: 11/27/22 08:13 11/27/22 08:13 [facility] Medical History DVT (deep venous thrombosis) Pulmonary embolism Social History household members: none Smoking Status: Never smoker Assessment & Plan Assessment & Plan narrative: 1. ? Unstageable pressure wounds-DTI's to the bilateral medial buttocks in the perianal region, right lower buttock/upper and inner thigh, now POD #16 from debridement Pt does have improving mobility overall, but would be unable to have BID dressing changes at home w/HH. She has been accepted to [facility] but they have no beds available until next week. Continue working on offloading pressure, frequent repositioning.? Patient does not wish to pursue diverting colostomy.? Fentanyl patch for pain 2. Superficial pressure injury to the bilateral calves and lower and mid bilateral back improving overall. Continue offloading pressure as able. 3. Metastatic breast cancer, known bony metastasis Continue letrozole.? Hospice was unable to accommodate her extensive wound care needs.? Will need outpatient f/u.? She had been scheduled for restaging studies for the week after admission. 4. Diabetes mellitus type 2, excellent baseline control with hemoglobin A1c of 5.2% Continue controlled carb diet and fingerstick/sliding scale.? Blood sugars remain fairly well controlled, ranging from 108-184 in the past 24 hours.? 5.? Hypotension Improved. All SBPs above 100 in the past 24 hrs. 6. Anemia Normocytic.? Suspect she has anemia of chronic inflammatory disease related to her cancer.? Hemoglobin was stable at 7.4 on 11/27. 7. Hypothyroidism Continue outpatient dose of levothyroxine 8. Hyperlipidemia Continue Crestor (currently on atorvastatin d/t formulary substitution) 9. Restless leg syndrome Continue usual outpatient dose of ropinirole 10. Chronic anticoagulation Continue Xarelto 11.? Hyponatremia Resolved on most recent labs on 11/27 12.? Elevated creatinine Creatinine has normalized. 13. Diarrhea Will change miralax to PRN. Receiving imodium prn w/improvement. Code status Full Prophylaxis Xarelto Disposition Accepted and insurance auth'd for [facility]. Pending bed availability. Time Spent With Patient Critical Care time: I spent a total of [] minutes of critical care time on this patient's care today; this time is exclusive of procedural time. Quality VTE Deep Vein Thrombosis/Pulmonary Embolism Present on Admission: No
[2022-11-29] MEDS: OXYCODONE IR 10 MG TABLET PO ×2 (10:37→18:34)
[2022-11-29 11:20] VITALS: BP 94/52; PULSE 89; RESP 16; TEMP 36.4; O2SAT 92
--- NOTE | 2022-11-29 15:18 | PT.IPTN ---
Current Diagnoses Pressure ulcer of sacral region, unspecified stage (11/09/22) Pressure ulcer of unspecified site, unspecified stage (11/09/22) Surgery Performed Operation Date: 11/13/22 15:15 Actual Procedures p debride sacral wound - Filiberto Wilcox MD Operation Date: 11/27/22 07:45 <No data on this case meets the specified criteria> Physical Therapy Treatment Note M2 PT-IP Current Condition Start: 11/10/22 09:11 Freq: NEEDED Status: Active Protocol: Document 11/26/22 10:01 SP (Rec: 11/26/22 11:27 SP [id number]) Physical Therapy Current Condition Current Condition Evaluation Date 11/20/22 Treatment Diagnosis GLF; sacral decubitus ulcer; difficulty in walking Onset Date 11/09/22 M3 PT-IP Subjective Start: 11/10/22 09:11 Freq: NEEDED Status: Active Protocol: Document 11/29/22 15:05 LJ (Rec: 11/29/22 15:18 LJ [id number]) Subjective Physical Therapy Visit Type Type Treatment Note Visit Start Time 13:16 Visit Stop Time 13:47 Total Visit Minutes 31 Number of PATROL DRIVER Visits 1 Physical Therapy Visit Comments Patient Comments Pt wanting to get up and attempt to walk to the bathroom. Patient Goals Use bathroom Therapy Pain Assessment Pain When Pain Assessed At Rest Pain Present Pain Present Pain Reported Location sacral region/ wound Intensity 5 Description With Movement Pain Behaviors Facial Grimacing,Wincing Pain Management Techniques Distraction,Modification of Treatment,Re-positioning M4 PT-IP Mobility and Gait Start: 11/10/22 09:11 Freq: NEEDED Status: Active Protocol: Document 11/29/22 15:05 LJ (Rec: 11/29/22 15:18 LJ [id number]) PT-Bed Mobility Assessment Supine to Sit Supine to Sit Standby Assistance,1 Person Assistance,Head of Bed Elevated,Bedrails Scooting Scooting to Edge of Bed Moderate Assistance PT-Transfer Assessment Sit to and From Stand Sit to and from Stand Standby Assistance,Contact Guard Assistance,1 Person Assistance,Use of Upper Extremities Equipment Transfer Assistive Device Gait Belt,Front Wheeled Walker Orthotic/Prosthetic Devices or Brace: No Transfers Transfer Destination Chair,Bedside Commode Transfer Ability Level of Assist Standby Assistance,Contact Guard Assistance,Use of Upper Extremities Comments Mobility Comments With HOB elevated, pt completed supine to sit SBA/ CGA going toward the right and using left bed rail. Mod A to scoot toward EOB with use of draw pad. Pt stood at EOB with FWW and CGA. She stated she needed to use the commode due to urgent sense of diarrhea. She transferred to the [facility] with FWW CGA. Pt sat on BSC ~ 15 min then requested to walk to the chair. Pt stood leaning using one UE pushing from arm rest and other UE pulling on braced FWW. Pt then stood leaning elbows on top rung of FWW for ~2 min while pericare performed by therapist. Pt then ambulated to chair on other side of room CGA. Pt lowered self into chair gently and used armrests to scoot back. Pillows were placed behind back and feet elevated. Pt given all needs within reach and call light in lap. Gait Assessment Gait Gait Assistance Required: Standby Assistance,Contact Guard Assist Distance (Feet) 15 Able to Maintain Weight Bearing Status Yes During Gait Assistive Devices Assistive Device Gait Belt,Front Wheeled Walker Orthotic/Prosthetic Devices or Brace: No Gait Deviations General Gait Pattern Antalgic,Decreased Stride Length,Decreased Feet Clearance,Wide Based Gait Factors Limiting Gait Function Factors Limiting Gait Function Decreased Activity Tolerance, Decreased Strength,Limited Range of Motion,Pain Comments Gait Comments see mobility comments. Stair Climbing Assessment Comments Stair Climbing Comments Pt has 2 steep stairs into RV to manage vs BLS transportation for safe DC home vs SNF. Unable to complete at this time due to decreased strength and activity tolerance. Timing also conflicted with wound care needs PT-Balance Assessment Sitting Balance and Reactions Static Sitting Balance Ability Normal Dynamic Sitting Balance Ability Good Standing Balance and Reactions Static Standing Balance Ability Good Dynamic Standing Balance Ability Fair Device Used FWW M5 PT-IP Objective Assessments Start: 11/10/22 09:11 Freq: NEEDED Status: Active Protocol: Document 11/20/22 10:40 AB (Rec: 11/20/22 13:21 AB [id number]) Orientation Orientation/Cognition Level of Alertness Alert Orientation Name,Place,Situation Language Function Ability No Deficits Noted Safety Awareness Decreased Safety Awareness Memory Description No Deficits Noted Strength Lower Extremity Strength Assessment Bilaterally Impaired Hip 3-/5 Knee 3+/5 Muscle Tone Muscle Tone WNL Yes M6 PT-IP Treatment Start: 11/10/22 09:11 Freq: NEEDED Status: Active Protocol: Document 11/29/22 15:05 MISAEL (Rec: 11/29/22 15:18 LJ [id number]) Physical Therapy Treatment Education Education Provided Safety M7 PT-IP Assessment and Plan Start: 11/10/22 09:11 Freq: NEEDED Status: Active Protocol: Document 11/29/22 15:05 MISAEL (Rec: 11/29/22 15:18 LJ [id number]) PT Summary Assessment and Plan Potential Rehabilitation Potential Fair Status of Condition at Evaluation Evolving Summary Progress Towards Goals Slow Progress due to Pain,Slow Progress due to Medical Issues,Slow Progress due to Activity Tolerance Assessment Summary No significant change in assist needed for mobility today but pt is very willing to participate. Will continue to assess progress, recommending SNF vs home with 23/06 assist. Pt does not have anyone to assist her at home. Goals Bed Mobility Goal Minimal Assistance Transfer Goal Standby Assistance,Front Wheeled Walker Gait Goal Standby Assistance,Front Wheel Walker Gait Distance 100 Other Goals - up/down 2 steps with L rail ascending min A Days to Meet Goals 10 Frequency of Treatment Frequency Of Treatment Once a Day Treatment Plan Physical Therapy Treatment Plan Bed Mobility Training,Transfer Training,Gait Training, Therapeutic Exercise,Balance Retraining,Discharge Planning, Hot or Cold Pack,Neuromuscular Re-ed Other Recommendations and Next Treatment bed mob, transfers/ gait w/ Focus FWW, 2 step stair mgt L HR when able Precautions Other Precautions Extra care to avoid shear forces due to pressure injuries. Recommendations To Nursing Amount of Assist Needed 2 Person Assist Discharge Recommendations PT Discharge Recommendations SNF Rehab Transportation Needs at Discharge Wheelchair/Cabulance,Stretcher /Ambulance
[2022-11-29] MEDS: INSULIN LISPRO 100 UNIT/ML 3ML VIAL SUBCUT (17:21)
[2022-11-29 17:45] VITALS: BP 102/57; PULSE 88; RESP 16; TEMP 36.6; O2SAT 94
[2022-11-29] MEDS: RIVAROXABAN 10 MG TABLET 20 MG PO (18:34)
[2022-11-29 23:29] VITALS: BP 101/52; PULSE 87; RESP 17; TEMP 36.4; O2SAT 93
[2022-11-30] MEDS: HYDROMORPHONE 0.5 MG INJ IV ×2 (04:42→10:34)
[2022-11-30] MEDS: LEVOTHYROXINE 150 MCG TABLET PO (05:12)
[2022-11-30 05:14] VITALS: BP 123/72; PULSE 93; RESP 19; TEMP 36.4; O2SAT 95
[2022-11-30] MEDS: OXYCODONE IR 5 MG TABLET PO (05:14)
--- NOTE | 2022-11-30 05:28 | PC.NURSE ---
Pt is AxOx4, bed bound and cooperative. VSS, pt c/o pain on her wound and recieved PRN IV Dilaudid x2 and PO Oxy 5mg x1 for dressing change. BG-157 so pt did not need coverage. Dressing changed on her bottom. [place] is draining yellow urine output. Pt slept well between care. Continue monitor.
[2022-11-30] MEDS: ATORVASTATIN 20 MG TABLET PO (08:53)
[2022-11-30] MEDS: POTASSIUM CHLORIDE 10 MEQ TAB PO (08:53)
[2022-11-30] MEDS: GABAPENTIN 600 MG TABLET PO ×2 (08:53→21:11)
[2022-11-30] MEDS: buPROPion XL 150 MG TAB PO (08:59)
[2022-11-30] MEDS: LETROZOLE 2.5 MG TABLET PO (09:00)
[2022-11-30] MEDS: ROPINIROLE 1 MG TABLET 2 MG PO (09:01)
[2022-11-30] MEDS: SODIUM CHLORIDE 0.9% FLUSH 10 ML IV ×2 (10:35→21:24)
[2022-11-30 12:00] VITALS: BP 104/58; PULSE 62; RESP 18; TEMP 37.5; O2SAT 92
--- NOTE | 2022-11-30 14:27 | PT-IP ANOTE ---
Pt refused PT x2 stating she is in too much pain and the pin medication isn't working. Will check back tomorrow.
[2022-11-30] MEDS: fentaNYL 50 MCG/PATCH TOP (14:52)
[2022-11-30] MEDS: OXYCODONE IR 10 MG TABLET PO ×2 (14:52→21:11)
[2022-11-30 17:48] VITALS: BP 100/61; PULSE 84; RESP 18; TEMP 36.9; O2SAT 98
--- NOTE | 2022-11-30 18:12 | P.PN_ITS ---
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 Patient is postop surgical debridement of wounds and awaiting transfer to [facility]. Patient has known new concerns or complaints. Exam Vital Signs (past 8 hours): - 11/30/22 12:00 11/30/22 12:00 11/30/22 17:48 Temperature 99.5 F 98.4 F Pulse Rate 62 84 Respiratory Rate 18 18 18 Blood Pressure 104/58 L 100/61 Pulse Oximetry 92 98 Oxygen Flow Rate 0 0 Oxygen Delivery Method Room Air Oxygen Flow Rate 0 Narrative Exam Narrative: General: Alert and pleasant Lungs: Nonlabored Neurological: Normal affect and speech, fully oriented Objective Labs Result Diagrams: 11/27/22 08:13 11/27/22 08:13 [facility] Medical History DVT (deep venous thrombosis) Pulmonary embolism Social History household members: none Smoking Status: Never smoker Assessment & Plan Assessment & Plan narrative: 1. ? Unstageable pressure wounds-DTI's to the bilateral medial buttocks in the perianal region -POD #15 from surgery -continue to offload as able -patient declines diverting colostomy -fentanyl patch for pain -continue PT 2. Metastatic breast cancer, known bony metastasis Continue letrozole.? -hospice unable to provide needed wound care 3. Diabetes mellitus type 2, excellent baseline control with hemoglobin A1c of 5.2% -diabetic diet -insulin sliding scale achs 5.? Hypotension Patient continues to have mild hypotension, not symptomatic.? Systolic Blood pre ssures have been in the high 90s to low 100s. Dispo: Case management attempt SNF placement or LTAC, awaiting insurance authorization for [facility] Time Spent With Patient Critical Care time: I spent a total of [] minutes of critical care time on this patient's care today; this time is exclusive of procedural time. Quality VTE Deep Vein Thrombosis/Pulmonary Embolism Present on Admission: No
[2022-11-30] MEDS: RIVAROXABAN 10 MG TABLET 20 MG PO (21:11)
[2022-11-30] MEDS: NYSTATIN POWDER 15GM 1 APPLIC TOP (21:12)
[2022-12-01] VITALS: BP 109/63; PULSE 83; RESP 16; TEMP 36.9; O2SAT 96
[2022-12-01] MEDS: OXYCODONE IR 10 MG TABLET PO ×6 (02:42→22:13)
[2022-12-01] MEDS: HYDROMORPHONE 0.5 MG INJ IV ×3 (03:35→23:32)
[2022-12-01] MEDS: LEVOTHYROXINE 150 MCG TABLET PO (06:34)
[2022-12-01 08:30] VITALS: BP 110/74; PULSE 91; RESP 18; TEMP 36.8; O2SAT 95
--- NOTE | 2022-12-01 09:15 | PC.NURSE ---
Assess- Patient is alert and oriented x4, she is lying in bed in supine position, we are trying to reposition her every 2 hours. Dressing change was done at 0300, will check dressing later this afternoon and change it. Patient will be given oxycodone at 0930 at her request. Medications will also be given. Patient ate well at breakfast and her blood sugar was 122.
[2022-12-01] MEDS: ATORVASTATIN 20 MG TABLET PO (09:29)
[2022-12-01] MEDS: buPROPion XL 150 MG TAB PO (09:30)
[2022-12-01] MEDS: POTASSIUM CHLORIDE 10 MEQ TAB PO (09:30)
[2022-12-01] MEDS: ROPINIROLE 1 MG TABLET 2 MG PO (09:30)
[2022-12-01] MEDS: GABAPENTIN 600 MG TABLET PO ×2 (09:30→21:05)
[2022-12-01] MEDS: NYSTATIN POWDER 15GM 1 APPLIC TOP (09:32)
[2022-12-01] MEDS: LETROZOLE 2.5 MG TABLET PO (09:32)
[2022-12-01] MEDS: SODIUM CHLORIDE 0.9% FLUSH 10 ML IV ×2 (09:32→21:06)
--- NOTE | 2022-12-01 10:51 | PT.IPTN ---
Current Diagnoses Pressure ulcer of sacral region, unspecified stage (11/09/22) Pressure ulcer of unspecified site, unspecified stage (11/09/22) Surgery Performed Operation Date: 11/13/22 15:15 Actual Procedures p debride sacral wound - Filiberto Wilcox MD Operation Date: 11/27/22 07:45 <No data on this case meets the specified criteria> Physical Therapy Treatment Note M2 PT-IP Current Condition Start: 11/10/22 09:11 Freq: NEEDED Status: Active Protocol: Document 11/26/22 10:01 SP (Rec: 11/26/22 11:27 SP [id number]) Physical Therapy Current Condition Current Condition Evaluation Date 11/20/22 Treatment Diagnosis GLF; sacral decubitus ulcer; difficulty in walking Onset Date 11/09/22 M3 PT-IP Subjective Start: 11/10/22 09:11 Freq: NEEDED Status: Active Protocol: Document 12/01/22 10:25 LJ (Rec: 12/01/22 10:51 LJ [id number]) Subjective Physical Therapy Visit Type Type Treatment Note Visit Start Time 09:03 Visit Stop Time 09:39 Total Visit Minutes 36 Number of FREIGHT WEIGHER Visits 2 Physical Therapy Visit Comments Patient Comments Pt wanting to get up and attempt to walk to the bathroom. Patient Goals walk farther Therapy Pain Assessment Pain When Pain Assessed At Rest Pain Present Pain Present Pain Reported Location sacral region/ wound Intensity 5 Description With Movement Pain Behaviors Facial Grimacing,Wincing Pain Management Techniques Distraction,Modification of Treatment,Re-positioning M4 PT-IP Mobility and Gait Start: 11/10/22 09:11 Freq: NEEDED Status: Active Protocol: Document 12/01/22 10:25 LJ (Rec: 12/01/22 10:51 LJ [id number]) PT-Bed Mobility Assessment Supine to Sit Supine to Sit Standby Assistance,1 Person Assistance,Head of Bed Elevated,Bedrails Scooting Scooting to Edge of Bed Moderate Assistance PT-Transfer Assessment Sit to and From Stand Sit to and from Stand Standby Assistance,1 Person Assistance,Use of Upper Extremities Equipment Transfer Assistive Device Gait Belt,Front Wheeled Walker Orthotic/Prosthetic Devices or Brace: No Transfers Transfer Destination Chair,Toilet Transfer Ability Level of Assist Standby Assistance,Use of Upper Extremities Comments Mobility Comments With HOB elevated, pt completed supine to sit SBA/ CGA going toward the right. Mod A to scoot toward EOB with use of draw pad. Pt completed sit>stand SBA. Pt walked to toilet SBA and lowered self onto seat using FWW and left grab bar. Upon completing toileting, pt stood using left grab bar and FWW. Pt stood for pericare thenn ambulated in hallway SBA. Returned to room to sit in chair. Lowered self into chair using arm rests. Pillows placed for comfort and pt given all needs within reach. Gait Assessment Gait Gait Assistance Required: Standby Assistance Distance (Feet) 100 Able to Maintain Weight Bearing Status Yes During Gait Assistive Devices Assistive Device Gait Belt,Front Wheeled Walker Orthotic/Prosthetic Devices or Brace: No Gait Deviations General Gait Pattern Antalgic,Decreased Stride Length,Decreased Feet Clearance,Wide Based Gait Factors Limiting Gait Function Factors Limiting Gait Function Decreased Activity Tolerance, Decreased Strength,Limited Range of Motion,Pain Comments Gait Comments Pt ambulating much further today. She walked from bed to toilet then out into hallway then back to chair in room ~ 100'. Flexed trunk and heavy lean on FWW with occasionally resting forearms on top of FWW. Pt steady on her feet. Gait distance limited by pain and fatigue. Stair Climbing Assessment Comments Stair Climbing Comments Pt has 2 steep stairs into RV to manage vs BLS transportation for safe DC home vs SNF. Unable to complete at this time due to decreased strength and activity tolerance. Timing also conflicted with wound care needs PT-Balance Assessment Sitting Balance and Reactions Static Sitting Balance Ability Normal Dynamic Sitting Balance Ability Good Standing Balance and Reactions Static Standing Balance Ability Good Dynamic Standing Balance Ability Good Device Used FWW M5 PT-IP Objective Assessments Start: 11/10/22 09:11 Freq: NEEDED Status: Active Protocol: Document 11/20/22 10:40 AB (Rec: 11/20/22 13:21 AB [id number]) Orientation Orientation/Cognition Level of Alertness Alert Orientation Name,Place,Situation Language Function Ability No Deficits Noted Safety Awareness Decreased Safety Awareness Memory Description No Deficits Noted Strength Lower Extremity Strength Assessment Bilaterally Impaired Hip 3-/5 Knee 3+/5 Muscle Tone Muscle Tone WNL Yes M6 PT-IP Treatment Start: 11/10/22 09:11 Freq: NEEDED Status: Active Protocol: Document 12/01/22 10:25 LJ (Rec: 12/01/22 10:51 MISAEL [id number]) Physical Therapy Treatment Education Education Provided Safety M7 PT-IP Assessment and Plan Start: 11/10/22 09:11 Freq: NEEDED Status: Active Protocol: Document 12/01/22 10:25 MISAEL (Rec: 12/01/22 10:51 MISAEL [id number]) PT Summary Assessment and Plan Potential Rehabilitation Potential Fair Status of Condition at Evaluation Evolving Summary Progress Towards Goals Slow Progress due to Pain,Slow Progress due to Medical Issues,Slow Progress due to Activity Tolerance Assessment Summary Pt progressing gait distance and level of tolerance for activity today. Will continue to assess progress. Recommend SNF vs home with 23/06 assist. Pt does not have anyone to assist her at home Goals Bed Mobility Goal Minimal Assistance Transfer Goal Standby Assistance,Front Wheeled Walker Gait Goal Standby Assistance,Front Wheel Walker Gait Distance 100 Other Goals - up/down 2 steps with L rail ascending min A Days to Meet Goals 10 Frequency of Treatment Frequency Of Treatment Once a Day Treatment Plan Physical Therapy Treatment Plan Bed Mobility Training,Transfer Training,Gait Training, Therapeutic Exercise,Balance Retraining,Discharge Planning, Hot or Cold Pack,Neuromuscular Re-ed Other Recommendations and Next Treatment bed mob, transfers/ gait w/ Focus FWW, 2 step stair mgt L HR when able Precautions Other Precautions Extra care to avoid shear forces due to pressure injuries. Recommendations To Nursing Amount of Assist Needed 1 Person Assist Discharge Recommendations Transportation Needs at Discharge Wheelchair/Cabulance,Stretcher /Ambulance
--- NOTE | 2022-12-01 10:51 | PC.NURSE ---
Addendum entered by Sarah De Anda R.N. 12/01/22 12:10: Patients dressing change done after she showered, Patient walked back to bed and 0.5mg of iv dilaudid given to patient. She layed down on her r.side, area's cleansed with normal saline, dressings packed with 4x4 gauze that was wet and dry 4x4s applied to outer buttocks. Metapor tape applied to area's and patient lying back down supine. She will only lay supine, she did better with this dressing changed and was in less pain. She is resting comfortably and getting ready for lunch. Original Note: Patient became agitate when explaining to her that the IV dilaudid she has been receiving prior or after her dressing changes is tid prn. Stating on the order for dressing changes. She states that she talked to the Dr and he states that she can have one more injection. This is not how the order is written. This RN showed patient the order, and she states you dont have too, I believe you! She also just had 10mg of oxycodone at 0930, this RN told her that she just had oxycodone and she stated that she hurt. Patient was given dilaudid 0.5mg before dressing change this morning at 300. She is going to get a shower now, and will get dilaudid iv prior to dressing change. Patient calm now that she knows how the orders are written. CONCERT MANAGER to help patient with her shower.
--- NOTE | 2022-12-01 11:06 | P.PN_ITS ---
Subjective Subjective Date Patient Seen: 12/01/22 Time Patient Seen: 13:51 Interval history: Patient has no complaints. She is awaiting [facility] insurance auth and has already been accepted with a bed waiting for her. Exam Vital Signs (past 8 hours): - 12/01/22 08:30 Temperature 98.3 F Pulse Rate 91 H Respiratory Rate 18 Blood Pressure 110/74 Pulse Oximetry 95 Oxygen Flow Rate 0 Oxygen Delivery Method Room Air Oxygen Flow Rate 0 Narrative Exam Narrative: GEN:? Middle-aged female, very pleasant, Alert and oriented x 3, NAD HEENT:NC, Face symmetric CHEST: Respiratory excursions symmetric, CTAB CV: RRR, II/ systolic murmur heard best at LSB, no rubs/gallops ABD: Soft, NT/ND, BT present in all 4 quadrants, body habitus limits exam EXTR: warm, well perfused, no C/C/E SKIN: warm and dry, buttock and thigh lesions were not visualized, skin to the bilateral calves is now fully intact w/healing of prior abraded skin NEURO: Alert and oriented x 3, nonfocal Objective Labs Result Diagrams: 11/27/22 08:13 11/27/22 08:13 [facility] Medical History DVT (deep venous thrombosis) Pulmonary embolism Social History household members: none Smoking Status: Never smoker Assessment & Plan Assessment & Plan narrative: 1. ? Unstageable pressure wounds-DTI's to the bilateral medial buttocks in the perianal region -underwent debridement with gen surg on 11/13 -continue to offload as able -patient declines diverting colostomy -fentanyl patch for pain -continue PT -continue wound care, pt declined wound vac 2. Metastatic breast cancer, known bony metastasis Continue letrozole.? -hospice unable to provide needed wound care 3. Diabetes mellitus type 2, excellent baseline control with hemoglobin A1c of 5.2% -diabetic diet -insulin sliding scale achs 5.? Hypotension Patient continues to have mild hypotension, not symptomatic.? Systolic Blood pressures have been in the high 90s to low 100s. Dispo: Case management has gotten patient accepted at [facility], awaiting insurance authorization for [place]. Time Spent With Patient Critical Care time: I spent a total of [] minutes of critical care time on this patient's care today; this time is exclusive of procedural time. Quality VTE Deep Vein Thrombosis/Pulmonary Embolism Present on Admission: No
[2022-12-01 12:00] VITALS: BP 99/58; PULSE 92; RESP 17; TEMP 36.8; O2SAT 97
[2022-12-01] MEDS: INSULIN LISPRO 100 UNIT/ML 3ML VIAL SUBCUT ×2 (12:18→17:14)
--- NOTE | 2022-12-01 13:51 | CM.DPNOTE ---
DCP Note Spoke w/Yen at [facility] this morning (used Peggy's cell number). The barrier today to admission is the employment review that is being conducted. All information was collected Friday from patient but admin staff not in office this so review and approval delayed. Yen available for updates Friday and anticipates that patient can admit Friday if this step has been cleared. [facility] has 2 beds available today Patient walking outside her room today with FWW and CGA from RESPIRATORY CARE TECHNICIAN JW
[2022-12-01] MEDS: RIVAROXABAN 10 MG TABLET 20 MG PO (17:17)
[2022-12-01 18:00] VITALS: BP 92/54; PULSE 85; RESP 18; TEMP 37; O2SAT 94
[2022-12-01 20:50] VITALS: BP 115/63; PULSE 93; RESP 16; TEMP 36.9; O2SAT 97
[2022-12-02] MEDS: OXYCODONE IR 10 MG TABLET PO ×7 (01:34→23:50)
--- NOTE | 2022-12-02 02:24 | PC.NURSE ---
This nurse has taken care of this patient multiple times and noticed that pt is asking for pain medication more often. Pt needs encouragement to turn in bed side to side but mainly prefers to stay on her back. Dressing change done tonight with encouragement. Pt now has foul smell coming out of her wound which is a change for this patient. This nurse tried to explain to pt that she needs to turn more in bed side to side and that a wound vac would be beneficial for this type of wounds to heal. Pt wound bed is beefy red and oozing bloody drainage during dressing change. At the moment dressing change with wet to dry dressing and securing with dry 4x4 and medipore tape (according to wound MD we are supposed to be using Dakin's solution which we don't have available).
[2022-12-02] MEDS: LEVOTHYROXINE 150 MCG TABLET PO (05:56)
[2022-12-02 06:44] VITALS: BP 113/63; PULSE 85; RESP 17; TEMP 36.4; O2SAT 94
--- NOTE | 2022-12-02 08:23 | PC.NURSE ---
Addendum entered by Sarah De Anda R.N. 12/02/22 17:38: Patient refused her dressing change at 1600. States I am in too much pain, given oxycodone for discomfort of 10/10 and this has been helpful for discomfort. She is resting comfortably now and denies discomfort. This RN really encouraged patient to let us change her dressing, as per report from night patrol inspector nurse this morning patients wounds were starting to smell. Patient is aware of this and knows that wounds could get worse without frequent dressing changes. She still does not want it done right now. Original Note: Patients blood sugar 104 this morning. No insulin needed. Patient medicated with oxycodone at around 0600. This seems to be effective for pain control. Dressing change will be done mid shift, dilaudid will be given to patient prior. Wounds look better and smaller in size. They are beefy red and still wheep some bloody drainage. We are packing each one with wet to dry gauze, 4x4 and then tape. Duoderm was orignally the plan for the outer dressing but this is to much for her skin, and it causes her pain. Patient is comfortable and eating her breakfast.
--- NOTE | 2022-12-02 08:31 | CM.DPNOTE ---
Discharge Planning Note: Spoke with Yen at [facility] this morning. They have a bed but must complete the employer review before can be accepted. She is hopeful they are able to reach her employment, possibility of not being able to due to today is an observed holiday (12/02). She will work on and call to give an update. Plan: To [facility] via [facility] pending acceptance by [facility] today or tomorrow. Luna Daniel RN/DCP
[2022-12-02 08:39] VITALS: BP 99/54; PULSE 85; RESP 16; TEMP 36.7; O2SAT 95
--- NOTE | 2022-12-02 09:38 | PT-IP ANOTE ---
0926 Pt states she would like to wait for pain meds before walking in hallway. 10 mg Oxycodone given at 5:59
[2022-12-02] MEDS: ROPINIROLE 1 MG TABLET 2 MG PO (09:51)
[2022-12-02] MEDS: ATORVASTATIN 20 MG TABLET PO (09:52)
[2022-12-02] MEDS: GABAPENTIN 600 MG TABLET PO ×2 (09:52→20:55)
[2022-12-02] MEDS: buPROPion XL 150 MG TAB PO (09:52)
[2022-12-02] MEDS: POTASSIUM CHLORIDE 10 MEQ TAB PO (09:52)
[2022-12-02] MEDS: LETROZOLE 2.5 MG TABLET PO (09:53)
[2022-12-02] MEDS: NYSTATIN POWDER 15GM 1 APPLIC TOP (09:53)
[2022-12-02] MEDS: SODIUM CHLORIDE 0.9% FLUSH 10 ML IV ×2 (09:54→23:51)
[2022-12-02 10:34] LABS: Add Manual Diff / Slide Review NO; Basophils Absolute Auto 100 /uL (0-100); Basophils Percent Auto 0.7 % (0-2); Eosinophils Absolute Auto 500 /uL (0-450); Eosinophils Percent Auto 6.6 % (2-4); Hematocrit 21.9 % (36-46); Lymphocytes Absolute Auto 600 /uL (1100-4500); Mean Corpuscular Hemoglobin 30.9 PG (26-34); Mean Corpuscular Volume 96.5 fL (80-100); Monocytes Absolute Auto 400 /uL (0-900); Monocytes Percent Auto 6.4 % (3-14); Neutrophils Absolute Auto 5400 /uL (1500-7000); Neutrophils Percent Auto 77.3 % (50-75); Platelet Count 368 X10^3/uL (150-400); Red Blood Cell Count 2.27 X10^6/uL (4.0-5.2); Red Cell Distribution Width 20.8 % (11.6-14.8)
[2022-12-02 10:42] LABS: Alanine Aminotransferase 18 IU/L (<35); Albumin 3.2 g/dL (3.5-5.0); Albumin Globulin Ratio 0.9 (1.0-2.8); Alkaline Phosphatase 98 U/L (38-126); Aspartate Aminotransferase 31 IU/L (14-36); BUN Creatinine Ratio 15.3 (6-22); Bilirubin Total 0.8 mg/dL (0.2-1.3); Blood Urea Nitrogen 13 mg/dL (7-17); Calcium 8.9 mg/dL (8.4-10.2); Carbon Dioxide 27 mmol/L (22-32); Chloride 99 mmol/L (98-107); Estimated Glomerular Filt Rate > 60 mL/min (>60); Globulin 3.7 g/dL (1.7-4.1); Glucose 163 mg/dL (70-100); HEMOLYSIS 38 (0-50); Potassium 4.1 mmol/L (3.4-5.1); Sodium 135 mmol/L (137-145); Total Protein 6.9 g/dL (6.3-8.2)
[2022-12-02 10:43] LABS: Magnesium 1.9 mg/dL (1.6-2.3)
[2022-12-02 10:53] LABS: Anisocytosis 2+
[2022-12-02] MEDS: INSULIN LISPRO 100 UNIT/ML 3ML VIAL SUBCUT (12:11)
[2022-12-02 13:41] VITALS: BP 103/55; PULSE 89; RESP 16; TEMP 36.1; O2SAT 95
--- NOTE | 2022-12-02 14:21 | PT-IP ANOTE ---
Checked on pt in afternoon. States her pain is still too high to attempt moving. Educated pt on importance of repositioning but again she refused to move.
--- NOTE | 2022-12-02 16:25 | PM.PN.1 ---
Subjective Subjective Date Patient Seen: 12/02/22 Interval history: Patient has no complaints. Pain reported as controlled generally. She is awaiting [place] admin approval today and has already been accepted with a bed waiting for her. Exam Vital Signs (past 8 hours): - 12/02/22 08:39 12/02/22 13:41 Temperature 98.0 F 97.0 F L Pulse Rate 85 89 Respiratory Rate 16 16 Blood Pressure 99/54 L 103/55 L Pulse Oximetry 95 95 Oxygen Delivery Method Room Air Oxygen Flow Rate 0 Narrative Exam Narrative: GEN:? Middle-aged female, very pleasant, Alert and oriented x 3, NAD HEENT:NC, Face symmetric CHEST: Respiratory excursions symmetric, CTAB CV: RRR, II/ systolic murmur heard best at LSB, no rubs/gallops ABD: Soft, NT/ND, BT present in all 4 quadrants, body habitus limits exam EXTR: warm, well perfused, no C/C/E SKIN: warm and dry, buttock and thigh lesions were not visualized, skin to the bilateral calves is now fully intact w/healing of prior abraded skin NEURO: Alert and oriented x 3, nonfocal Objective Labs Result Diagrams: 12/02/22 10:20 12/02/22 10:20 Labs: Laboratory Results - last 24 hr 12/02/22 12/02/22 12/02/22 10:20 10:20 10:20 WBC 7.0 RBC 2.27 L Hgb 7.0 L Hct 21.9 L MCV 96.5 MCH 30.9 MCHC 32.0 RDW 20.8 H Plt Count 368 Neut % (Auto) 77.3 H Lymph % (Auto) 9.0 L [place] % (Auto) 6.4 Eos % (Auto) 6.6 H Baso % (Auto) 0.7 Neut # (Auto) 5400 Lymph # (Auto) 600 L [place] # (Auto) 400 Eos # (Auto) 500 H Baso # (Auto) 100 RBC Morphology Not Reportable Anisocytosis 2+ H Sodium 135 L Potassium 4.1 Chloride 99 Carbon Dioxide 27 BUN 13 Creatinine 0.85 Estimated GFR > 60 BUN/Creatinine Ratio 15.3 Glucose 163 H Calcium 8.9 Magnesium 1.9 Total Bilirubin 0.8 AST 31 ALT 18 Alkaline Phosphatase 98 Total Protein 6.9 Albumin 3.2 L Globulin 3.7 Albumin/Globulin Ratio 0.9 L PFSH Medical History DVT (deep venous thrombosis) Pulmonary embolism Social History household members: none Smoking Status: Never smoker Assessment & Plan Assessment & Plan narrative: 1. ? Unstageable pressure wounds-DTI's to the bilateral medial buttocks in the perianal region -underwent debridement with gen surg on 11/13 -continue to offload as able -patient declined diverting colostomy -fentanyl patch for pain -continue PT -continue wound care, pt declined wound vac 2. Metastatic breast cancer, known bony metastasis Continue letrozole.? -hospice unable to provide needed wound care 3. Diabetes mellitus type 2, excellent baseline control with hemoglobin A1c of 5.2% -diabetic diet -insulin sliding scale achs 5.? Hypotension Patient continues to have mild hypotension, not symptomatic.? Systolic Blood pressures have been in the high 90s to low 100s. Dispo: Case management has gotten [facility] Time Spent With Patient Critical Care time: I spent a total of [] minutes of critical care time on this patient's care today; this time is exclusive of procedural time. Quality VTE Deep Vein Thrombosis/Pulmonary Embolism Present on Admission: No
[2022-12-02] MEDS: RIVAROXABAN 10 MG TABLET 20 MG PO (17:49)
[2022-12-02 18:35] VITALS: BP 116/71; PULSE 89; RESP 16; TEMP 35.8; O2SAT 93
[2022-12-02 23:59] VITALS: BP 111/61; PULSE 85; RESP 16; TEMP 36.5; O2SAT 95
[2022-12-03] MEDS: HYDROMORPHONE 0.5 MG INJ IV ×2 (01:10→11:25)
[2022-12-03] MEDS: OXYCODONE IR 10 MG TABLET PO ×3 (03:58→13:18)
[2022-12-03 06:08] VITALS: BP 101/53; PULSE 85; RESP 16; TEMP 36.8; O2SAT 93
[2022-12-03] MEDS: LEVOTHYROXINE 150 MCG TABLET PO (06:16)
[2022-12-03 08:06] VITALS: BP 115/68; PULSE 87; RESP 18; TEMP 37.2; O2SAT 97
[2022-12-03] MEDS: GABAPENTIN 600 MG TABLET PO (09:07)
[2022-12-03] MEDS: POTASSIUM CHLORIDE 10 MEQ TAB PO (09:07)
[2022-12-03] MEDS: ROPINIROLE 1 MG TABLET 2 MG PO (09:07)
[2022-12-03] MEDS: LETROZOLE 2.5 MG TABLET PO (09:08)
[2022-12-03] MEDS: FERROUS SULFATE 325 MG TABLET PO (09:08)
[2022-12-03] MEDS: ATORVASTATIN 20 MG TABLET PO (09:08)
[2022-12-03] MEDS: NYSTATIN POWDER 15GM 1 APPLIC TOP (09:08)
[2022-12-03] MEDS: buPROPion XL 150 MG TAB PO (09:08)
[2022-12-03] MEDS: SODIUM CHLORIDE 0.9% FLUSH 10 ML IV (09:09)
[2022-12-03] MEDS: ACETAMINOPHEN 325 MG TABLET 650 MG PO (09:14)
[2022-12-03] MEDS: IRON SUCROSE 200 MG in SODIUM CHLORIDE 0.9% 100 ML 220 MG IV (09:28)
--- NOTE | 2022-12-03 11:04 | CM.DPNOTE ---
Called [facility] for BLS transport. Spoke to Katelyn who said they have an ETA of about [phone] to Sek[facility] Mcdonald. Gaby Flores CM Assist.
--- NOTE | 2022-12-03 11:56 | P.DS_ITS ---
History of Present Illness History of Present Illness Chief complaint: fall, + thinners Narrative: 57 year old woman with metastatic breast cancer to spine s/p spine surgery and morbid obesity with a BMI of 55 who fell to the floor about a week ago.? She was able to change position but could not get up.? She spent some time on her back and some time in a seated position.? She has significant mobility challenges at baseline due to her spine metastases, neuropathy and obesity.? She was noted to have several pressure wounds when she was evaluated. Discharge Providers Provider Date of admission: 11/09/22 15:46 Discharge Date: 12/03/22 Primary care physician: Doctor Guero MD Consults: 11/09/22 18:42 Consult to Discharge Planning Routine Comment: Will need SNF at d/c Consult to Occupational Therapy Evaluate & Treat Comment: Physician Instructions: Evaluate and treat Consult to Physical Therapy Evaluate & Treat Comment: Physician Instructions: Evaluate and Treat Consult to Physician Routine Comment: Consulting Provider: Joni Swift Reason for consultation: Consideration of debridement of decubitus pressure wounds Has provider been notified: Yes 11/09/22 18:58 Consult to CHIEF EXECUTIVE OR MANAGING DIRECTOR - Client Specialist Routine Comment: 11/11/22 09:30 Consult to Dietitian, Adult Urgent Comment: Reason For Exam: decubitus wounds Consult to Wound Care Routine Comment: Consulting Provider: [facility] 11/20/22 09:40 Consult to Physical Therapy Evaluate & Treat Comment: Physician Instructions: Evaluate and Treat Discharge provider: Jairon Cha MD Summary Hospital Course Discharge Diagnosis: 1. Unstageable sacral pressure wounds, bilateral 2. Breast cancer metastatic to bone 3. History of DVT and PE 4. Type 2 diabetes with good control 5. Hypothyroidism 6. Chronic anemia secondary to bone metastases 7. Severe obesity, BMI 55 Procedure 11/13/2022: Surgeon: Dr. Filiberto Wilcox Sharp excisional debridement down to the fascia wounds 20 x 15 and 15 x 10 cm Hospital Course: Patient admitted due to bilateral sacral decubiti eye. Surgery was consulted and she had debridement in the OR. Her wound cultures did not grow anything and antibiotics were discontinued. Fentanyl patch was started for pain management. In addition patient is on gabapentin and as needed oxycodone. Her pain has been adequately controlled on this regimen. In regards to diabetes management, her blood sugars have been well controlled on low-dose sliding scale. She has not been started back on her metformin. Her A1c is 5.2. Her blood pressures tend to run low end of normal. In regards to breast cancer she has known mets to the spine and has history of spinal mohini placement. She is on palliative therapy with letrozole. Oncology career developer did come by during this admission and indicated there was no further additional plan therapy for patient. Patient has chronic severe anemia presumably due to her bone metastases. Her hemoglobin did drift down during admission likely partly from phlebotomies. She did get infusion of iron sucrose 200 mg IV on day of discharge. Iron studies were also ordered but not back at this time. She was continued on Xarelto for her history of DVT and PE. Status at Discharge Cognitive/behavioral status at discharge: oriented Time Spent with Patient Time spent: Greater than 30 minutes Exam Vital Signs (past 8 hours): - 12/03/22 06:08 12/03/22 08:06 Temperature 98.2 F 99.0 F Pulse Rate 85 87 Respiratory Rate 16 18 Blood Pressure 101/53 L 115/68 Pulse Oximetry 93 97 Oxygen Flow Rate 0 0 Oxygen Delivery Method Room Air Oxygen Flow Rate 0 Narrative Exam Narrative: General: Very pleasant and cooperative female not in acute distress Lungs: Clear Heart: Regular rhythm Abdomen: Soft Extremities: No distal edema Neurological: Normal affect and speech Objective Labs Result Diagrams: 12/02/22 10:20 12/02/22 10:20 [facility] Medical History DVT (deep venous thrombosis) Pulmonary embolism Social History household members: none Smoking Status: Never smoker Discharge Plan Discharge [facility]: [facility] Under care of provider: Dr Tyler Han Discharge Health Status Multidrug resistant organism: No MDRO Precautions: Julian Diet/Activity/Treatments Diet: Carb-consistent/Diabetic Liquid consistency: Normal/Thin Food texture: Regular Visit Report/Discharge Packet Stand Alone Forms: Patient Portal/API Discharge Data Primary Care Provider: Miscellaneous,Doctor Quality VTE Deep Vein Thrombosis/Pulmonary Embolism Present on Admission: No
[2022-12-03] MEDS: fentaNYL 50 MCG/PATCH TOP (12:29)
--- NOTE | 2022-12-03 13:15 | CM.DPNOTE ---
Discharge Planning Note: Patient has been accepted to [facility] in [place]. Repeated calls with grant coordinator Peggy, , to arrange. We arranged BLS transport for 1-1:30 pick-up. Doc to Doc and RN to RN numbers given for reports and doc/staff made aware. Accepting physician/hospitalist is Dr Tyler Han ([phone]). DC summary, MAR and clinicals sent. BLS form and Quality form completed. Patient and Nurse Maxwell had been updated earlier. Patient is more than ready to be discharged, quite pleasant this morning. Plan: Transfer to [facility] via S at 1-1:30 today. Luna Daniel, ERWIN/DCP
[2022-12-03 14:01] LABS: HEMOLYSIS < 15 (0-50); Iron 323 ug/dL (37-170)
[2022-12-03 14:12] LABS: Total Iron Binding Capacity 241 ug/dL (265-497); Transferrin 177 mg/dL (206-381)
[2022-12-03 14:15] LABS: Percent Iron Saturation 134 % (15-50)
[2022-12-03 14:36] LABS: Ferritin 51 ng/mL (11-264)
== END 2022-12-03 14:00 | DRG 264 ==
LOC: ED 14:18 → AC 15:49
PROVIDERS: Family Medicine; Internal Medicine; Nurse Practitioner Family; Student in an Organized Health Care Education/Training Program; Surgery; Admitting Provider Family Medicine; Emergency Provider Emergency Medicine; Referring Provider Emergency Medicine; Visit Provider Family Medicine
PROC: 0JB70ZZ Excision of Back Subcutaneous Tissue and Fascia, Open Approach (ICD-10-PCS; principal; 2022-11-13 15:15)
DX: I96 Gangrene, not elsewhere classified (principal); C79.51 Secondary malignant neoplasm of bone; Z68.43 Body mass index [BMI] 50.0-59.9, adult; N39.0 Urinary tract infection, site not specified; L89.150 Pressure ulcer of sacral region, unstageable; E11.52 Type 2 diabetes mellitus with diabetic peripheral angiopathy with gangrene; L89.320 Pressure ulcer of left buttock, unstageable; L89.310 Pressure ulcer of right buttock, unstageable; L89.890 Pressure ulcer of other site, unstageable; I10 Essential (primary) hypertension; C50.919 Malignant neoplasm of unspecified site of unspecified female breast; E03.9 Hypothyroidism, unspecified; E78.5 Hyperlipidemia, unspecified; G25.81 Restless legs syndrome; D63.0 Anemia in neoplastic disease; I95.9 Hypotension, unspecified; K59.00 Constipation, unspecified; E87.6 Hypokalemia; R19.7 Diarrhea, unspecified; E66.01 Morbid (severe) obesity due to excess calories; Z20.822 Contact with and (suspected) exposure to COVID-19; Z86.711 Personal history of pulmonary embolism; Z86.718 Personal history of other venous thrombosis and embolism; Z79.01 Long term (current) use of anticoagulants
CPT/HCPCS: 0241U; 36415; 36430; 71045; 74177; 80048; 80053; 80305; 80320; 80329; 81001; 82140; 82550; 82553; 82728; 82962; 83036; 83540; 83550; 83605; 83690; 83735; 83880; 84145; 84484; 85025; 85027; 85610; 85730; 86850; 86900; 86901; 87040; 87070; 87075; 87077; 87086; 87186; 87205; 87493; 93005; 96374; 97116; 97162; 97166; 97530; 97535; 99232; 99284; 99285; P9016; G0480; J0330; J0696; J1170; J1642; J1756; J1815; J2405; J2543; J2704; J3010; J3475; Q9967